=== PATIENT | female | born 1955 | race Two or more races ===

== ENCOUNTER 2018-03-05 17:30 | Inpatient (IN) | payer OTHER ==
--- NOTE | 2018-03-05 17:52 | PDOC ---
Rapid Medical Evaluation Time Seen by Provider: 03/05/18 17:47 Medical Evaluation: Allergies Allergy/AdvReac Type Severity Reaction Status Date / Time No Known Drug Allergies Allergy Verified 02/17/15 14:36 SEASONAL Allergy Uncoded 02/17/15 14:36 03/05/18 17:47 Pt c/o: rlq pain constant but worse at night x 3 days, pain w/ BM, denies constipation, denies hernia pt on brief exam: vss, no cva tenderness, rt suprapubic tenderness pt ordered for : ua, ucx, cbc, comp pt to proceed to the ED Discharge Disposition - Diagnosis Suprapubic pain - Referrals Referrals: Kamaljit Yoo MD [Primary Care Provider] - - Patient Instructions - Post Discharge Activity
[2018-03-05 18:22] LABS: BASO % 0.4 % (0-2.0); EOS % 2.1 % (0-4.5); LYMPH % 21.4 % (8-40); MCH 27.2 pg (25.7-33.7); MCHC 32.9 g/dl (32.0-36.0); MEAN CELL VOLUME 82.6 fl (80-96); MEAN PLT VOLUME 7.3 fl (7.5-11.1); MONO % 9.4 % (3.8-10.2); NEUT % 66.7 % (42.8-82.8); PLATELET COUNT 328 K/MM3 (134-434); RDW 15.3 % (11.6-15.6); WHITE BLOOD COUNT 9.1 K/mm3 (4.0-10.0)
[2018-03-05 18:26] LABS: HEMATOCRIT 39.7 % (32.4-45.2); HEMOGLOBIN 13.1 GM/dL (10.7-15.3)
[2018-03-05 18:54] LABS: ALK PHOS 99 U/L (45-117); ANION GAP 8 MMOL/L (8-16); BILIRUBIN,TOTAL 0.2 mg/dL (0.2-1); BLOOD UREA NITROGEN 19 mg/dL (7-18); CALCIUM 8.2 mg/dL (8.5-10.1); CHLORIDE 98 mmol/L (98-107); CO2 28 mmol/L (21-32); CREATININE 1.1 mg/dL (0.55-1.3); SGOT/AST 15 U/L (15-37); SGPT/ALT 15 U/L (13-61); SODIUM 135 mmol/L (136-145); TOT PROT 7.6 g/dl (6.4-8.2)
[2018-03-05 18:55] LABS: GLUCOSE,RANDOM 311 mg/dL (74-106)
[2018-03-05 19:12] LABS: URINE APPEARANCE CLEAR; URINE BILIRUBIN NEGATIVE (<2.0 mg/dL); URINE COLOR STRAW; URINE GLUCOSE (UA) 3+ (NEGATIVE); URINE KETONE NEGATIVE (NEGATIVE); URINE LEUK ESTERASE NEGATIVE (NEGATIVE); URINE NITRITE NEGATIVE (NEGATIVE); URINE PROTEIN NEGATIVE (NEGATIVE); URINE UROBILINOGEN NEGATIVE mg/dL (0.2-1.0)
[2018-03-05] MEDS ORDERED: ACETAMINOPHEN 500 MG TABLET (FP) PO ONE (20:07)
[2018-03-05] MEDS ORDERED: SODIUM CHLORIDE 1,000 ML IV STA ×2 (20:08→22:53)
[2018-03-05] MEDS ORDERED: ACETAMINOPHEN 1000 MG/100 ML VIAL (NON FORMULARY) IVPB ONE (20:08)
--- NOTE | 2018-03-05 20:08 | PDOC ---
History of Present Illness - General Chief Complaint: Pain, Acute Stated Complaint: RIGHT LEG PAIN Time Seen by Provider: 03/05/18 17:35 History Source: Patient Exam Limitations: No Limitations - History of Present Illness Initial Comments: 03/05/18 20:07 63 year old female with PMH DM presented to ED for RLQ x3 days. She stated the pain is intermittent, lasting 5-10 minutes at a time, started as "crampy" and now has progressed to "a pain", alleviated by warm compress, worsened at night time and with urination/defectation. She denied fever, chills, nausea, vomiting , diarrhea, constipation, dysuria, blood in stool, hematuria. Pt stated last BM today at 1100 AM, no straining, normal color and consistency. Pt stated she recently traveled to [place] x2 weeks ago. Past History - Past Medical History Allergies/Adverse Reactions: Allergies Allergy/AdvReac Type Severity Reaction Status Date / Time No Known Drug Allergies Allergy Verified 02/17/15 14:36 SEASONAL Allergy Uncoded 02/17/15 14:36 Home Medications: Ambulatory Orders metFORMIN HCL [Glucophage] 1,000 mg PO BID #0 tab 08/09/12 Glimepiride [Amaryl -] 4 mg PO BID 02/17/15 Insulin Glargine,Hum.rec.anlog [Lantus (nf)] 26 units SQ HS 02/17/15 Anemia: No Asthma: No Cancer: No Cardiac Disorders: No CVA: No COPD: No CHF: No Dementia: No Diabetes: Yes (iddm) GI Disorders: No Disorders: No HTN: No Hypercholesterolemia: No Liver Disease: No Seizures: No Thyroid Disease: No - Surgical History Abdominal Surgery: No Appendectomy: No Cardiac Surgery: No Cholecystectomy: No Lung Surgery: No Neurologic Surgery: No Orthopedic Surgery: No - Immunization History Immunization Up to Date: Yes - Suicide/Smoking/Psychosocial Hx Smoking Status: No Smoking History: Never smoked Have you smoked in the past 12 months: No Number of Cigarettes Smoked Daily: 0 Information on smoking cessation initiated: No Hx Alcohol Use: No Drug/Substance Use Hx: No Substance Use Type: Alcohol Hx Substance Use Treatment: No Review of Systems - Review of Systems Able to Perform ROS?: Yes Comments:: 03/05/18 20:13 General: denied fever, chills, night sweats, generalized weakness. HEENT: denied sore throat, rhinorrhea, ear pain. Heart: denied chest pain, palpitations, syncope, lower extremity swelling, diaphoresis. Respiratory: denied shortness of breath, cough, sputum production, hemoptysis. Abdomen: admitted to abdominal pain. denied nausea, vomiting, diarrhea, constipation, blood in stool. : denied dysuria, increased urinary frequency, hematuria, urinary incontinence , flank pain. Back: denied back pain. Musculoskeletal: denied joint pain, muscle pain, joint swelling. Neurological: denied headache, dizziness, numbness, tingling, weakness. Skin: denied rash, laceration, abrasion *Physical Exam - Vital Signs Last Vital Signs Temp Pulse Resp BP Pulse Ox 99.1 F 90 16 144/58 L 94 L 03/05/18 17:48 03/05/18 17:48 03/05/18 17:48 03/05/18 17:48 03/05/18 17:48 - Physical Exam Comments: 03/05/18 20:13 Constitutional: Well-nourished, Well-developed, appearing stated age. HEENT: head is normocephalic, atraumatic. EOMI. PERRLA. Neck: supple. Full ROM. Heart: regular rhythm. no murmurs, rubs or gallops. Lungs: clear to auscultation bilaterally. no crackles, rhonchi or wheezing. no stridor. Abdomen: soft. protuberant. tenderness to palpation of RLQ, no rebound. psoas negative. rovsing negative. normal bowel sounds. no guarding or masses. Extremities: Peripheral pulses intact. No lower extremity edema. Neurological: CN 2-12 grossly intact. Moves all four extremities. Psych: awake, alert, oriented x3. Follows commands. Answers questions appropriate ED Treatment Course - LABORATORY CBC & Chemistry Diagram: 03/05/18 18:12 03/05/18 18:12 - ADDITIONAL ORDERS Additional order review: Laboratory Results 03/05/18 03/05/18 18:53 18:12 Sodium 135 L Potassium 5.0 Chloride 98 Carbon Dioxide 28 Anion Gap 8 BUN 19 H Creatinine 1.1 Creat Clearance w eGFR 50.50 Random Glucose 311 H* Calcium 8.2 L Total Bilirubin 0.2 AST 15 ALT 15 Alkaline Phosphatase 99 Total Protein 7.6 Albumin 3.0 L Urine Color Straw Urine Appearance Clear Urine pH 6.0 Ur Specific [place] 1.011 Urine Protein Negative Urine Glucose (UA) 3+ H Urine Ketones Negative Urine Blood Negative Urine Nitrite Negative Urine Bilirubin Negative Urine Urobilinogen Negative Ur Leukocyte Esterase Negative 03/05/18 18:12 RBC 4.80 MCV 82.6 MCHC 32.9 RDW 15.3 D MPV 7.3 L Neutrophils % 66.7 Lymphocytes % 21.4 D Monocytes % 9.4 Eosinophils % 2.1 D Basophils % 0.4 Medical Decision Making - Medical Decision Making 03/05/18 20:16 63 year old female with PMH DM presented to ED for RLQ pain x3 days. No N/V/D/ constipation/fever. Pt recently traveled to [place] x2 weeks ago. Abdomen soft, tenderness to RLQ. Initial Vital Signs Temp Pulse Resp BP Pulse Ox 99.1 F 90 16 144/58 L 94 L 03/05/18 17:48 03/05/18 17:48 03/05/18 17:48 03/05/18 17:48 03/05/18 17:48 Afebrile. No tachycardia. No tachypnea. Mild hypertension, patient is in pain. - Tylenol ordered Mild hypoxia on room air. - No SOB, lungs clear, capillary refill<2 seconds, no tachypnea. CBC WBC 9.1 K/mm3 (4.0-10.0) 03/05/18 18:12 RBC 4.80 M/mm3 (3.60-5.2) 03/05/18 18:12 Hgb 13.1 GM/dL (10.7-15.3) 03/05/18 18:12 Hct 39.7 % (32.4-45.2) 03/05/18 18:12 MCV 82.6 fl (80-96) 03/05/18 18:12 MCH 27.2 pg (25.7-33.7) D 03/05/18 18:12 MCHC 32.9 g/dl (32.0-36.0) 03/05/18 18:12 RDW 15.3 % (11.6-15.6) D 03/05/18 18:12 Plt Count 328 K/MM3 (134-434) 03/05/18 18:12 MPV 7.3 fl (7.5-11.1) L 03/05/18 18:12 Absolute Neuts (auto) 6.1 K/mm3 (1.5-8.0) 03/05/18 18:12 Neutrophils % 66.7 % (42.8-82.8) 03/05/18 18:12 Lymphocytes % 21.4 % (8-40) D 03/05/18 18:12 Monocytes % 9.4 % (3.8-10.2) 03/05/18 18:12 Eosinophils % 2.1 % (0-4.5) D 03/05/18 18:12 Basophils % 0.4 % (0-2.0) 03/05/18 18:12 Nucleated RBC % 0 % (0-0) 03/05/18 18:12 No leukocytosis. No anemia. CMP Sodium 135 mmol/L (136-145) L 03/05/18 18:12 Potassium 5.0 mmol/L (3.5-5.1) 03/05/18 18:12 Chloride 98 mmol/L (98-107) 03/05/18 18:12 Carbon Dioxide 28 mmol/L (21-32) 03/05/18 18:12 Anion Gap 8 MMOL/L (8-16) 03/05/18 18:12 BUN 19 mg/dL (7-18) H 03/05/18 18:12 Creatinine 1.1 mg/dL (0.55-1.3) 03/05/18 18:12 Creat Clearance w eGFR 50.50 (>60) 03/05/18 18:12 Random Glucose 311 mg/dL (74-106) H* 03/05/18 18:12 Calcium 8.2 mg/dL (8.5-10.1) L 03/05/18 18:12 Total Bilirubin 0.2 mg/dL (0.2-1) 03/05/18 18:12 AST 15 U/L (15-37) 03/05/18 18:12 ALT 15 U/L (13-61) 03/05/18 18:12 Alkaline Phosphatase 99 U/L (45-117) 03/05/18 18:12 Total Protein 7.6 g/dl (6.4-8.2) 03/05/18 18:12 Albumin 3.0 g/dl (3.4-5.0) L 03/05/18 18:12 Hyperglycemia - 1000 cc normal saline ordered Normal electrolytes. No CRISTAL. Normal LFTs. Urine Test Results Urine Color Straw 03/05/18 18:53 Urine Appearance Clear 03/05/18 18:53 Urine pH 6.0 (5.0-8.0) 03/05/18 18:53 Ur Specific [place] 1.011 (1.010-1.035) 03/05/18 18:53 Urine Protein Negative (NEGATIVE) 03/05/18 18:53 Urine Glucose (UA) 3+ (NEGATIVE) H 03/05/18 18:53 Urine Ketones Negative (NEGATIVE) 03/05/18 18:53 Urine Blood Negative (NEGATIVE) 03/05/18 18:53 Urine Nitrite Negative (NEGATIVE) 03/05/18 18:53 Urine Bilirubin Negative (<2.0 mg/dL) 03/05/18 18:53 Ur Leukocyte Esterase Negative (NEGATIVE) 03/05/18 18:53 No UTI. Glucosuria. Pending CT Abdomen/Pelvis with IV contrast. 03/05/18 21:08 Pt reassessed, sitting comfortably in chair. Reported pain is improving, currently 7/10. 03/05/18 22:27 CT abdomen/pelvis report: 2 abscess adjacent to appendix Flagyl and Cipro IV ordered. Surgery paged. Preop labs ordered. CXR, EKG ordered. 03/05/18 22:[address] Reese, who recs Zosyn over Flagyl/Cipro, IV fluid hydration, NPO and stated she will see the patient in the morning. Zosyn ordered. Cipro/Flagyl cancelled. She requested ID consult, Dr. Prajapati. 03/05/18 23:14 Type and Screen QNS per lab. Will redraw. 03/06/18 01:12 Dr. Prajapati paged at [phone] [phone], [phone]. Dr. Reese notified. She stated she will ensure patient gets AM Zosyn dose and will call Dr. Prajapati in the AM. *DC/Admit/Observation/Transfer Diagnosis at time of Disposition: Appendicitis, Intra-abdominal abscess - Discharge Dispostion Condition at time of disposition: Stable Decision to Admit order: Yes - Referrals - Patient Instructions - Post Discharge Activity
[2018-03-05] MEDS ORDERED: ACETAMINOPHEN INJECTION 100 ML IVPB ONE (20:14)
--- NOTE | 2018-03-05 21:40 | PDOC ---
Attending Attestation - HPI HPI: Patient is a 63 y/o female with a past medical history of diabetes who presents to the emergency department for a 3 day history of crampy right lower quadrant abdominal pain which is exacerbated with urination and defecation. Pt had last BM today at 1100 AM. Pt states she recently traveled to [place] 2 weeks ago. Denies chest pain, shortness of breath, headache, and dizziness. Denies fevers, chills, nausea, vomiting, diarrhea, and constipation. <Morgan Estrada - Last Filed: 03/05/18 21:46> - Resident Resident Name: Monica Flood - ED Attending Attestation I have performed the following: I have examined & evaluated the patient, The case was reviewed & discussed with the resident, I agree w/resident's findings & plan, Exceptions are as noted - HPI HPI: 03/05/18 21:40 63 yo female p/w diffuse abd pain - Physicial Exam PE: 03/05/18 22:48 wnwd 63 yo female with severe RLQ pain head ncat neck supple lungs cta b./l cvs [id number] abd ++tenderness RLQ ,guarding ext no edema slin warma nd dry neuro axox3,ambulatory,no gross focal neuro deficits - Medical Decision Making 03/05/18 23:19 ct scan c/s acute appendicitis with two small abscesses Dr Reese consulted and pt admitted to med/surg ,receiving IV antibiotics <Scarlet Abdullahi - Last Filed: 03/05/18 23:21> Attestations - Attestations Documentation prepared by Morgan Estrada, acting as nuclear medicine medical director for Scarlet Abdullahi MD. <Morgan Estrada - Last Filed: 03/05/18 21:46>
[2018-03-05] MEDS ORDERED: CIPROFLOXACIN 400 MG/D5W 400 MG/200 ML IVPB IVPB ONE (22:25)
[2018-03-05] MEDS ORDERED: PIPERACILLIN/TAZOB 4.5 GM 4.5 GM in DEXTROSE 5%-WATER 100 ML IVPB ONE (22:53)
[2018-03-05 23:07] LABS: INR 1.1 (0.83-1.09)
[2018-03-05 23:09] LABS: ACTIVATED PTT 24.7 SECONDS (25.2-36.5)
[2018-03-05] MEDS ORDERED: ONDANSETRON 4 MG/2 ML VIAL IVPUSH PRN (23:12)
[2018-03-05] MEDS ORDERED: SODIUM CHLORIDE 1,000 ML IV SCH (23:15)
[2018-03-05] MEDS ORDERED: PIPERACILLIN/TAZOB 4.5 GM 4.5 GM/100 ML BAG IVPB ONE (23:33)
[2018-03-05] MEDS ORDERED: HEMOQUE TEST 1 EACH EACH ONE (23:47)
[2018-03-05] MEDS: PIPERACILLIN/TAZOB 4.5 GM 4.5 GM in DEXTROSE 5%-WATER 100 ML IVPB SCH (23:54)
[2018-03-05] MEDS: INSULIN SLIDING SCALE (NOVOLOG) 1 VIAL SQ SCH (23:57)
[2018-03-06] MEDS ORDERED: INSULIN (NOVOLOG) ASPART 100 UNITS/ML 10ML VIAL ONE ×2 (00:05→11:33)
[2018-03-06] MEDS: SODIUM CHLORIDE 1,000 ML IV SCH ×3 (00:09→17:29)
[2018-03-06] MEDS: HEPARIN NA (PORCINE) 5,000 UNITS/ML 1ML VIAL SQ SCH ×4 (00:09→22:38)
[2018-03-06] MEDS ORDERED: DEXTROSE 5%-WATER 100 ML IVPB ONE ×3 (01:49→17:35)
[2018-03-06] MEDS ORDERED: PIPERACILLIN/TAZOBACTAM 4.5 GM VIAL IVPB ONE ×3 (01:49→17:35)
[2018-03-06 02:38] VITALS: BMI 47.8
[2018-03-06] MEDS: PIPERACILLIN/TAZOB 4.5 GM 4.5 GM in DEXTROSE 5%-WATER 100 ML IVPB SCH ×3 (05:22→18:01)
[2018-03-06] MEDS: morphine SULFATE 4 MG/ML VIAL IVPUSH PRN ×2 (06:02→10:02)
[2018-03-06 06:57] LABS: BASO % 0.4 % (0-2.0); EOS % 2.4 % (0-4.5); HEMATOCRIT 37.4 % (32.4-45.2); HEMOGLOBIN 11.4 GM/dL (10.7-15.3); LYMPH % 20.5 % (8-40); MCH 25.6 pg (25.7-33.7); MCHC 30.6 g/dl (32.0-36.0); MEAN CELL VOLUME 83.6 fl (80-96); MEAN PLT VOLUME 7.3 fl (7.5-11.1); MONO % 11.5 % (3.8-10.2); NEUT % 65.2 % (42.8-82.8); PLATELET COUNT 288 K/MM3 (134-434); RBC 4.47 M/mm3 (3.60-5.2); RDW 15.4 % (11.6-15.6); WHITE BLOOD COUNT 7.7 K/mm3 (4.0-10.0)
[2018-03-06] MEDS: INSULIN SLIDING SCALE (NOVOLOG) 1 VIAL SQ SCH ×4 (06:57→22:38)
[2018-03-06 07:50] LABS: ANION GAP 5 MMOL/L (8-16); BLOOD UREA NITROGEN 15 mg/dL (7-18); CALCIUM 7.9 mg/dL (8.5-10.1); CHLORIDE 104 mmol/L (98-107); CO2 29 mmol/L (21-32); CREATININE 0.8 mg/dL (0.55-1.3); GLUCOSE,RANDOM 187 mg/dL (74-106); MAGNESIUM 1.8 mg/dL (1.8-2.4); PHOSPHOROUS 3.6 mg/dL (2.5-4.9); POTASSIUM 4.6 mmol/L (3.5-5.1); SODIUM 139 mmol/L (136-145)
--- NOTE | 2018-03-06 11:37 | HP ---
Admitting History and Physical - Primary Care Physician PCP: Yaw Cardenas (Dr. Craft for DM) - Admission Chief Complaint: RLQ pain History of Present Illness: 63yo [place] F with DM on Lantus and po meds, morbid obesity, s/p , began having RLQ pain on Monday, after eating lightly at Thanksgiving meal without overt pain. night/Mon am she experienced symptoms of reflux ( "repeating the food") but no nausea or vomiting. Monday she woke up from sleep with sweating and chills. She has been eating throughout the weekend, but the pain persisted and has slowly gotten worse. She did not take any medication for it. Having normal BMs, no diarrhea or constipation. Last was yesterday. She had an upcoming appt with Dr. Craft for DM this Monday, and figured if she still had the pain, she would ask him about it then, but it got bad enough yesterday that she came to ER. In ER, wbc 9, labs reflect an element of dehydration, and glucose was high, but she had eaten about an hour and half prior, chicken and rice. CT was done showing ruptured appendicitis with two very small abscesses in the RLQ and inflammatory changes with the appendiceal tip seen in the area of the fluid. She was started on IV fluids and antibiotics and given pain medication. ER spoke with me/surgery regarding admission, and she is seen this morning in her bed on the floor. She just received morphine, and her pain is improving, but still present. She states her urine is clear/light, and she feels less dry in the mouth. She had some difficulty moving to boost up in bed, but is able to sit on the edge with help for positioning. She gets about 1000ml on IS. Nasal O2 was started on my arrival for sats in 80s, which improved to 90% just with sitting up and 2L NC. Her daughter arrived during the exam. History Source: Patient Limitations to Obtaining History: No Limitations - Past Medical History Reproductive: Yes: Postmenopausal (from age 58) ...LMP: 08/19/12 Endocrine: Yes: Diabetes Mellitus Additional Past Medical History: foot infection about 4 yrs ago requiring steroid course for several months - Past Surgical History Past Surgical History: Yes: Cataract Removal (left 02/16/18), - Smoking History Smoking history: Never smoked Have you smoked in the past 12 months: No - Alcohol/Substance Use Hx Alcohol Use: Yes (rare) History of Substance Use: reports: None - Social History ADL: Independent History of Recent Travel: Yes ([place] for 2 weeks returned 02/07/18) Home Medications - Allergies Allergies/Adverse Reactions: Allergies Allergy/AdvReac Type Severity Reaction Status Date / Time No Known Drug Allergies Allergy Verified 02/17/15 14:36 SEASONAL Allergy Uncoded 02/17/15 14:36 - Home Medications Home Medications: Ambulatory Orders metFORMIN HCL [Glucophage] 1,000 mg PO BID #0 tab 08/09/12 Glimepiride [Amaryl -] 4 mg PO BID 02/17/15 Insulin Glargine,Hum.rec.anlog [Lantus (nf)] 26 units SQ HS 02/17/15 Family Disease History - Family Disease History Family Disease History: Diabetes: Mother, CA: Sister (bone ca dx age 53 3 yrs ago), Other: Father (htn) Review of Systems - Review of Systems Constitutional: reports: Fever (Sat with hpi), Loss of Appetite ( had low appetite), Night Sweats (Sat with hpi) Eyes: reports: Blurred Vision (R eye "retina is broken"), Recent Change in Vision (s/p L cataract removal 02/16) HENT: denies: Difficult Swallowing, Nasal Congestion, Throat Pain Neck: denies: Swollen Glands, Tenderness Cardiovascular: denies: Chest Pain, Palpitations Respiratory: denies: Cough, SOB Gastrointestinal: reports: Abdominal Pain (with hpi), Indigestion ("retasted" Thanksgiving meal later that night but no nausea). denies: Constipation, Diarrhea, Nausea, Vomiting Genitourinary: reports: Dysuria (with hpi). denies: Burning Musculoskeletal: reports: Back Pain (right flank in mornings for about a month) . denies: Joint Pain, Muscle Pain Integumentary: denies: Change in Color, Rash Neurological: denies: Dizziness, Headache Endocrine: reports: Other (difficulty losing weight since steroids/menopause ~4- 5 yrs ago, cannot exercise because of medical restrictions) Psychiatric: denies: Anxiety, Depression Physical Examination Vital Signs: Vital Signs Temperature 98.0 F 03/06/18 06:00 Pulse Rate 81 03/06/18 06:00 Respiratory Rate 20 03/06/18 06:00 Blood Pressure 136/73 03/06/18 06:00 O2 Sat by Pulse Oximetry (%) 100 03/06/18 00:19 Constitutional: Yes: No Distress, Calm, Obese Eyes: Yes: Conjunctiva Clear, EOM Intact HENT: Yes: Atraumatic, Normocephalic Neck: Yes: Supple, Trachea Midline Cardiovascular: Yes: Regular Rate and Rhythm. No: Murmur Respiratory: Yes: Regular, CTA Bilaterally, On Nasal O2 (nurse started because of sats in 80s on RA - improved with sitting position, pain control; pt using IS - will check without O2). No: Wheezes Gastrointestinal: Yes: Soft, Abdomen, Obese, Hypoactive Bowel Sounds, Tenderness (RLQ and laterally, also referred from RUQ, also some suprapubic, no R/G). No: Tenderness, Epigastrium ...Rectal Exam: Yes: Deferred Renal/: No: CVA Tenderness - Left, CVA Tenderness - Right Musculoskeletal: No: Back Pain (no direct tenderness), Joint Swelling Extremities: No: Cool, Cyanosis Edema: No Peripheral Pulses WNL: Yes Integumentary: No: Jaundice, Rash Neurological: Yes: Alert, Oriented Psychiatric: Yes: Alert, Oriented Labs: CBC, BMP 03/06/18 06:30 03/06/18 06:30 CMP Sodium 139 mmol/L (136-145) 03/06/18 06:30 Potassium 4.6 mmol/L (3.5-5.1) 03/06/18 06:30 Chloride 104 mmol/L (98-107) 03/06/18 06:30 Carbon Dioxide 29 mmol/L (21-32) 03/06/18 06:30 Anion Gap 5 MMOL/L (8-16) L 03/06/18 06:30 BUN 15 mg/dL (7-18) 03/06/18 06:30 Creatinine 0.8 mg/dL (0.55-1.3) 03/06/18 06:30 Creat Clearance w eGFR > 60 (>60) 03/06/18 06:30 POC Glucometer 212 UNITS (80-120) 03/06/18 06:29 Random Glucose 187 mg/dL (74-106) H 03/06/18 06:30 Calcium 7.9 mg/dL (8.5-10.1) L 03/06/18 06:30 Phosphorus 3.6 mg/dL (2.5-4.9) 03/06/18 06:30 Magnesium 1.8 mg/dL (1.8-2.4) 03/06/18 06:30 Total Bilirubin 0.2 mg/dL (0.2-1) 03/05/18 18:12 AST 15 U/L (15-37) 03/05/18 18:12 ALT 15 U/L (13-61) 03/05/18 18:12 Alkaline Phosphatase 99 U/L (45-117) 03/05/18 18:12 Total Protein 7.6 g/dl (6.4-8.2) 03/05/18 18:12 Albumin 3.0 g/dl (3.4-5.0) L 03/05/18 18:12 INR, PTT INR 1.10 (0.83-1.09) H 03/05/18 22:45 Urine Test Results Urine Color Straw 03/05/18 18:53 Urine Appearance Clear 03/05/18 18:53 Urine pH 6.0 (5.0-8.0) 03/05/18 18:53 Ur Specific [place] 1.011 (1.010-1.035) 03/05/18 18:53 Urine Protein Negative (NEGATIVE) 03/05/18 18:53 Urine Glucose (UA) 3+ (NEGATIVE) H 03/05/18 18:53 Urine Ketones Negative (NEGATIVE) 03/05/18 18:53 Urine Blood Negative (NEGATIVE) 03/05/18 18:53 Urine Nitrite Negative (NEGATIVE) 03/05/18 18:53 Urine Bilirubin Negative (<2.0 mg/dL) 03/05/18 18:53 Ur Leukocyte Esterase Negative (NEGATIVE) 03/05/18 18:53 BUN/Cr improved from 19/1.1 wbc from 9 Imaging - Results Chest X-ray: Report Reviewed, Image Reviewed Cat Scan: Report Reviewed, Image Reviewed (images reviewed - RLQ with inflammation, ruptured appendicitis with two small adjacent fluid collections (~ 2cm), no free air, no obstruction) Problem List - Problems (1) Acute appendicitis with perforation, localized peritonitis, and abscess Assessment/Plan: appendicitis likely started around and progressed to perforation over weekend, given clinical history and presentation admit to surgery NPO/IVF IV antibiotics, Zosyn with ID on board pain meds prn - nonnarcotics first line, morphine breakthrough DVT prophylaxis trend labs encourage IS/OOB/ambulation as able with assist serial exams discussed with patient and daughter that surgery/appendectomy could be necessary , but at this point in presentation, will pursue treatment with IV antibiotics, fluids and bowel rest with plan for interval appendectomy after recovery pt is anticipated to spend at least 3-5 days in hospital on IV antibiotics, until able to tolerate po when pain/tenderness resolves, and transition to po antibiotics to complete course at home risks of operation include bleeding, infection, hernia, injury to adjacent intestines, pelvic and urinary structures, bowel leak, intraabdominal abscess, higher chance of conversion to open from laparoscopic procedure if she improves with conservative treatment, would prefer to plan for laparoscopic possible open appendectomy in 6-8 weeks Code(s): K35.33 - ACUTE APPENDICITIS WITH PERF AND LOC PERITONITIS, WITH ABSCS Qualifiers: Appendicitis gangrene presence: without gangrene Qualified Code(s): K35.33 - Acute appendicitis with perforation and localized peritonitis, with abscess (2) RLQ abdominal pain Code(s): R10.31 - RIGHT LOWER QUADRANT PAIN (3) Diabetes mellitus type 2 with retinopathy Assessment/Plan: pt sees Dr. Craft hold metformin at least [address] scan and until back on diabetic diet hold amaryl as well will hold lantus for now and cover with SSI prn with fingersticks regularly pt reports home am baseline sugars 90s-110 range usually Code(s): E11.319 - TYPE 2 DIABETES W UNSP DIABETIC RTNOP W/O MACULAR EDEMA Qualifiers: Diabetes mellitus detention insulin use: with detention use Diabetic retinopathy severity: with proliferative retinopathy Proliferative retinopathy type: with traction retinal detachment not involving macula Laterality: right Qualified Code(s): E11.3531 - Type 2 diabetes mellitus 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
--- NOTE | 2018-03-06 12:32 | EKG ---
Test Reason : Blood Pressure : / mmHG Vent. Rate : 086 BPM Atrial Rate : 086 BPM P-R Int : 142 ms QRS Dur : 082 ms QT Int : 372 ms P-R-T Axes : 004 -05 001 degrees QTc Int : 445 ms NORMAL SINUS RHYTHM MINIMAL VOLTAGE CRITERIA FOR LVH, MAY BE NORMAL VARIANT BORDERLINE ECG Confirmed by MD VIOLETA, MIRELA ([id number]) on 03/06/2018 12:32:29 PM Referred By: Confirmed By:MIRELA MCDANIEL MD
--- NOTE | 2018-03-06 12:53 | CON.ID ---
Consult Consult Specialty:: infectious diseases Referred by:: Reason for Consultation:: ac appnedicitis - History of Present Illness Chief Complaint: abd pain rlq History of Present Illness: 63yo Bangladeshi F with DM morbid obesity, s/p , came in with RLQ pain on Monday, after eating lightly at Thanksgiving meal without overt pain. night/Mon am she experienced symptoms of reflux ("repeating the food") but no nausea or vomiting. Monday she woke up from sleep with sweating and chills. She has been eating throughout the weekend, but the pain persisted and has slowly gotten worse. She did not take any medication for it. Having normal BMs, n . CT was done showing ruptured appendicitis with two very small abscesses in the RLQ and inflammatory changes with the appendiceal tip seen in the area of the fluid. She was started on IV fluids and antibiotics patient currently still having abd pain,but is feeling better patient seen by surgery department - History Source History Provided By: Patient Limitations to Obtaining History: No Limitations - Past Medical History ...LMP: 08/19/12 Endocrine: Yes: Diabetes Mellitus - Past Surgical History Past Surgical History: Yes: Cataract Removal (left 02/16/18), - Alcohol/Substance Use Hx Alcohol Use: Yes (rare) History of Substance Use: reports: None - Smoking History Smoking history: Never smoked Have you smoked in the past 12 months: No Aproximately how many cigarettes per day: 0 - Social History ADL: Independent History of Recent Travel: Yes ([place] for 2 weeks returned 02/07/18) Home Medications - Allergies Allergies/Adverse Reactions: Allergies Allergy/AdvReac Type Severity Reaction Status Date / Time No Known Drug Allergies Allergy Verified 02/17/15 14:36 SEASONAL Allergy Uncoded 02/17/15 14:36 - Home Medications Home Medications: Ambulatory Orders metFORMIN HCL [Glucophage] 1,000 mg PO BID #0 tab 08/09/12 Glimepiride [Amaryl -] 4 mg PO BID 02/17/15 Insulin Glargine,Hum.rec.anlog [Lantus (nf)] 26 units SQ HS 02/17/15 Family Disease History - Family Disease History Family Disease History: Diabetes: Mother, CA: Sister (bone ca dx age 53 3 yrs ago), Other: Father (htn) Review of Systems - Review of Systems Constitutional: reports: No Symptoms Eyes: reports: No Symptoms HENT: reports: No Symptoms Neck: reports: No Symptoms Cardiovascular: reports: No Symptoms Respiratory: reports: No Symptoms Gastrointestinal: reports: Abdominal Pain, Other Genitourinary: reports: No Symptoms Musculoskeletal: reports: No Symptoms Integumentary: reports: No Symptoms Neurological: reports: No Symptoms Endocrine: reports: No Symptoms Hematology/Lymphatic: reports: No Symptoms Psychiatric: reports: No Symptoms Physical Exam Vital Signs: Vital Signs Temperature 98.0 F 03/06/18 06:00 Pulse Rate 81 03/06/18 06:00 Respiratory Rate 20 03/06/18 06:00 Blood Pressure 136/73 03/06/18 06:00 O2 Sat by Pulse Oximetry (%) 94 L 03/06/18 09:00 Constitutional: Yes: Calm, Mild Distress, Obese (morbid) Cardiovascular: Yes: Regular Rate and Rhythm Respiratory: Yes: Regular, CTA Bilaterally Gastrointestinal: Yes: Soft, Hypoactive Bowel Sounds, Tenderness (rlq) Musculoskeletal: Yes: WNL Extremities: Yes: Other Neurological: Yes: Alert, Oriented Psychiatric: Yes: Alert, Oriented Labs: CBC, BMP 03/06/18 06:30 03/06/18 06:30 Imaging - Results Chest X-ray: Report Reviewed, Image Reviewed Cat Scan: Report Reviewed, Image Reviewed Assessment/Plan Problem List - Problems (1) Acute appendicitis with perforation, localized peritonitis, and abscess Code(s): K35.33 - ACUTE APPENDICITIS WITH PERF AND LOC PERITONITIS, WITH ABSCS Qualifiers: Appendicitis gangrene presence: without gangrene Qualified Code(s): K35.33 - Acute appendicitis with perforation and localized peritonitis, with abscess (2) RLQ abdominal pain Code(s): R10.31 - RIGHT LOWER QUADRANT PAIN (3) Diabetes mellitus type 2 with retinopathy Code(s): E11.319 - TYPE 2 DIABETES W UNSP DIABETIC RTNOP W/O MACULAR EDEMA Qualifiers: Diabetes mellitus fci insulin use: with superintendent marine oil terminal use Diabetic retinopathy severity: with proliferative retinopathy Proliferative retinopathy type: with traction retinal detachment not involving macula Laterality: right Qualified Code(s): E11.3531 - Type 2 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
[2018-03-06] MEDS: ACETAMINOPHEN 1000 MG/100 ML VIAL (NON FORMULARY) IVPB PRN (13:12)
[2018-03-07] MEDS ORDERED: DEXTROSE 5%-WATER 100 ML IVPB ONE ×3 (01:13→20:32)
[2018-03-07] MEDS ORDERED: PIPERACILLIN/TAZOBACTAM 4.5 GM VIAL IVPB ONE ×3 (01:13→20:32)
[2018-03-07] MEDS: SODIUM CHLORIDE 1,000 ML IV SCH ×2 (01:24→12:18)
[2018-03-07] MEDS: PIPERACILLIN/TAZOB 4.5 GM 4.5 GM in DEXTROSE 5%-WATER 100 ML IVPB SCH ×3 (01:24→20:37)
[2018-03-07] MEDS: ACETAMINOPHEN 1000 MG/100 ML VIAL (NON FORMULARY) IVPB PRN ×2 (02:47→17:02)
[2018-03-07] MEDS: INSULIN SLIDING SCALE (NOVOLOG) 1 VIAL SQ SCH ×4 (05:42→22:35)
[2018-03-07] MEDS: HEPARIN NA (PORCINE) 5,000 UNITS/ML 1ML VIAL SQ SCH ×3 (05:43→21:51)
[2018-03-07 08:08] LABS: BASO % 0.3 % (0-2.0); EOS % 2.3 % (0-4.5); HEMOGLOBIN 11.6 GM/dL (10.7-15.3); LYMPH % 18.1 % (8-40); MCH 27.4 pg (25.7-33.7); MCHC 33.1 g/dl (32.0-36.0); MEAN CELL VOLUME 82.9 fl (80-96); MEAN PLT VOLUME 7.6 fl (7.5-11.1); MONO % 10.3 % (3.8-10.2); PLATELET COUNT 294 K/MM3 (134-434); RBC 4.23 M/mm3 (3.60-5.2); RDW 15.1 % (11.6-15.6); WHITE BLOOD COUNT 7.4 K/mm3 (4.0-10.0)
[2018-03-07 08:37] LABS: ANION GAP 6 MMOL/L (8-16); BLOOD UREA NITROGEN 9 mg/dL (7-18); CALCIUM 7.5 mg/dL (8.5-10.1); CHLORIDE 106 mmol/L (98-107); CO2 28 mmol/L (21-32); CREATININE 0.6 mg/dL (0.55-1.3); GLUCOSE,RANDOM 113 mg/dL (74-106); POTASSIUM 4.3 mmol/L (3.5-5.1); SODIUM 141 mmol/L (136-145)
--- NOTE | 2018-03-07 12:23 | PN ---
Progress Note, Physician Chief Complaint: RLQ pain History of Present Illness: Pt with perforated appendicitis with very small localized abscesses/phlegmon, nothing drainable. No overnight events. Pt seen and examined in bed. Ambulating to bathroom as needed, had formed BM early this am. Slept ok after IV tylenol, reports pain 4/10, overall improving. Nurse about to change IV site from R hand to more stable location. Pt is using IS and sat in chair for an hour already this morning. - Current Medication List Current Medications: Active Medications Acetaminophen (Ofirmev Injection -) 1,000 mg IVPB Q6H PRN PRN Reason: Pain Level 4 - 10 Last Admin: 03/07/18 02:47 Dose: 1,000 mg Heparin Sodium (Porcine) (Heparin -) 5,000 unit SQ TID SARINA Last Admin: 03/07/18 05:43 Dose: 5,000 unit Sodium Chloride (Normal Saline -) 1,000 mls @ 150 mls/hr IV ASDIR SARINA Last Admin: 03/07/18 01:24 Dose: 150 mls/hr Piperacillin Sod/Tazobactam (Sod 4.5 gm/ Dextrose) 100 mls @ 200 mls/hr IVPB Q8H-IV SARINA; Protocol Last Admin: 03/07/18 01:24 Dose: 200 mls/hr Insulin Aspart (Novolog Vial Sliding Scale -) 1 vial SQ Q6H SARINA; Protocol Last Admin: 03/07/18 05:42 Dose: Not Given Morphine Sulfate (Morphine Sulfate) 4 mg IVPUSH Q4H PRN PRN Reason: Pain Level 7 - 10 BREAKTHROUGH Last Admin: 03/06/18 10:02 Dose: 4 mg Ondansetron HCl (Zofran Injection) 4 mg IVPUSH Q6H PRN PRN Reason: NAUSEA - Objective Vital Signs: Vital Signs Temperature 98.0 F 03/07/18 06:00 Pulse Rate 83 03/07/18 06:00 Respiratory Rate 20 03/07/18 06:00 Blood Pressure 132/60 03/07/18 06:00 O2 Sat by Pulse Oximetry (%) 94 L 03/06/18 21:00 Constitutional: Yes: No Distress, Calm, Obese Eyes: Yes: Conjunctiva Clear, EOM Intact HENT: Yes: Atraumatic, Normocephalic Cardiovascular: Yes: Regular Rate and Rhythm. No: Murmur Respiratory: Yes: Regular, CTA Bilaterally Gastrointestinal: Yes: Normal Bowel Sounds (present in 2/4 quadrants, less in others), Soft, Abdomen, Obese, Tenderness (RLQ, improved from yesterday; suprapubic, also less than before). No: Tenderness, Epigastrium, Tenderness, Rebound ...Rectal Exam: Yes: Deferred Extremities: No: Cool, Cyanosis Integumentary: No: Jaundice, Rash Neurological: Yes: Alert, Oriented Labs: CBC, BMP 03/07/18 06:15 03/07/18 06:15 HbA1C 9.3 Problem List - Problems (1) Acute appendicitis with perforation, localized peritonitis, and abscess Assessment/Plan: pain and tenderness a bit less, overall improving slowly continue NPO/IVF - will change to maintenance fluids continue IV antibiotics, Zosyn with ID on board pain meds prn - nonnarcotics first line, morphine breakthrough only DVT prophylaxis trend labs encourage IS/OOB/ambulation as able with assist serial exams continue nonoperative therapy with antibiotics and bowel rest Code(s): K35.33 - ACUTE APPENDICITIS WITH PERF AND LOC PERITONITIS, WITH ABSCS Qualifiers: Appendicitis gangrene presence: without gangrene Qualified Code(s): K35.33 - Acute appendicitis with perforation and localized peritonitis, with abscess (2) RLQ abdominal pain Assessment/Plan: improving Code(s): R10.31 - RIGHT LOWER QUADRANT PAIN (3) Diabetes mellitus type 2 with retinopathy Assessment/Plan: pt sees Dr. Craft hold metformin at least [address] scan and until back on diabetic diet hold amaryl as well will hold lantus for now and cover with SSI prn with fingersticks regularly pt reports home am baseline sugars 90s-110 range usually HbA1C 9.3 glucose in normal range Code(s): E11.319 - TYPE 2 DIABETES W UNSP DIABETIC RTNOP W/O MACULAR EDEMA Qualifiers: Diabetes mellitus terminal operations supervisor insulin use: with terminal operations supervisor use Diabetic retinopathy severity: with proliferative retinopathy Proliferative retinopathy type: with traction retinal detachment not involving macula Laterality: right Qualified Code(s): E11.3531 - Type 2 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
[2018-03-07] MEDS ORDERED: MORPHINE SULFATE 2 MG/ML VIAL IVPUSH PRN (12:29)
--- NOTE | 2018-03-07 12:43 | PN ---
Progress Note, Physician History of Present Illness: patient starting to feel better still with abd pain - Current Medication List Current Medications: Active Medications Acetaminophen (Ofirmev Injection -) 1,000 mg IVPB Q6H PRN PRN Reason: Pain Level 4 - 10 Last Admin: 03/07/18 02:47 Dose: 1,000 mg Heparin Sodium (Porcine) (Heparin -) 5,000 unit SQ TID SARINA Last Admin: 03/07/18 05:43 Dose: 5,000 unit Piperacillin Sod/Tazobactam (Sod 4.5 gm/ Dextrose) 100 mls @ 200 mls/hr IVPB Q8H-IV SARINA; Protocol Last Admin: 03/07/18 12:18 Dose: 200 mls/hr Potassium Chloride 10 meq/ (Sodium Chloride) 1,005 mls @ 125 mls/hr IVPB Q8H SARINA Insulin Aspart (Novolog Vial Sliding Scale -) 1 vial SQ Q6H SARINA; Protocol Last Admin: 03/07/18 05:42 Dose: Not Given Morphine Sulfate (Morphine Sulfate) 2 mg IVPUSH Q4H PRN PRN Reason: Pain Level 7 - 10 BREAKTHROUGH Ondansetron HCl (Zofran Injection) 4 mg IVPUSH Q6H PRN PRN Reason: NAUSEA - Objective Vital Signs: Vital Signs Temperature 98.0 F 03/07/18 06:00 Pulse Rate 83 03/07/18 06:00 Respiratory Rate 20 03/07/18 06:00 Blood Pressure 132/60 03/07/18 06:00 O2 Sat by Pulse Oximetry (%) 94 L 03/06/18 21:00 Constitutional: Yes: Calm, Obese Eyes: Yes: Conjunctiva Clear Cardiovascular: Yes: Regular Rate and Rhythm Respiratory: Yes: Regular, Poor Air Entry (bases) Gastrointestinal: Yes: Soft, Hypoactive Bowel Sounds, Tenderness Musculoskeletal: Yes: WNL Extremities: Yes: Other Neurological: Yes: Alert, Oriented Psychiatric: Yes: Alert, Oriented Labs: CBC, BMP 03/07/18 06:15 03/07/18 06:15 INR, PTT INR 1.10 (0.83-1.09) H 03/05/18 22:45 Assessment/Plan Problem List - Problems (1) Acute appendicitis with perforation, localized peritonitis, and abscess Code(s): K35.33 - ACUTE APPENDICITIS WITH PERF AND LOC PERITONITIS, WITH ABSCS Qualifiers: Appendicitis gangrene presence: without gangrene Qualified Code(s): K35.33 - Acute appendicitis with perforation and localized peritonitis, with abscess (2) RLQ abdominal pain Code(s): R10.31 - RIGHT LOWER QUADRANT PAIN (3) Diabetes mellitus type 2 with retinopathy Code(s): E11.319 - TYPE 2 DIABETES W UNSP DIABETIC RTNOP W/O MACULAR EDEMA Qualifiers: Diabetes mellitus longterm insulin use: with long line teamster use Diabetic retinopathy severity: with proliferative retinopathy Proliferative retinopathy type: with traction retinal detachment not involving macula Laterality: right Qualified Code(s): E11.3531 - Type 2 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
[2018-03-07] MEDS: POTASSIUM CHLORIDE 10 MEQ in SODIUM CHLORIDE 0.45% 1,000 ML IVPB SCH ×2 (15:02→21:55)
[2018-03-08] MEDS ORDERED: PIPERACILLIN/TAZOBACTAM 4.5 GM VIAL IVPB ONE ×3 (01:06→18:18)
[2018-03-08] MEDS ORDERED: DEXTROSE 5%-WATER 100 ML IVPB ONE ×3 (01:07→18:18)
[2018-03-08] MEDS: PIPERACILLIN/TAZOB 4.5 GM 4.5 GM in DEXTROSE 5%-WATER 100 ML IVPB SCH ×3 (01:13→19:06)
[2018-03-08] MEDS: POTASSIUM CHLORIDE 10 MEQ in SODIUM CHLORIDE 0.45% 1,000 ML IVPB SCH ×3 (02:28→14:44)
[2018-03-08] MEDS: HEPARIN NA (PORCINE) 5,000 UNITS/ML 1ML VIAL SQ SCH ×3 (05:53→21:03)
[2018-03-08] MEDS: INSULIN SLIDING SCALE (NOVOLOG) 1 VIAL SQ SCH ×3 (06:00→16:38)
[2018-03-08 07:23] LABS: BASO % 0.4 % (0-2.0); EOS % 1.7 % (0-4.5); HEMATOCRIT 39.3 % (32.4-45.2); HEMOGLOBIN 12.3 GM/dL (10.7-15.3); LYMPH % 15.4 % (8-40); MCH 25.9 pg (25.7-33.7); MCHC 31.3 g/dl (32.0-36.0); MEAN CELL VOLUME 82.6 fl (80-96); MEAN PLT VOLUME 7.4 fl (7.5-11.1); MONO % 8.7 % (3.8-10.2); NEUT % 73.8 % (42.8-82.8); PLATELET COUNT 328 K/MM3 (134-434); RBC 4.75 M/mm3 (3.60-5.2); RDW 15.2 % (11.6-15.6); WHITE BLOOD COUNT 7.9 K/mm3 (4.0-10.0)
[2018-03-08 07:56] LABS: ANION GAP 11 MMOL/L (8-16); BLOOD UREA NITROGEN 7 mg/dL (7-18); CALCIUM 8.4 mg/dL (8.5-10.1); CHLORIDE 102 mmol/L (98-107); CO2 26 mmol/L (21-32); CREATININE 0.6 mg/dL (0.55-1.3); GLUCOSE,RANDOM 97 mg/dL (74-106); POTASSIUM 4.5 mmol/L (3.5-5.1); SODIUM 139 mmol/L (136-145)
--- NOTE | 2018-03-08 13:49 | PN ---
Progress Note, Physician History of Present Illness: patient stable no new issues pain much better - Current Medication List Current Medications: Active Medications Acetaminophen (Ofirmev Injection -) 1,000 mg IVPB Q6H PRN PRN Reason: Pain Level 4 - 10 Last Admin: 03/07/18 17:02 Dose: 1,000 mg Heparin Sodium (Porcine) (Heparin -) 5,000 unit SQ TID SARINA Last Admin: 03/08/18 05:53 Dose: 5,000 unit Piperacillin Sod/Tazobactam (Sod 4.5 gm/ Dextrose) 100 mls @ 200 mls/hr IVPB Q8H-IV SARINA; Protocol Last Admin: 03/08/18 12:02 Dose: 200 mls/hr Potassium Chloride 10 meq/ (Sodium Chloride) 1,005 mls @ 125 mls/hr IVPB Q8H SARINA Last Admin: 03/08/18 11:59 Dose: 125 mls/hr Insulin Aspart (Novolog Vial Sliding Scale -) 1 vial SQ Q6H SARINA; Protocol Last Admin: 03/08/18 12:38 Dose: Not Given Morphine Sulfate (Morphine Sulfate) 2 mg IVPUSH Q4H PRN PRN Reason: Pain Level 7 - 10 BREAKTHROUGH Ondansetron HCl (Zofran Injection) 4 mg IVPUSH Q6H PRN PRN Reason: NAUSEA - Objective Vital Signs: Vital Signs Temperature 98.8 F 03/08/18 06:00 Pulse Rate 78 03/08/18 06:00 Respiratory Rate 20 03/08/18 06:00 Blood Pressure 143/53 L 03/08/18 06:00 O2 Sat by Pulse Oximetry (%) 98 03/07/18 21:00 Constitutional: Yes: No Distress, Calm Cardiovascular: Yes: Regular Rate and Rhythm Respiratory: Yes: Regular, CTA Bilaterally Gastrointestinal: Yes: Normal Bowel Sounds, Soft Musculoskeletal: Yes: WNL Extremities: Yes: WNL Neurological: Yes: Alert, Oriented Psychiatric: Yes: Alert, Oriented Labs: CBC, BMP 03/08/18 06:30 03/08/18 06:30 INR, PTT INR 1.10 (0.83-1.09) H 03/05/18 22:45 Assessment/Plan Problem List - Problems (1) Acute appendicitis with perforation, localized peritonitis, and abscess Code(s): K35.33 - ACUTE APPENDICITIS WITH PERF AND LOC PERITONITIS, WITH ABSCS Qualifiers: Appendicitis gangrene presence: without gangrene Qualified Code(s): K35.33 - Acute appendicitis with perforation and localized peritonitis, with abscess (2) RLQ abdominal pain Code(s): R10.31 - RIGHT LOWER QUADRANT PAIN (3) Diabetes mellitus type 2 with retinopathy Code(s): E11.319 - TYPE 2 DIABETES W UNSP DIABETIC RTNOP W/O MACULAR EDEMA Qualifiers: Diabetes mellitus halfway insulin use: with terminal operations supervisor use Diabetic retinopathy severity: with proliferative retinopathy Proliferative retinopathy type: with traction retinal detachment not involving macula Laterality: right Qualified Code(s): E11.3531 - Type 2 diabetes mellitus 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
--- NOTE | 2018-03-08 17:44 | PN ---
Progress Note, Physician Chief Complaint: RLQ pain History of Present Illness: Pt with perforated appendicitis with very small localized abscesses/phlegmon, nothing drainable. Low grade temp 100.6 yesterday pm. Pt seen and examined sitting up in chair in room, brother present, daughter on speakerphone. Ambulating to bathroom to void frequently, had BM today. No IV tylenol today, denies pain at this time. Pt is using IS hourly, gets almost to 1000ml with good effort. Glucose in 80s by fingersticks. - Current Medication List Current Medications: Active Medications Acetaminophen (Ofirmev Injection -) 1,000 mg IVPB Q6H PRN PRN Reason: Pain Level 4 - 10 Last Admin: 03/07/18 17:02 Dose: 1,000 mg Heparin Sodium (Porcine) (Heparin -) 5,000 unit SQ TID SARINA Last Admin: 03/08/18 14:44 Dose: 5,000 unit Piperacillin Sod/Tazobactam (Sod 4.5 gm/ Dextrose) 100 mls @ 200 mls/hr IVPB Q8H-IV SARINA; Protocol Last Admin: 03/08/18 12:02 Dose: 200 mls/hr Potassium Chloride 10 meq/ (Sodium Chloride) 1,005 mls @ 125 mls/hr IVPB Q8H SARINA Last Admin: 03/08/18 14:44 Dose: Not Given Dextrose/Sodium Chloride (D5-1/2ns -) 1,000 mls @ 83 mls/hr IV ASDIR SARINA Insulin Aspart (Novolog Vial Sliding Scale -) 1 vial SQ Q6H SARINA; Protocol Last Admin: 03/08/18 16:38 Dose: Not Given Ondansetron HCl (Zofran Injection) 4 mg IVPUSH Q6H PRN PRN Reason: NAUSEA - Objective Vital Signs: Vital Signs Temperature 98.9 F 03/08/18 13:50 Pulse Rate 91 H 03/08/18 13:50 Respiratory Rate 18 03/08/18 13:50 Blood Pressure 147/75 03/08/18 13:50 O2 Sat by Pulse Oximetry (%) 98 03/07/18 21:00 Vital Signs Period Temp Pulse Resp BP Sys/Ivan Pulse Ox Last 24 Hr 97.9 F-100.1 F 78-92 18-20 133-157/52-75 98 Constitutional: Yes: No Distress, Calm, Obese Eyes: Yes: Conjunctiva Clear, EOM Intact HENT: Yes: Atraumatic, Normocephalic Cardiovascular: Yes: Regular Rate and Rhythm Respiratory: Yes: Regular, CTA Bilaterally (possible faint end-exp wheeze only once, cleared with subsequent breaths), Diminished, On Nasal O2 (94%). No: Rhonchi, SOB Gastrointestinal: Yes: Soft, Abdomen, Obese, Tenderness (RLQ, minimal, much improved from prior; no suprapubic tenderness). No: Tenderness, Epigastrium, Tenderness, Rebound ...Rectal Exam: Yes: Deferred Extremities: No: Cool, Cyanosis Integumentary: No: Jaundice, Rash Neurological: Yes: Alert, Oriented Labs: CBC, BMP 03/08/18 06:30 03/08/18 06:30 Problem List - Problems (1) Acute appendicitis with perforation, localized peritonitis, and abscess Assessment/Plan: pain and tenderness even less, overall improved low grade temp once yesterday, better since continue NPO/IVF - decrease fluids and add D5 will try clears in am continue IV antibiotics, Zosyn with ID on board pain meds prn - nonnarcotics DVT prophylaxis trend labs encourage IS/OOB/ambulation as able with assist serial exams continue nonoperative therapy with antibiotics and bowel rest will ultimately need interval appendectomy Code(s): K35.33 - ACUTE APPENDICITIS WITH PERF AND LOC PERITONITIS, WITH ABSCS Qualifiers: Appendicitis gangrene presence: without gangrene Qualified Code(s): K35.33 - Acute appendicitis with perforation and localized peritonitis, with abscess (2) RLQ abdominal pain Assessment/Plan: improved Code(s): R10.31 - RIGHT LOWER QUADRANT PAIN (3) Diabetes mellitus type 2 with retinopathy Assessment/Plan: pt sees Dr. Craft hold metformin at least [address] scan and until back on diabetic diet hold amaryl as well will hold lantus for now and cover with SSI prn with fingersticks regularly pt reports home am baseline sugars 90s-110 range usually HbA1C 9.3 glucose in normal range Code(s): E11.319 - TYPE 2 DIABETES W UNSP DIABETIC RTNOP W/O MACULAR EDEMA Qualifiers: Diabetes mellitus lead military analyst insulin use: with lead military analyst use Diabetic retinopathy severity: with proliferative retinopathy Proliferative retinopathy type: with traction retinal detachment not involving macula Laterality: right Qualified Code(s): E11.3531 - Type 2 diabetes mellitus 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
[2018-03-08] MEDS: DEXTROSE 5%-0.45% SALINE 1,000 ML IV SCH (18:00)
[2018-03-09] MEDS: INSULIN SLIDING SCALE (NOVOLOG) 1 VIAL SQ SCH ×5 (01:02→22:22)
[2018-03-09] MEDS ORDERED: PIPERACILLIN/TAZOBACTAM 4.5 GM VIAL IVPB ONE ×3 (01:17→17:13)
[2018-03-09] MEDS ORDERED: DEXTROSE 5%-WATER 100 ML IVPB ONE ×3 (01:17→17:14)
[2018-03-09] MEDS: PIPERACILLIN/TAZOB 4.5 GM 4.5 GM in DEXTROSE 5%-WATER 100 ML IVPB SCH ×3 (01:47→17:50)
[2018-03-09] MEDS: POTASSIUM CHLORIDE 10 MEQ in SODIUM CHLORIDE 0.45% 1,000 ML IVPB SCH (02:04)
[2018-03-09] MEDS: HEPARIN NA (PORCINE) 5,000 UNITS/ML 1ML VIAL SQ SCH ×3 (06:14→22:22)
[2018-03-09 08:17] LABS: BASO % 0.2 % (0-2.0); EOS % 1.5 % (0-4.5); HEMATOCRIT 37.9 % (32.4-45.2); HEMOGLOBIN 12.7 GM/dL (10.7-15.3); LYMPH % 15.7 % (8-40); MCH 27.2 pg (25.7-33.7); MCHC 33.4 g/dl (32.0-36.0); MEAN CELL VOLUME 81.3 fl (80-96); MEAN PLT VOLUME 7.2 fl (7.5-11.1); NEUT % 70.6 % (42.8-82.8); PLATELET COUNT 357 K/MM3 (134-434); RBC 4.66 M/mm3 (3.60-5.2); RDW 14.7 % (11.6-15.6); WHITE BLOOD COUNT 6.7 K/mm3 (4.0-10.0)
[2018-03-09 08:43] LABS: ANION GAP 5 MMOL/L (8-16); BLOOD UREA NITROGEN 9 mg/dL (7-18); CALCIUM 8.2 mg/dL (8.5-10.1); CHLORIDE 102 mmol/L (98-107); CO2 31 mmol/L (21-32); CREATININE 0.7 mg/dL (0.55-1.3); GLUCOSE,RANDOM 179 mg/dL (74-106); POTASSIUM 4.3 mmol/L (3.5-5.1); SODIUM 138 mmol/L (136-145)
[2018-03-09] MEDS: DEXTROSE 5%-0.45% SALINE 1,000 ML IV SCH (11:39)
[2018-03-09] MEDS ORDERED: ACETAMINOPHEN 325 MG TABLET (FP) PO PRN (11:49)
--- NOTE | 2018-03-09 13:04 | PN ---
Progress Note, Physician History of Present Illness: stable still with abd mary - Current Medication List Current Medications: Active Medications Acetaminophen (Tylenol -) 650 mg PO Q6H PRN PRN Reason: PAIN LEVEL 6-10 Heparin Sodium (Porcine) (Heparin -) 5,000 unit SQ TID SARINA Last Admin: 03/09/18 06:14 Dose: 5,000 unit Piperacillin Sod/Tazobactam (Sod 4.5 gm/ Dextrose) 100 mls @ 200 mls/hr IVPB Q8H-IV SARINA; Protocol Last Admin: 03/09/18 11:39 Dose: 200 mls/hr Insulin Aspart (Novolog Vial Sliding Scale -) 1 vial SQ Q6H SARINA; Protocol Last Admin: 03/09/18 11:48 Dose: 4 unit Ondansetron HCl (Zofran Injection) 4 mg IVPUSH Q6H PRN PRN Reason: NAUSEA - Objective Vital Signs: Vital Signs Temperature 98.6 F 03/09/18 06:00 Pulse Rate 78 03/09/18 06:00 Respiratory Rate 18 03/09/18 06:00 Blood Pressure 131/69 03/09/18 06:00 O2 Sat by Pulse Oximetry (%) 95 03/08/18 21:00 Constitutional: Yes: No Distress, Calm Cardiovascular: Yes: Regular Rate and Rhythm Respiratory: Yes: Regular, CTA Bilaterally Gastrointestinal: Yes: Soft, Tenderness Musculoskeletal: Yes: WNL Extremities: Yes: WNL Neurological: Yes: Alert, Oriented Psychiatric: Yes: Alert, Oriented Labs: CBC, BMP 03/09/18 07:25 03/09/18 07:25 INR, PTT INR 1.10 (0.83-1.09) H 03/05/18 22:45 Assessment/Plan Problem List - Problems (1) Acute appendicitis with perforation, localized peritonitis, and abscess Code(s): K35.33 - ACUTE APPENDICITIS WITH PERF AND LOC PERITONITIS, WITH ABSCS Qualifiers: Appendicitis gangrene presence: without gangrene Qualified Code(s): K35.33 - Acute appendicitis with perforation and localized peritonitis, with abscess (2) RLQ abdominal pain Code(s): R10.31 - RIGHT LOWER QUADRANT PAIN (3) Diabetes mellitus type 2 with retinopathy Code(s): E11.319 - TYPE 2 DIABETES W UNSP DIABETIC RTNOP W/O MACULAR EDEMA Qualifiers: Diabetes mellitus mechanical designer insulin use: with mechanical designer use Diabetic retinopathy severity: with proliferative retinopathy Proliferative retinopathy type: with traction retinal detachment not involving macula Laterality: right Qualified Code(s): E11.3531 - Type 2 diabetes mellitus 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
--- NOTE | 2018-03-09 13:35 | PN ---
Progress Note, Physician Chief Complaint: RLQ pain History of Present Illness: Pt with perforated appendicitis with very small localized abscesses/phlegmon, nothing drainable. Tm 99.4 yesterday pm. Pt seen and examined sitting up in chair in room, also spoke to daughter on phone. Ambulating to bathroom to void, has had 2 formed BMs without pain. Pain still better than yesterday, only mild with palpation, not otherwise. Can bend down to get slippers on floor - could not do on admission. Feels breathing is better, off NC O2. - Current Medication List Current Medications: Active Medications Acetaminophen (Tylenol -) 650 mg PO Q6H PRN PRN Reason: PAIN LEVEL 6-10 Heparin Sodium (Porcine) (Heparin -) 5,000 unit SQ TID [facility] Last Admin: 03/09/18 06:14 Dose: 5,000 unit Piperacillin Sod/Tazobactam (Sod 4.5 gm/ Dextrose) 100 mls @ 200 mls/hr IVPB Q8H-IV [facility]; Protocol Last Admin: 03/09/18 11:39 Dose: 200 mls/hr Insulin Aspart (Novolog Vial Sliding Scale -) 1 vial SQ Q6H [facility]; Protocol Last Admin: 03/09/18 11:48 Dose: 4 unit Ondansetron HCl (Zofran Injection) 4 mg IVPUSH Q6H PRN PRN Reason: NAUSEA - Objective Vital Signs: Vital Signs Temperature 98.6 F 03/09/18 06:00 Pulse Rate 78 03/09/18 06:00 Respiratory Rate 18 03/09/18 06:00 Blood Pressure 131/69 03/09/18 06:00 O2 Sat by Pulse Oximetry (%) 95 03/08/18 21:00 Vital Signs Period Temp Pulse Resp BP Sys/Ivan Pulse Ox Last 24 Hr 98.2 F-99.4 F 76-91 18-20 131-147/62-75 95 Constitutional: Yes: No Distress, Calm, Obese Eyes: Yes: Conjunctiva Clear, EOM Intact HENT: Yes: Atraumatic, Normocephalic Cardiovascular: Yes: Regular Rate and Rhythm. No: Murmur Respiratory: Yes: Regular, CTA Bilaterally (improved from yesterday - also improved air entry). No: On Nasal O2, Rhonchi, Wheezes Gastrointestinal: Yes: Soft, Abdomen, Obese, Tenderness (RLQ without R/G, similar but slightly less than yesterday; no suprapubic tenderness). No: Tenderness, Rebound ...Rectal Exam: Yes: Deferred Extremities: No: Cool, Cyanosis Integumentary: No: Jaundice, Rash Neurological: Yes: Alert, Oriented. No: Unsteady Gait Labs: CBC, BMP 03/09/18 07:25 03/09/18 07:25 lytes ok, glucose up a little Problem List - Problems (1) Acute appendicitis with perforation, localized peritonitis, and abscess Assessment/Plan: pain resolved, tenderness less, overall improved temp down tolerating clears with no increase in pain + BMs and voiding without pain will advance diet slowly and resume home diabetic meds once tolerating dinner continue IV antibiotics, Zosyn with ID on board discussed with Dr. Alo julian for PO Augmentin tomorrow after breakfast plan for total 2 wks abx, to be completed at home on discharge pain meds prn - tylenol DVT prophylaxis encourage IS/OOB/ambulation as able with assist serial exams continue nonoperative therapy with antibiotics and bowel rest will ultimately need interval appendectomy Code(s): K35.33 - ACUTE APPENDICITIS WITH PERF AND LOC PERITONITIS, WITH ABSCS Qualifiers: Appendicitis gangrene presence: without gangrene Qualified Code(s): K35.33 - Acute appendicitis with perforation and localized peritonitis, with abscess (2) RLQ abdominal pain Assessment/Plan: resolved, tenderness less daily Code(s): R10.31 - RIGHT LOWER QUADRANT PAIN (3) Diabetes mellitus type 2 with retinopathy Assessment/Plan: pt sees Dr. Craft can resume metformin tonight hold amaryl for now - ? 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
[2018-03-09] MEDS: metFORMIN HCL 500 MG TABLET (FP) PO SCH (17:47)
[2018-03-09] MEDS ORDERED: INSULIN (LEVEMIR) 100 UNITS/ML UNITS SQ ONE (21:07)
[2018-03-09] MEDS ORDERED: INSULIN (NOVOLOG) ASPART 100 UNITS/ML 10ML VIAL ONE (21:08)
[2018-03-09] MEDS ORDERED: INSULIN (LEVEMIR) 100 UNITS/ML UNITS SQ SCH (22:00)
[2018-03-10] MEDS ORDERED: DEXTROSE 5%-WATER 100 ML IVPB ONE ×3 (01:30→17:45)
[2018-03-10] MEDS ORDERED: PIPERACILLIN/TAZOBACTAM 4.5 GM VIAL IVPB ONE ×3 (01:30→17:45)
[2018-03-10] MEDS: PIPERACILLIN/TAZOB 4.5 GM 4.5 GM in DEXTROSE 5%-WATER 100 ML IVPB SCH ×3 (01:37→17:47)
[2018-03-10] MEDS: metFORMIN HCL 500 MG TABLET (FP) PO SCH ×2 (06:26→17:46)
[2018-03-10] MEDS: INSULIN SLIDING SCALE (NOVOLOG) 1 VIAL SQ SCH ×4 (06:28→21:09)
[2018-03-10] MEDS: HEPARIN NA (PORCINE) 5,000 UNITS/ML 1ML VIAL SQ SCH ×3 (06:28→21:05)
[2018-03-10] MEDS ORDERED: INSULIN (NOVOLOG) ASPART 100 UNITS/ML 10ML VIAL ONE ×2 (17:58→20:16)
[2018-03-10] MEDS ORDERED: PT OWN MED DRAWER 7, Y5N ONE (17:58)
--- NOTE | 2018-03-10 18:37 | PN ---
Progress Note, Physician Chief Complaint: RLQ pain History of Present Illness: Pt with perforated appendicitis with very small localized abscesses/phlegmon, nothing drainable. No fevers. Pt seen and examined sitting up in chair in room, tolerating diabetic diet today. Pain minimal, only very mild with palpation. Having normal BMs. Not sleeping well because roommate is up with TV. - Current Medication List Current Medications: Active Medications Acetaminophen (Tylenol -) 650 mg PO Q6H PRN PRN Reason: PAIN LEVEL 6-10 Amoxicillin/Clavulanate Potassium (Augmentin - 875mg Tablet) 1 tab PO BID@0800, 1730 [facility] Heparin Sodium (Porcine) (Heparin -) 5,000 unit SQ TID [facility] Last Admin: 03/10/18 13:35 Dose: 5,000 unit Insulin Aspart (Novolog Vial Sliding Scale -) 1 vial SQ ACHS [facility]; Protocol Last Admin: 03/10/18 17:43 Dose: 4 units Insulin Detemir (Levemir Vial) 15 units SQ HS [facility] Last Admin: 03/09/18 22:21 Dose: 15 units Metformin HCl (Glucophage -) 1,000 mg PO BID@0700,1630 [facility] Last Admin: 03/10/18 17:46 Dose: 1,000 mg Ondansetron HCl (Zofran Injection) 4 mg IVPUSH Q6H PRN PRN Reason: NAUSEA - Objective Vital Signs: Vital Signs Temperature 98.4 F 03/10/18 14:53 Pulse Rate 77 03/10/18 14:53 Respiratory Rate 18 03/10/18 14:53 Blood Pressure 126/82 03/10/18 14:53 O2 Sat by Pulse Oximetry (%) 96 03/10/18 10:00 Constitutional: Yes: No Distress, Calm, Obese Eyes: Yes: Conjunctiva Clear, EOM Intact HENT: Yes: Atraumatic, Normocephalic Cardiovascular: Yes: Regular Rate and Rhythm Respiratory: Yes: Regular, CTA Bilaterally Gastrointestinal: Yes: Soft, Abdomen, Obese, Hyperactive Bowel Sounds (just after dinner), Tenderness (minimal RLQ - progressively less). No: Tenderness, Epigastrium, Tenderness, Rebound ...Rectal Exam: Yes: Deferred Musculoskeletal: No: Joint Stiffness, Joint Swelling Extremities: No: Cool, Cyanosis Integumentary: No: Jaundice, Rash Neurological: Yes: Alert, Oriented. No: Unsteady Gait Labs: no new labs Problem List - Problems (1) Acute appendicitis with perforation, localized peritonitis, and abscess Assessment/Plan: pain resolved, tenderness minimal no elevated temps tolerating diet with no increase in pain + BMs and voiding without pain change to PO antibiotics per ID plan for total 2 wks abx, to be completed at home on discharge pain meds prn - tylenol DVT prophylaxis encourage IS/OOB/ambulation as able with assist serial exams will ultimately need interval appendectomy - to f/u with PMD within a week or so Code(s): K35.33 - ACUTE APPENDICITIS WITH PERF AND LOC PERITONITIS, WITH ABSCS Qualifiers: Appendicitis gangrene presence: without gangrene Qualified Code(s): K35.33 - Acute appendicitis with perforation and localized peritonitis, with abscess (2) RLQ abdominal pain Assessment/Plan: resolved Code(s): R10.31 - RIGHT LOWER QUADRANT PAIN (3) Diabetes mellitus type 2 with retinopathy Assessment/Plan: pt sees Dr. 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
[2018-03-10] MEDS: AMOX TR/POT CLAV 875MG/125MG TABLETS (FP) PO SCH (21:03)
[2018-03-10] MEDS ORDERED: INSULIN (LEVEMIR) 100 UNITS/ML UNITS SQ SCH (22:00)
[2018-03-11] MEDS: metFORMIN HCL 500 MG TABLET (FP) PO SCH (06:21)
[2018-03-11] MEDS: INSULIN SLIDING SCALE (NOVOLOG) 1 VIAL SQ SCH ×2 (06:21→11:54)
[2018-03-11] MEDS: HEPARIN NA (PORCINE) 5,000 UNITS/ML 1ML VIAL SQ SCH ×2 (06:21→13:25)
[2018-03-11] MEDS: AMOX TR/POT CLAV 875MG/125MG TABLETS (FP) PO SCH (09:26)
[2018-03-11] MEDS ORDERED: INSULIN (NOVOLOG) ASPART 100 UNITS/ML 10ML VIAL ONE (11:48)
--- NOTE | 2018-03-11 13:24 | PN ---
Progress Note, Physician History of Present Illness: Pt with perforated appendicitis with very small localized abscesses/phlegmon, nothing drainable. No fevers. Pt seen and examined sitting up in chair in room, tolerating diabetic diet. Pain minimal, only very little with palpation. Having normal BMs. Not sleeping well because roommate is up with TV. Called by nurse today to tell me pt was high 80s% ambulating on room air. Pt is comfortable on RA in chair, no SOB, no specific complaints. - Current Medication List Current Medications: Active Medications Acetaminophen (Tylenol -) 650 mg PO Q6H PRN PRN Reason: PAIN LEVEL 6-10 Amoxicillin/Clavulanate Potassium (Augmentin - 875mg Tablet) 1 tab PO BID@0800, 1730 [facility] Last Admin: 03/11/18 09:26 Dose: 1 tab Heparin Sodium (Porcine) (Heparin -) 5,000 unit SQ TID [facility] Last Admin: 03/11/18 06:21 Dose: 5,000 unit Insulin Aspart (Novolog Vial Sliding Scale -) 1 vial SQ [facility]; Protocol Last Admin: 03/11/18 11:54 Dose: 2 units Insulin Detemir (Levemir Vial) 20 units SQ HS [facility] Last Admin: 03/10/18 21:06 Dose: 20 units Metformin HCl (Glucophage -) 1,000 mg PO BID@0700,1630 [facility] Last Admin: 03/11/18 06:21 Dose: 1,000 mg Ondansetron HCl (Zofran Injection) 4 mg IVPUSH Q6H PRN PRN Reason: NAUSEA - Objective Vital Signs: Vital Signs Temperature 98.0 F 03/11/18 09:00 Pulse Rate 99 H 03/11/18 13:15 Respiratory Rate 18 03/11/18 09:00 Blood Pressure 127/65 03/11/18 09:00 O2 Sat by Pulse Oximetry (%) 92 L 03/11/18 13:15 respiratory ambulated with patient and reports 92% on room air (was 94% sitting before they started) this was just after my exam Constitutional: Yes: No Distress, Calm, Obese Eyes: Yes: Conjunctiva Clear, EOM Intact HENT: Yes: Atraumatic, Normocephalic Cardiovascular: Yes: Regular Rate and Rhythm Respiratory: Yes: Regular, CTA Bilaterally. No: On Nasal O2, Rhonchi, SOB, Wheezes Gastrointestinal: Yes: Normal Bowel Sounds, Soft, Abdomen, Obese, Tenderness ( minimal RLQ only) Musculoskeletal: No: Joint Stiffness, Joint Swelling Extremities: No: Cool, Cyanosis Integumentary: No: Jaundice, Rash Neurological: Yes: Alert, Oriented. No: Unsteady Gait (ambulated with respiratory therapist) Labs: no new labs Problem List - Problems (1) Acute appendicitis with perforation, localized peritonitis, and abscess Assessment/Plan: pain resolved, tenderness minimal no elevated temps tolerating diet with no increase in pain + BMs and voiding without pain now on PO Augmentin per ID plan for total 2 wks abx, to be completed at home on discharge pain meds prn - tylenol DVT prophylaxis encourage IS/OOB/ambulation as able with assist will have respiratory check pre/post O2 sats (see VS) - they report 92% RA while ambulating will consult pulmonology - pt likely with underlying MARGARITA/obesity- hypoventilation syndrome ok for discharge when cleared by pulmonary will ultimately need interval appendectomy - to f/u with PMD within a week or so Code(s): K35.33 - ACUTE APPENDICITIS WITH PERF AND LOC PERITONITIS, WITH ABSCS Qualifiers: Appendicitis gangrene presence: without gangrene Qualified Code(s): K35.33 - Acute appendicitis with perforation and localized peritonitis, with abscess (2) RLQ abdominal pain Code(s): R10.31 - RIGHT LOWER QUADRANT PAIN (3) Diabetes mellitus type 2 with retinopathy Assessment/Plan: pt sees Dr. Craft, HbA1C 9.3 back on metformin hold amaryl for now giving slightly lower dose than usual of lantus nightly plan is for same on discharge, keep record of sugars at home, f/u with Dr. 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
--- NOTE | 2018-03-11 13:53 | PN ---
Progress Note, Physician History of Present Illness: stable abd pain better - Current Medication List Current Medications: Active Medications Acetaminophen (Tylenol -) 650 mg PO Q6H PRN PRN Reason: PAIN LEVEL 6-10 Amoxicillin/Clavulanate Potassium (Augmentin - 875mg Tablet) 1 tab PO BID@0800, 1730 [facility] Last Admin: 03/11/18 09:26 Dose: 1 tab Heparin Sodium (Porcine) (Heparin -) 5,000 unit SQ TID [facility] Last Admin: 03/11/18 13:25 Dose: 5,000 unit Insulin Aspart (Novolog Vial Sliding Scale -) 1 vial SQ [facility]; Protocol Last Admin: 03/11/18 11:54 Dose: 2 units Insulin Detemir (Levemir Vial) 20 units SQ HS [facility] Last Admin: 03/10/18 21:06 Dose: 20 units Metformin HCl (Glucophage -) 1,000 mg PO BID@0700,1630 [facility] Last Admin: 03/11/18 06:21 Dose: 1,000 mg Ondansetron HCl (Zofran Injection) 4 mg IVPUSH Q6H PRN PRN Reason: NAUSEA - Objective Vital Signs: Vital Signs Temperature 98.0 F 03/11/18 09:00 Pulse Rate 99 H 03/11/18 13:15 Respiratory Rate 18 03/11/18 09:00 Blood Pressure 127/65 03/11/18 09:00 O2 Sat by Pulse Oximetry (%) 92 L 03/11/18 13:15 Constitutional: Yes: No Distress, Calm Neck: Yes: Supple Cardiovascular: Yes: Regular Rate and Rhythm Respiratory: Yes: Regular, CTA Bilaterally Gastrointestinal: Yes: Normal Bowel Sounds, Soft Musculoskeletal: Yes: WNL Extremities: Yes: WNL Neurological: Yes: Alert, Oriented Psychiatric: Yes: Alert, Oriented Labs: CBC, BMP 03/09/18 07:25 03/09/18 07:25 INR, PTT INR 1.10 (0.83-1.09) H 03/05/18 22:45 Assessment/Plan Problem List - Problems (1) Acute appendicitis with perforation, localized peritonitis, and abscess Code(s): K35.33 - ACUTE APPENDICITIS WITH PERF AND LOC PERITONITIS, WITH ABSCS Qualifiers: Appendicitis gangrene presence: without gangrene Qualified Code(s): K35.33 - Acute appendicitis with perforation and localized peritonitis, with abscess (2) RLQ abdominal pain Code(s): R10.31 - RIGHT LOWER QUADRANT PAIN (3) Diabetes mellitus type 2 with retinopathy Code(s): E11.319 - TYPE 2 DIABETES W UNSP DIABETIC RTNOP W/O MACULAR EDEMA Qualifiers: Diabetes mellitus jail insulin use: with welt slasher use Diabetic retinopathy severity: with proliferative retinopathy Proliferative retinopathy type: with traction retinal detachment not involving macula Laterality: right Qualified Code(s): E11.3531 - Type 2 diabetes mellitus 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
--- NOTE | 2018-03-11 13:58 | DS ---
Physical Examination Vital Signs: Vital Signs Temperature 98.0 F 03/11/18 09:00 Pulse Rate 99 H 18 13:15 Respiratory Rate 18 03/11/18 09:00 Blood Pressure 127/65 03/11/18 09:00 O2 Sat by Pulse Oximetry (%) 92 L 03/11/18 13:15 92% on room air with ambulation with respiratory therapist Findings/Remarks: Seen in room up in chair, comfortable, tolerating diet. No complaints. RLQ pain resolved, just little tenderness left. Moving well, ambulating with assistance in halls. O2 sats dropped into 80s with ambulation per nurse, but respiratory ambulated her up and down rosario twice with 92% on room air. Has been seen by pulmonology, who will follow up as outpatient for further workup of possible MARGARITA and OHS. Constitutional: Yes: No Distress, Calm, Obese Eyes: Yes: Conjunctiva Clear, EOM Intact HENT: Yes: Atraumatic, Normocephalic Cardiovascular: Yes: Regular Rate and Rhythm Respiratory: Yes: Regular, CTA Bilaterally Gastrointestinal: Yes: Normal Bowel Sounds, Soft, Abdomen, Obese, Tenderness ( minimal RLQ). No: Tenderness, Rebound ...Rectal Exam: Yes: Deferred Renal/: No: CVA Tenderness - Left, CVA Tenderness - Right Musculoskeletal: No: Joint Stiffness, Joint Swelling Extremities: No: Cool, Cyanosis Integumentary: No: Jaundice, Rash Neurological: Yes: Alert, Oriented. No: Unsteady Gait (walks with assistance in halls, but moves well) Labs: no new labs Discharge Summary Reason For Visit: PERFORATED APPENDICITIS Current Active Problems Acute appendicitis with perforation, localized peritonitis, and abscess (Acute) Diabetes mellitus type 2 with retinopathy (Acute) Morbid obesity with BMI of 45.0-49.9, adult (Acute) RLQ abdominal pain (Acute) Procedures: Principal: no invasive procedures, CT scan done Hospital Course: 63yo morbidly obese F diabetic with h/o was admitted through ER with 4 days of RLQ pain with associated pain when using the bathroom, and was found to have perforated appendicitis with two very small localized abscesses (2cm each), not drainable. She was treated with IV fluids, bowel rest, and IV antibiotics (Zosyn) with steady improvement of her pain and tenderness. WBC was not elevated. She was mildly hypoxic on room air (mid-90s) from admission, and intermittently required 2L NC O2 to keep sats in that range. She was evaluated the day of discharge by respiratory therapy and pulmonology for the same, with sats 92% on room air while ambulating, and clearance to pursue outpatient workup. She was slowly restarted on fluids then diabetic diet as her pain and tenderness resolved, and tolerated with acceptable blood sugars. Home metformin was resumed, and slightly lower dose of Lantus (20 instead of 26 units). Amaryl has been held. She is having normal BMs and voiding well. Pain is controlled with minimal use of Tylenol. She is discharged home to complete her antibiotic course on Augmentin (changed in hospital), to follow up in 1-2 weeks with her PMD, Dr. Yoo and his PA Shilpi Cardenas, as well as Dr. Bates ( endocrinology) next week, and Dr. Wilson (pulmonology). She will need her PMD to arrange referral for interval appendectomy in about 6-8 weeks. Condition: Improved - Instructions Diet, Activity, Other Instructions: You were treated for ruptured (perforated) appendicitis with very small abscesses using antibiotics and bowel rest. Your pain and tenderness improved significantly with nonoperative treatment. You are back on a diabetic diet, and are now taking antibiotics by mouth to complete the course. You must take ALL of the prescribed antibiotics until they are gone: Augmentin twice daily x 9 more days. Take a probiotic supplement and/or eat yogurt every day while taking the antibiotic to help keep your gut healthy. Diet and diabetes medications: Eat lightly at first, but advance to your usual diabetic diet as tolerated. Keep a record of your blood sugars at home and follow up with Dr. Bates next week - call for an appointment. Take your metformin as usual twice a day. Take only 20 UNITS LANTUS insulin at bedtime each night until you see him. Do NOT TAKE your Amaryl (glimepiride) unless your sugars are high at home (at least 170) BEFORE meals or several times in a row, until you see Dr. Bates. Pain: For pain, you may use Tylenol (acetaminophen) 1-2 pills every 6 hours as needed. Do not take more than 4000 mg of acetaminophen in a day. Take medications as prescribed or indicated on the labeling. Follow-up: You will need to call your primary care doctor's office and get an appointment to follow up within ONE week. They will need to help you arrange to follow up with a surgeon to get your appendix removed in about 6-8 weeks. You may call Dr. Shabbir Reese's office at [phone], or you may pursue surgery with a surgeon of your choice in your network. Call your doctor or return to the Emergency Room if you have: * increasing pain not responsive to pain medication * fever of 101F or higher * vomiting * diarrhea that does not stop once the antibiotics are done or bloody diarrhea You should also follow up with the lung doctor (rope maker), Dr. Adam Wilson - call for an appointment within 2-3 weeks. Referrals: Keisha Bates MD [Staff Physician] - 1 Week Adam Wilson MD [Staff Physician] - 3 Weeks (call for an appt within 2-3 weeks) Yaw Cardenas PA [Physician Dosier Operator] - Kamaljit Yoo MD [Primary Care Provider] - 1 Week (call for appointment in 1-2 weeks) Disposition: HOME - Home Medications Comprehensive Discharge Medication List: Ambulatory Orders metFORMIN HCL [Glucophage] 1,000 mg PO BID #0 tab 08/09/12 Insulin Glargine,Hum.rec.anlog [Lantus (10mL VIAL) -] 26 units SQ HS 02/17/15 - - PATIENT TO TAKE ONLY 20 UNITS NIGHTLY UNTIL SHE SEES DR. BATES Acetaminophen [Tylenol .Regular Strength -] 650 mg PO Q6H PRN tablet 03/11/18 Amox-Tr/K Cl [Augmentin 875-125mg Tablet -] 1 tab PO BID #18 tablet 03/11/18
--- NOTE | 2018-03-11 14:14 | CON.PULM ---
Consult Consult Specialty:: PULMONARY Referred by:: ARIANA Reason for Consultation:: OSAS/OHS - History of Present Illness Chief Complaint: FEELS FINE WAITING TO BE DISCHARGED History of Present Illness: 63 year old female with PMH DM presented to ED for RLQ x3 days. She stated the pain is intermittent, lasting 5-10 minutes at a time, started as "crampy" and now has progressed to "a pain", alleviated by warm compress, worsened at night time and with urination/defectation. She denied fever, chills, nausea, vomiting , diarrhea, constipation, dysuria, blood in stool, hematuria. Pt stated last BM today at 1100 AM, no straining, normal color and consistency. Pt stated she recently traveled to [place] x2 weeks ago. Her hospital course was remarkable for small perf w abscess formation 2/2 perforated appendix which has been successfully treated with IV antibiotics. I have been asked to evaluate for osas /ohs. 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 Cardio/Vascular: No: AFIB Pulmonary: No: Asthma, COPD, O2 Dependent Gastrointestinal: No: Cancer Hepatobiliary: Yes: Other (diverticulitis) Renal/: No: Renal Failure Reproductive: Yes: Postmenopausal ...LMP: 08/19/12 ...: No Heme/Onc: No: Anemia Psych: No: Addictions Endocrine: Yes: Diabetes Mellitus - Past Surgical History Past Surgical History: Yes: Cataract Removal (left 02/16/18), - Alcohol/Substance Use Hx Alcohol Use: Yes (rare) History of Substance Use: reports: None - Smoking History Smoking history: Never smoked Have you smoked in the past 12 months: No Aproximately how many cigarettes per day: 0 - Social History ADL: Independent Place of : Other History of Recent Travel: Yes ([place] for 2 weeks returned 02/07/18) Home Medications - Allergies Allergies/Adverse Reactions: Allergies Allergy/AdvReac Type Severity Reaction Status Date / Time No Known Drug Allergies Allergy Verified 02/17/15 14:36 SEASONAL Allergy Uncoded 02/17/15 14:36 - Home Medications Home Medications: Ambulatory Orders metFORMIN HCL [Glucophage] 1,000 mg PO BID #0 tab 08/09/12 Insulin Glargine,Hum.rec.anlog [Lantus (10mL VIAL) -] 26 units SQ HS 02/17/15 Acetaminophen [Tylenol .Regular Strength -] 650 mg PO Q6H PRN tablet 03/11/18 Amox-Tr/K Cl [Augmentin 875-125mg Tablet -] 1 tab PO BID #18 tablet 03/11/18 Family Disease History - Family Disease History Family Disease History: Diabetes: Mother, CA: Sister (bone ca dx age 53 3 yrs ago), Other: Father (htn) Review of Systems - Review of Systems Constitutional: denies: Fever Eyes: denies: Blurred Vision HENT: denies: Difficult Swallowing Neck: denies: Decreased ROM Cardiovascular: denies: Chest Pain Respiratory: denies: Cough Gastrointestinal: denies: Abdominal Pain Genitourinary: denies: Burning Physical Exam Vital Sings: Vital Signs Temperature 98.0 F 03/11/18 09:00 Pulse Rate 99 H 03/11/18 13:15 Respiratory Rate 18 03/11/18 09:00 Blood Pressure 127/65 03/11/18 09:00 O2 Sat by Pulse Oximetry (%) 92 L 03/11/18 13:15 Constitutional: Yes: Calm Eyes: Yes: EOM Intact HENT: Yes: Normocephalic Neck: Yes: Trachea Midline Cardiovascular: Yes: Regular Rate and Rhythm Respiratory: Yes: CTA Bilaterally Gastrointestinal: Yes: Normal Bowel Sounds, Abdomen, Obese Edema: No Labs: CBC, BMP 03/09/18 07:25 03/09/18 07:25 Imaging - Results Chest X-ray: Report Reviewed, Image Reviewed Problem List - Problems (1) MARGARITA (obstructive sleep apnea) Code(s): G47.33 - OBSTRUCTIVE SLEEP APNEA (ADULT) (PEDIATRIC) (2) Acute appendicitis with perforation, localized peritonitis, and abscess Code(s): K35.33 - ACUTE APPENDICITIS WITH PERF AND LOC PERITONITIS, WITH ABSCS Qualifiers: Appendicitis gangrene presence: without gangrene Qualified Code(s): K35.33 - Acute appendicitis with perforation and localized peritonitis, with abscess (3) Diabetes mellitus type 2 with retinopathy Code(s): E11.319 - TYPE 2 DIABETES W UNSP DIABETIC RTNOP W/O MACULAR EDEMA Qualifiers: Diabetes mellitus exterminator insulin use: with retirement use Diabetic retinopathy severity: with proliferative retinopathy Proliferative retinopathy type: with traction retinal detachment not involving macula Laterality: right Qualified Code(s): E11.3531 - Type 2 diabetes mellitus with proliferative diabetic retinopathy with traction retinal detachment not involving the macula, right eye; Z79.4 - skilled nursing (current) use of insulin (4) Intra-abdominal abscess Code(s): K65.1 - PERITONEAL ABSCESS (5) Obesity hypoventilation syndrome Code(s): E66.2 - MORBID (SEVERE) OBESITY WITH ALVEOLAR HYPOVENTILATION Assessment/Plan AGREE THAT PATIENT DUE TO UNDERLYING BODY HABITUS OSAS/OHS IS MOST LIKLEY WOULD PURSUE OUTPATIENT PSG/DIET/WEIGHT LOSS MAY NEED TO BE CONSIDERED FOR BARIATRIC SURG IN FUTURE. OK FOR DISCHARGE Davian RIVERO MD
[2018-03-11 15:29] VITALS: BP 141/62; PULSE 67; TEMP 98.2
== END 2018-03-11 15:28 | disposition home or self-care (01) | DRG 248 ==
LOC: JER 17:30 → JERBED 22:57 → J5S 03-06 01:14
PROVIDERS: ADMIT Surgery; ATTEND Surgery
DX: K35.33 Acute appendicitis with perforation, localized peritonitis, and gangrene, with abscess (principal); R10.31 Right lower quadrant pain; E11.319 Type 2 diabetes mellitus with unspecified diabetic retinopathy without macular edema; E66.01 Morbid (severe) obesity due to excess calories; Z68.42 Body mass index [BMI] 45.0-49.9, adult; Z79.4 Long term (current) use of insulin
CPT/HCPCS: 36415; 71046-TC-FY; 74177-TC; 80048; 80053; 81003; 82962; 83036; 83735; 84100; 85025; 85610; 85730; 86850; 86900; 86901; 87086; 93005; 93010; 94010; 94761; 99284-25; J0131; J1644; J7030

== ENCOUNTER 2018-03-28 11:40 | Inpatient (IN) | payer OTHER ==
--- NOTE | 2018-03-28 11:57 | PDOC ---
History of Present Illness - General History Source: Patient, Old Records Exam Limitations: No Limitations - History of Present Illness Initial Comments: 03/28/18 12:48 The patient is a 63-year-old female with a past medical history significant for DM and perforated appendix tx with abx presents to the emergency department with RLQ pain associated with nausea and diarrhea. The patient reports she was seen at the ER on Mar 06 for RLQ pain, CT revealed ruptured appendicitis with inflammatory changes. The patient reports secondary to swelling no surgery was done. The patient was discharged on 03/11/2018 with Augmentin and advised to follow up with PMD. The patient presents today from the doctors office. The patient reports symptoms of x3 episodes of non-bloody, non- melanotic diarrhea, nausea, RUL pain, and decreased appetite. Denies fever, chills, vomiting. Allergies: NKDA Social history: None reported PCP: Dr. Cardenas Endocrinology: Dr. Craft Pulmonology: Dr. Wilson. <Merlyn Castelan - Last Filed: 03/28/18 16:54> <Andi Pelaez - Last Filed: 03/28/18 17:36> - General Chief Complaint: Pain Stated Complaint: ABD PAIN, NAUSEA (PCP SENT) Time Seen by Provider: 03/28/18 11:56 Past History <Merlyn Castelan - Last Filed: 03/28/18 16:54> - Past Medical History Anemia: No Asthma: No Cancer: No Cardiac Disorders: No CVA: No COPD: No CHF: No Dementia: No Diabetes: Yes (iddm) GI Disorders: No Disorders: No HTN: No Hypercholesterolemia: No Liver Disease: No Seizures: No Thyroid Disease: No Other medical history: appendicitis, no surgery yet - Surgical History Abdominal Surgery: No Appendectomy: No Cardiac Surgery: No Cholecystectomy: No Lung Surgery: No Neurologic Surgery: No Orthopedic Surgery: No - Immunization History Immunization Up to Date: Yes - Suicide/Smoking/Psychosocial Hx Smoking Status: No Smoking History: Never smoked Have you smoked in the past 12 months: No Number of Cigarettes Smoked Daily: 0 Information on smoking cessation initiated: No Hx Alcohol Use: No Drug/Substance Use Hx: No Substance Use Type: None Hx Substance Use Treatment: No <Andi Pelaez - Last Filed: 03/28/18 17:36> - Past Medical History Allergies/Adverse Reactions: Allergies Allergy/AdvReac Type Severity Reaction Status Date / Time No Known Drug Allergies Allergy Verified 03/28/18 11:49 SEASONAL Allergy Uncoded 03/28/18 11:49 Home Medications: Ambulatory Orders metFORMIN HCL [Glucophage] 1,000 mg PO BID #0 tab 08/09/12 Insulin Glargine,Hum.rec.anlog [Lantus (10mL VIAL) -] 26 units SQ HS 02/17/15 Insulin Lispro [Humalog] 18 units SQ PRN 03/28/18 Review of Systems - Review of Systems Able to Perform ROS?: Yes Comments:: 03/28/18 12:48 CONSTITUTIONAL: No fever, no chills, no fatigue EYES: No visual changes ENT: No ear pain, no sore throat CARDIOVASCULAR: No chest pain, no palpitations RESPIRATORY: No cough, no SOB GI: +RLQ pain, nausea, x3 episodes of diarrhea. No vomiting or constipation. GENITOURINARY: No dysuria, no frequency, no hematuria MUSKULOSKELETAL: No backpain, no joint pain, no myalgias SKIN: No rash NEURO: No headache. <Merlyn Castelan - Last Filed: 03/28/18 16:54> *Physical Exam - Vital Signs Last Vital Signs Temp Pulse Resp BP Pulse Ox 98.3 F 94 H 20 104/62 95 03/28/18 11:45 03/28/18 12:28 03/28/18 12:28 03/28/18 12:28 03/28/18 12:28 - Physical Exam Comments: 03/28/18 13:29 CONSTITUTIONAL:+Morbid Obese. Well-appearing; well-nourished; in no apparent distress HEAD: Normocephalic; atraumatic EYES: PERRL; EOM intact ENMT: External appears normal; normal oropharynx NECK: Supple; non-tender; no cervical lymphadenopathy CARD: Normal S1, S2; no murmurs, rubs, or gallops RESP: Normal chest excursion with respiration; breath sounds clear and equal bilaterally; no wheezes, rhonchi, or rales ABD: +Periumbilical and RLQ tenderness, and R. CVA tenderness. Soft, non- distended, no palpable organomegaly, no palpable hernias EXT: Normal ROM in all four extremities; non-tender to palpation; distal pulses intact SKIN: Warm, dry, no rash NEURO: No focal neurological deficiencies. <Merlyn Castelan - Last Filed: 03/28/18 16:54> - Vital Signs Last Vital Signs Temp Pulse Resp BP Pulse Ox 98.3 F 91 H 18 98/47 L 93 L 03/28/18 11:45 03/28/18 11:45 03/28/18 11:45 03/28/18 11:45 03/28/18 11:45 <Andi Pelaez - Last Filed: 03/28/18 17:36> Moderate Sedation - Procedure Monitoring Vital Signs: Procedure Monitoring Vital Signs Temperature 98.3 F 03/28/18 11:45 Pulse Rate 94 H 03/28/18 12:28 Respiratory Rate 20 03/28/18 12:28 Blood Pressure 104/62 03/28/18 12:28 O2 Sat by Pulse Oximetry (%) 95 03/28/18 12:28 <Merlyn Castelan - Last Filed: 03/28/18 16:54> - Procedure Monitoring Vital Signs: Procedure Monitoring Vital Signs Temperature 98.3 F 03/28/18 11:45 Pulse Rate 91 H 03/28/18 11:45 Respiratory Rate 18 03/28/18 11:45 Blood Pressure 98/47 L 03/28/18 11:45 O2 Sat by Pulse Oximetry (%) 93 L 03/28/18 11:45 <Andi Pelaez - Last Filed: 03/28/18 17:36> ED Treatment Course - LABORATORY CBC & Chemistry Diagram: 03/28/18 13:01 03/28/18 13:01 <Merlyn Castelan - Last Filed: 03/28/18 16:54> - LABORATORY CBC & Chemistry Diagram: 03/28/18 13:01 03/28/18 13:01 <Andi Pelaez - Last Filed: 03/28/18 17:36> Medical Decision Making - Medical Decision Making 03/28/18 12:49 Phone Calls: Dr. Reese overhead paged at 12:27 pm. Case discussed with Dr. Reese at 12:28. 03/28/18 16:[address] Reese. <Merlyn Castelan - Last Filed: 03/28/18 16:54> - Medical Decision Making 03/28/18 16:04 Patient 63-year-old female with history of morbid obesity, diabetes with history of perforated appendicitis which was treated conservatively with IV and then by mouth antibiotics returns for worsening lower abdominal pain nausea and diarrhea. Patient is nontoxic appearing with mild to moderate periumbilical and right lower quadrant tenderness to deep palpation. No guarding or rebound is appreciated. CBC is within normal limit. Case discussed with Dr. Reese of surgery. Repeat CT, nothing by mouth and IV fluids were advised. Awaiting CT results. 03/28/18 17:36 Please administer subcutaneous heparin for DVT prophylaxis during the p.m. shift. hold during the morning prior to IR intervention. <Andi Pelaez - Last Filed: 03/28/18 17:36> *DC/Admit/Observation/Transfer - Attestations Scribe Attestion: 03/28/18 12:53 Documentation prepared by Merlyn Castelan, acting as biomedical equipment tech for Andi Pelaez MD. <Merlyn Castelan - Last Filed: 03/28/18 16:54> - Discharge Dispostion Decision to Admit order: Yes <Andi Pelaez - Last Filed: 03/28/18 17:36> Diagnosis at time of Disposition: Intra-abdominal abscess Appendicitis Qualifiers: Appendicitis type: unspecified Qualified Code(s): K37 - Unspecified appendicitis - Discharge Dispostion Condition at time of disposition: Fair
[2018-03-28] MEDS ORDERED: LACTATED RINGERS SOLUTION 1,000 ML/1,000 ML INFUS.BAG IV SCH (12:30)
[2018-03-28] MEDS ORDERED: ONDANSETRON 4 MG/2 ML VIAL IVPB ONE (12:31)
[2018-03-28] MEDS ORDERED: ONDANSETRON 4 MG/2 ML VIAL ONE (12:40)
[2018-03-28 13:45] LABS: BASO % 0.5 % (0-2.0); EOS % 2.2 % (0-4.5); HEMATOCRIT 43.2 % (32.4-45.2); HEMOGLOBIN 13.4 GM/dL (10.7-15.3); LYMPH % 22.6 % (8-40); MCH 25.7 pg (25.7-33.7); MEAN CELL VOLUME 82.9 fl (80-96); MEAN PLT VOLUME 7.8 fl (7.5-11.1); MONO % 8.9 % (3.8-10.2); NEUT % 65.8 % (42.8-82.8); PLATELET COUNT 278 K/MM3 (134-434); RBC 5.21 M/mm3 (3.60-5.2); RDW 16.6 % (11.6-15.6); WHITE BLOOD COUNT 9.3 K/mm3 (4.0-10.0)
[2018-03-28 13:57] LABS: INR 1.06 (0.83-1.09); PROTHROMBIN TIME (PATIENT) 12.5 SEC (9.7-13.0)
[2018-03-28 14:21] LABS: ALBUMIN 3.2 g/dl (3.4-5.0); ALK PHOS 97 U/L (45-117); ANION GAP 8 MMOL/L (8-16); BILIRUBIN,TOTAL 0.3 mg/dL (0.2-1); BLOOD UREA NITROGEN 18 mg/dL (7-18); CALCIUM 8.9 mg/dL (8.5-10.1); CHLORIDE 102 mmol/L (98-107); CO2 29 mmol/L (21-32); CREATININE 1.3 mg/dL (0.55-1.3); GLUCOSE,RANDOM 191 mg/dL (74-106); SGOT/AST 18 U/L (15-37); SGPT/ALT 20 U/L (13-61); SODIUM 139 mmol/L (136-145); TOT PROT 7.8 g/dl (6.4-8.2)
[2018-03-28 15:04] LABS: URINE APPEARANCE CLOUDY; URINE COLOR AMBER; URINE GLUCOSE (UA) NEGATIVE (NEGATIVE); URINE KETONE TRACE (NEGATIVE); URINE LEUK ESTERASE 3+ (NEGATIVE); URINE NITRITE NEGATIVE (NEGATIVE); URINE PROTEIN 2+ (NEGATIVE); URINE UROBILINOGEN 4.0 E.U/dl mg/dL (0.2-1.0)
[2018-03-28] MEDS ORDERED: SODIUM CHLORIDE 1,000 ML IV SCH ×2 (15:15→19:45)
[2018-03-28] MEDS ORDERED: SODIUM CHLORIDE 1,000 ML IV STA (15:15)
[2018-03-28 15:28] LABS: EPI CELLS MANY /HPF (FEW); URINE BACTERIA RARE /hpf (NONE SEEN); URINE HYALINE CAST 100 /lpf; URINE MUCUS RARE
[2018-03-28] MEDS ORDERED: ACETAMINOPHEN 325 MG TABLET (FP) ONE (15:54)
[2018-03-28] MEDS ORDERED: PIPERACILLIN/TAZOB 4.5 GM 4.5 GM in DEXTROSE 5%-WATER 100 ML IVPB ONE (16:40)
[2018-03-28] MEDS ORDERED: PIPERACILLIN/TAZOB 4.5 GM 4.5 GM/100 ML BAG IVPB ONE (16:53)
[2018-03-28] MEDS ORDERED: MORPHINE SULFATE 2 MG/ML VIAL IVPUSH PRN ×2 (19:31→22:37)
--- NOTE | 2018-03-28 19:53 | HP ---
CHIEF COMPLAINT: PCP: Dr. Cardenas HISTORY OF PRESENT ILLNESS: 63 year old female with morbid obesity, DM 2, recently admitted and managed conservatively for perforated appendicitis and intra-abdominal abscess with IV Abx as inpatient at the end of February with transition to out-patient oral Abx. Patient continued to have pain with nausea and diarrhea for the past 2 days. She denies fever but reports chills and sweats. No melena/hematochezia. No vomiting. She describes the abdominal pain on RLQ as sharp, severity 5/10, without radiation. She was seen at surgeon's office today and referred to ED due to ongoing symptoms. PAST MEDICAL HISTORY: DM 2 Mobid Obesity Social History: Lives alone. Denies smoking or alcohol use. Family History: Reviewed and non-contributory Allergies No Known Drug Allergies Allergy (Verified 03/28/18 11:49) SEASONAL Allergy (Uncoded 03/28/18 11:49) HOME MEDICATIONS: Home Medications Medication Instructions Recorded metFORMIN HCL [Glucophage] 1,000 mg PO BID #0 tab 08/09/12 Insulin Glargine,Hum.rec.anlog 26 units SQ HS 02/17/15 [Lantus (10mL VIAL) -] Insulin Lispro [Humalog] 18 units SQ PRN 03/28/18 REVIEW OF SYSTEMS CONSTITUTIONAL: Positive for chills, diaphoresis. No generalized weakness, malaise, loss of appetite, weight change HEENT: Absent: rhinorrhea, nasal congestion, throat pain, throat swelling CARDIOVASCULAR: Absent: chest pain, syncope, palpitations, irregular heart rate, lightheadedness , peripheral edema RESPIRATORY: Absent: cough, shortness of breath, dyspnea with exertion, orthopnea, wheezing GASTROINTESTINAL: Abdominal pain, nausea, diarrhea as described. No melena/hematochezia. No vomiting. GENITOURINARY: Absent: dysuria, frequency, urgency, hesitancy, hematuria, genital pain MUSCULOSKELETAL: Absent: myalgia, arthralgia, joint swelling, back pain, neck pain ENDOCRINE: No polyuria/polydipsia NEUROLOGIC: Absent: headache, focal weakness or paresthesias, dizziness, unsteady gait, seizure, mental status changes, bladder or bowel incontinence PSYCHIATRIC: Absent: anxiety, depression, suicidal or homicidal ideation, hallucinations. PHYSICAL EXAMINATION Vital Signs - 24 hr 03/28/18 03/28/18 03/28/18 11:45 12:28 16:43 Temperature 98.3 F 98.1 F Pulse Rate 91 H Pulse Rate [ 94 H 84 Apical] Respiratory 18 20 20 Rate Blood Pressure 98/47 L Blood Pressure 104/62 134/60 [Left Arm] O2 Sat by Pulse 93 L 95 95 Oximetry (%) GENERAL: Awake, alert, and fully oriented, in no acute distress. HEAD: Normal with no signs of trauma. EYES: Pupils equal, round and reactive to light, extraocular movements intact, sclera anicteric, conjunctiva clear. EARS, NOSE, THROAT: Atraumatic, Normocephalic. No pharyngeal erythema/exudate NECK: Normal range of motion, supple without lymphadenopathy, JVD, or masses. LUNGS: Breath sounds equal, clear to auscultation bilaterally. No wheezes, and no crackles. HEART: Regular rate and rhythm, normal S1 and S2 ABDOMEN: High BMI, Soft, Tender RLQ+++. No guarding. Bowel Sounds present. MUSCULOSKELETAL: Normal range of motion at all joints. No bony deformities or tenderness. UPPER EXTREMITIES: 2+ pulses, warm, well-perfused. No cyanosis. No clubbing. LOWER EXTREMITIES: 2+ pulses, warm, well-perfused. No calf tenderness. Trace peripheral edema. NEUROLOGICAL: Cranial nerves II-XII intact. Normal speech. Tone/Power normal all 4 extremities. PSYCHIATRIC: Cooperative. Good eye contact. Appropriate mood and affect. Laboratory Results - last 24 hr 03/28/18 03/28/18 03/28/18 13:01 13:01 13:01 WBC 9.3 RBC 5.21 H Hgb 13.4 Hct 43.2 MCV 82.9 MCH 25.7 MCHC 31.0 L RDW 16.6 H Plt Count 278 D MPV 7.8 Absolute Neuts (auto) 6.1 Neutrophils % 65.8 Lymphocytes % 22.6 D Monocytes % 8.9 Eosinophils % 2.2 Basophils % 0.5 Nucleated RBC % 0 PT with INR 12.50 INR 1.06 Sodium 139 Potassium 5.0 Chloride 102 Carbon Dioxide 29 Anion Gap 8 BUN 18 Creatinine 1.3 Creat Clearance w eGFR 41.64 Random Glucose 191 H Calcium 8.9 Total Bilirubin 0.3 AST 18 ALT 20 Alkaline Phosphatase 97 Total Protein 7.8 Albumin 3.2 L Urine Color Urine Appearance Urine pH Ur Specific [place] Urine Protein Urine Glucose (UA) Urine Ketones Urine Blood Urine Nitrite Urine Bilirubin Urine Urobilinogen Ur Leukocyte Esterase Urine WBC (Auto) Urine RBC (Auto) Ur Epithelial Cells Urine Bacteria Hyaline Casts Urine Mucus Blood Type Antibody Screen 03/28/18 03/28/18 13:01 13:01 WBC RBC Hgb Hct MCV MCH MCHC RDW Plt Count MPV Absolute Neuts (auto) Neutrophils % Lymphocytes % Monocytes % Eosinophils % Basophils % Nucleated RBC % PT with INR INR Sodium Potassium Chloride Carbon Dioxide Anion Gap BUN Creatinine Creat Clearance w eGFR Random Glucose Calcium Total Bilirubin AST ALT Alkaline Phosphatase Total Protein Albumin Urine Color Hiral Urine Appearance Cloudy Urine pH 5.0 Ur Specific [place] 1.031 Urine Protein 2+ H Urine Glucose (UA) Negative Urine Ketones Trace H Urine Blood Negative Urine Nitrite Negative Urine Bilirubin 2.0 Urine Urobilinogen 4.0 e.u/dl H Ur Leukocyte Esterase 3+ H Urine WBC (Auto) 147 Urine RBC (Auto) 17 Ur Epithelial Cells Many Urine Bacteria Rare Hyaline Casts 100 Urine Mucus Rare Blood Type A POSITIVE Antibody Screen Negative CT A/P - 3.3 x 2.3 complex structure in pericoli space of level of mid to lower abdomen suggestive of abscess. Contiguous thick walled fluid collection suggestive of absces within the R mid pelvis laterally. thickened appendix suggestive of perforated appendicitis. ASSESSMENT/PLAN: 63 year old female with morbid obesity, DM 2, recently admitted and managed conservatively for perforated appendicitis and intra-abdominal abscess with IV Abx as inpatient at the end of February with transition to out-patient oral Abx. Patient continued to have pain with nausea and diarrhea for the past 2 days. She denies fever but reports chills and sweats. No melena/hematochezia. No vomiting. She describes the abdominal pain on RLQ as sharp, severity 5/10, without radiation. She was seen at surgeon's office today and referred to ED due to ongoing symptoms. CT Findings as above. 1. Multiple Intra-abdominal abscesses sec to perforated appendicitis Failed conservative management with IV Abx For surgical eval and possible laparotomy versus IR guided drainage IV Zosyn Currently afebrile, hemodynamically stable without leukocytosis. NPO for possible IR or surgical procedure. Discussed with surgeon Dr. Reese. 2. DM 2 - On Lantus 20 units at bedtime and SSI. Will hold Lantus as patient is NPO. 3. DVT Px - Heparin SQ - hold AM dose prior to IR or Surgical intervention. Visit type - Emergency Visit Emergency Visit: Yes ED Registration Date: 03/28/18 Care time: The patient presented to the Emergency Department on the above date and was hospitalized for further evaluation of their emergent condition. - New Patient This patient is new to me today: Yes Date on this admission: 03/28/18 - Critical Care Critical Care patient: No
[2018-03-28] MEDS ORDERED: HEPARIN NA (PORCINE) 5,000 UNITS/ML 1ML VIAL ONE (20:54)
[2018-03-28] MEDS ORDERED: PIPERACILLIN/TAZOB 4.5 GM 4.5 GM in DEXTROSE 5%-WATER 100 ML IVPB SCH (21:00)
[2018-03-28] MEDS: HEPARIN NA (PORCINE) 5,000 UNITS/ML 1ML VIAL SQ SCH (21:11)
[2018-03-28] MEDS: SODIUM CHLORIDE 1,000 ML IV SCH (21:13)
[2018-03-28] MEDS: INSULIN SLIDING SCALE (NOVOLOG) 1 VIAL SQ SCH (21:13)
[2018-03-28] MEDS ORDERED: INSULIN (NOVOLOG) ASPART 100 UNITS/ML 10ML VIAL ONE (21:20)
[2018-03-28] MEDS ORDERED: INSULIN SLIDING SCALE (NOVOLOG) 1 VIAL SQ SCH (22:00)
[2018-03-28] MEDS ORDERED: INSULIN (LEVEMIR) 100 UNITS/ML UNITS SQ SCH (22:00)
--- NOTE | 2018-03-28 22:09 | CONSULT ---
Consult Consult Specialty:: General Surgery Referred by:: Dr. Pelaez Reason for Consultation:: perforated appendicitis (persistent) - History of Present Illness Chief Complaint: RLQ pain, nausea, diarrhea History of Present Illness: 63yo Japanese F, morbidly obese, with DM, s/p , recently admitted for perforated appendicitis with abscesses too small to drain, treated nonoperatively with resolution of pain and tenderness and discharged to complete antibiotic course at home (Zosyn -> Augmentin, total 2 weeks), states that her nausea never actually went away. She also has had continued RLQ pain and had episodes of diarrhea on Monday and again today. She also reports night sweats, urinary frequency at night, no dysuria, no vomiting, and normal BMs between diarrheal episodes. She had finished the antibiotics and followed up with PMD (MARIAH Cardenas) on Monday, and was given referral to [facility] surgeon, whom she saw today. He did not have her records or CT and sent her back to [facility] ER for reevaluation and management. Surgery was asked to assess. Wbc today is normal, labs consistent with dehydration, UA contaminated (many epi 's), and CT was repeated showing similar picture to the previous, but with a little larger and more rim-enhancing fluid collections and an additional likely abscess in the right paracolic gutter. She was started on IV fluids and Zosyn. She did have food for dinner, but is now NPO again. She is seen and examined in ER holding, with daughter at bedside. She complains of RLQ pain and nausea. The tylenol she got earlier did not help much, but her pain is only 5/10, and she declines pain medicine at this time. She has no SOB and moves well on the stretcher. - History Source History Provided By: Patient Limitations to Obtaining History: No Limitations - Past Medical History Gastrointestinal: Yes: Other (perforated appendicitis 03/05/18 tx nonoperatively ; morbid obesity) Reproductive: Yes: Postmenopausal ...LMP: 08/19/12 Endocrine: Yes: Diabetes Mellitus Additional Medical History: foot infection about 4 yrs ago requiring steroid course for several months - Past Surgical History Past Surgical History: Yes: Cataract Removal (left 02/16/18), ( complicated by infections) - Alcohol/Substance Use Hx Alcohol Use: Yes (rare) History of Substance Use: reports: None - Smoking History Smoking history: Never smoked Have you smoked in the past 12 months: No - Social History ADL: Independent History of Recent Travel: Yes ([place] for 2 weeks returned 02/07/18) Home Medications - Allergies Allergies/Adverse Reactions: Allergies Allergy/AdvReac Type Severity Reaction Status Date / Time No Known Drug Allergies Allergy Verified 03/28/18 11:49 SEASONAL Allergy Uncoded 03/28/18 11:49 - Home Medications Home Medications: Ambulatory Orders metFORMIN HCL [Glucophage] 1,000 mg PO BID #0 tab 08/09/12 Insulin Glargine,Hum.rec.anlog [Lantus (10mL VIAL) -] 26 units SQ HS 02/17/15 Insulin Lispro [Humalog] 18 units SQ PRN 03/28/18 Family Disease History - Family Disease History Family Disease History: Diabetes: Mother, CA: Sister (bone ca dx age 53 3 yrs ago), Other: Father (htn) Review of Systems - Review of Systems Constitutional: reports: Night Sweats. denies: Chills, Fever Eyes: reports: Blurred Vision (R eye), Recent Change in Vision (s/p L cataract removal 02/16/18) HENT: denies: Difficult Swallowing, Throat Pain Neck: denies: Swollen Glands, Tenderness Cardiovascular: denies: Chest Pain, Palpitations Respiratory: denies: Cough, SOB Gastrointestinal: reports: Abdominal Pain (with hpi), Diarrhea (with hpi), Nausea (with hpi). denies: Constipation, Vomiting Genitourinary: reports: Frequency. denies: Burning, Dysuria Musculoskeletal: reports: Back Pain. denies: Joint Pain, Muscle Pain Integumentary: denies: Change in Color, Rash Neurological: denies: Dizziness, Headache Physical Exam Vital Signs: Vital Signs Temperature 98 F 03/28/18 21:35 Pulse Rate 85 03/28/18 21:35 Respiratory Rate 20 03/28/18 21:35 Blood Pressure 120/62 03/28/18 21:35 O2 Sat by Pulse Oximetry (%) 95 03/28/18 16:43 Constitutional: Yes: No Distress, Anxious (tearful), Obese Eyes: Yes: Conjunctiva Clear, EOM Intact HENT: Yes: Atraumatic, Normocephalic Neck: Yes: Supple, Trachea Midline Cardiovascular: Yes: Regular Rate and Rhythm. No: Murmur Respiratory: Yes: Regular, CTA Bilaterally Gastrointestinal: Yes: Soft, Abdomen, Obese, Hypoactive Bowel Sounds, Tenderness (RLQ and laterally onto side/flank, less suprapubic), Other (healed Pfannenstiel scar and also one short crossing it in midline). No: Tenderness, Epigastrium, Tenderness, Rebound (no guarding or rebound) ...Rectal Exam: Yes: Deferred Renal/: Yes: CVA Tenderness - Right. No: CVA Tenderness - Left Musculoskeletal: No: Joint Stiffness, Joint Swelling Extremities: No: Cool, Cyanosis Edema: No Peripheral Pulses WNL: Yes Integumentary: No: Jaundice, Rash Neurological: Yes: Alert, Oriented Psychiatric: Yes: Alert, Oriented Labs: CBC, BMP 03/28/18 13:01 03/28/18 13:01 CMP Sodium 139 mmol/L (136-145) 03/28/18 13:01 Potassium 5.0 mmol/L (3.5-5.1) 03/28/18 13:01 Chloride 102 mmol/L (98-107) 03/28/18 13:01 Carbon Dioxide 29 mmol/L (21-32) 03/28/18 13:01 Anion Gap 8 MMOL/L (8-16) 03/28/18 13:01 BUN 18 mg/dL (7-18) 03/28/18 13:01 Creatinine 1.3 mg/dL (0.55-1.3) 03/28/18 13:01 Creat Clearance w eGFR 41.64 (>60) 03/28/18 13:01 POC Glucometer [id number] UNITS (80-120) 03/28/18 21:09 Random Glucose 191 mg/dL (74-106) H 03/28/18 13:01 Calcium 8.9 mg/dL (8.5-10.1) 03/28/18 13:01 Total Bilirubin 0.3 mg/dL (0.2-1) 03/28/18 13:01 AST 18 U/L (15-37) 03/28/18 13:01 ALT 20 U/L (13-61) 03/28/18 13:01 Alkaline Phosphatase 97 U/L (45-117) 03/28/18 13:01 Total Protein 7.8 g/dl (6.4-8.2) 03/28/18 13:01 Albumin 3.2 g/dl (3.4-5.0) L 03/28/18 13:01 INR, PTT INR 1.06 (0.83-1.09) 03/28/18 13:01 Urine Test Results Urine Color Hiral 03/28/18 13:01 Urine Appearance Cloudy 03/28/18 13:01 Urine pH 5.0 (5.0-8.0) 03/28/18 13:01 Ur Specific Cool 1.031 (1.010-1.035) 03/28/18 13:01 Urine Protein 2+ (NEGATIVE) H 03/28/18 13:01 Urine Glucose (UA) Negative (NEGATIVE) 03/28/18 13:01 Urine Ketones Trace (NEGATIVE) H 03/28/18 13:01 Urine Blood Negative (NEGATIVE) 03/28/18 13:01 Urine Nitrite Negative (NEGATIVE) 03/28/18 13:01 Urine Bilirubin 2.0 (<2.0 mg/dL) 03/28/18 13:01 Ur Leukocyte Esterase 3+ (NEGATIVE) H 03/28/18 13:01 Ur Epithelial Cells Many /HPF (FEW) 03/28/18 13:01 Urine Bacteria Rare /hpf (NONE SEEN) 03/28/18 13:01 Urine Mucus Rare 03/28/18 13:01 UA contaminated - many epi's dehydrated - BUN/Cr almost twice baseline, Hb above baseline 11-12, Ur Sp Grav high Imaging - Results Cat Scan: Report Reviewed, Image Reviewed (images personally reviewed - little larger rim-enhancing fluid collections in RLQ with additional one in R paracolic gutter with few bubbles air, appendix enlarged abutting a collection at tip, no obstruction, no gross free air; reviewed by phone with Dr. Mohan/IR , who thinks there may be a window for percutaneous drain placement in am) Problem List - Problems (1) Acute appendicitis with perforation, localized peritonitis, and abscess Assessment/Plan: admitted to medicine now with larger, more defined abscess(es) NPO/IVF - generous hydration glucose control trend labs pain meds prn - IV tylenol first line, morphine breakthrough only IV antibiotics - ID consulted IR to attempt percutaneous drainage in am with cultures (hold am dose heparin) if unsuccessful, will likely need to take for lap possible open appendectomy discussed with Dr. Solano Code(s): K35.33 - ACUTE APPENDICITIS WITH PERF AND LOC PERITONITIS, WITH ABSCS Qualifiers: Appendicitis gangrene presence: without gangrene Qualified Code(s): K35.33 - Acute appendicitis with perforation and localized peritonitis, with abscess (2) RLQ abdominal pain Code(s): R10.31 - RIGHT LOWER QUADRANT PAIN (3) Nausea alone Code(s): R11.0 - NAUSEA (4) Diarrhea Code(s): R19.7 - DIARRHEA, UNSPECIFIED Qualifiers: Diarrhea type: functional diarrhea Qualified Code(s): K59.1 - Functional diarrhea (5) Diabetes mellitus type 2 with retinopathy Code(s): E11.319 - TYPE 2 DIABETES W UNSP DIABETIC RTNOP W/O MACULAR EDEMA Qualifiers: Diabetes mellitus exterminator termite insulin use: with prison use Diabetic retinopathy severity: with proliferative retinopathy Proliferative retinopathy type: with traction retinal detachment not involving macula Laterality: right Qualified Code(s): E11.3531 - 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
[2018-03-28] MEDS ORDERED: ACETAMINOPHEN 1000 MG/100 ML VIAL (NON FORMULARY) IVPB PRN (22:36)
[2018-03-29] MEDS ORDERED: PIPERACILLIN/TAZOBACTAM 4.5 GM VIAL IVPB ONE ×2 (01:10→09:48)
[2018-03-29] MEDS ORDERED: DEXTROSE 5%-WATER 100 ML IVPB ONE ×2 (01:10→09:48)
[2018-03-29] MEDS: PIPERACILLIN/TAZOB 4.5 GM 4.5 GM in DEXTROSE 5%-WATER 100 ML IVPB SCH ×2 (01:52→10:00)
[2018-03-29] MEDS ORDERED: PIPERACILLIN/TAZOB 4.5 GM 4.5 GM in DEXTROSE 5%-WATER 100 ML IVPB SCH (02:00)
[2018-03-29] MEDS: INSULIN SLIDING SCALE (NOVOLOG) 1 VIAL SQ SCH ×6 (02:02→22:08)
[2018-03-29 08:16] LABS: ALBUMIN 2.9 g/dl (3.4-5.0); ALK PHOS 84 U/L (45-117); ANION GAP 3 MMOL/L (8-16); BILIRUBIN,TOTAL 0.3 mg/dL (0.2-1); BLOOD UREA NITROGEN 14 mg/dL (7-18); CALCIUM 8.5 mg/dL (8.5-10.1); CHLORIDE 107 mmol/L (98-107); CO2 31 mmol/L (21-32); GLUCOSE,RANDOM 246 mg/dL (74-106); POTASSIUM 5.3 mmol/L (3.5-5.1); SGOT/AST 15 U/L (15-37); SGPT/ALT 18 U/L (13-61); SODIUM 142 mmol/L (136-145); TOT PROT 7.1 g/dl (6.4-8.2)
[2018-03-29 08:25] LABS: BASO % 0.6 % (0-2.0); EOS % 3.2 % (0-4.5); HEMATOCRIT 39.4 % (32.4-45.2); HEMOGLOBIN 12.9 GM/dL (10.7-15.3); LYMPH % 27.2 % (8-40); MCH 27.2 pg (25.7-33.7); MCHC 32.8 g/dl (32.0-36.0); MEAN CELL VOLUME 82.9 fl (80-96); MEAN PLT VOLUME 7.8 fl (7.5-11.1); MONO % 12.9 % (3.8-10.2); NEUT % 56.1 % (42.8-82.8); PLATELET COUNT 271 K/MM3 (134-434); RBC 4.75 M/mm3 (3.60-5.2); RDW 16.5 % (11.6-15.6); WHITE BLOOD COUNT 6.1 K/mm3 (4.0-10.0)
[2018-03-29] MEDS: INSULIN (LEVEMIR) 100 UNITS/ML UNITS SQ SCH (09:14)
[2018-03-29] MEDS: SODIUM CHLORIDE 1,000 ML IV SCH ×3 (09:35→22:07)
[2018-03-29] MEDS ORDERED: FLU VACCINE QUAD 60 MCG/0.5 ML (MDV 18-19) IM ONE (10:00)
--- NOTE | 2018-03-29 11:29 | PN ---
Progress Note (short form) - Note Progress Note: She reports some improvement in abdominal discomfort. No nausea/vomiting. No further diarrhea since admission. No fever/chills. Afebrile/Hemodynamically Stable. Last Vital Signs Temp Pulse Resp BP Pulse Ox 98.2 F 72 18 148/66 95 03/29/18 09:00 03/29/18 09:00 03/29/18 09:00 03/29/18 09:00 03/29/18 09:00 Laboratory Results - last 24 hr 03/28/18 03/28/18 03/28/18 13:01 13:01 13:01 WBC 9.3 RBC 5.21 H Hgb 13.4 Hct 43.2 MCV 82.9 MCH 25.7 MCHC 31.0 L RDW 16.6 H Plt Count 278 D MPV 7.8 Absolute Neuts (auto) 6.1 Neutrophils % 65.8 Lymphocytes % 22.6 D Monocytes % 8.9 Eosinophils % 2.2 Basophils % 0.5 Nucleated RBC % 0 PT with INR 12.50 INR 1.06 Sodium 139 Potassium 5.0 Chloride 102 Carbon Dioxide 29 Anion Gap 8 BUN 18 Creatinine 1.3 Creat Clearance w eGFR 41.64 POC Glucometer Random Glucose 191 H Calcium 8.9 Total Bilirubin 0.3 AST 18 ALT 20 Alkaline Phosphatase 97 Total Protein 7.8 Albumin 3.2 L Urine Color Urine Appearance Urine pH Ur Specific [place] Urine Protein Urine Glucose (UA) Urine Ketones Urine Blood Urine Nitrite Urine Bilirubin Urine Urobilinogen Ur Leukocyte Esterase Urine WBC (Auto) Urine RBC (Auto) Ur Epithelial Cells Urine Bacteria Hyaline Casts Urine Mucus Blood Type Antibody Screen 03/28/18 03/28/18 03/28/18 13:01 13:01 21:09 WBC RBC Hgb Hct MCV MCH MCHC RDW Plt Count MPV Absolute Neuts (auto) Neutrophils % Lymphocytes % Monocytes % Eosinophils % Basophils % Nucleated RBC % PT with INR INR Sodium Potassium Chloride Carbon Dioxide Anion Gap BUN Creatinine Creat Clearance w eGFR POC Glucometer [phone] Random Glucose Calcium Total Bilirubin AST ALT Alkaline Phosphatase Total Protein Albumin Urine Color Hiral Urine Appearance Cloudy Urine pH 5.0 Ur Specific [place] 1.031 Urine Protein 2+ H Urine Glucose (UA) Negative Urine Ketones Trace H Urine Blood Negative Urine Nitrite Negative Urine Bilirubin 2.0 Urine Urobilinogen 4.0 e.u/dl H Ur Leukocyte Esterase 3+ H Urine WBC (Auto) 147 Urine RBC (Auto) 17 Ur Epithelial Cells Many Urine Bacteria Rare Hyaline Casts 100 Urine Mucus Rare Blood Type A POSITIVE Antibody Screen Negative 03/29/18 03/29/18 03/29/18 02:01 05:23 07:30 WBC 6.1 RBC 4.75 Hgb 12.9 Hct 39.4 MCV 82.9 MCH 27.2 MCHC 32.8 RDW 16.5 H Plt Count 271 MPV 7.8 Absolute Neuts (auto) 3.4 Neutrophils % 56.1 Lymphocytes % 27.2 D Monocytes % 12.9 H Eosinophils % 3.2 Basophils % 0.6 Nucleated RBC % 0 PT with INR INR Sodium Potassium Chloride Carbon Dioxide Anion Gap BUN Creatinine Creat Clearance w eGFR POC Glucometer 246 273 Random Glucose Calcium Total Bilirubin AST ALT Alkaline Phosphatase Total Protein Albumin Urine Color Urine Appearance Urine pH Ur Specific [place] Urine Protein Urine Glucose (UA) Urine Ketones Urine Blood Urine Nitrite Urine Bilirubin Urine Urobilinogen Ur Leukocyte Esterase Urine WBC (Auto) Urine RBC (Auto) Ur Epithelial Cells Urine Bacteria Hyaline Casts Urine Mucus Blood Type Antibody Screen 03/29/18 07:30 WBC RBC Hgb Hct MCV MCH MCHC RDW Plt Count MPV Absolute Neuts (auto) Neutrophils % Lymphocytes % Monocytes % Eosinophils % Basophils % Nucleated RBC % PT with INR INR Sodium 142 Potassium 5.3 H Chloride 107 Carbon Dioxide 31 Anion Gap 3 L BUN 14 Creatinine 1.0 Creat Clearance w eGFR 56.37 POC Glucometer Random Glucose 246 H Calcium 8.5 Total Bilirubin 0.3 AST 15 ALT 18 Alkaline Phosphatase 84 Total Protein 7.1 Albumin 2.9 L Urine Color Urine Appearance Urine pH Ur Specific [place] Urine Protein Urine Glucose (UA) Urine Ketones Urine Blood Urine Nitrite Urine Bilirubin Urine Urobilinogen Ur Leukocyte Esterase Urine WBC (Auto) Urine RBC (Auto) Ur Epithelial Cells Urine Bacteria Hyaline Casts Urine Mucus Blood Type Antibody Screen Current Medications Generic Name Dose Route Start Last Admin Trade Name Freq PRN Reason Stop Dose Admin Acetaminophen 1,000 mg 03/28/18 22:36 Ofirmev Injection - IVPB Q6H PRN PAIN LEVEL 4 - 6 Heparin Sodium (Porcine) 5,000 unit 03/28/18 19:46 03/28/18 21:11 Heparin - SQ 5,000 unit TID SARINA Administration Piperacillin Sod/Tazobactam 100 mls @ 200 mls/hr 03/29/18 02:00 Sod 4.5 gm/ Dextrose IVPB Q8H-IV SARINA Protocol Sodium Chloride 1,000 mls @ 150 mls/hr 03/28/18 20:15 03/29/18 09:35 Normal Saline - IV 150 mls/hr ASDIR SARINA Administration Insulin Aspart 1 vial 03/28/18 22:00 03/29/18 09:34 Novolog Vial Sliding Scale - SQ Not Given Q4HPO [facility] Protocol Insulin Detemir 5 units 03/29/18 07:45 03/29/18 09:14 Levemir Vial SQ Not Given DAILY@0700 [facility] Morphine Sulfate 2 mg 03/28/18 22:37 Morphine Sulfate IVPUSH Q4H PRN PAIN LEVEL 7 - 10 CT A/P - 3.3 x 2.3 complex structure in pericoli space of level of mid to lower abdomen suggestive of abscess. Contiguous thick walled fluid collection suggestive of absces within the R mid pelvis laterally. thickened appendix suggestive of perforated appendicitis. ASSESSMENT/PLAN: 63 year old female with morbid obesity, DM 2, recently admitted and managed conservatively for perforated appendicitis and intra-abdominal abscess with IV Abx as inpatient at the end of February with transition to out-patient oral Abx. Patient continued to have pain with nausea and diarrhea for the past 2 days. She denies fever but reports chills and sweats. No melena/hematochezia. No vomiting. She describes the abdominal pain on RLQ as sharp, severity 5/10, without radiation. She was seen at surgeon's office today and referred to ED due to ongoing symptoms. CT Findings as above. 1. Multiple Intra-abdominal abscesses sec to perforated appendicitis Failed conservative management with IV Abx For attempt at IR guided drainage today Continue IV Zosyn Currently afebrile, hemodynamically stable without leukocytosis. NPO for possible IR procedure. If any deterioration or worsening of her condition - for surgical intervention. MS for pain. Discussed with surgeon Dr. Reese. 2. DM 2 - Normally on Lantus 20 units at bedtime. Lantus held as patient is NPO but serum glucose readings on high side - will give Levemir 5 units and cover with sliding scale q4h as patient is NPO. 3. DVT Px - Heparin SQ - AM dose held prior to IR or Surgical intervention. Visit type - Emergency Visit Emergency Visit: Yes ED Registration Date: 03/28/18 Care time: The patient presented to the Emergency Department on the above date and was hospitalized for further evaluation of their emergent condition. - New Patient This patient is new to me today: No - Critical Care Critical Care patient: No - Discharge Referral Referred to [facility] No
--- NOTE | 2018-03-29 12:03 | EKG ---
Test Reason : Blood Pressure : / mmHG Vent. Rate : 080 BPM Atrial Rate : 080 BPM P-R Int : 142 ms QRS Dur : 080 ms QT Int : 378 ms P-R-T Axes : 020 -08 011 degrees QTc Int : 435 ms POOR DATA QUALITY, INTERPRETATION MAY BE ADVERSELY AFFECTED NORMAL SINUS RHYTHM INFERIOR INFARCT , AGE UNDETERMINED ABNORMAL ECG WHEN COMPARED WITH ECG OF 05-MAR-2018 22:59, NO SIGNIFICANT CHANGE WAS FOUND Confirmed by NURIA TO, OCTAVIANO ([id number]) on 03/29/2018 12:03:11 PM Referred By: Confirmed By:OCTAVIANO QUIÑONES MD
--- NOTE | 2018-03-29 14:18 | CON.ID ---
Consult Consult Specialty:: infectious diseases Referred by:: Reason for Consultation:: abd pain - History of Present Illness Chief Complaint: abd pain History of Present Illness: 63 year old female with morbid obesity, DM 2, recently admitted and managed conservatively for perforated appendicitis and intra-abdominal abscess with IV Abx as inpatient at the end of February with transition to out-patient oral Abx. Patient continued to have pain with nausea and diarrhea for the past 2 days. She denies fever but reports chills and sweats. No melena/hematochezia. No vomiting. She describes the abdominal pain on RLQ as sharp, severity 5/10, without radiation. She was seen at surgeon's office today and referred to ED due to ongoing symptoms. patient probably having a phelgmon - History Source History Provided By: Patient, Medical Record Limitations to Obtaining History: Language Barrier - Past Medical History Gastrointestinal: Yes: Other (perforated appendicitis 03/05/18 tx nonoperatively ; morbid obesity) ...LMP: 08/19/12 Endocrine: Yes: Diabetes Mellitus Additional Medical History: foot infection about 4 yrs ago requiring steroid course for several months - Past Surgical History Past Surgical History: Yes: Cataract Removal (left 02/16/18), ( complicated by infections) - Alcohol/Substance Use Hx Alcohol Use: Yes (rare) History of Substance Use: reports: None - Smoking History Smoking history: Never smoked Have you smoked in the past 12 months: No Aproximately how many cigarettes per day: 0 - Social History ADL: Independent History of Recent Travel: Yes ([place] for 2 weeks returned 02/07/18) Home Medications - Allergies Allergies/Adverse Reactions: Allergies Allergy/AdvReac Type Severity Reaction Status Date / Time No Known Drug Allergies Allergy Verified 03/28/18 11:49 SEASONAL Allergy Uncoded 03/28/18 11:49 - Home Medications Home Medications: Ambulatory Orders RX: metFORMIN HCL [Glucophage] 1,000 mg PO BID #0 tab 08/09/12 RX: Insulin Glargine,Hum.rec.anlog [Lantus (10mL VIAL) -] 26 units SQ HS RX: Insulin Lispro [Humalog] 18 units SQ PRN 03/28/18 RX: Acetaminophen [Tylenol .Regular Strength -] 650 mg PO Q6H PRN tablet RX: Lactobacillus Acidophilus [Bacid -] 1 tab PO DAILY 30 Days #30 tab 04/02/18 RX: levoFLOXacin [Levaquin -] 500 mg PO DAILY@1700 7 Days #7 tablet 04/02/18 RX: metroNIDAZOLE [Flagyl -] 500 mg PO TID #42 tablet 04/02/18 Family Disease History - Family Disease History Family Disease History: Diabetes: Mother, CA: Sister (bone ca dx age 53 3 yrs ago), Other: Father (htn) Review of Systems - Review of Systems Constitutional: reports: No Symptoms Eyes: reports: No Symptoms HENT: reports: No Symptoms Neck: reports: No Symptoms Cardiovascular: reports: No Symptoms Respiratory: reports: No Symptoms Gastrointestinal: reports: Abdominal Pain Genitourinary: reports: No Symptoms Breasts: reports: No Symptoms Reported Musculoskeletal: reports: No Symptoms Integumentary: reports: No Symptoms Neurological: reports: No Symptoms Endocrine: reports: No Symptoms Hematology/Lymphatic: reports: No Symptoms Psychiatric: reports: No Symptoms Physical Exam Vital Signs: Vital Signs Temperature 98.2 F 03/29/18 09:00 Pulse Rate 82 03/29/18 12:54 Respiratory Rate 15 03/29/18 12:54 Blood Pressure 178/82 H 03/29/18 12:54 O2 Sat by Pulse Oximetry (%) 96 03/29/18 12:54 Constitutional: Yes: Well Nourished, Calm, Mild Distress, Obese Eyes: Yes: Conjunctiva Clear HENT: Yes: Atraumatic, Normocephalic Neck: Yes: Supple, Trachea Midline Cardiovascular: Yes: Regular Rate and Rhythm Respiratory: Yes: Regular, CTA Bilaterally Gastrointestinal: Yes: Soft, Tenderness (rlq) Musculoskeletal: Yes: WNL Extremities: Yes: WNL Integumentary: Yes: WNL Neurological: Yes: Alert, Oriented Psychiatric: Yes: Alert, Oriented Labs: CBC, BMP 03/29/18 07:30 03/29/18 07:30 Assessment/Plan Problem List - Problems (1) Acute appendicitis with perforation, localized peritonitis, and abscess Code(s): K35.33 - ACUTE APPENDICITIS WITH PERF AND LOC PERITONITIS, WITH ABSCS Qualifiers: Appendicitis gangrene presence: without gangrene Qualified Code(s): K35.33 - Acute appendicitis with perforation and localized peritonitis, with abscess (2) RLQ abdominal pain Code(s): R10.31 - RIGHT LOWER QUADRANT PAIN (3) Nausea alone Code(s): R11.0 - NAUSEA (4) Diarrhea Code(s): R19.7 - DIARRHEA, UNSPECIFIED Qualifiers: Diarrhea type: functional diarrhea Qualified Code(s): K59.1 - Functional diarrhea (5) Diabetes mellitus type 2 with retinopathy Code(s): E11.319 - TYPE 2 DIABETES W UNSP DIABETIC RTNOP W/O MACULAR EDEMA Qualifiers: Diabetes mellitus medical terminologist insulin use: with long-term use Diabetic retinopathy severity: with proliferative retinopathy Proliferative retinopathy type: with traction retinal detachment not involving macula Laterality: right Qualified Code(s): E11.3531 - 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
[2018-03-29] MEDS: HEPARIN NA (PORCINE) 5,000 UNITS/ML 1ML VIAL SQ SCH ×2 (15:45→22:08)
--- NOTE | 2018-03-29 16:02 | PN ---
Progress Note, Physician History of Present Illness: 63yo [place] F, morbidly obese, with DM, s/p , recently admitted for perforated appendicitis with abscesses too small to drain, treated nonoperatively with resolution of pain and tenderness and discharged to complete antibiotic course at home (Zosyn -> Augmentin, total 2 weeks), returned with RLQ pain, nausea and few episodes of diarrhea. No wbc or fever. IR attempted drainage today after CT showed slightly larger ?abscesses/ collections, but on multiple attempts was unable to obtain more than scant sample for culture. There is most likely still resolving phlegmon in RLQ. She is seen and examined in bed, with daughter, father and stepmother at bedside. She c/o RLQ pain. She and her family are anxious to have surgery and "get the infection out." I have explained that the risks of bowel injury, more extensive resection and risk of leak and breakdown of staple line are too high at this point in time to warrant surgery. - Current Medication List Current Medications: Active Medications Acetaminophen (Ofirmev Injection -) 1,000 mg IVPB Q6H PRN PRN Reason: PAIN LEVEL 4 - 6 Heparin Sodium (Porcine) (Heparin -) 5,000 unit SQ TID [facility] Last Admin: 03/29/18 15:45 Dose: 5,000 unit Sodium Chloride (Normal Saline -) 1,000 mls @ 150 mls/hr IV ASDIR [facility] Last Admin: 03/29/18 09:35 Dose: 150 mls/hr Piperacillin Sod/Tazobactam (Sod 3.375 gm/ Dextrose) 50 mls @ 100 mls/hr IVPB Q8H-IV [facility]; Protocol Insulin Aspart (Novolog Vial Sliding Scale -) 1 vial SQ Q4HPO [facility]; Protocol Last Admin: 03/29/18 13:56 Dose: 3 units Insulin Detemir (Levemir Vial) 5 units SQ DAILY@0700 [facility] Last Admin: 03/29/18 09:14 Dose: Not Given Morphine Sulfate (Morphine Sulfate) 2 mg IVPUSH Q4H PRN PRN Reason: PAIN LEVEL 7 - 10 Last Admin: 03/29/18 13:40 Dose: 2 mg - Objective Vital Signs: Vital Signs Temperature 97.9 F 03/29/18 15:19 Pulse Rate 81 03/29/18 15:19 Respiratory Rate 17 03/29/18 15:19 Blood Pressure 149/79 03/29/18 15:19 O2 Sat by Pulse Oximetry (%) 96 03/29/18 12:54 Constitutional: Yes: No Distress (but uncomfortable), Anxious, Obese Eyes: Yes: Conjunctiva Clear, EOM Intact HENT: Yes: Atraumatic, Normocephalic Gastrointestinal: Yes: Soft, Abdomen, Obese, Tenderness (RLQ and laterally, less RUQ, minimal to none suprapubic and LLQ) Genitourinary: Yes: CVA Tenderness - Right. No: CVA Tenderness - Left Extremities: No: Cool, Cyanosis Integumentary: No: Jaundice, Rash Wound/Incision: Yes: Dressing Dry and Intact (from IR puncture site on RLQ abdomen). No: Dressing Removed Neurological: Yes: Alert, Oriented Psychiatric: Yes: Alert (tearful) Labs: CBC, BMP 03/29/18 07:30 03/29/18 07:30 BUN/Cr hydrated down wbc also less - ....Imaging Cat Scan: Image Reviewed (images from attempted abscess drainage reviewed - discussed with Dr. Mohan) Problem List - Problems (1) Acute appendicitis with perforation, localized peritonitis, and abscess Assessment/Plan: admitted to medicine most likely resolving phlegmon, as not enough fluid present to drain by IR would be too soon and too risky to operate at this point need to wait for resolution of inflammation and phlegmon likely several weeks at least continue abx, see below daughter and patient understand and agree with plan at this time NPO/IVF, will lower rate glucose control trend labs will order standing toradol for several days to help with pain and inflammation additional pain meds prn - IV tylenol first line, morphine breakthrough only IV antibiotics - ID consulted if feeling a bit better tonight after toradol, may be able to start clears tomorrow and slowly advance diet to low residue discussed with Dr. Solano and Dr. Prajapati Code(s): K35.33 - ACUTE APPENDICITIS WITH PERF AND LOC PERITONITIS, WITH ABSCS Qualifiers: Appendicitis gangrene presence: without gangrene Qualified Code(s): K35.33 - Acute appendicitis with perforation and localized peritonitis, with abscess (2) RLQ abdominal pain Code(s): R10.31 - RIGHT LOWER QUADRANT PAIN (3) Nausea alone Code(s): R11.0 - NAUSEA (4) Diarrhea Assessment/Plan: had some, likely from oral contrast right now Code(s): R19.7 - DIARRHEA, UNSPECIFIED Qualifiers: Diarrhea type: functional diarrhea Qualified Code(s): K59.1 - Functional diarrhea (5) Diabetes mellitus type 2 with retinopathy Code(s): E11.319 - TYPE 2 DIABETES W UNSP DIABETIC RTNOP W/O MACULAR EDEMA Qualifiers: Diabetes mellitus termite exterminator helper insulin use: with termite exterminator helper use Diabetic retinopathy severity: with proliferative retinopathy Proliferative retinopathy type: with traction retinal detachment not involving macula Laterality: right Qualified Code(s): E11.3531 - 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
[2018-03-29] MEDS ORDERED: PIPERACILLIN/TAZOBACTAM 3.375 GM VIAL IVPB ONE (16:46)
[2018-03-29] MEDS ORDERED: DEXTROSE 5%-WATER - 50 ML IVPB ONE (16:46)
[2018-03-29] MEDS: KETOROLAC TROMETHAMINE 30 MG/1 ML VIAL IVPUSH SCH ×2 (16:50→22:08)
[2018-03-29] MEDS: PIPERACILLIN/TAZOB 3.375 GM 3.375 GM in DEXTROSE 5%-WATER - 50 ML IVPB SCH (18:31)
[2018-03-29] MEDS ORDERED: INSULIN (LEVEMIR) 100 UNITS/ML UNITS SQ SCH (22:00)
[2018-03-30] MEDS ORDERED: DEXTROSE 5%-WATER - 50 ML IVPB ONE ×3 (02:03→17:16)
[2018-03-30] MEDS ORDERED: PIPERACILLIN/TAZOBACTAM 3.375 GM VIAL IVPB ONE ×3 (02:03→17:16)
[2018-03-30] MEDS: INSULIN SLIDING SCALE (NOVOLOG) 1 VIAL SQ SCH ×6 (02:14→22:30)
[2018-03-30] MEDS: PIPERACILLIN/TAZOB 3.375 GM 3.375 GM in DEXTROSE 5%-WATER - 50 ML IVPB SCH ×3 (02:15→17:33)
[2018-03-30] MEDS: KETOROLAC TROMETHAMINE 30 MG/1 ML VIAL IVPUSH SCH ×4 (05:48→22:31)
[2018-03-30] MEDS: HEPARIN NA (PORCINE) 5,000 UNITS/ML 1ML VIAL SQ SCH ×3 (05:49→21:10)
[2018-03-30] MEDS: INSULIN (LEVEMIR) 100 UNITS/ML UNITS SQ SCH (06:00)
[2018-03-30 08:46] LABS: ALBUMIN 2.7 g/dl (3.4-5.0); ALK PHOS 74 U/L (45-117); ANION GAP 7 MMOL/L (8-16); BILIRUBIN,TOTAL 0.4 mg/dL (0.2-1); BLOOD UREA NITROGEN 9 mg/dL (7-18); CALCIUM 8.3 mg/dL (8.5-10.1); CHLORIDE 106 mmol/L (98-107); CO2 29 mmol/L (21-32); CREATININE 0.6 mg/dL (0.55-1.3); GLUCOSE,RANDOM 182 mg/dL (74-106); POTASSIUM 4.6 mmol/L (3.5-5.1); SGOT/AST 18 U/L (15-37); SGPT/ALT 17 U/L (13-61); SODIUM 142 mmol/L (136-145); TOT PROT 6.7 g/dl (6.4-8.2)
[2018-03-30] MEDS: SODIUM CHLORIDE 1,000 ML IV SCH (09:54)
[2018-03-30] MEDS ORDERED: INSULIN (NOVOLOG) ASPART 100 UNITS/ML 10ML VIAL ONE ×2 (10:01→19:15)
[2018-03-30 10:17] LABS: BASO % 0.2 % (0-2.0); EOS % 3.6 % (0-4.5); HEMATOCRIT 38.3 % (32.4-45.2); HEMOGLOBIN 12.2 GM/dL (10.7-15.3); LYMPH % 23.4 % (8-40); MCH 26.5 pg (25.7-33.7); MCHC 31.9 g/dl (32.0-36.0); MEAN CELL VOLUME 83.1 fl (80-96); MEAN PLT VOLUME 7.9 fl (7.5-11.1); MONO % 11.1 % (3.8-10.2); NEUT % 61.7 % (42.8-82.8); PLATELET COUNT 236 K/MM3 (134-434); RBC 4.61 M/mm3 (3.60-5.2); RDW 16.7 % (11.6-15.6)
[2018-03-30 10:27] LABS: WHITE BLOOD COUNT 5.3 K/mm3 (4.0-10.0)
[2018-03-30] MEDS ORDERED: oxyCODONE HCL 5 MG TABLET PO PRN (12:56)
--- NOTE | 2018-03-30 12:56 | PN ---
Progress Note, Physician History of Present Illness: 63yo [place]ian F, morbidly obese, with DM, s/p , recently admitted for perforated appendicitis with abscesses too small to drain, treated nonoperatively with resolution of pain and tenderness and discharged to complete antibiotic course at home (Zosyn -> Augmentin, total 2 weeks), returned with RLQ pain, nausea and few episodes of diarrhea. No wbc or fever. IR attempted drainage today after CT showed slightly larger ?abscesses/ collections, but on multiple attempts was unable to obtain more than scant sample for culture. There is most likely still resolving phlegmon in RLQ. She is seen and examined sitting up at edge of bed. She c/o RLQ pain, but appears more comfortable and it seems to be less. She is moving well, and had a BM. Tolerated clears for lunch. Itches at the site of the IR dressing. Slept well last night. - Current Medication List Current Medications: Active Medications Acetaminophen (Ofirmev Injection -) 1,000 mg IVPB Q6H PRN PRN Reason: PAIN LEVEL 4 - 6 Heparin Sodium (Porcine) (Heparin -) 5,000 unit SQ TID [facility] Last Admin: 03/30/18 05:49 Dose: Not Given Piperacillin Sod/Tazobactam (Sod 3.375 gm/ Dextrose) 50 mls @ 100 mls/hr IVPB Q8H-IV [facility]; Protocol Last Admin: 03/30/18 09:57 Dose: 100 mls/hr Insulin Aspart (Novolog Vial Sliding Scale -) 1 vial SQ ACHS [facility]; Protocol Last Admin: 03/30/18 12:42 Dose: Not Given Insulin Detemir (Levemir Vial) 5 units SQ DAILY@0700 [facility] Last Admin: 03/30/18 06:00 Dose: Not Given Ketorolac Tromethamine (Toradol Injection -) 30 mg IVPUSH Q6H [facility] Stop: 04/03/18 16:59 Last Admin: 03/30/18 11:49 Dose: 30 mg Morphine Sulfate (Morphine Sulfate) 2 mg IVPUSH Q4H PRN PRN Reason: PAIN LEVEL 7 - 10 Last Admin: 03/29/18 13:40 Dose: 2 mg - Objective Vital Signs: Vital Signs Temperature 97.8 F 03/30/18 06:00 Pulse Rate 71 03/30/18 06:00 Respiratory Rate 20 03/30/18 06:00 Blood Pressure 148/72 03/30/18 06:00 O2 Sat by Pulse Oximetry (%) 97 03/29/18 21:00 Constitutional: Yes: No Distress, Calm, Obese Eyes: Yes: Conjunctiva Clear, EOM Intact HENT: Yes: Atraumatic, Normocephalic Gastrointestinal: Yes: Soft, Abdomen, Obese, Tenderness (RLQ, little less, mild RUQ; minimal suprapubic). No: Tenderness, Rebound Extremities: No: Cool, Cyanosis Integumentary: No: Jaundice, Rash Wound/Incision: Yes: Dressing Dry and Intact (RLQ). No: Dressing Removed Neurological: Yes: Alert, Oriented Labs: CBC, BMP 03/30/18 07:33 03/30/18 07:33 BUN/Cr down further wbc even lower Problem List - Problems (1) Acute appendicitis with perforation, localized peritonitis, and abscess Assessment/Plan: admitted to medicine most likely resolving phlegmon, as not enough fluid present to drain by IR would be too soon and too risky to operate at this point need to wait for resolution of inflammation and phlegmon likely several weeks at least continue abx per ID jose clears, will do diabetic fulls for dinner if doing well, may advance tomorrow glucose control trend labs doing better on standing toradol additional pain meds prn - IV tylenol first line, change to oxycodone breakthrough only Code(s): K35.33 - ACUTE APPENDICITIS WITH PERF AND LOC PERITONITIS, WITH ABSCS Qualifiers: Appendicitis gangrene presence: without gangrene Qualified Code(s): K35.33 - Acute appendicitis with perforation and localized peritonitis, with abscess (2) RLQ abdominal pain Code(s): R10.31 - RIGHT LOWER QUADRANT PAIN (3) Nausea alone Code(s): R11.0 - NAUSEA (4) Diarrhea Code(s): R19.7 - DIARRHEA, UNSPECIFIED Qualifiers: Diarrhea type: functional diarrhea Qualified Code(s): K59.1 - Functional diarrhea (5) Diabetes mellitus type 2 with retinopathy Code(s): E11.319 - TYPE 2 DIABETES W UNSP DIABETIC RTNOP W/O MACULAR EDEMA Qualifiers: Diabetes mellitus long term care phlebotomist insulin use: with fdc use Diabetic retinopathy severity: with proliferative retinopathy Proliferative retinopathy type: with traction retinal detachment not involving macula Laterality: right Qualified Code(s): E11.3531 - 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
[2018-03-30] MEDS ORDERED: ACETAMINOPHEN 325 MG TABLET (FP) PO PRN (12:57)
--- NOTE | 2018-03-30 14:46 | PN ---
Progress Note, Physician History of Present Illness: patient doing well no complaints says pain much better - Current Medication List Current Medications: Active Medications Acetaminophen (Tylenol -) 650 mg PO Q6H PRN PRN Reason: PAIN LEVEL 6-10 Heparin Sodium (Porcine) (Heparin -) 5,000 unit SQ TID [facility] Last Admin: 03/30/18 05:49 Dose: Not Given Piperacillin Sod/Tazobactam (Sod 3.375 gm/ Dextrose) 50 mls @ 100 mls/hr IVPB Q8H-IV [facility]; Protocol Last Admin: 03/30/18 09:57 Dose: 100 mls/hr Insulin Aspart (Novolog Vial Sliding Scale -) 1 vial SQ ACHS [facility]; Protocol Last Admin: 03/30/18 12:42 Dose: Not Given Insulin Detemir (Levemir Vial) 5 units SQ DAILY@0700 [facility] Last Admin: 03/30/18 06:00 Dose: Not Given Ketorolac Tromethamine (Toradol Injection -) 30 mg IVPUSH Q6H [facility] Stop: 04/03/18 16:59 Last Admin: 03/30/18 11:49 Dose: 30 mg Oxycodone HCl (Roxicodone -) 5 mg PO Q6H PRN PRN Reason: Pain Level 7 - 10 BREAKTHROUGH - Objective Vital Signs: Vital Signs Temperature 98.4 F 03/30/18 10:00 Pulse Rate 80 03/30/18 10:00 Respiratory Rate 18 03/30/18 10:00 Blood Pressure 147/53 L 03/30/18 10:00 O2 Sat by Pulse Oximetry (%) 97 03/30/18 10:00 Constitutional: Yes: No Distress, Calm, Obese Cardiovascular: Yes: Regular Rate and Rhythm Respiratory: Yes: Regular, CTA Bilaterally Gastrointestinal: Yes: Normal Bowel Sounds, Soft Musculoskeletal: Yes: WNL Extremities: Yes: WNL Neurological: Yes: Alert, Oriented Psychiatric: Yes: Alert, Oriented Labs: CBC, BMP 03/30/18 07:33 03/30/18 07:33 INR, PTT INR 1.06 (0.83-1.09) 03/28/18 13:01 Assessment/Plan Problem List - Problems (1) Acute appendicitis with perforation, localized peritonitis, and abscess Code(s): K35.33 - ACUTE APPENDICITIS WITH PERF AND LOC PERITONITIS, WITH ABSCS Qualifiers: Appendicitis gangrene presence: without gangrene Qualified Code(s): K35.33 - Acute appendicitis with perforation and localized peritonitis, with abscess (2) RLQ abdominal pain Code(s): R10.31 - RIGHT LOWER QUADRANT PAIN (3) Nausea alone Code(s): R11.0 - NAUSEA (4) Diarrhea Code(s): R19.7 - DIARRHEA, UNSPECIFIED Qualifiers: Diarrhea type: functional diarrhea Qualified Code(s): K59.1 - Functional diarrhea (5) Diabetes mellitus type 2 with retinopathy Code(s): E11.319 - TYPE 2 DIABETES W UNSP DIABETIC RTNOP W/O MACULAR EDEMA Qualifiers: Diabetes mellitus fdc insulin use: with remote computer terminal operator use Diabetic retinopathy severity: with proliferative retinopathy Proliferative retinopathy type: with traction retinal detachment not involving macula Laterality: right Qualified Code(s): E11.3531 - 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
[2018-03-30 15:59] VITALS: BMI 42.6
--- NOTE | 2018-03-30 16:54 | PN ---
Progress Note (short form) - Note Progress Note: Feels better - abdominal pain improving. No nausea/vomiting. No further diarrhea since admission. No fever/chills. Afebrile/Hemodynamically Stable. Laboratory Results - last 24 hr 03/29/18 03/29/18 03/30/18 17:25 22:06 02:13 WBC RBC Hgb Hct MCV MCH MCHC RDW Plt Count MPV Absolute Neuts (auto) Neutrophils % Lymphocytes % Monocytes % Eosinophils % Basophils % Nucleated RBC % Sodium Potassium Chloride Carbon Dioxide Anion Gap BUN Creatinine Creat Clearance w eGFR POC Glucometer 192 181 164 Random Glucose Calcium Total Bilirubin AST ALT Alkaline Phosphatase Total Protein Albumin 03/30/18 03/30/18 03/30/18 06:55 07:33 07:33 WBC 5.3 RBC 4.61 Hgb 12.2 Hct 38.3 MCV 83.1 MCH 26.5 MCHC 31.9 L RDW 16.7 H Plt Count 236 MPV 7.9 Absolute Neuts (auto) 3.3 Neutrophils % 61.7 Lymphocytes % 23.4 Monocytes % 11.1 H Eosinophils % 3.6 Basophils % 0.2 Nucleated RBC % 0 Sodium 142 Potassium 4.6 Chloride 106 Carbon Dioxide 29 Anion Gap 7 L BUN 9 Creatinine 0.6 Creat Clearance w eGFR > 60 POC Glucometer 169 Random Glucose 182 H Calcium 8.3 L Total Bilirubin 0.4 AST 18 ALT 17 Alkaline Phosphatase 74 Total Protein 6.7 Albumin 2.7 L 03/30/18 10:03 WBC RBC Hgb Hct MCV MCH MCHC RDW Plt Count MPV Absolute Neuts (auto) Neutrophils % Lymphocytes % Monocytes % Eosinophils % Basophils % Nucleated RBC % Sodium Potassium Chloride Carbon Dioxide Anion Gap BUN Creatinine Creat Clearance w eGFR POC Glucometer 160 Random Glucose Calcium Total Bilirubin AST ALT Alkaline Phosphatase Total Protein Albumin Current Medications Generic Name Dose Route Start Last Admin Trade Name Freq PRN Reason Stop Dose Admin Acetaminophen 650 mg 03/30/18 12:57 Tylenol - PO Q6H PRN PAIN LEVEL 6-10 Heparin Sodium (Porcine) 5,000 unit 03/28/18 19:46 03/30/18 15:40 Heparin - SQ 5,000 unit TID [facility] Administration Piperacillin Sod/Tazobactam 50 mls @ 100 mls/hr 03/29/18 18:00 03/30/18 09:57 Sod 3.375 gm/ Dextrose IVPB 100 mls/hr Q8H-IV [facility] Administration Protocol Insulin Aspart 1 vial 03/30/18 12:15 03/30/18 12:42 Novolog Vial Sliding Scale - SQ Not Given [facility] Protocol Insulin Detemir 5 units 03/29/18 07:45 03/30/18 06:00 Levemir Vial SQ Not Given DAILY@0700 [facility] Ketorolac Tromethamine 30 mg 03/29/18 17:00 03/30/18 11:49 Toradol Injection - IVPUSH 04/03/18 16:59 30 mg Q6H [facility] Administration Oxycodone HCl 5 mg 03/30/18 12:56 Roxicodone - PO Q6H PRN Pain Level 7 - [address] A/P - 3.3 x 2.3 complex structure in pericoli space of level of mid to lower abdomen suggestive of abscess. Contiguous thick walled fluid collection suggestive of abscess within the R mid pelvis laterally. Thickened appendix suggestive of perforated appendicitis. ASSESSMENT/PLAN 63 year old female with morbid obesity, DM 2, recently admitted and managed conservatively for perforated appendicitis and intra-abdominal abscess with IV Abx as inpatient at the end of February with transition to out-patient oral Abx. Patient continued to have pain with nausea and diarrhea for the past 2 days. She denies fever but reports chills and sweats. No melena/hematochezia. No vomiting. She describes the abdominal pain on RLQ as sharp, severity 5/10, without radiation. She was seen at surgeon's office today and referred to ED due to ongoing symptoms. CT Findings as above. 1. Multiple Intra-abdominal abscesses sec to perforated appendicitis Failed conservative management with IV Abx Attempt at IR guided drainage yesterday - unsuccessful. Scant amount fluid sent for culture - positive for karen neg bacilli. Continue IV Zosyn pending final ID and sensitivities. Currently afebrile, hemodynamically stable without leukocytosis. For advancement of diet today. Dr. Reese following. 2. DM 2 - Normally on Lantus 20 units at bedtime. Will resume Lantus at low dose given initiation of diet, with sliding scale qachs. 3. DVT Px - Heparin SQ Visit type - Emergency Visit Emergency Visit: Yes ED Registration Date: 03/28/18 Care time: The patient presented to the Emergency Department on the above date and was hospitalized for further evaluation of their emergent condition. - New Patient This patient is new to me today: No - Critical Care Critical Care patient: No - Discharge Referral Referred to [facility] Med P.C.: No
[2018-03-30] MEDS ORDERED: INSULIN (LEVEMIR) 100 UNITS/ML UNITS SQ ONE ×2 (19:15→22:28)
[2018-03-31] MEDS ORDERED: DEXTROSE 5%-WATER - 50 ML IVPB ONE ×4 (01:17→23:56)
[2018-03-31] MEDS ORDERED: PIPERACILLIN/TAZOBACTAM 3.375 GM VIAL IVPB ONE ×4 (01:17→23:56)
[2018-03-31] MEDS: PIPERACILLIN/TAZOB 3.375 GM 3.375 GM in DEXTROSE 5%-WATER - 50 ML IVPB SCH ×3 (02:35→18:04)
[2018-03-31] MEDS: KETOROLAC TROMETHAMINE 30 MG/1 ML VIAL IVPUSH SCH ×4 (05:39→22:21)
[2018-03-31] MEDS: HEPARIN NA (PORCINE) 5,000 UNITS/ML 1ML VIAL SQ SCH ×3 (05:40→22:12)
[2018-03-31] MEDS: INSULIN (LEVEMIR) 100 UNITS/ML UNITS SQ SCH (07:01)
[2018-03-31] MEDS: INSULIN SLIDING SCALE (NOVOLOG) 1 VIAL SQ SCH ×4 (07:01→22:16)
[2018-03-31 08:11] LABS: BASO % 0.7 % (0-2.0); EOS % 4.8 % (0-4.5); HEMOGLOBIN 13.1 GM/dL (10.7-15.3); LYMPH % 31.7 % (8-40); MCH 25.7 pg (25.7-33.7); MCHC 31.1 g/dl (32.0-36.0); MEAN CELL VOLUME 82.7 fl (80-96); MEAN PLT VOLUME 7.4 fl (7.5-11.1); MONO % 10.4 % (3.8-10.2); NEUT % 52.4 % (42.8-82.8); PLATELET COUNT 239 K/MM3 (134-434); RBC 5.08 M/mm3 (3.60-5.2); RDW 16.3 % (11.6-15.6); WHITE BLOOD COUNT 4.3 K/mm3 (4.0-10.0)
[2018-03-31 08:48] LABS: ANION GAP 9 MMOL/L (8-16); BLOOD UREA NITROGEN 8 mg/dL (7-18); CALCIUM 8.7 mg/dL (8.5-10.1); CHLORIDE 102 mmol/L (98-107); CO2 26 mmol/L (21-32); CREATININE 0.7 mg/dL (0.55-1.3); GLUCOSE,RANDOM 199 mg/dL (74-106); POTASSIUM 4.1 mmol/L (3.5-5.1); SODIUM 137 mmol/L (136-145)
--- NOTE | 2018-03-31 10:11 | PN ---
Progress Note (short form) - Note Progress Note: Feels better - abdominal pain improving. No nausea/vomiting. No further diarrhea since admission. No fever/chills. Tolerating full liquid diet. Afebrile/Hemodynamically Stable. Last Vital Signs Temp Pulse Resp BP Pulse Ox 98.6 F 79 18 126/61 97 03/31/18 05:36 03/31/18 05:36 03/31/18 05:36 03/31/18 05:36 03/30/18 21:00 HEENT - No pharyngeal erythema/exudate. Heart - S1, S2, RRR Lungs - clear to auscultation - to crackles/wheeze Abdomen - high BMI. IR insertion site dressed and clean. RLQ tenderness. No guarding/rebound. Bowel Sounds normal. Extremities - no calf swelling/tenderness. Laboratory Results - last 24 hr 03/30/18 03/30/18 03/30/18 07:33 10:03 17:31 WBC 5.3 RBC 4.61 Hgb 12.2 Hct 38.3 MCV 83.1 MCH 26.5 MCHC 31.9 L RDW 16.7 H Plt Count 236 MPV 7.9 Absolute Neuts (auto) 3.3 Neutrophils % 61.7 Lymphocytes % 23.4 Monocytes % 11.1 H Eosinophils % 3.6 Basophils % 0.2 Nucleated RBC % 0 Sodium Potassium Chloride Carbon Dioxide Anion Gap BUN Creatinine Creat Clearance w eGFR POC Glucometer 160 210 Random Glucose Calcium 03/30/18 03/31/18 03/31/18 22:29 07:00 07:45 WBC 4.3 RBC 5.08 Hgb 13.1 Hct 42.0 MCV 82.7 MCH 25.7 MCHC 31.1 L RDW 16.3 H Plt Count 239 MPV 7.4 L Absolute Neuts (auto) 2.2 Neutrophils % 52.4 Lymphocytes % 31.7 D Monocytes % 10.4 H Eosinophils % 4.8 H Basophils % 0.7 D Nucleated RBC % 0 Sodium Potassium Chloride Carbon Dioxide Anion Gap BUN Creatinine Creat Clearance w eGFR POC Glucometer 253 189 Random Glucose Calcium 03/31/18 07:45 WBC RBC Hgb Hct MCV MCH MCHC RDW Plt Count MPV Absolute Neuts (auto) Neutrophils % Lymphocytes % Monocytes % Eosinophils % Basophils % Nucleated RBC % Sodium 137 Potassium 4.1 Chloride 102 Carbon Dioxide 26 Anion Gap 9 BUN 8 Creatinine 0.7 Creat Clearance w eGFR > 60 POC Glucometer Random Glucose 199 H Calcium 8.7 Current Medications Generic Name Dose Route Start Last Admin Trade Name Camacho PRN Reason Stop Dose Admin Acetaminophen 650 mg 03/30/18 12:57 Tylenol - PO Q6H PRN PAIN LEVEL 6-10 Heparin Sodium (Porcine) 5,000 unit 03/28/18 19:46 03/31/18 05:40 Heparin - SQ Not Given TID [facility] Piperacillin Sod/Tazobactam 50 mls @ 100 mls/hr 03/29/18 18:00 03/31/18 02:35 Sod 3.375 gm/ Dextrose IVPB 100 mls/hr Q8H-IV [facility] Administration Protocol Insulin Aspart 1 vial 03/30/18 12:15 03/31/18 07:01 Novolog Vial Sliding Scale - SQ 2 units ACHS [facility] Administration Protocol Insulin Detemir 10 units 03/30/18 16:55 03/31/18 07:01 Levemir Vial SQ 10 units DAILY@0700 [facility] Administration Ketorolac Tromethamine 30 mg 03/29/18 17:00 03/31/18 05:39 Toradol Injection - IVPUSH 04/03/18 16:59 30 mg Q6H [facility] Administration Oxycodone HCl 5 mg 03/30/18 12:56 Roxicodone - PO Q6H PRN Pain Level 7 - [address] A/P - 3.3 x 2.3 complex structure in pericoli space of level of mid to lower abdomen suggestive of abscess. Contiguous thick walled fluid collection suggestive of abscess within the R mid pelvis laterally. Thickened appendix suggestive of perforated appendicitis. ASSESSMENT/PLAN 63 year old female with morbid obesity, DM 2, recently admitted and managed conservatively for perforated appendicitis and intra-abdominal abscess with IV Abx as inpatient at the end of February with transition to out-patient oral Abx. Patient continued to have pain with nausea and diarrhea for the past 2 days. She denies fever but reports chills and sweats. No melena/hematochezia. No vomiting. She describes the abdominal pain on RLQ as sharp, severity 5/10, without radiation. She was seen at surgeon's office today and referred to ED due to ongoing symptoms. CT Findings as above. 1. Multiple Intra-abdominal abscesses vs Phelgmon sec to perforated appendicitis Failed conservative management with IV Abx Attempt at IR guided drainage 03/29 - unsuccessful. Scant amount fluid sent for culture, so far negative Continue IV Zosyn pending final ID/sensitivities and ID eval today. Currently afebrile, hemodynamically stable without leukocytosis. For advancement of diet to diabetic normal consistency. On scheduled Toradol as per Surgery. Dr. Reese following. 2. DM 2 - Normally on Lantus 20 units at bedtime. Will resume Lantus at home dose given initiation of diet, with sliding scale qachs. 3. DVT Px - Heparin SQ Visit type - Emergency Visit Emergency Visit: Yes ED Registration Date: 03/28/18 Care time: The patient presented to the Emergency Department on the above date and was hospitalized for further evaluation of their emergent condition. - New Patient This patient is new to me today: No - Critical Care Critical Care patient: No - Discharge Referral Referred to [facility] Med P.C.: No
--- NOTE | 2018-03-31 12:01 | PN ---
Progress Note, Physician History of Present Illness: Pt seen and examined. Events noted. Case d/w surgery. Pt is currently feeling well, remains afebrile, without specific complaints. Pain controlled at this time. Having normal BMs. - Current Medication List Current Medications: Active Medications Acetaminophen (Tylenol -) 650 mg PO Q6H PRN PRN Reason: PAIN LEVEL 6-10 Heparin Sodium (Porcine) (Heparin -) 5,000 unit SQ TID [facility] Last Admin: 03/31/18 05:40 Dose: Not Given Piperacillin Sod/Tazobactam (Sod 3.375 gm/ Dextrose) 50 mls @ 100 mls/hr IVPB Q8H-IV [facility]; Protocol Last Admin: 03/31/18 10:42 Dose: 100 mls/hr Insulin Aspart (Novolog Vial Sliding Scale -) 1 vial SQ ACHS [facility]; Protocol Last Admin: 03/31/18 07:01 Dose: 2 units Insulin Detemir (Levemir Vial) 10 units SQ DAILY@0700 [facility] Last Admin: 03/31/18 07:01 Dose: 10 units Ketorolac Tromethamine (Toradol Injection -) 30 mg IVPUSH Q6H [facility] Stop: 04/03/18 16:59 Last Admin: 03/31/18 05:39 Dose: 30 mg Oxycodone HCl (Roxicodone -) 5 mg PO Q6H PRN PRN Reason: Pain Level 7 - 10 BREAKTHROUGH - Objective Vital Signs: Vital Signs Temperature 98.1 F 03/31/18 10:37 Pulse Rate 78 03/31/18 10:37 Respiratory Rate 20 03/31/18 10:37 Blood Pressure 153/76 03/31/18 10:37 O2 Sat by Pulse Oximetry (%) 97 03/30/18 21:00 Constitutional: Yes: No Distress, Calm Cardiovascular: Yes: Regular Rate and Rhythm Respiratory: Yes: Regular Gastrointestinal: Yes: Normal Bowel Sounds, Soft, Tenderness (RLQ with deep palpation) Genitourinary: Yes: WNL Extremities: Yes: WNL Integumentary: Yes: WNL Neurological: Yes: Alert, Oriented Labs: CBC, BMP 03/31/18 07:45 03/31/18 07:45 INR, PTT INR 1.06 (0.83-1.09) 03/28/18 13:01 Microbiology 03/29/18 12:30 Abscess Gram Stain - Final 03/29/18 12:30 Abscess Body Fluid Culture - Preliminary Non Lactose Fermenting Gnb 03/29/18 12:30 Abscess Anaerobic Culture - Final NO ANAEROBES WERE ISOLATED 03/29/18 09:00 Urine - Urine Clean Catch Urine Culture - Final NO GROWTH OBTAINED Problem List - Problems (1) Acute appendicitis with perforation, localized peritonitis, and abscess Code(s): K35.33 - ACUTE APPENDICITIS WITH PERF AND LOC PERITONITIS, WITH ABSCS Qualifiers: Appendicitis gangrene presence: without gangrene Qualified Code(s): K35.33 - Acute appendicitis with perforation and localized peritonitis, with abscess (2) Diabetes mellitus type 2 with retinopathy Code(s): E11.319 - TYPE 2 DIABETES W UNSP DIABETIC RTNOP W/O MACULAR EDEMA Qualifiers: Diabetes mellitus buttermaker helper insulin use: with buttermaker helper use Diabetic retinopathy severity: with proliferative retinopathy Proliferative retinopathy type: with traction retinal detachment not involving macula Laterality: right Qualified Code(s): E11.3531 - 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
[2018-03-31] MEDS: LACTOBACILLUS ACIDOPHILUS 1 TABLET PO SCH (12:47)
--- NOTE | 2018-03-31 13:35 | PN ---
Progress Note, Physician History of Present Illness: 63yo [place] F, morbidly obese, with DM, s/p , recently admitted for perforated appendicitis with abscesses too small to drain, treated nonoperatively with resolution of pain and tenderness and discharged to complete antibiotic course at home (Zosyn -> Augmentin, total 2 weeks), returned with RLQ pain, nausea and few episodes of diarrhea. No wbc or fever. IR attempted drainage after CT showed slightly larger ?abscesses/collections, but on multiple attempts was unable to obtain more than scant sample for culture. There is most likely still resolving phlegmon in RLQ. She is seen and examined in room, ambulating well, examined in bed. Her RLQ pain is better, but she still has some tenderness. She does feel better. Had a formed BM. Tolerated diabetic diet for lunch, but requests no red meat. Had declined the Toradol at 11, because she did not have much pain. - Current Medication List Current Medications: Active Medications Acetaminophen (Tylenol -) 650 mg PO Q6H PRN PRN Reason: PAIN LEVEL 6-10 Heparin Sodium (Porcine) (Heparin -) 5,000 unit SQ TID [facility] Last Admin: 03/31/18 05:40 Dose: Not Given Piperacillin Sod/Tazobactam (Sod 3.375 gm/ Dextrose) 50 mls @ 100 mls/hr IVPB Q8H-IV [facility]; Protocol Last Admin: 03/31/18 10:42 Dose: 100 mls/hr Insulin Aspart (Novolog Vial Sliding Scale -) 1 vial SQ ACHS [facility]; Protocol Last Admin: 03/31/18 12:40 Dose: 3 units Insulin Detemir (Levemir Vial) 10 units SQ DAILY@0700 [facility] Last Admin: 03/31/18 07:01 Dose: 10 units Ketorolac Tromethamine (Toradol Injection -) 30 mg IVPUSH Q6H [facility] Stop: 04/03/18 16:59 Last Admin: 03/31/18 12:04 Dose: Not Given Lactobacillus Acidophilus (Bacid -) 1 tab PO DAILY [facility] Last Admin: 03/31/18 12:47 Dose: 1 tab Oxycodone HCl (Roxicodone -) 5 mg PO Q6H PRN PRN Reason: Pain Level 7 - 10 BREAKTHROUGH - Objective Vital Signs: Vital Signs Temperature 98.1 F 03/31/18 10:37 Pulse Rate 78 12/22/18 10:37 Respiratory Rate 20 03/31/18 10:37 Blood Pressure 153/76 03/31/18 10:37 O2 Sat by Pulse Oximetry (%) 97 03/30/18 21:00 Constitutional: Yes: No Distress, Calm, Obese Eyes: Yes: Conjunctiva Clear, EOM Intact HENT: Yes: Atraumatic, Normocephalic Gastrointestinal: Yes: Soft, Abdomen, Obese, Tenderness (RLQ but less than before), Other (IR dressing removed, no active bleeding from puncture site, left MELY). No: Tenderness, Rebound Extremities: No: Cool, Cyanosis Integumentary: No: Jaundice, Rash Neurological: Yes: Alert, Oriented. No: Unsteady Gait Labs: CBC, BMP 03/31/18 07:45 03/31/18 07:45 wbc still normal Microbiology 03/29/18 12:30 Gram Stain - Final Abscess Body Fluid Culture - Preliminary Non Lactose Fermenting Gnb Anaerobic Culture - Final NO ANAEROBES WERE ISOLATED 03/29/18 09:00 Urine Culture - Final Urine - Urine Clean Catch NO GROWTH OBTAINED initial culture with no growth, broth subcultured to obtain organism will have ID tomorrow Problem List - Problems (1) Acute appendicitis with perforation, localized peritonitis, and abscess Assessment/Plan: admitted to medicine most likely resolving phlegmon, as not enough fluid present to drain by IR would be too soon and too risky to operate at this point need to wait for resolution of inflammation and phlegmon likely several weeks at least continue abx per ID - discussed with Abril - will consider adjusting, pending culture results tomorrow diet advanced, tolerating, will order no red meat glucose control trend labs doing better on standing toradol - explained to pt that she should take it regardless of pain she is agreeable also spoke with daughter by phone at bedside additional pain meds prn - tylenol first line, oxycodone breakthrough only explained to both of them that she should continue alternating tylenol and ibuprofen at home, to address both pain and inflammatory process she will need close followup with PMD after discharge discussed with Dr. Solano Code(s): K35.33 - ACUTE APPENDICITIS WITH PERF AND LOC PERITONITIS, WITH ABSCS Qualifiers: Appendicitis gangrene presence: without gangrene Qualified Code(s): K35.33 - Acute appendicitis with perforation and localized peritonitis, with abscess (2) RLQ abdominal pain Code(s): R10.31 - RIGHT LOWER QUADRANT PAIN (3) Nausea alone Code(s): R11.0 - NAUSEA (4) Diabetes mellitus type 2 with retinopathy Code(s): E11.319 - TYPE 2 DIABETES W UNSP DIABETIC RTNOP W/O MACULAR EDEMA Qualifiers: Diabetes mellitus oral communication instructor insulin use: with oral communication instructor use Diabetic retinopathy severity: with proliferative retinopathy Proliferative retinopathy type: with traction retinal detachment not involving macula Laterality: right Qualified Code(s): E11.3531 - 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
[2018-03-31] MEDS ORDERED: INSULIN (NOVOLOG) ASPART 100 UNITS/ML 10ML VIAL ONE (21:37)
[2018-04-01] MEDS: PIPERACILLIN/TAZOB 3.375 GM 3.375 GM in DEXTROSE 5%-WATER - 50 ML IVPB SCH ×2 (01:49→09:56)
[2018-04-01] MEDS: KETOROLAC TROMETHAMINE 30 MG/1 ML VIAL IVPUSH SCH ×4 (06:12→22:13)
[2018-04-01] MEDS: HEPARIN NA (PORCINE) 5,000 UNITS/ML 1ML VIAL SQ SCH ×3 (06:13→22:11)
[2018-04-01] MEDS: INSULIN (LEVEMIR) 100 UNITS/ML UNITS SQ SCH (06:14)
[2018-04-01] MEDS: INSULIN SLIDING SCALE (NOVOLOG) 1 VIAL SQ SCH ×4 (06:19→22:12)
[2018-04-01] MEDS ORDERED: PIPERACILLIN/TAZOBACTAM 3.375 GM VIAL IVPB ONE (09:37)
[2018-04-01] MEDS ORDERED: DEXTROSE 5%-WATER - 50 ML IVPB ONE (09:37)
[2018-04-01] MEDS: LACTOBACILLUS ACIDOPHILUS 1 TABLET PO SCH (09:56)
--- NOTE | 2018-04-01 11:19 | PN ---
Progress Note, Physician History of Present Illness: Pt states she feels better. Abdominal pain controlled. Tolerating solid food, had normal BM. No other specific complaint. - Current Medication List Current Medications: Active Medications Acetaminophen (Tylenol -) 650 mg PO Q6H PRN PRN Reason: PAIN LEVEL 6-10 Heparin Sodium (Porcine) (Heparin -) 5,000 unit SQ TID [facility] Last Admin: 04/01/18 06:13 Dose: 5,000 unit Piperacillin Sod/Tazobactam (Sod 3.375 gm/ Dextrose) 50 mls @ 100 mls/hr IVPB Q8H-IV [facility]; Protocol Last Admin: 04/01/18 09:56 Dose: 100 mls/hr Insulin Aspart (Novolog Vial Sliding Scale -) 1 vial SQ ACHS [facility]; Protocol Last Admin: 04/01/18 06:19 Dose: 3 units Insulin Detemir (Levemir Vial) 10 units SQ DAILY@0700 [facility] Last Admin: 04/01/18 06:14 Dose: 10 units Ketorolac Tromethamine (Toradol Injection -) 30 mg IVPUSH Q6H [facility] Stop: 04/03/18 16:59 Last Admin: 04/01/18 06:12 Dose: 30 mg Lactobacillus Acidophilus (Bacid -) 1 tab PO DAILY [facility] Last Admin: 04/01/18 09:56 Dose: 1 tab Oxycodone HCl (Roxicodone -) 5 mg PO Q6H PRN PRN Reason: Pain Level 7 - 10 BREAKTHROUGH - Objective Vital Signs: Vital Signs Temperature 98 F 04/01/18 09:23 Pulse Rate 78 04/01/18 09:23 Respiratory Rate 20 04/01/18 09:23 Blood Pressure 124/65 04/01/18 09:23 O2 Sat by Pulse Oximetry (%) 94 L 03/31/18 21:00 Constitutional: Yes: No Distress, Calm Cardiovascular: Yes: Regular Rate and Rhythm Respiratory: Yes: Regular Gastrointestinal: Yes: Normal Bowel Sounds, Soft Genitourinary: Yes: WNL Integumentary: Yes: WNL Neurological: Yes: Alert Labs: CBC, BMP 03/31/18 07:45 03/31/18 07:45 INR, PTT INR 1.06 (0.83-1.09) 03/28/18 13:01 Microbiology 12/20/18 12:30 Abscess Gram Stain - Final 03/29/18 12:30 Abscess Body Fluid Culture - Final Escherichia Coli 03/29/18 12:30 Abscess Anaerobic Culture - Final NO ANAEROBES WERE ISOLATED 03/29/18 09:00 Urine - Urine Clean Catch Urine Culture - Final NO GROWTH OBTAINED Problem List - Problems (1) Acute appendicitis with perforation, localized peritonitis, and abscess Code(s): K35.33 - ACUTE APPENDICITIS WITH PERF AND LOC PERITONITIS, WITH ABSCS Qualifiers: Appendicitis gangrene presence: without gangrene Qualified Code(s): K35.33 - Acute appendicitis with perforation and localized peritonitis, with abscess (2) Diabetes mellitus type 2 with retinopathy Code(s): E11.319 - TYPE 2 DIABETES W UNSP DIABETIC RTNOP W/O MACULAR EDEMA Qualifiers: Diabetes mellitus long winder tender insulin use: with long winder tender use Diabetic retinopathy severity: with proliferative retinopathy Proliferative retinopathy type: with traction retinal detachment not involving macula Laterality: right Qualified Code(s): E11.3531 - 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
--- NOTE | 2018-04-01 12:51 | PN ---
Progress Note, Physician History of Present Illness: 63yo [place] F, morbidly obese, with DM, s/p , recently admitted for perforated appendicitis with abscesses too small to drain, treated nonoperatively with resolution of pain and tenderness and discharged to complete antibiotic course at home (Zosyn -> Augmentin, total 2 weeks), returned with RLQ pain, nausea and few episodes of diarrhea. No wbc or fever. IR attempted drainage after CT showed slightly larger ?abscesses/collections, but on multiple attempts was unable to obtain more than scant sample for culture. There is most likely still resolving phlegmon in RLQ. She is seen and examined in room, ambulating well. Her RLQ pain is better, but she still has some tenderness. She does feel better. Having formed BMs. Tolerating diabetic diet. Minimal pain with Toradol standing. Culture from IR aspiration grew E. coli, resistant to ampicillin, otherwise pansensitive. - Current Medication List Current Medications: Active Medications Acetaminophen (Tylenol -) 650 mg PO Q6H PRN PRN Reason: PAIN LEVEL 6-10 Heparin Sodium (Porcine) (Heparin -) 5,000 unit SQ TID [facility] Last Admin: 04/01/18 06:13 Dose: 5,000 unit Insulin Aspart (Novolog Vial Sliding Scale -) 1 vial SQ [facility]; Protocol Last Admin: 04/01/18 11:38 Dose: 5 units Insulin Detemir (Levemir Vial) 10 units SQ DAILY@0700 [facility] Last Admin: 04/01/18 06:14 Dose: 10 units Ketorolac Tromethamine (Toradol Injection -) 30 mg IVPUSH Q6H [facility] Stop: 04/03/18 16:59 Last Admin: 04/01/18 11:31 Dose: 30 mg Lactobacillus Acidophilus (Bacid -) 1 tab PO DAILY [facility] Last Admin: 04/01/18 09:56 Dose: 1 tab Levofloxacin (Levaquin -) 500 mg PO DAILY@1700 [facility] Metronidazole (Flagyl -) 500 mg PO TID [facility] Non-Formulary Medication (Metformin Hcl [Glucophage]) 1,000 mg PO BID [facility] - Objective Vital Signs: Vital Signs Temperature 98 F 04/01/18 09:23 Pulse Rate 78 04/01/18 09:23 Respiratory Rate 20 04/01/18 09:23 Blood Pressure 124/65 04/01/18 09:23 O2 Sat by Pulse Oximetry (%) 94 L 03/31/18 21:00 Constitutional: Yes: No Distress, Calm, Obese Eyes: Yes: Conjunctiva Clear, EOM Intact HENT: Yes: Atraumatic, Normocephalic Gastrointestinal: Yes: Soft, Abdomen, Obese, Tenderness (RLQ focally, improving) Musculoskeletal: No: Joint Stiffness, Joint Swelling Extremities: No: Cool, Cyanosis Integumentary: No: Jaundice, Rash Neurological: Yes: Alert, Oriented. No: Unsteady Gait Labs: no new labs - ....Imaging Ultrasound: Report Reviewed (pt had c/o RLQ "swelling" - US negative for DVT RLE ) Problem List - Problems (1) Acute appendicitis with perforation, localized peritonitis, and abscess Assessment/Plan: admitted to medicine most likely resolving phlegmon, as not enough fluid present to drain by IR would be too soon and too risky to operate at this point need to wait for resolution of inflammation and phlegmon she will need interval appendectomy in about 4-6 weeks discussed with patient and daughter at bedside: continue abx per ID - discussed with Dr. Abril Luna - changed to Levofloxacin/ Flagyl po starting this afternoon plan for 7 days as outpatient - Levo 500mg to be taken at 1700 daily, Flagyl 500mg tid tolerating diabetic diet glucose control - pt has appt to see Dr. Craft 04/04 advised to bring with her record of sugars before meals and at bedtime over next couple days metformin resumed she is to continue metformin and lantus at home as she has the last few weeks until seen by Dr. Craft also to see him again mid-April (spoke to Dr. Craft) doing better on standing toradol - plan d/c home tomorrow after one more day additional pain meds - tylenol prn at home, to take OTC ibuprofen bid (600mg first few days, then 400mg) over next week to address both pain and inflammatory process tylenol or ibuprofen prn in between for pain after that, can use either for pain prn she will need close followup with PMD after discharge they will get appt with MARIAH Cardenas for just after 04/10 and again in 2-3 weeks after that they will also make appt to f/u with pulmonary, as recommended at last visit, for outpatient testing/workup will discuss with Dr. Solano Code(s): K35.33 - ACUTE APPENDICITIS WITH PERF AND LOC PERITONITIS, WITH ABSCS Qualifiers: Appendicitis gangrene presence: without gangrene Qualified Code(s): K35.33 - Acute appendicitis with perforation and localized peritonitis, with abscess (2) RLQ abdominal pain Code(s): R10.31 - RIGHT LOWER QUADRANT PAIN (3) Nausea alone Code(s): R11.0 - NAUSEA (4) Diabetes mellitus type 2 with retinopathy Code(s): E11.319 - TYPE 2 DIABETES W UNSP DIABETIC RTNOP W/O MACULAR EDEMA Qualifiers: Diabetes mellitus lobsterman insulin use: with halfway use Diabetic retinopathy severity: with proliferative retinopathy Proliferative retinopathy type: with traction retinal detachment not involving macula Laterality: right Qualified Code(s): E11.3531 - 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
[2018-04-01] MEDS ORDERED: PATIENT'S OWN MEDICATION (NON-FORMULARY) (Metformin Hcl [Glucophage] 1,000 MG) PO SCH (13:00)
[2018-04-01] MEDS ORDERED: metFORMIN HCL 500 MG TABLET (FP) PO SCH (13:00)
[2018-04-01] MEDS: metFORMIN HCL 500 MG TABLET (FP) PO SCH ×2 (13:23→22:12)
--- NOTE | 2018-04-01 14:01 | PN ---
Progress Note (short form) - Note Progress Note: Feels much better - no further abdominal pain. No nausea/vomiting. No further diarrhea since admission. No fever/chills. Tolerating diabetic diet. Afebrile/Hemodynamically Stable. Last Vital Signs Temp Pulse Resp BP Pulse Ox 98.1 F 77 18 143/87 94 L 04/01/18 13:42 04/01/18 13:42 04/01/18 13:42 04/01/18 13:42 03/31/18 21:00 HEENT - No pharyngeal erythema/exudate. Heart - S1, S2, RRR Lungs - clear to auscultation - to crackles/wheeze Abdomen - high BMI. IR insertion site dressed and clean. RLQ mild tenderness on deep palpation. No guarding/rebound. Bowel Sounds normal. Extremities - no calf swelling/tenderness. Laboratory Results - last 24 hr 03/31/18 03/31/18 04/01/18 17:43 22:15 06:16 POC Glucometer 264 260 235 04/01/18 11:37 POC Glucometer 323 Current Medications Generic Name Dose Route Start Last Admin Trade Name Freq PRN Reason Stop Dose Admin Acetaminophen 650 mg 03/30/18 12:57 Tylenol - PO Q6H PRN PAIN LEVEL 6-10 Heparin Sodium (Porcine) 5,000 unit 03/28/18 19:46 04/01/18 06:13 Heparin - SQ 5,000 unit TID [facility] Administration Insulin Aspart 1 vial 03/30/18 12:15 04/01/18 11:38 Novolog Vial Sliding Scale - SQ 5 units ACHS [facility] Administration Protocol Insulin Detemir 10 units 03/30/18 16:55 04/01/18 06:14 Levemir Vial SQ 10 units DAILY@0700 [facility] Administration Ketorolac Tromethamine 30 mg 03/29/18 17:00 04/01/18 11:31 Toradol Injection - IVPUSH 04/03/18 16:59 30 mg Q6H [facility] Administration Lactobacillus Acidophilus 1 tab 03/31/18 12:00 04/01/18 09:56 Bacid - PO 1 tab DAILY [facility] Administration Levofloxacin 500 mg 04/01/18 17:00 Levaquin - PO DAILY@1700 [facility] Metformin HCl 1,000 mg 04/01/18 13:11 04/01/18 13:23 Glucophage - PO 1,000 mg BID [facility] Administration Metronidazole 500 mg 04/01/18 14:00 Flagyl - PO TID [facility] CT A/P - 3.3 x 2.3 complex structure in pericoli space of level of mid to lower abdomen suggestive of abscess. Contiguous thick walled fluid collection suggestive of abscess within the R mid pelvis laterally. Thickened appendix suggestive of perforated appendicitis. ASSESSMENT/PLAN 63 year old female with morbid obesity, DM 2, recently admitted and managed conservatively for perforated appendicitis and intra-abdominal abscess with IV Abx as inpatient at the end of February with transition to out-patient oral Abx. Patient continued to have pain with nausea and diarrhea for the past 2 days. She denies fever but reports chills and sweats. No melena/hematochezia. No vomiting. She describes the abdominal pain on RLQ as sharp, severity 5/10, without radiation. She was seen at surgeon's office and referred to ED due to ongoing symptoms. CT Findings as above. She was admitted, treated with IV Abx, attempted drainage by IR which was unsuccessful, yielding scant amt of fluid, which grew EColi. She has remained afebrile and hemodynamically stable. 1. Multiple Intra-abdominal abscesses vs Phelgmon sec to perforated appendicitis Failed conservative management with IV Abx Attempt at IR guided drainage 03/29 - unsuccessful. Scant amount fluid sent for culture, so far negative IV Zosyn changed to oral Levofloxacin and Flagyl - to continue for a week with outpatient ID and Surgery follow up. Currently afebrile, hemodynamically stable without leukocytosis. Tolerating advanced diet. On scheduled Toradol as per Surgery. Dr. Reese would like to observe for 1 more day. 2. DM 2 - Resume home dose Lantus 20 units with SSI qachs. 3. RLE swelling, likely positional as patient sits with RLE hanging off side of bed - US Duplex neg for DVT. 3. DVT Px - Heparin SQ Visit type - Emergency Visit Emergency Visit: Yes ED Registration Date: 03/28/18 Care time: The patient presented to the Emergency Department on the above date and was hospitalized for further evaluation of their emergent condition. - New Patient This patient is new to me today: No - Critical Care Critical Care patient: No - Discharge Referral Referred to [facility] No
[2018-04-01] MEDS ORDERED: INSULIN (LEVEMIR) 100 UNITS/ML UNITS SQ ONE ×2 (14:12→17:02)
[2018-04-01] MEDS ORDERED: PT OWN MED DRAWER 7, Y5N ONE (14:31)
[2018-04-01] MEDS: metroNIDAZOLE 250 MG TABLET PO SCH ×2 (14:32→22:11)
[2018-04-01] MEDS ORDERED: metroNIDAZOLE 250 MG TABLET PO SCH (17:00)
[2018-04-01] MEDS ORDERED: INSULIN (NOVOLOG) ASPART 100 UNITS/ML 10ML VIAL ONE (17:02)
[2018-04-02] MEDS: KETOROLAC TROMETHAMINE 30 MG/1 ML VIAL IVPUSH SCH ×2 (06:00→11:29)
[2018-04-02] MEDS: metroNIDAZOLE 250 MG TABLET PO SCH ×2 (06:26→13:51)
[2018-04-02] MEDS: HEPARIN NA (PORCINE) 5,000 UNITS/ML 1ML VIAL SQ SCH ×2 (06:26→13:51)
[2018-04-02] MEDS: INSULIN SLIDING SCALE (NOVOLOG) 1 VIAL SQ SCH ×2 (06:31→11:26)
[2018-04-02] MEDS ORDERED: INSULIN (LEVEMIR) 100 UNITS/ML UNITS SQ ONE (06:47)
[2018-04-02] MEDS ORDERED: INSULIN (NOVOLOG) ASPART 100 UNITS/ML 10ML VIAL ONE ×2 (06:48→11:28)
[2018-04-02] MEDS ORDERED: PT OWN MED DRAWER 7, Y5N ONE (06:48)
[2018-04-02 06:51] VITALS: TEMP 97.9
[2018-04-02] MEDS ORDERED: INSULIN (LEVEMIR) 100 UNITS/ML UNITS SQ SCH (07:00)
[2018-04-02 09:11] VITALS: BP 128/72; PULSE 83
[2018-04-02] MEDS: metFORMIN HCL 500 MG TABLET (FP) PO SCH (09:32)
[2018-04-02] MEDS: LACTOBACILLUS ACIDOPHILUS 1 TABLET PO SCH (09:32)
--- NOTE | 2018-04-02 11:07 | DS ---
Physical Exam: SUBJECTIVE: Patient seen and examined - pain significantly improved. NO fever/ chills. No nausea/vomitiing. OBJECTIVE: Afebrile/Hemodynamically Stable. Vital Signs Period Temp Pulse Resp BP Sys/Iavn Pulse Ox Last 24 Hr 97.7 F-98.2 F 74-83 18-20 128-155/64-90 91-96 PHYSICAL EXAM HEENT - No pharyngeal erythema/exudate. Heart - S1, S2, RRR Lungs - clear to auscultation - to crackles/wheeze Abdomen - high BMI. IR insertion site dressed and clean. RLQ mild tenderness on deep palpation. No guarding/rebound. Bowel Sounds normal. Extremities - no calf swelling/tenderness. Neuro - AAO x 3. Tone/Power normal all 4 extremities. Laboratory Tests 03/28/18 03/28/18 03/28/18 13:01 13:01 13:01 WBC 9.3 RBC 5.21 H Hgb 13.4 Hct 43.2 MCV 82.9 MCH 25.7 MCHC 31.0 L RDW 16.6 H Plt Count 278 D MPV 7.8 Absolute Neuts (auto) 6.1 Neutrophils % 65.8 Lymphocytes % 22.6 D Monocytes % 8.9 Eosinophils % 2.2 Basophils % 0.5 Nucleated RBC % 0 PT with INR 12.50 INR 1.06 Sodium 139 Potassium 5.0 Chloride 102 Carbon Dioxide 29 Anion Gap 8 BUN 18 Creatinine 1.3 Creat Clearance w eGFR 41.64 POC Glucometer Random Glucose 191 H Calcium 8.9 Total Bilirubin 0.3 AST 18 ALT 20 Alkaline Phosphatase 97 Total Protein 7.8 Albumin 3.2 L Urine Color Urine Appearance Urine pH Ur Specific Terril Urine Protein Urine Glucose (UA) Urine Ketones Urine Blood Urine Nitrite Urine Bilirubin Urine Urobilinogen Ur Leukocyte Esterase Urine WBC (Auto) Urine RBC (Auto) Ur Epithelial Cells Urine Bacteria Hyaline Casts Urine Mucus Blood Type Antibody Screen 03/28/18 03/28/18 03/28/18 13:01 13:01 21:09 WBC RBC Hgb Hct MCV MCH MCHC RDW Plt Count MPV Absolute Neuts (auto) Neutrophils % Lymphocytes % Monocytes % Eosinophils % Basophils % Nucleated RBC % PT with INR INR Sodium Potassium Chloride Carbon Dioxide Anion Gap BUN Creatinine Creat Clearance w eGFR POC Glucometer [phone] Random Glucose Calcium Total Bilirubin AST ALT Alkaline Phosphatase Total Protein Albumin Urine Color Hiral Urine Appearance Cloudy Urine pH 5.0 Ur Specific Terril 1.031 Urine Protein 2+ H Urine Glucose (UA) Negative Urine Ketones Trace H Urine Blood Negative Urine Nitrite Negative Urine Bilirubin 2.0 Urine Urobilinogen 4.0 e.u/dl H Ur Leukocyte Esterase 3+ H Urine WBC (Auto) 147 Urine RBC (Auto) 17 Ur Epithelial Cells Many Urine Bacteria Rare Hyaline Casts 100 Urine Mucus Rare Blood Type A POSITIVE Antibody Screen Negative 03/29/18 03/29/18 03/29/18 02:01 05:23 07:30 WBC 6.1 RBC 4.75 Hgb 12.9 Hct 39.4 MCV 82.9 MCH 27.2 MCHC 32.8 RDW 16.5 H Plt Count 271 MPV 7.8 Absolute Neuts (auto) 3.4 Neutrophils % 56.1 Lymphocytes % 27.2 D Monocytes % 12.9 H Eosinophils % 3.2 Basophils % 0.6 Nucleated RBC % 0 PT with INR INR Sodium Potassium Chloride Carbon Dioxide Anion Gap BUN Creatinine Creat Clearance w eGFR POC Glucometer 246 273 Random Glucose Calcium Total Bilirubin AST ALT Alkaline Phosphatase Total Protein Albumin Urine Color Urine Appearance Urine pH Ur Specific [place] Urine Protein Urine Glucose (UA) Urine Ketones Urine Blood Urine Nitrite Urine Bilirubin Urine Urobilinogen Ur Leukocyte Esterase Urine WBC (Auto) Urine RBC (Auto) Ur Epithelial Cells Urine Bacteria Hyaline Casts Urine Mucus Blood Type Antibody Screen 03/29/18 03/29/18 03/29/18 07:30 11:27 13:54 WBC RBC Hgb Hct MCV MCH MCHC RDW Plt Count MPV Absolute Neuts (auto) Neutrophils % Lymphocytes % Monocytes % Eosinophils % Basophils % Nucleated RBC % PT with INR INR Sodium 142 Potassium 5.3 H Chloride 107 Carbon Dioxide 31 Anion Gap 3 L BUN 14 Creatinine 1.0 Creat Clearance w eGFR 56.37 POC Glucometer 226 222 Random Glucose 246 H Calcium 8.5 Total Bilirubin 0.3 AST 15 ALT 18 Alkaline Phosphatase 84 Total Protein 7.1 Albumin 2.9 L Urine Color Urine Appearance Urine pH Ur Specific [place] Urine Protein Urine Glucose (UA) Urine Ketones Urine Blood Urine Nitrite Urine Bilirubin Urine Urobilinogen Ur Leukocyte Esterase Urine WBC (Auto) Urine RBC (Auto) Ur Epithelial Cells Urine Bacteria Hyaline Casts Urine Mucus Blood Type Antibody Screen 03/29/18 03/29/18 03/30/18 17:25 22:06 02:13 WBC RBC Hgb Hct MCV MCH MCHC RDW Plt Count MPV Absolute Neuts (auto) Neutrophils % Lymphocytes % Monocytes % Eosinophils % Basophils % Nucleated RBC % PT with INR INR Sodium Potassium Chloride Carbon Dioxide Anion Gap BUN Creatinine Creat Clearance w eGFR POC Glucometer 192 181 164 Random Glucose Calcium Total Bilirubin AST ALT Alkaline Phosphatase Total Protein Albumin Urine Color Urine Appearance Urine pH Ur Specific [place] Urine Protein Urine Glucose (UA) Urine Ketones Urine Blood Urine Nitrite Urine Bilirubin Urine Urobilinogen Ur Leukocyte Esterase Urine WBC (Auto) Urine RBC (Auto) Ur Epithelial Cells Urine Bacteria Hyaline Casts Urine Mucus Blood Type Antibody Screen 03/30/18 03/30/18 03/30/18 06:55 07:33 07:33 WBC 5.3 RBC 4.61 Hgb 12.2 Hct 38.3 MCV 83.1 MCH 26.5 MCHC 31.9 L RDW 16.7 H Plt Count 236 MPV 7.9 Absolute Neuts (auto) 3.3 Neutrophils % 61.7 Lymphocytes % 23.4 Monocytes % 11.1 H Eosinophils % 3.6 Basophils % 0.2 Nucleated RBC % 0 PT with INR INR Sodium 142 Potassium 4.6 Chloride 106 Carbon Dioxide 29 Anion Gap 7 L BUN 9 Creatinine 0.6 Creat Clearance w eGFR > 60 POC Glucometer 169 Random Glucose 182 H Calcium 8.3 L Total Bilirubin 0.4 AST 18 ALT 17 Alkaline Phosphatase 74 Total Protein 6.7 Albumin 2.7 L Urine Color Urine Appearance Urine pH Ur Specific [place] Urine Protein Urine Glucose (UA) Urine Ketones Urine Blood Urine Nitrite Urine Bilirubin Urine Urobilinogen Ur Leukocyte Esterase Urine WBC (Auto) Urine RBC (Auto) Ur Epithelial Cells Urine Bacteria Hyaline Casts Urine Mucus Blood Type Antibody Screen 03/30/18 03/30/18 03/30/18 10:03 17:31 22:29 WBC RBC Hgb Hct MCV MCH MCHC RDW Plt Count MPV Absolute Neuts (auto) Neutrophils % Lymphocytes % Monocytes % Eosinophils % Basophils % Nucleated RBC % PT with INR INR Sodium Potassium Chloride Carbon Dioxide Anion Gap BUN Creatinine Creat Clearance w eGFR POC Glucometer 160 210 253 Random Glucose Calcium Total Bilirubin AST ALT Alkaline Phosphatase Total Protein Albumin Urine Color Urine Appearance Urine pH Ur Specific [place] Urine Protein Urine Glucose (UA) Urine Ketones Urine Blood Urine Nitrite Urine Bilirubin Urine Urobilinogen Ur Leukocyte Esterase Urine WBC (Auto) Urine RBC (Auto) Ur Epithelial Cells Urine Bacteria Hyaline Casts Urine Mucus Blood Type Antibody Screen 03/31/18 03/31/18 03/31/18 07:00 07:45 07:45 WBC 4.3 RBC 5.08 Hgb 13.1 Hct 42.0 MCV 82.7 MCH 25.7 MCHC 31.1 L RDW 16.3 H Plt Count 239 MPV 7.4 L Absolute Neuts (auto) 2.2 Neutrophils % 52.4 Lymphocytes % 31.7 D Monocytes % 10.4 H Eosinophils % 4.8 H Basophils % 0.7 D Nucleated RBC % 0 PT with INR INR Sodium 137 Potassium 4.1 Chloride 102 Carbon Dioxide 26 Anion Gap 9 BUN 8 Creatinine 0.7 Creat Clearance w eGFR > 60 POC Glucometer 189 Random Glucose 199 H Calcium 8.7 Total Bilirubin AST ALT Alkaline Phosphatase Total Protein Albumin Urine Color Urine Appearance Urine pH Ur Specific [place] Urine Protein Urine Glucose (UA) Urine Ketones Urine Blood Urine Nitrite Urine Bilirubin Urine Urobilinogen Ur Leukocyte Esterase Urine WBC (Auto) Urine RBC (Auto) Ur Epithelial Cells Urine Bacteria Hyaline Casts Urine Mucus Blood Type Antibody Screen 03/31/18 03/31/18 03/31/18 12:06 17:43 22:15 WBC RBC Hgb Hct MCV MCH MCHC RDW Plt Count MPV Absolute Neuts (auto) Neutrophils % Lymphocytes % Monocytes % Eosinophils % Basophils % Nucleated RBC % PT with INR INR Sodium Potassium Chloride Carbon Dioxide Anion Gap BUN Creatinine Creat Clearance w eGFR POC Glucometer 224 264 260 Random Glucose Calcium Total Bilirubin AST ALT Alkaline Phosphatase Total Protein Albumin Urine Color Urine Appearance Urine pH Ur Specific [place] Urine Protein Urine Glucose (UA) Urine Ketones Urine Blood Urine Nitrite Urine Bilirubin Urine Urobilinogen Ur Leukocyte Esterase Urine WBC (Auto) Urine RBC (Auto) Ur Epithelial Cells Urine Bacteria Hyaline Casts Urine Mucus Blood Type Antibody Screen 04/01/18 04/01/18 04/01/18 06:16 11:37 15:10 WBC RBC Hgb Hct MCV MCH MCHC RDW Plt Count MPV Absolute Neuts (auto) Neutrophils % Lymphocytes % Monocytes % Eosinophils % Basophils % Nucleated RBC % PT with INR INR Sodium Potassium Chloride Carbon Dioxide Anion Gap BUN Creatinine Creat Clearance w eGFR POC Glucometer 235 323 353 Random Glucose Calcium Total Bilirubin AST ALT Alkaline Phosphatase Total Protein Albumin Urine Color Urine Appearance Urine pH Ur Specific [place] Urine Protein Urine Glucose (UA) Urine Ketones Urine Blood Urine Nitrite Urine Bilirubin Urine Urobilinogen Ur Leukocyte Esterase Urine WBC (Auto) Urine RBC (Auto) Ur Epithelial Cells Urine Bacteria Hyaline Casts Urine Mucus Blood Type Antibody Screen 04/01/18 04/01/18 04/02/18 17:27 22:10 06:29 WBC RBC Hgb Hct MCV MCH MCHC RDW Plt Count MPV Absolute Neuts (auto) Neutrophils % Lymphocytes % Monocytes % Eosinophils % Basophils % Nucleated RBC % PT with INR INR Sodium Potassium Chloride Carbon Dioxide Anion Gap BUN Creatinine Creat Clearance w eGFR POC Glucometer 292 190 190 Random Glucose Calcium Total Bilirubin AST ALT Alkaline Phosphatase Total Protein Albumin Urine Color Urine Appearance Urine pH Ur Specific [place] Urine Protein Urine Glucose (UA) Urine Ketones Urine Blood Urine Nitrite Urine Bilirubin Urine Urobilinogen Ur Leukocyte Esterase Urine WBC (Auto) Urine RBC (Auto) Ur Epithelial Cells Urine Bacteria Hyaline Casts Urine Mucus Blood Type Antibody Screen CT A/P - 3.3 x 2.3 complex structure in pericoli space of level of mid to lower abdomen suggestive of abscess. Contiguous thick walled fluid collection suggestive of abscess within the R mid pelvis laterally. Thickened appendix suggestive of perforated appendicitis. Date of Admission:03/28/18 Date of Discharge: 04/02/18 Minutes to complete discharge: 45 Discharge Summary Reason For Visit: INTRA ABDOMINAL ABSCESS Current Active Problems Appendicitis (Acute) Diarrhea (Acute) Intra-abdominal abscess (Acute) Nausea alone (Acute) Hospital Course: 63 year old female with morbid obesity, DM 2, recently admitted and managed conservatively for perforated appendicitis and intra-abdominal abscess with IV Abx as inpatient at the end of February with transition to out-patient oral Abx. She continued to have pain with nausea and diarrhea for the 2 days prior to presentation. She denied fever but reported chills and sweats. No melena/ hematochezia. No vomiting. She was seen at surgeon's office and referred to ED due to ongoing symptoms. CT Findings as above. She was admitted to [facility] and treated with IV Antibiotic Zosyn. An attempt was made at drainage by IR which was unsuccessful, yielding scant amt of fluid, which grew EColi. She has remained afebrile and hemodynamically stable. 1. Multiple Intra-abdominal abscesses vs Phelgmon sec to perforated appendicitis Failed conservative management with IV Abx Attempt at IR guided drainage 03/29 - unsuccessful. Scant amount fluid sent for culture, Ecoli positive. IV Zosyn changed to oral Levofloxacin and Flagyl - to continue for a weekon discharge with outpatient ID and Surgery follow up. Currently afebrile, hemodynamically stable without leukocytosis. Tolerating advanced diet. For oral Ibuprofen for analgesia as per surgery. 2. DM 2 - Resume home insulin regimen with follow up arranged with Endocrinology. 3. RLE swelling, likely positional as patient sits with RLE hanging off side of bed - US Duplex neg for DVT. She has remained afebrile, hemodynamically stable. She is tolerating oral intake and reports minimal abdominal discomfort. She is medically optimized for discharge on 1 additional week of antibiotic therapy with oral Levofloxacin and Flagyl. Follow up arranged with Surgery and Endocrinology. Surgery discharge instructions as per Dr. Reese: Diet, Activity, Other Instructions: You were treated for ruptured (perforated) appendicitis with resolving inflammation using antibiotics (Zosyn) and bowel rest. The radiologist attempted to drain some fluid but only got enough for culture, which grew E. coli (resistant to ampicillin but sensitive to other antibiotics). Your pain and tenderness improved with scheduled Toradol for several days. You are back on a diabetic diet, and are now taking antibiotics by mouth to complete the course. You must take ALL of the prescribed antibiotics until they are gone: Levofloxacin 500mg at 5pm daily and Metronidazole (Flagyl) 500mg three times daily, both for 7 days. Take a probiotic supplement and/or eat diet yogurt every day while taking the antibiotic to help keep your gut healthy. Diet and diabetes medications: Eat lightly at first, but advance to your usual diabetic diet as tolerated. Stick to low-fiber foods for a few weeks. Keep a record of your blood sugars at home before meals and bedtime and follow up with Dr. Craft as scheduled 04/04. You will also need to make an appointment to see him again in mid-April. Take your metformin and LANTUS insulin as you have been doing at home. Pain/inflammation: Take Ibuprofen (200mg pills), 600mg (3 pills) twice daily for 3-4 days, then 400mg (2 pills) twice daily for another 3-4 days, even if you don't have much pain. For pain in between, you may use Tylenol ( acetaminophen) 1-2 pills or Ibuprofen 2 pills every 4-6 hours as needed. Do not take more than 4000 mg of acetaminophen in a day. After that, you can take Tylenol or Ibuprofen for pain as needed. Take all medications as prescribed or indicated on the labeling. Follow-up: You will need to call your primary care doctor's office and get an appointment to follow up with MARIAH Cardenas just after New Year's and again in 2- 3 weeks. In 4-6 weeks, you will likely need to be evaluated for interval appendectomy. You may call Dr. Reese's office at [phone] for an appointment , or see a surgeon in your network. Call your doctor or return to the Emergency Room if you have: * increasing pain not responsive to pain medication * fever of 101F or higher * vomiting * diarrhea that does not stop once the antibiotics are done or bloody diarrhea You should also call for an appointment with the lung doctor (brim stitcher), Dr. Wilson, within 2 weeks. Condition: Improved - Instructions Diet, Activity, Other Instructions: Diet, Activity, Other Instructions: You were treated for ruptured (perforated) appendicitis with resolving inflammation using antibiotics (Zosyn) and bowel rest. The radiologist attempted to drain some fluid but only got enough for culture, which grew E. coli (resistant to ampicillin but sensitive to other antibiotics). Your pain and tenderness improved with scheduled Toradol for several days. You are back on a diabetic diet, and are now taking antibiotics by mouth to complete the course. You must take ALL of the prescribed antibiotics until they are gone: Levofloxacin 500mg at 5pm daily and Metronidazole (Flagyl) 500mg three times daily, both for 7 days. Take a probiotic supplement and/or eat diet yogurt every day while taking the antibiotic to help keep your gut healthy. Diet and diabetes medications: Eat lightly at first, but advance to your usual diabetic diet as tolerated. Stick to low-fiber foods for a few weeks. Keep a record of your blood sugars at home before meals and bedtime and follow up with Dr. Craft as scheduled 04/04. You will also need to make an appointment to see him again in mid-April. Take your metformin and LANTUS insulin as you have been doing at home. Pain/inflammation: Take Ibuprofen (200mg pills), 600mg (3 pills) twice daily for 3-4 days, then 400mg (2 pills) twice daily for another 3-4 days, even if you don't have much pain. For pain in between, you may use Tylenol ( acetaminophen) 1-2 pills or Ibuprofen 2 pills every 4-6 hours as needed. Do not take more than 4000 mg of acetaminophen in a day. After that, you can take Tylenol or Ibuprofen for pain as needed. Take all medications as prescribed or indicated on the labeling. Follow-up: You will need to call your primary care doctor's office and get an appointment to follow up with MARIAH Cardenas just after 's and again in 2- 3 weeks. In 4-6 weeks, you will likely need to be evaluated for interval appendectomy. You may call Dr. Reese's office at [phone] for an appointment , or see a surgeon in your network. Call your doctor or return to the Emergency Room if you have: * increasing pain not responsive to pain medication * fever of 101F or higher * vomiting * diarrhea that does not stop once the antibiotics are done or bloody diarrhea You should also call for an appointment with the lung doctor (brim stitcher), Dr. Wilson, within 2 weeks. Referrals: Adam Wilson MD [Staff Physician] - 2 Weeks Yaw Cardenas PA [Physician Fur Ironer] - 1 Week (call for appointment just after and again in 2-3 weeks) Shabbir Reese MD [Staff Physician] - Keisha Craft MD [Staff Physician] - 3 Weeks (as scheduled on 04/04 and again mid-April) Disposition: HOME - Home Medications Comprehensive Discharge Medication List: Ambulatory Orders metFORMIN HCL [Glucophage] 1,000 mg PO BID #0 tab 08/09/12 Insulin Glargine,Hum.rec.anlog [Lantus (10mL VIAL) -] 26 units SQ HS 02/17/15 Insulin Lispro [Humalog] 18 units SQ PRN 03/28/18 Acetaminophen [Tylenol .Regular Strength -] 650 mg PO Q6H PRN tablet 04/02/18 Ibuprofen 400 mg PO Q8H PRN #30 tablet 04/02/18 Lactobacillus Acidophilus [Bacid -] 1 tab PO DAILY 30 Days #30 tab 04/02/18 levoFLOXacin [Levaquin -] 500 mg PO DAILY@1700 7 Days #7 tablet 04/02/18 metroNIDAZOLE [Flagyl -] 500 mg PO TID 7 Days #21 tablet 04/02/18 Problem List - Problems (1) Appendicitis Code(s): K37 - UNSPECIFIED APPENDICITIS Qualifiers: Appendicitis type: unspecified Qualified Code(s): K37 - Unspecified appendicitis (2) Intra-abdominal abscess Code(s): K65.1 - PERITONEAL ABSCESS This patient is new to me today: No Emergency Visit: Yes ED Registration Date: 03/28/18 Care time: The patient presented to the Emergency Department on the above date and was hospitalized for further evaluation of their emergent condition. Critical Care patient: No - Discharge Referral Referred to [facility] No
--- NOTE | 2018-04-02 11:50 | PN ---
Progress Note, Physician History of Present Illness: patient stable still with abd pain patient started on oral abx - Current Medication List Current Medications: Active Medications Acetaminophen (Tylenol -) 650 mg PO Q6H PRN PRN Reason: PAIN LEVEL 6-10 Heparin Sodium (Porcine) (Heparin -) 5,000 unit SQ TID [facility] Last Admin: 04/02/18 06:26 Dose: 5,000 unit Insulin Aspart (Novolog Vial Sliding Scale -) 1 vial SQ ACHS [facility]; Protocol Last Admin: 04/02/18 11:26 Dose: 3 units Insulin Detemir (Levemir Vial) 20 units SQ DAILY@0700 [facility] Last Admin: 04/02/18 06:27 Dose: 20 units Ketorolac Tromethamine (Toradol Injection -) 30 mg IVPUSH Q6H [facility] Stop: 04/03/18 16:59 Last Admin: 04/02/18 11:29 Dose: 30 mg Lactobacillus Acidophilus (Bacid -) 1 tab PO DAILY [facility] Last Admin: 04/02/18 09:32 Dose: 1 tab Levofloxacin (Levaquin -) 500 mg PO DAILY@1700 [facility] Last Admin: 04/01/18 17:18 Dose: 500 mg Metformin HCl (Glucophage -) 1,000 mg PO BID [facility] Last Admin: 04/02/18 09:32 Dose: 1,000 mg Metronidazole (Flagyl -) 500 mg PO TID [facility] Last Admin: 04/02/18 06:26 Dose: 500 mg - Objective Vital Signs: Vital Signs Temperature 97.9 F 04/02/18 06:00 Pulse Rate 83 04/02/18 09:10 Respiratory Rate 18 04/02/18 09:10 Blood Pressure 128/72 04/02/18 09:10 O2 Sat by Pulse Oximetry (%) 91 L 04/02/18 10:00 Constitutional: Yes: No Distress, Calm, Obese Cardiovascular: Yes: Regular Rate and Rhythm Respiratory: Yes: Regular, CTA Bilaterally Gastrointestinal: Yes: Normal Bowel Sounds, Tenderness (rlq) Musculoskeletal: Yes: WNL Extremities: Yes: WNL Neurological: Yes: Alert, Oriented Psychiatric: Yes: Alert, Oriented Labs: CBC, BMP 03/31/18 07:45 03/31/18 07:45 INR, PTT INR 1.06 (0.83-1.09) 03/28/18 13:01 Assessment/Plan Problem List - Problems (1) Acute appendicitis with perforation, localized peritonitis, and abscess Code(s): K35.33 - ACUTE APPENDICITIS WITH PERF AND LOC PERITONITIS, WITH ABSCS Qualifiers: Appendicitis gangrene presence: without gangrene Qualified Code(s): K35.33 - Acute appendicitis with perforation and localized peritonitis, with abscess (2) RLQ abdominal pain Code(s): R10.31 - RIGHT LOWER QUADRANT PAIN (3) Nausea alone Code(s): R11.0 - NAUSEA (4) Diarrhea Code(s): R19.7 - DIARRHEA, UNSPECIFIED Qualifiers: Diarrhea type: functional diarrhea Qualified Code(s): K59.1 - Functional diarrhea (5) Diabetes mellitus type 2 with retinopathy Code(s): E11.319 - TYPE 2 DIABETES W UNSP DIABETIC RTNOP W/O MACULAR EDEMA Qualifiers: Diabetes mellitus superintendent container terminal insulin use: with superintendent container terminal use Diabetic retinopathy severity: with proliferative retinopathy Proliferative retinopathy type: with traction retinal detachment not involving macula Laterality: right Qualified Code(s): E11.3531 - Type 2 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
--- NOTE | 2018-04-02 12:02 | PN ---
Progress Note, Physician History of Present Illness: 63yo [place] F, morbidly obese, with DM, s/p , recently admitted for perforated appendicitis with abscesses too small to drain, treated nonoperatively with resolution of pain and tenderness and discharged to complete antibiotic course at home (Zosyn -> Augmentin, total 2 weeks), returned with RLQ pain, nausea and few episodes of diarrhea. No wbc or fever. IR attempted drainage after CT showed slightly larger ?abscesses/collections, but on multiple attempts was unable to obtain more than scant sample for culture. There is most likely still resolving phlegmon in RLQ. She is seen and examined in room, sitting up. Her RLQ pain is minimal. She does feel better. Having formed BMs. Tolerating diabetic diet. Tolerating Levo/ Flagyl started yesterday. Has had 4 days of Toradol standing. - Current Medication List Current Medications: Active Medications Acetaminophen (Tylenol -) 650 mg PO Q6H PRN PRN Reason: PAIN LEVEL 6-10 Heparin Sodium (Porcine) (Heparin -) 5,000 unit SQ TID [facility] Last Admin: 04/02/18 06:26 Dose: 5,000 unit Insulin Aspart (Novolog Vial Sliding Scale -) 1 vial SQ [facility]; Protocol Last Admin: 04/02/18 11:26 Dose: 3 units Insulin Detemir (Levemir Vial) 20 units SQ DAILY@0700 [facility] Last Admin: 04/02/18 06:27 Dose: 20 units Ketorolac Tromethamine (Toradol Injection -) 30 mg IVPUSH Q6H [facility] Stop: 04/03/18 16:59 Last Admin: 04/02/18 11:29 Dose: 30 mg Lactobacillus Acidophilus (Bacid -) 1 tab PO DAILY [facility] Last Admin: 04/02/18 09:32 Dose: 1 tab Levofloxacin (Levaquin -) 500 mg PO DAILY@1700 [facility] Last Admin: 04/01/18 17:18 Dose: 500 mg Metformin HCl (Glucophage -) 1,000 mg PO BID [facility] Last Admin: 04/02/18 09:32 Dose: 1,000 mg Metronidazole (Flagyl -) 500 mg PO TID [facility] Last Admin: 04/02/18 06:26 Dose: 500 mg - Objective Vital Signs: Vital Signs Temperature 97.9 F 04/02/18 06:00 Pulse Rate 83 04/02/18 09:10 Respiratory Rate 04/02/18 09:10 Blood Pressure 128/72 04/02/18 09:10 O2 Sat by Pulse Oximetry (%) 91 L 04/02/18 10:00 Constitutional: Yes: No Distress, Calm, Obese Eyes: Yes: Conjunctiva Clear, EOM Intact HENT: Yes: Atraumatic, Normocephalic Gastrointestinal: Yes: Soft, Abdomen, Obese, Tenderness (minimal RLQ - much improved) Extremities: No: Cool, Cyanosis Integumentary: No: Jaundice, Rash Neurological: Yes: Alert, Oriented Labs: no new labs Problem List - Problems (1) Acute appendicitis with perforation, localized peritonitis, and abscess Assessment/Plan: resolving ruptured appendicitis with phlegmon pain/tenderness much improved on antiinflammatory and abx to complete abx 7 days as outpatient - Levo 500mg to be taken at 1700 daily, Flagyl 500mg tid tolerating diabetic diet glucose control - pt has appt to see Dr. Craft 04/04 advised to bring with her record of sugars before meals and at bedtime over next couple days metformin resumed she is to continue metformin and lantus at home as she has the last few weeks until seen by Dr. Craft also to see him again mid-April (spoke to Dr. Craft) at home, to take OTC ibuprofen bid (600mg first few days, then 400mg) over next week to address both pain and inflammatory process tylenol or ibuprofen prn in between for pain after that, can use either for pain prn she will need close followup with PMD after discharge they will get appt with MARIAH Cardenas for just after 04/10 and again in 2-3 weeks after that they will also make appt to f/u with pulmonary, as recommended at last visit, for outpatient testing/workup ok for d/c home as above discussed with Dr. Solano Code(s): K35.33 - ACUTE APPENDICITIS WITH PERF AND LOC PERITONITIS, WITH ABSCS Qualifiers: Appendicitis gangrene presence: without gangrene Qualified Code(s): K35.33 - Acute appendicitis with perforation and localized peritonitis, with abscess (2) RLQ abdominal pain Code(s): R10.31 - RIGHT LOWER QUADRANT PAIN (3) Nausea alone Code(s): R11.0 - NAUSEA (4) Diabetes mellitus type 2 with retinopathy Code(s): E11.319 - TYPE 2 DIABETES W UNSP DIABETIC RTNOP W/O MACULAR EDEMA Qualifiers: Diabetes mellitus half-way insulin use: with half-way use Diabetic retinopathy severity: with proliferative retinopathy Proliferative retinopathy type: with traction retinal detachment not involving macula Laterality: right Qualified Code(s): E11.3531 - Type 2 diabetes mellitus with proliferative diabetic retinopathy 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
== END 2018-04-02 15:03 | disposition home or self-care (01) | DRG 229 ==
LOC: JER 11:40 → JERBED 17:35 → J5S 23:20
PROVIDERS: ADMIT Internal Medicine
PROC: 0D9W3ZX Drainage of Peritoneum, Percutaneous Approach, Diagnostic (ICD-10-PCS; principal; 2018-03-29)
DX: K35.33 Acute appendicitis with perforation, localized peritonitis, and gangrene, with abscess (principal); E11.319 Type 2 diabetes mellitus with unspecified diabetic retinopathy without macular edema; E66.01 Morbid (severe) obesity due to excess calories; R11.0 Nausea; Z68.41 Body mass index [BMI] 40.0-44.9, adult; K59.1 Functional diarrhea; Z79.4 Long term (current) use of insulin; E11.3531 Type 2 diabetes mellitus with proliferative diabetic retinopathy with traction retinal detachment not involving the macula, right eye; K65.1 Peritoneal abscess; R10.31 Right lower quadrant pain
CPT/HCPCS: 36415; 49406; 74177-TC; 76098-TC-FY; 76380-TC; 80048; 80053; 81003; 81015; 82962; 85025; 85610; 86850; 86900; 86901; 87070; 87075; 87086; 87186; 87205; 87899; 90688; 93005; 93010; 93971-TC; 99285-25; C1729; C1769; G0008; J1644; J7030

== ENCOUNTER 2018-05-20 14:29 | Inpatient (IN) | payer OTHER ==
--- NOTE | 2018-05-20 15:07 | PDOC ---
History of Present Illness - General History Source: Patient Exam Limitations: No Limitations - History of Present Illness Initial Comments: 05/20/18 19:39 63 yo F with DM and treated perforated appendicitis with recent admissions for abx presents to the ED with RLQ pain for 2 days with associative fevers. Per the patient, she states that the severity of the pain has increased over the 2 days. It is a sharp, non radiating, 10/10, constant pain with marginal relief with tylenol. She was previously treated with IV zosyn with outpatient use of levaquin and flagyl for 2 weeks. Denies the following: nausea, vomiting, headaches, visual changes, chest pain, SOB, dysuria, hematuria, diarrhea, and hematochezia. Allergies: NKDA <Luan Coffey - Last Filed: 05/21/18 01:51> <Nga Yap - Last Filed: 05/24/18 07:23> - General Chief Complaint: Pain, Acute Stated Complaint: APPENDIX PAIN Time Seen by Provider: 05/20/18 14:53 Past History - Past Medical History Anemia: No Asthma: No Cancer: No Cardiac Disorders: No CVA: No COPD: No CHF: No Dementia: No Diabetes: Yes (iddm) GI Disorders: No Disorders: No HTN: No Hypercholesterolemia: No Liver Disease: No Seizures: No Thyroid Disease: No - Surgical History Abdominal Surgery: No Appendectomy: No Cardiac Surgery: No Cholecystectomy: No Lung Surgery: No Neurologic Surgery: No Orthopedic Surgery: No - Immunization History Immunization Up to Date: Yes - Suicide/Smoking/Psychosocial Hx Smoking Status: No Smoking History: Never smoked Have you smoked in the past 12 months: No Number of Cigarettes Smoked Daily: 0 Hx Alcohol Use: Yes (rare) Drug/Substance Use Hx: No Substance Use Type: None Hx Substance Use Treatment: No <Luan Coffey - Last Filed: 05/21/18 01:51> <Nga Yap - Last Filed: 05/24/18 07:23> - Past Medical History Allergies/Adverse Reactions: Allergies Allergy/AdvReac Type Severity Reaction Status Date / Time No Known Drug Allergies Allergy Verified 05/20/18 14:36 SEASONAL Allergy Uncoded 05/20/18 14:36 Home Medications: Ambulatory Orders metFORMIN HCL [Glucophage] 1,000 mg PO BID #0 tab 08/09/12 Insulin Glargine,Hum.rec.anlog [Lantus (10mL VIAL) -] 26 units SQ HS 02/17/15 Insulin Lispro [Humalog] 18 units SQ PRN 03/28/18 Acetaminophen [Tylenol .Regular Strength -] 650 mg PO Q6H PRN tablet 04/02/18 Review of Systems - Review of Systems Able to Perform ROS?: Yes Is the patient limited Upper Sorbian proficient: No Constitutional: Yes: Chills, Fever. No: Diaphoresis, Weakness HEENTM: No: Eye Pain, Recent change in vision, Ear Pain, Nose Pain, Nose Congestion, Throat Pain, Mouth Pain Respiratory: No: Cough, Shortness of Breath, SOB with Exertion, Hemoptysis Cardiac (ROS): No: Chest Pain, Lightheadedness, Palpitations, Syncope, Chest Tightness ABD/GI: Yes: Abdominal cramping. No: Constipated, Diarrhea, Nausea, Rectal Bleeding, Vomiting, Tarry Stools : No: Burning, Dysuria, Flank Pain, Hematuria Musculoskeletal: No: Back Pain, Joint Pain, Neck Pain Integumentary: No: Bruising, Erythema, Rash Neurological: No: Headache, Numbness, Tingling, Tremors, Ataxia, Dizziness Psychiatric: No: Change in Appetite Endocrine: No: Unexplained Weight Gain Hematologic/Lymphatic: No: Anemia <[place],Luan - Last Filed: 05/21/18 01:51> *Physical Exam - Vital Signs Last Vital Signs Temp Pulse Resp BP Pulse Ox 100.5 F H 96 H 28 H 114/63 95 05/20/18 14:37 05/20/18 14:37 05/20/18 14:37 05/20/18 14:37 05/20/18 14:37 - Physical Exam General Appearance: Yes: Nourished, Appropriately Dressed, Obese. No: Apparent Distress, Intoxicated HEENT: positive: EOMI, NICKY, Normal Voice, Symmetrical, Pharynx Normal, Hearing Grossly Normal. negative: Pale Conjunctivae, Scleral Icterus (R), Scleral Icterus (L), Muffled/Hoarse voice, Pharyngeal Erythema, Tonsillar Exudate, Tonsillar Erythema, Nasal Congestion, Rhinorrhea, Sinus Tenderness, Excessive drooling Neck: positive: Trachea midline, Supple. negative: Tender, Lymphadenopathy (R) , Lymphadenopathy (L), Tender lateral, Tender midline Respiratory/Chest: positive: Lungs Clear, Normal Breath Sounds. negative: Chest Tender, Respiratory Distress, Accessory Muscle Use, Crackles, Rales, Rhonchi, Stridor, Wheezing Cardiovascular: positive: Regular Rhythm, Regular Rate, S1, S2. negative: Systolic Murmur Gastrointestinal/Abdominal: positive: Normal Bowel Sounds, Tender (RLQ tenderness. negative referred pain), Soft, Protuberent Lymphatic: negative: Adenopathy Musculoskeletal: positive: Normal Inspection. negative: CVA Tenderness, Vertebral Tenderness Extremity: positive: Normal Capillary Refill, Normal Inspection, Normal Range of Motion. negative: Tender, Swelling, Calf Tenderness Integumentary: positive: Normal Color, Dry, Warm. negative: Swelling, Ecchymosis Neurologic: positive: refractory manager II-XII NML intact, Fully Oriented, Alert, Normal Mood/ Affect, Normal Response, Motor Strength 5/5. negative: EOM Palsy, Facial Droop , Sensory Deficit <Luan Coffey - Last Filed: 05/21/18 01:51> - Vital Signs Last Vital Signs Temp Pulse Resp BP Pulse Ox 98.7 F 80 20 131/78 91 L 05/23/18 18:00 05/23/18 18:00 05/23/18 21:00 05/23/18 18:00 05/23/18 21:00 <Nga Yap - Last Filed: 05/24/18 07:23> Moderate Sedation - Procedure Monitoring Vital Signs: Procedure Monitoring Vital Signs Temperature 100.5 F H 05/20/18 14:37 Pulse Rate 96 H 05/20/18 14:37 Respiratory Rate 28 H 05/20/18 14:37 Blood Pressure 114/63 05/20/18 14:37 O2 Sat by Pulse Oximetry (%) 95 05/20/18 14:37 <Luan Coffey - Last Filed: 05/21/18 01:51> - Procedure Monitoring Vital Signs: Procedure Monitoring Vital Signs Temperature 98.7 F 05/23/18 18:00 Pulse Rate 80 05/23/18 18:00 Respiratory Rate 20 05/23/18 21:00 Blood Pressure 131/78 05/23/18 18:00 O2 Sat by Pulse Oximetry (%) 91 L 05/23/18 21:00 <Nga Yap - Last Filed: 05/24/18 07:23> ED Treatment Course - LABORATORY CBC & Chemistry Diagram: 05/20/18 15:20 05/20/18 15:20 <Luan Coffey - Last Filed: 05/21/18 01:51> - LABORATORY CBC & Chemistry Diagram: 05/23/18 06:30 05/23/18 06:30 - ADDITIONAL ORDERS Additional order review: 05/20/18 15:20 Blood Culture - Preliminary Blood - Peripheral Venous NO GROWTH OBTAINED AFTER 72 HOURS, INCUBATION TO CONTINUE FOR 2 DAYS. 05/20/18 15:20 Blood Culture - Preliminary Blood - Peripheral Venous NO GROWTH OBTAINED AFTER 72 HOURS, INCUBATION TO CONTINUE FOR 2 DAYS. 05/20/18 15:20 Urine Culture - Final Urine - Urine Clean Catch 05/20/18 15:20 RBC 4.35 MCV 84.7 MCHC 33.6 RDW 18.0 H MPV 7.5 Neutrophils % 66.4 D Lymphocytes % 18.8 D Monocytes % 13.3 H Eosinophils % 0.6 D Basophils % 0.9 - Medications Given in the ED: ED Medications Discontinued Medications Generic Name Dose Route Start Last Admin Trade Name Camacho PRN Reason Stop Dose Admin Acetaminophen 1,000 mg 05/20/18 19:08 05/20/18 19:23 Ofirmev Injection - IVPB 05/20/18 19:09 1,000 mg ONCE ONE Administration Sodium Chloride 1,000 mls @ 1,000 mls/hr 05/20/18 15:15 05/20/18 15:34 Normal Saline - IV 05/20/18 16:14 1,000 mls/hr ASDIR STA Administration Piperacillin Sod/Tazobactam 50 mls @ 100 mls/hr 05/20/18 15:35 05/20/18 15:41 Sod 3.375 gm/ Dextrose IVPB 05/20/18 16:04 100 mls/hr ONCE ONE Administration Protocol Sodium Chloride 1,000 mls @ 1,000 mls/hr 05/20/18 15:48 05/20/18 15:56 Normal Saline - IV 05/20/18 16:47 1,000 mls/hr ASDIR STA Administration Sodium Chloride 1,000 mls @ 100 mls/hr 05/20/18 19:45 05/20/18 23:15 Normal Saline - IV 100 mls/hr ASDIR SARINA Administration Sodium Chloride 1,000 mls @ 125 mls/hr 05/20/18 20:15 05/23/18 23:02 Normal Saline - IV Not Given ASDIR SARINA Morphine Sulfate 4 mg 05/20/18 15:15 05/20/18 15:34 Morphine Injection - IVPUSH 05/20/18 15:16 4 mg ONCE ONE Administration Morphine Sulfate 2 mg 05/20/18 20:17 05/21/18 20:09 Morphine Sulfate IVPUSH 2 mg Q3H PRN Administration Pain Level 7 - 10 BREAKTHROUGH Morphine Sulfate 4 mg 05/22/18 07:34 05/22/18 12:41 Morphine Sulfate IVPUSH 4 mg Q3H PRN Administration Pain Level 7 - 10 BREAKTHROUGH <Nga Yap - Last Filed: 05/24/18 07:23> Medical Decision Making - Medical Decision Making 05/20/18 19:43 63 yo F with DM and treated perforated appendicitis with recent admissions for abx presents to the ED with RLQ pain for 2 days with associative fevers. Initial vitals; Initial Vital Signs Temp Pulse Resp BP Pulse Ox 100.5 F H 96 H 28 H 114/63 95 05/20/18 14:37 05/20/18 14:37 05/20/18 14:37 05/20/18 14:37 05/20/18 14:37 Work up: ddx: abscess vs perforated appendicitis vs UTI vs nephrolithiasis. Laboratory Tests 05/20/18 05/20/18 05/20/18 15:15 15:15 15:20 WBC 9.7 RBC 4.35 Hgb 12.4 Hct 36.8 MCV 84.7 MCH 28.5 D MCHC 33.6 RDW 18.0 H Plt Count 261 MPV 7.5 Absolute Neuts (auto) 6.4 Neutrophils % 66.4 D Lymphocytes % 18.8 D Monocytes % 13.3 H Eosinophils % 0.6 D Basophils % 0.9 Nucleated RBC % 0 PT with INR INR PTT (Actin FS) Sodium Potassium Chloride Carbon Dioxide Anion Gap BUN Creatinine Creat Clearance w eGFR Random Glucose Lactic Acid 1.8 Calcium Total Bilirubin AST ALT Alkaline Phosphatase Total Protein Albumin Urine Color Yellow Urine Appearance Clear Urine pH 6.0 Ur Specific [place] 1.012 Urine Protein 1+ H Urine Glucose (UA) Negative Urine Ketones Negative Urine Blood Negative Urine Nitrite Negative Urine Bilirubin Negative Urine Urobilinogen 4.0 e.u/dl H Ur Leukocyte Esterase Trace Urine WBC (Auto) 3 Urine RBC (Auto) <1 Ur Epithelial Cells Few Urine Bacteria Rare Urine Mucus Rare Blood Type Antibody Screen 05/20/18 05/20/18 05/20/18 15:20 15:20 15:20 WBC RBC Hgb Hct MCV MCH MCHC RDW Plt Count MPV Absolute Neuts (auto) Neutrophils % Lymphocytes % Monocytes % Eosinophils % Basophils % Nucleated RBC % PT with INR 13.30 H INR 1.13 H PTT (Actin FS) 25.3 Sodium 136 Potassium 4.4 Chloride 102 Carbon Dioxide 27 Anion Gap 7 L BUN 13 Creatinine 0.8 Creat Clearance w eGFR > 60 Random Glucose 115 H Lactic Acid Calcium 8.2 L Total Bilirubin 0.5 AST 21 ALT 22 Alkaline Phosphatase 108 Total Protein 7.1 Albumin 2.8 L Urine Color Urine Appearance Urine pH Ur Specific [place] Urine Protein Urine Glucose (UA) Urine Ketones Urine Blood Urine Nitrite Urine Bilirubin Urine Urobilinogen Ur Leukocyte Esterase Urine WBC (Auto) Urine RBC (Auto) Ur Epithelial Cells Urine Bacteria Urine Mucus Blood Type A POSITIVE Antibody Screen Negative labs show wnl. Dr. Reese sent the patient in for admission. Per Dr. Reese, tylenol and fluids running at maintenance as well as NPO is to be maintained. Requests to have Dr. Prajapati as infectious disease, will have to defer to admitting team on this recommendation. In addition, the daughter is to be notified once the admission is placed. Her name is Kiersten and number is [phone]. CT results show an an appendix extending into a heterogenous collection which measures roughly 5.5 x 4.5 cm in axial dimension and extends approximately 5.5 cm in craniocaudal dimension...consistent with an appendiceal abscess. Patient will be admitted to hospitalists. Dispo: Admit <Luan Coffey - Last Filed: 05/21/18 01:51> *DC/Admit/Observation/Transfer <Luan Coffey - Last Filed: 05/21/18 01:51> - Discharge Dispostion Decision to Admit order: Yes <Nga Yap - Last Filed: 05/24/18 07:23> Diagnosis at time of Disposition: Appendiceal abscess - Discharge Dispostion Condition at time of disposition: Guarded
[2018-05-20] MEDS ORDERED: SODIUM CHLORIDE 1,000 ML IV STA ×2 (15:15→15:48)
[2018-05-20] MEDS ORDERED: morphine CARPU-JECT 4 MG/1 ML DISP.SYRIN IVPUSH ONE (15:15)
--- NOTE | 2018-05-20 15:23 | PDOC ---
Attending Attestation - Medical Decision Making 05/20/18 17:19 Dr. Brownlee was notified and is aware of patient. <Mery Cox - Last Filed: 05/20/18 17:19> - Resident Resident Name: Luan Coffey - ED Attending Attestation I have performed the following: I have examined & evaluated the patient, The case was reviewed & discussed with the resident, I agree w/resident's findings & plan - HPI HPI: 05/20/18 15:21 63 year old female with morbid obesity, DM 2, recently admitted and managed conservatively for perforated appendicitis and intra-abdominal abscess vs phlegmon with IV Abx who presents to the emergency department with RLQ abdominal pain for 2 days, +fevers. Was previously treated with IV zosyn and transitioned to levaquin and flagyl, x 2 week therapy. IR drainage attempted 03/29/18 - unsuccessful +E. Coli on fluid culture, dcd 04/02/18 - Physicial Exam PE: 05/20/18 15:53 mild acute distress 2/2 pain. PERRL, EOMI, MMM, nl conjunctiva, anicteric; neck supple. lungs clear, RRR, abdomen soft, morbidly obese; +RLQ TTP, no rebound or guarding. GREGG x4, no focal neuro deficits. No peripheral edema. normal color for ethnicity, WWP. - Medical Decision Making 05/20/18 15:54 See HPI for details Vital signs reviewed, +fever, HR in 90s, in much pain. Prior notes reviewed, including admissions, discharges and consultations. laboratory results and imaging reviewed, basic labs and lytes wnl, notable for normal coags and LFTs. UA neg for infection, +urobilinogen. no blood. lactic_normal, reassuring. EKG normal sinus rhythm, no interval abnormalities, narrow QRS, ST and T wave segments and morphology normal. Nonspecific T wave abnormalities - TWI in III; flattening in II, AVF. ED course: IV zosyn for empiric coverage given recent admission and prolonged course of perf appy, s/p failed IR drainage. risk of complicated intra abdominal infection, early abx indicated. blood cultures sent and pending analgesia with morphine given severity. PO contrast initiated, CT a/p to eval for complicated infection/worsening course surg cs with Dr Reese, admit for perf appy/infection - prolonged course, failing conservative management 05/20/18 15:57 05/23/18 16:55 <Nga Yap - Last Filed: 05/23/18 16:56> Attestations - Attestations 05/20/18 17:20 Documentation prepared by Mery Cox, acting as medical clinic manager for Nga Yap MD. <Mery Cox - Last Filed: 05/20/18 17:19>
[2018-05-20] MEDS ORDERED: morphine SULFATE 4 MG/ML VIAL ONE (15:34)
[2018-05-20] MEDS ORDERED: PIPERACILLIN/TAZOB 3.375 GM 3.375 GM in DEXTROSE 5%-WATER - 50 ML IVPB ONE (15:35)
[2018-05-20 15:40] LABS: BASO % 0.9 % (0-2.0); EOS % 0.6 % (0-4.5); HEMATOCRIT 36.8 % (32.4-45.2); HEMOGLOBIN 12.4 GM/dL (10.7-15.3); LYMPH % 18.8 % (8-40); MCH 28.5 pg (25.7-33.7); MCHC 33.6 g/dl (32.0-36.0); MEAN CELL VOLUME 84.7 fl (80-96); MEAN PLT VOLUME 7.5 fl (7.5-11.1); MONO % 13.3 % (3.8-10.2); NEUT % 66.4 % (42.8-82.8); PLATELET COUNT 261 K/MM3 (134-434); RBC 4.35 M/mm3 (3.60-5.2); WHITE BLOOD COUNT 9.7 K/mm3 (4.0-10.0)
[2018-05-20 15:42] LABS: URINE APPEARANCE CLEAR; URINE BILIRUBIN NEGATIVE (<2.0 mg/dL); URINE COLOR YELLOW; URINE GLUCOSE (UA) NEGATIVE (NEGATIVE); URINE KETONE NEGATIVE (NEGATIVE); URINE LEUK ESTERASE TRACE (NEGATIVE); URINE NITRITE NEGATIVE (NEGATIVE); URINE PROTEIN 1+ (NEGATIVE); URINE UROBILINOGEN 4.0 E.U/dl mg/dL (0.2-1.0)
[2018-05-20] MEDS ORDERED: PIPERACILLIN/TAZOB 3.375 GM 3.375 GM/50 ML BAG IVPB ONE (15:42)
[2018-05-20 15:51] LABS: ALBUMIN 2.8 g/dl (3.4-5.0); ALK PHOS 108 U/L (45-117); ANION GAP 7 MMOL/L (8-16); BILIRUBIN,TOTAL 0.5 mg/dL (0.2-1); BLOOD UREA NITROGEN 13 mg/dL (7-18); CALCIUM 8.2 mg/dL (8.5-10.1); CHLORIDE 102 mmol/L (98-107); CO2 27 mmol/L (21-32); CREATININE 0.8 mg/dL (0.55-1.3); GLUCOSE,RANDOM 115 mg/dL (74-106); POTASSIUM 4.4 mmol/L (3.5-5.1); SGOT/AST 21 U/L (15-37); SGPT/ALT 22 U/L (13-61); SODIUM 136 mmol/L (136-145); TOT PROT 7.1 g/dl (6.4-8.2)
[2018-05-20 15:54] LABS: INR 1.13 (0.83-1.09); PROTHROMBIN TIME (PATIENT) 13.3 SEC (9.7-13.0)
[2018-05-20 15:54] LABS: EPI CELLS FEW /HPF (FEW); URINE BACTERIA RARE /hpf (NONE SEEN); URINE MUCUS RARE
[2018-05-20 15:56] LABS: ACTIVATED PTT 25.3 SECONDS (25.2-36.5)
[2018-05-20] MEDS ORDERED: ACETAMINOPHEN 1000 MG/100 ML VIAL (NON FORMULARY) IVPB ONE (19:08)
[2018-05-20] MEDS ORDERED: ACETAMINOPHEN INJECTION 100 ML IVPB ONE (19:20)
[2018-05-20] MEDS ORDERED: SODIUM CHLORIDE 1,000 ML IV SCH (19:45)
--- NOTE | 2018-05-20 20:14 | HP ---
CHIEF COMPLAINT: PCP: HISTORY OF PRESENT ILLNESS: ER course was notable for: (1) (2) (3) Recent Travel: PAST MEDICAL HISTORY: PAST SURGICAL HISTORY: Social History: Smoking: Alcohol: Drugs: Family History: Allergies No Known Drug Allergies Allergy (Verified 05/20/18 14:36) SEASONAL Allergy (Uncoded 05/20/18 14:36) HOME MEDICATIONS: Home Medications Medication Instructions Recorded metFORMIN HCL [Glucophage] 1,000 mg PO BID #0 tab 08/09/12 Insulin Glargine,Hum.rec.anlog 26 units SQ HS 02/17/15 [Lantus (10mL VIAL) -] Insulin Lispro [Humalog] 18 units SQ PRN 03/28/18 Acetaminophen [Tylenol .Regular 650 mg PO Q6H PRN tablet 04/02/18 Strength -] Lactobacillus Acidophilus [Bacid -] 1 tab PO DAILY 30 Days #30 tab 04/02/18 REVIEW OF SYSTEMS CONSTITUTIONAL: Absent: fever, chills, diaphoresis, generalized weakness, malaise, loss of appetite, weight change HEENT: Absent: rhinorrhea, nasal congestion, throat pain, throat swelling, difficulty swallowing, mouth swelling, ear pain, eye pain, visual changes CARDIOVASCULAR: Absent: chest pain, syncope, palpitations, irregular heart rate, lightheadedness , peripheral edema RESPIRATORY: Absent: cough, shortness of breath, dyspnea with exertion, orthopnea, wheezing, stridor, hemoptysis GASTROINTESTINAL: Absent: abdominal pain, abdominal distension, nausea, vomiting, diarrhea, constipation, melena, hematochezia GENITOURINARY: Absent: dysuria, frequency, urgency, hesitancy, hematuria, flank pain, genital pain MUSCULOSKELETAL: Absent: myalgia, arthralgia, joint swelling, back pain, neck pain SKIN: Absent: rash, itching, pallor HEMATOLOGIC/IMMUNOLOGIC: Absent: easy bleeding, easy bruising, lymphadenopathy, frequent infections ENDOCRINE: Absent: unexplained weight gain, unexplained weight loss, heat intolerance, cold intolerance NEUROLOGIC: Absent: headache, focal weakness or paresthesias, dizziness, unsteady gait, seizure, mental status changes, bladder or bowel incontinence PSYCHIATRIC: Absent: anxiety, depression, suicidal or homicidal ideation, hallucinations. PHYSICAL EXAMINATION Vital Signs - 24 hr 05/20/18 05/20/18 14:37 19:17 Temperature 100.5 F H 100.7 F H Pulse Rate 96 H Pulse Rate [ 90 Right Radial] Respiratory 28 H 18 Rate Blood Pressure 114/63 Blood Pressure 106/40 L [Right Arm] O2 Sat by Pulse 95 100 Oximetry (%) GENERAL: Awake, alert, and fully oriented, in no acute distress. HEAD: Normal with no signs of trauma. EYES: Pupils equal, round and reactive to light, extraocular movements intact, sclera anicteric, conjunctiva clear. No lid lag. EARS, NOSE, THROAT: Ears normal, nares patent, oropharynx clear without exudates. Moist mucous membranes. NECK: Normal range of motion, supple without lymphadenopathy, JVD, or masses. LUNGS: Breath sounds equal, clear to auscultation bilaterally. No wheezes, and no crackles. No accessory muscle use. HEART: Regular rate and rhythm, normal S1 and S2 without murmur, rub or gallop. ABDOMEN: Soft, nontender, not distended, normoactive bowel sounds, no guarding, no rebound, no masses. No hepatomegaly or splenomegaly. MUSCULOSKELETAL: Normal range of motion at all joints. No bony deformities or tenderness. No CVA tenderness. UPPER EXTREMITIES: 2+ pulses, warm, well-perfused. No cyanosis. No clubbing. No peripheral edema. LOWER EXTREMITIES: 2+ pulses, warm, well-perfused. No calf tenderness. No peripheral edema. NEUROLOGICAL: Cranial nerves II-XII intact. Normal speech. Normal gait. PSYCHIATRIC: Cooperative. Good eye contact. Appropriate mood and affect. SKIN: Warm, dry, normal turgor, no rashes or lesions noted, normal capillary refill. Laboratory Results - last 24 hr 05/20/18 05/20/18 05/20/18 15:15 15:15 15:20 WBC 9.7 RBC 4.35 Hgb 12.4 Hct 36.8 MCV 84.7 MCH 28.5 D MCHC 33.6 RDW 18.0 H Plt Count 261 MPV 7.5 Absolute Neuts (auto) 6.4 Neutrophils % 66.4 D Lymphocytes % 18.8 D Monocytes % 13.3 H Eosinophils % 0.6 D Basophils % 0.9 Nucleated RBC % 0 PT with INR INR PTT (Actin FS) Sodium Potassium Chloride Carbon Dioxide Anion Gap BUN Creatinine Creat Clearance w eGFR Random Glucose Lactic Acid 1.8 Calcium Total Bilirubin AST ALT Alkaline Phosphatase Total Protein Albumin Urine Color Yellow Urine Appearance Clear Urine pH 6.0 Ur Specific [place] 1.012 Urine Protein 1+ H Urine Glucose (UA) Negative Urine Ketones Negative Urine Blood Negative Urine Nitrite Negative Urine Bilirubin Negative Urine Urobilinogen 4.0 e.u/dl H Ur Leukocyte Esterase Trace Urine WBC (Auto) 3 Urine RBC (Auto) <1 Ur Epithelial Cells Few Urine Bacteria Rare Urine Mucus Rare Blood Type Antibody Screen 05/20/18 05/20/18 05/20/18 15:20 15:20 15:20 WBC RBC Hgb Hct MCV MCH MCHC RDW Plt Count MPV Absolute Neuts (auto) Neutrophils % Lymphocytes % Monocytes % Eosinophils % Basophils % Nucleated RBC % PT with INR 13.30 H INR 1.13 H PTT (Actin FS) 25.3 Sodium 136 Potassium 4.4 Chloride 102 Carbon Dioxide 27 Anion Gap 7 L BUN 13 Creatinine 0.8 Creat Clearance w eGFR > 60 Random Glucose 115 H Lactic Acid Calcium 8.2 L Total Bilirubin 0.5 AST 21 ALT 22 Alkaline Phosphatase 108 Total Protein 7.1 Albumin 2.8 L Urine Color Urine Appearance Urine pH Ur Specific [place] Urine Protein Urine Glucose (UA) Urine Ketones Urine Blood Urine Nitrite Urine Bilirubin Urine Urobilinogen Ur Leukocyte Esterase Urine WBC (Auto) Urine RBC (Auto) Ur Epithelial Cells Urine Bacteria Urine Mucus Blood Type A POSITIVE Antibody Screen Negative ASSESSMENT/PLAN:
--- NOTE | 2018-05-20 20:37 | PN ---
Teaching Attending Note Name of Resident: Milvia Sheridan ATTENDING PHYSICIAN STATEMENT I saw and evaluated the patient. I reviewed the resident's note and discussed the case with the resident. I agree with the resident's findings and plan as documented. SUBJECTIVE: Seen and examined; please see resident note for further historical documentation. Briefly, this is a 63 y/o female presenting with abdominal pain found to have recurring appendicitis with abscess. Preliminary CT report shows a 5/5 cm heterogenous appendiceal abscess which is amenable to CT-guided drain. There is some associated inguinal LN, as well. Both ER and our team discussed case with Dr. Reese. Per her notes from the last admission, she has had recurring appendicitis and has had 2 episodes already (after the first one completed Zosyn and augmentin and had non-operative tx with abscess too small to drain; the secon one showed a slightly larger abscess and unfortunately after multiple attempts were still unable to get anything more than sample for culture which grew out E. Coli). She has been seen by Dr. Prajapait before. She will be admitted to the medicine service with surgical consultation. Appreciate expert surgical opinion 10 sys ROS done and negative aside from HPI PMH, PSH, Social Hx, Family Hx all reviewed Medication reconciliation pending OBJECTIVE: VS, labs, imaging reviewed NAD, AAO, mild distress NC AT EOMI PERRLA Tender to palpation especially R-side, +BS RRR s1/2 no mgr Lungs CTAB, w/ sym exp CN2-12 wnl, no fnd Labs without leukocytosis; chemistry unremarkable Prelim CT report discussed in HPI Prior specialist consults reviewed Microbiology reviewed ASSESSMENT AND PLAN: Patient presents with recurring appendicitis, now with 5.5cm heterogenous abscess amiable to CT-guided drainage 1) Acute Appendicitis with Abscess -NPO, IVF, Pain control -Ultimate management of this condition per specialty services; appreciate expert opinion -Old micro reviewed; continue Zosyn and monitor for new results. Followup blood cx. -Monitor abdominal exam, labs 2) DM -SSI when NPO; she is on 20 levemir so if she is persistently hyper may need small amount of long acting. 3) Morbid Obesity -Counseling prior to DC 4) Hypoalbuminemia -Consider checking prealbumin; followup as OP DVT px: hep sq GI px: Consider protonix 40 IV QD if NPO for prolonged period of time Full Code
--- NOTE | 2018-05-20 20:41 | HP ---
CHIEF COMPLAINT: RLQ pain PCP: HISTORY OF PRESENT ILLNESS: 63 y/op female with PMH of diabetes and recurrent abscesses of the appendix presents with a 2 day history of RLQ pain and fevers. OF note, patient has had multiple episodes like this in the paset; this being her third one. She was treated in the past with levaquin and flagyl and an IR drainage was attempted but failed- previous fluid cultures showing E-coli. Patients daughter called Dr. Reese (who had seen here the 2 previous times in the hospital) and told her to bring her mother to the ER. Patient describes the pain as 10/10, non-radiatig , constant in nature- however she denies any nausea.vomiting or diarrhea. She denies any recent travel or sick contacts. ER course was notable for: (1)T: 100.5 on admission (2) CT scan showing an abscess (3)given zosyn; 2L of fluid and morphine Recent Travel: denies PAST MEDICAL HISTORY: see above PAST SURGICAL HISTORY: 1 c section Social History: Smoking:denies Alcohol:denies Drugs: denies patient has not worked since 2012, due to broken retinas B/L- she cannot drive nor can she really get around on her own Family History: Allergies No Known Drug Allergies Allergy (Verified 05/20/18 14:36) SEASONAL Allergy (Uncoded 05/20/18 14:36) HOME MEDICATIONS: Home Medications Medication Instructions Recorded metFORMIN HCL [Glucophage] 1,000 mg PO BID #0 tab 08/09/12 Insulin Glargine,Hum.rec.anlog 26 units SQ HS 02/17/15 [Lantus (10mL VIAL) -] Insulin Lispro [Humalog] 18 units SQ PRN 03/28/18 Acetaminophen [Tylenol .Regular 650 mg PO Q6H PRN tablet 04/02/18 Strength -] Lactobacillus Acidophilus [Bacid -] 1 tab PO DAILY 30 Days #30 tab 04/02/18 REVIEW OF SYSTEMS CONSTITUTIONAL: Present: fever Absent: , chills, diaphoresis, generalized weakness, malaise, loss of appetite, weight change HEENT: Absent: rhinorrhea, nasal congestion, throat pain, throat swelling, difficulty swallowing, mouth swelling, ear pain, eye pain, visual changes CARDIOVASCULAR: Absent: chest pain, syncope, palpitations, irregular heart rate, lightheadedness , peripheral edema RESPIRATORY: Absent: cough, shortness of breath, dyspnea with exertion, orthopnea, wheezing, stridor, hemoptysis GASTROINTESTINAL: Present: abdominal pain, Absent: , abdominal distension, nausea, vomiting, diarrhea, constipation, melena, hematochezia GENITOURINARY: Absent: dysuria, frequency, urgency, hesitancy, hematuria, flank pain, genital pain MUSCULOSKELETAL: Absent: myalgia, arthralgia, joint swelling, back pain, neck pain SKIN: Absent: rash, itching, pallor HEMATOLOGIC/IMMUNOLOGIC: Absent: easy bleeding, easy bruising, lymphadenopathy, frequent infections ENDOCRINE: Absent: unexplained weight gain, unexplained weight loss, heat intolerance, cold intolerance NEUROLOGIC: Absent: headache, focal weakness or paresthesias, dizziness, unsteady gait, seizure, mental status changes, bladder or bowel incontinence PSYCHIATRIC: Absent: anxiety, depression, suicidal or homicidal ideation, hallucinations. PHYSICAL EXAMINATION Vital Signs - 24 hr 05/20/18 05/20/18 14:37 19:17 Temperature 100.5 F H 100.7 F H Pulse Rate 96 H Pulse Rate [ 90 Right Radial] Respiratory 28 H 18 Rate Blood Pressure 114/63 Blood Pressure 106/40 L [Right Arm] O2 Sat by Pulse 95 100 Oximetry (%) GENERAL: Awake, alert, and fully oriented, in slight acute distress. EYES: EOMI; PEERLA' no scleral icterus. NECK: no JVD; no lymphadenopathy LUNGS: CTA B/L; no rales, rhonchi or wheezing HEART: Regular rate and rhythm, normal S1 and S2 without murmur, rub or gallop. ABDOMEN: Soft, RLQ tenderness upon palpation; no rovisngs sign or obturators sign' + BS in all 4 quadrants. MUSCULOSKELETAL: Normal range of motion at all joints. No bony deformities or tenderness. No CVA tenderness. EXTREMITIES: warm; well-perfused; no clubbing/cyanosis or edema NEUROLOGICAL: Cranial nerves II-XII intact. Normal speech. Normal gait. PSYCHIATRIC: Cooperative. Good eye contact. Appropriate mood and affect. SKIN: Warm, dry, normal turgor, no rashes or lesions noted, normal capillary refill. Laboratory Results - last 24 hr 05/20/18 05/20/18 05/20/18 15:15 15:15 15:20 WBC 9.7 RBC 4.35 Hgb 12.4 Hct 36.8 MCV 84.7 MCH 28.5 D MCHC 33.6 RDW 18.0 H Plt Count 261 MPV 7.5 Absolute Neuts (auto) 6.4 Neutrophils % 66.4 D Lymphocytes % 18.8 D Monocytes % 13.3 H Eosinophils % 0.6 D Basophils % 0.9 Nucleated RBC % 0 PT with INR INR PTT (Actin FS) Sodium Potassium Chloride Carbon Dioxide Anion Gap BUN Creatinine Creat Clearance w eGFR Random Glucose Lactic Acid 1.8 Calcium Total Bilirubin AST ALT Alkaline Phosphatase Total Protein Albumin Urine Color Yellow Urine Appearance Clear Urine pH 6.0 Ur Specific [place] 1.012 Urine Protein 1+ H Urine Glucose (UA) Negative Urine Ketones Negative Urine Blood Negative Urine Nitrite Negative Urine Bilirubin Negative Urine Urobilinogen 4.0 e.u/dl H Ur Leukocyte Esterase Trace Urine WBC (Auto) 3 Urine RBC (Auto) <1 Ur Epithelial Cells Few Urine Bacteria Rare Urine Mucus Rare Blood Type Antibody Screen 05/20/18 05/20/18 05/20/18 15:20 15:20 15:20 WBC RBC Hgb Hct MCV MCH MCHC RDW Plt Count MPV Absolute Neuts (auto) Neutrophils % Lymphocytes % Monocytes % Eosinophils % Basophils % Nucleated RBC % PT with INR 13.30 H INR 1.13 H PTT (Actin FS) 25.3 Sodium 136 Potassium 4.4 Chloride 102 Carbon Dioxide 27 Anion Gap 7 L BUN 13 Creatinine 0.8 Creat Clearance w eGFR > 60 Random Glucose 115 H Lactic Acid Calcium 8.2 L Total Bilirubin 0.5 AST 21 ALT 22 Alkaline Phosphatase 108 Total Protein 7.1 Albumin 2.8 L Urine Color Urine Appearance Urine pH Ur Specific [place] Urine Protein Urine Glucose (UA) Urine Ketones Urine Blood Urine Nitrite Urine Bilirubin Urine Urobilinogen Ur Leukocyte Esterase Urine WBC (Auto) Urine RBC (Auto) Ur Epithelial Cells Urine Bacteria Urine Mucus Blood Type A POSITIVE Antibody Screen Negative ASSESSMENT/PLAN: 63 y/o female with PMH of DM and previous treated appendix abscess presents to the ER with a 2 day history of RLQ pain and fevers found to have an abscess in her appendix # Appendix Abscess -c/w zosyn 3.375 q6H -IV fluids -Dr reese consulted -Dr Prajapati consulted -NPO for drainage and possible OR -IV tylenol and morphine for pain control -bed rest with bathroom privileges #DM -holding home medications -ISS -BGMS ACHS F/E/N NS monitor electrolytes NPO DVT PPX: SCDS dispo: med-surg Problem List - Problem (1) Appendiceal abscess Code(s): K35.33 - ACUTE APPENDICITIS WITH PERF AND LOC PERITONITIS, WITH ABSCS (2) Diabetes mellitus type 2 with retinopathy Code(s): E11.319 - TYPE 2 DIABETES W UNSP DIABETIC RTNOP W/O MACULAR EDEMA Qualifiers: Diabetes mellitus snf insulin use: with snf use Diabetic retinopathy severity: with proliferative retinopathy Proliferative retinopathy type: with traction retinal detachment not involving macula Laterality: right Qualified Code(s): E11.3531 - Type 2 diabetes mellitus with proliferative diabetic retinopathy 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 - New Patient This patient is new to me today: Yes Date on this admission: 05/20/18 - Critical Care Critical Care patient: No
[2018-05-20] MEDS ORDERED: PIPERACILLIN/TAZOB 3.375 GM 3.375 GM in DEXTROSE 5%-WATER - 50 ML IVPB SCH ×2 (21:00→22:00)
[2018-05-20] MEDS: SODIUM CHLORIDE 1,000 ML IV SCH (21:24)
[2018-05-20] MEDS: INSULIN SLIDING SCALE (NOVOLOG) 1 VIAL SQ SCH (23:13)
[2018-05-21] MEDS ORDERED: PIPERACILLIN/TAZOB 4.5 GM 4.5 GM/100 ML BAG IVPB ONE ×3 (01:01→11:34)
[2018-05-21] MEDS: PIPERACILLIN/TAZOB 4.5 GM 4.5 GM in DEXTROSE 5%-WATER 100 ML IVPB SCH ×4 (01:06→22:08)
[2018-05-21] MEDS ORDERED: ACETAMINOPHEN INJECTION 100 ML IVPB ONE ×2 (05:29→11:21)
[2018-05-21] MEDS: ACETAMINOPHEN 1000 MG/100 ML VIAL (NON FORMULARY) IVPB PRN ×2 (05:36→12:11)
[2018-05-21] MEDS: INSULIN SLIDING SCALE (NOVOLOG) 1 VIAL SQ SCH ×4 (07:09→22:08)
[2018-05-21 07:47] LABS: BASO % 0.2 % (0-2.0); EOS % 0.5 % (0-4.5); HEMATOCRIT 33.8 % (32.4-45.2); HEMOGLOBIN 11.3 GM/dL (10.7-15.3); LYMPH % 13.4 % (8-40); MCH 28.2 pg (25.7-33.7); MCHC 33.3 g/dl (32.0-36.0); MEAN CELL VOLUME 84.8 fl (80-96); MEAN PLT VOLUME 7.5 fl (7.5-11.1); MONO % 14.3 % (3.8-10.2); NEUT % 71.6 % (42.8-82.8); PLATELET COUNT 247 K/MM3 (134-434); RBC 3.99 M/mm3 (3.60-5.2); RDW 18.2 % (11.6-15.6); WHITE BLOOD COUNT 9.4 K/mm3 (4.0-10.0)
[2018-05-21 07:57] LABS: INR 1.19 (0.83-1.09); PROTHROMBIN TIME (PATIENT) 14.1 SEC (9.7-13.0)
[2018-05-21 08:00] LABS: ACTIVATED PTT 24.2 SECONDS (25.2-36.5)
[2018-05-21 08:16] LABS: ALBUMIN 2.6 g/dl (3.4-5.0); ALK PHOS 100 U/L (45-117); ANION GAP 6 MMOL/L (8-16); BILIRUBIN,TOTAL 0.9 mg/dL (0.2-1); BLOOD UREA NITROGEN 14 mg/dL (7-18); CALCIUM 8.1 mg/dL (8.5-10.1); CHLORIDE 104 mmol/L (98-107); CO2 28 mmol/L (21-32); CREATININE 0.8 mg/dL (0.55-1.3); GLUCOSE,RANDOM 118 mg/dL (74-106); MAGNESIUM 2.1 mg/dL (1.8-2.4); PHOSPHOROUS 3.4 mg/dL (2.5-4.9); POTASSIUM 4.3 mmol/L (3.5-5.1); SGOT/AST 11 U/L (15-37); SGPT/ALT 21 U/L (13-61); SODIUM 138 mmol/L (136-145); TOT PROT 6.5 g/dl (6.4-8.2)
--- NOTE | 2018-05-21 11:34 | PN ---
Teaching Attending Note Name of Resident: Jeff Whitaker ATTENDING PHYSICIAN STATEMENT I saw and evaluated the patient. I reviewed the resident's note and discussed the case with the resident. I agree with the resident's findings and plan as documented. SUBJECTIVE:c/o diffuse abdominal pain worse in the RLQ. assoc with fevers and chills. denies CP, SOB, N/V OBJECTIVE: Last Vital Signs Temp Pulse Resp BP Pulse Ox 99.5 F 86 16 115/56 L 100 05/21/18 09:13 05/21/18 09:13 05/21/18 09:13 05/21/18 09:13 05/21/18 09:13 General mild distress due to pain CV S1 S2 RRR Lungs CTA anteriorly ABdomen +RLQ tenderness to light palpation. obese ASSESSMENT AND PLAN: 63yo F wtih PMH DM with recent perforated appendicitis with small abscesses (2) which was conservatively managed in February 2018 came back the following month where IR drainage was unsuccessful and was treated with different course of abx. +Ecoli. now presents due to worsening abdominal pain with subjective fevers for the past 2 days. 1. sepsis due to perforated appendix with abscess-Tm 101.3 with tachycardia. LA normal. 5.5cm abscess seen. cont NPO, IVF, and zosyn. awaiting Dr Reese recommendations if will be taking to the OR vs IR drainage attempt again. cont pain control and tylenol IV f/u BCx 2. DM- A1c 9.3 seen 3 months ago. diabetic meds were adjusted at that time. did not receive lantus yesterday and sugars were controlled today. will give low dose basal insulin tonight and then titrate as needed to optimize control 3. Morbid obesity- BMI 36. lifestyle modifications. consider bariatric surgery 4. DVT ppx- would start lovenox post-procedure.
--- NOTE | 2018-05-21 11:56 | PN ---
Physical Exam: SUBJECTIVE: Patient seen and examined at bedside. pt still c/o abdominal pain associated with fevers and chills. last BM this morning soft nl. denies cp, sob , n/v/d, blood in stools. NPO for IR drainage OBJECTIVE: Vital Signs Period Temp Pulse Resp BP Sys/Ivan Pulse Ox Last 24 Hr 99.5 F-101.3 F 86-96 16-28 106-115/40-63 95-100 GENERAL: AOX3 in slight acute distress. EYES: EOMI; PEERLA' no scleral icterus. NECK: no JVD; no lymphadenopathy LUNGS: CTAB HEART: RRR, normal S1 and S2 without murmur, rub or gallop. ABDOMEN: Soft, RLQ TTP + BS in all 4 quadrants. MUSCULOSKELETAL: Normal range of motion at all joints. No bony deformities or tenderness. No CVA tenderness. EXTREMITIES: warm; well-perfused; no clubbing/cyanosis or edema NEUROLOGICAL: Cranial nerves II-XII intact. Normal speech. PSYCHIATRIC: Cooperative. Good eye contact. Appropriate mood and affect. SKIN: Warm, dry, normal turgor, no rashes or lesions noted, normal capillary refill. Laboratory Results - last 24 hr 05/20/18 05/20/18 05/20/18 15:15 15:15 15:20 WBC 9.7 RBC 4.35 Hgb 12.4 Hct 36.8 MCV 84.7 MCH 28.5 D MCHC 33.6 RDW 18.0 H Plt Count 261 MPV 7.5 Absolute Neuts (auto) 6.4 Neutrophils % 66.4 D Lymphocytes % 18.8 D Monocytes % 13.3 H Eosinophils % 0.6 D Basophils % 0.9 Nucleated RBC % 0 PT with INR INR PTT (Actin FS) Sodium Potassium Chloride Carbon Dioxide Anion Gap BUN Creatinine Creat Clearance w eGFR POC Glucometer Random Glucose Lactic Acid 1.8 Calcium Phosphorus Magnesium Total Bilirubin AST ALT Alkaline Phosphatase Total Protein Albumin Urine Color Yellow Urine Appearance Clear Urine pH 6.0 Ur Specific [place] 1.012 Urine Protein 1+ H Urine Glucose (UA) Negative Urine Ketones Negative Urine Blood Negative Urine Nitrite Negative Urine Bilirubin Negative Urine Urobilinogen 4.0 e.u/dl H Ur Leukocyte Esterase Trace Urine WBC (Auto) 3 Urine RBC (Auto) <1 Ur Epithelial Cells Few Urine Bacteria Rare Urine Mucus Rare Blood Type Antibody Screen 05/20/18 05/20/18 05/20/18 15:20 15:20 15:20 WBC RBC Hgb Hct MCV MCH MCHC RDW Plt Count MPV Absolute Neuts (auto) Neutrophils % Lymphocytes % Monocytes % Eosinophils % Basophils % Nucleated RBC % PT with INR 13.30 H INR 1.13 H PTT (Actin FS) 25.3 Sodium 136 Potassium 4.4 Chloride 102 Carbon Dioxide 27 Anion Gap 7 L BUN 13 Creatinine 0.8 Creat Clearance w eGFR > 60 POC Glucometer Random Glucose 115 H Lactic Acid Calcium 8.2 L Phosphorus Magnesium Total Bilirubin 0.5 AST 21 ALT 22 Alkaline Phosphatase 108 Total Protein 7.1 Albumin 2.8 L Urine Color Urine Appearance Urine pH Ur Specific [place] Urine Protein Urine Glucose (UA) Urine Ketones Urine Blood Urine Nitrite Urine Bilirubin Urine Urobilinogen Ur Leukocyte Esterase Urine WBC (Auto) Urine RBC (Auto) Ur Epithelial Cells Urine Bacteria Urine Mucus Blood Type A POSITIVE Antibody Screen Negative 05/20/18 05/21/18 05/21/18 23:11 06:30 06:30 WBC 9.4 RBC 3.99 Hgb 11.3 Hct 33.8 MCV 84.8 MCH 28.2 MCHC 33.3 RDW 18.2 H Plt Count 247 MPV 7.5 Absolute Neuts (auto) 6.7 Neutrophils % 71.6 Lymphocytes % 13.4 D Monocytes % 14.3 H Eosinophils % 0.5 Basophils % 0.2 Nucleated RBC % 0 PT with INR 14.10 H INR 1.19 H PTT (Actin FS) 24.2 L Sodium Potassium Chloride Carbon Dioxide Anion Gap BUN Creatinine Creat Clearance w eGFR POC Glucometer 81 Random Glucose Lactic Acid Calcium Phosphorus Magnesium Total Bilirubin AST ALT Alkaline Phosphatase Total Protein Albumin Urine Color Urine Appearance Urine pH Ur Specific [place] Urine Protein Urine Glucose (UA) Urine Ketones Urine Blood Urine Nitrite Urine Bilirubin Urine Urobilinogen Ur Leukocyte Esterase Urine WBC (Auto) Urine RBC (Auto) Ur Epithelial Cells Urine Bacteria Urine Mucus Blood Type Antibody Screen 05/21/18 06:30 WBC RBC Hgb Hct MCV MCH MCHC RDW Plt Count MPV Absolute Neuts (auto) Neutrophils % Lymphocytes % Monocytes % Eosinophils % Basophils % Nucleated RBC % PT with INR INR PTT (Actin FS) Sodium 138 Potassium 4.3 Chloride 104 Carbon Dioxide 28 Anion Gap 6 L BUN 14 Creatinine 0.8 Creat Clearance w eGFR > 60 POC Glucometer Random Glucose 118 H Lactic Acid Calcium 8.1 L Phosphorus 3.4 Magnesium 2.1 Total Bilirubin 0.9 AST 11 L ALT 21 Alkaline Phosphatase 100 Total Protein 6.5 Albumin 2.6 L Urine Color Urine Appearance Urine pH Ur Specific [place] Urine Protein Urine Glucose (UA) Urine Ketones Urine Blood Urine Nitrite Urine Bilirubin Urine Urobilinogen Ur Leukocyte Esterase Urine WBC (Auto) Urine RBC (Auto) Ur Epithelial Cells Urine Bacteria Urine Mucus Blood Type Antibody Screen Active Medications Generic Name Dose Route Start Last Admin Trade Name Camacho PRN Reason Stop Dose Admin Acetaminophen 1,000 mg 05/21/18 01:00 05/21/18 05:36 Ofirmev Injection - IVPB 1,000 mg Q6H PRN Administration PAIN LEVEL 6-10 Enoxaparin Sodium 40 mg 05/22/18 10:00 Lovenox - SQ DAILY SARINA Sodium Chloride 1,000 mls @ 125 mls/hr 05/20/18 20:15 05/20/18 21:24 Normal Saline - IV 125 mls/hr ASDIR SARINA Administration Piperacillin Sod/Tazobactam 100 mls @ 200 mls/hr 05/20/18 21:00 05/21/18 01: 06 Sod 4.5 gm/ Dextrose IVPB 200 mls/hr Q6H-IV SARINA Administration Protocol Insulin Aspart 1 vial 05/20/18 22:00 05/20/18 23:13 Novolog Vial Sliding Scale - SQ Not Given ACHS SARINA Protocol Morphine Sulfate 2 mg 05/20/18 20:17 Morphine Sulfate IVPUSH Q3H PRN Pain Level 7 - 10 BREAKTHROUGH ASSESSMENT/PLAN: 63 y/o female with PMH of DM and previous treated appendix abscess presents to the ER with a 2 day history of RLQ pain and fevers found to have an abscess in her appendix # sepsis 2/2 perforated appendix with abscess - Tm 101.3 -c/w zosyn 3.375 q6H -IVF -Dr griffith consulted -Dr Prajapati consulted -NPO for IR drainage -IV tylenol and morphine for pain control -bed rest with bathroom privileges - f/u BCx, Ucx #DM -A1c 9.3 seen 3 months ago -holding home medications -ISS -BGMS ACHS -lantus held yesterday while NPO. sugars are controlled today. will consider restarting a low dose basal insulin tonight and then titrate as needed to optimize control F/E/N NS 125cc/hr replete prn NPO for IR drainage DVT PPX: SCDS, would start lovenox post-procedure. dispo: med-surg IR drainage today Visit type - Emergency Visit Emergency Visit: Yes ED Registration Date: 05/20/18 Care time: The patient presented to the Emergency Department on the above date and was hospitalized for further evaluation of their emergent condition. - New Patient This patient is new to me today: Yes Date on this admission: 05/21/18 - Critical Care Critical Care patient: No
--- NOTE | 2018-05-21 13:24 | CONSULT ---
Consult Consult Specialty:: General Surgery Referred by:: ER/Dr. Coffey Reason for Consultation:: RLQ pain, recurrent, fever/chills - History of Present Illness Chief Complaint: RLQ pain, fever History of Present Illness: 63yo obese [place] F with DM, sciatica, h/o cataract surgery and c/section complicated by infections in past, known to me from previous admissions for perforated appendicitis, originally presenting just after Thanksgiving, treated nonoperatively with antibiotics. She returned to hospital with pain and nausea in late March, and IR drainage was attempted, but only 1-2ml obtained for cx (E. coli resistant only to amp, Unasyn), and felt to be phlegmonous but not true abscess. She was treated with antibiotics again and completed course of PO at home after discharge. She was due to be seen for possible interval appendectomy about now, but returned yesterday to ER with RLQ pain since Monday (initially thought related to muscle strain), which she saw her PMD for (Dr. Yoo) and was going to have bloodwork but was not fasting. She went back Monday for labs, and drank a lot of water to urinate for the labs, but was only able to have a banana, an apple and yogurt for lunch, and was not hungry for dinner at all. She denies N/V or diarrhea, has had soft BMs, but developed fever and chills (100.7 at home), and yesterday her daughter brought her to ER after calling my office. Pt does admit to frontal headache, dizziness, anorexia , but no urinary symptoms. The pain was across her lower abdomen, but more on the right. In the ER, she has had temps in 100s, 101.3 this am, but wbc only in 9's. Glucose is normal. She is NPO. CT with IV and PO contrast done last night shows a now-defined fluid collection/abscess by the appendix, consistent with appendiceal abscess, but no free air or apparent obstruction. It appear to be accessible for IR drainage. She was started on Zosyn and admitted to medicine with ID and surgical consults. I reviewed CT last night, and she is seen and examined in ER holding today, awaiting IR drain. I also spoke with her daughter over speakerphone with the patient. She reported the history above. She got IV Tylenol about an hour ago, but states it only helps for a little while. She has been up to void overnight. - History Source History Provided By: Patient Limitations to Obtaining History: No Limitations - Past Medical History Pulmonary: Yes: Sleep Apnea ([facility]) Gastrointestinal: Yes: Other (perforated appendicitis 03/05/18 tx nonoperatively (back in hosp 03/27 w/attempted drainage, abx); morbid obesity) Reproductive: Yes: Postmenopausal ...LMP: 08/19/12 Musculoskeletal: Yes: Chronic low back pain Endocrine: Yes: Diabetes Mellitus Additional Medical History: foot infection about 4 yrs ago requiring steroid course for several months - Past Surgical History Past Surgical History: Yes: Cataract Removal (left 02/16/18), ( complicated by infections) - Alcohol/Substance Use Hx Alcohol Use: Yes (rare) History of Substance Use: reports: None - Smoking History Smoking history: Never smoked Have you smoked in the past 12 months: No - Social History ADL: Independent History of Recent Travel: No ([place] for 2 weeks returned 02/07/18) Home Medications - Allergies Allergies/Adverse Reactions: Allergies Allergy/AdvReac Type Severity Reaction Status Date / Time No Known Drug Allergies Allergy Verified 05/20/18 14:36 SEASONAL Allergy Uncoded 05/20/18 14:36 - Home Medications Home Medications: Ambulatory Orders metFORMIN HCL [Glucophage] 1,000 mg PO BID #0 tab 08/09/12 Insulin Glargine,Hum.rec.anlog [Lantus (10mL VIAL) -] 26 units SQ HS 02/17/15 Insulin Lispro [Humalog] 18 units SQ PRN 03/28/18 Acetaminophen [Tylenol .Regular Strength -] 650 mg PO Q6H PRN tablet 04/02/18 Family Disease History - Family Disease History Family Disease History: Diabetes: Mother, CA: Sister (bone ca dx age 53 3 yrs ago), Other: Father (htn) Review of Systems - Review of Systems Constitutional: reports: Chills, Fever, Loss of Appetite Eyes: denies: Blurred Vision, Recent Change in Vision HENT: denies: Difficult Swallowing, Throat Pain Neck: denies: Swollen Glands, Tenderness Cardiovascular: denies: Chest Pain, Palpitations Respiratory: denies: Cough, SOB Gastrointestinal: reports: Abdominal Pain (with hpi). denies: Constipation, Diarrhea, Nausea, Vomiting Genitourinary: denies: Burning, Dysuria Musculoskeletal: reports: Back Pain (lower right with hpi). denies: Joint Pain Integumentary: denies: Change in Color, Rash Neurological: reports: Dizziness, Headache Physical Exam Vital Signs: Vital Signs Temperature 99.5 F 05/21/18 09:13 Pulse Rate 86 05/21/18 09:13 Respiratory Rate 16 05/21/18 09:13 Blood Pressure 115/56 L 05/21/18 09:13 O2 Sat by Pulse Oximetry (%) 100 05/21/18 09:13 Constitutional: Yes: No Distress, Calm, Obese, Other (feels warm) Eyes: Yes: Conjunctiva Clear, EOM Intact HENT: Yes: Atraumatic, Normocephalic Neck: Yes: Supple, Trachea Midline Cardiovascular: Yes: Regular Rate and Rhythm Respiratory: Yes: Regular, CTA Bilaterally Gastrointestinal: Yes: Soft, Abdomen, Obese, Hypoactive Bowel Sounds, Tenderness (RLQ mainly, less RUQ, suprapubic, very little LLQ), Other (well- healed lower midline and other scars). No: Tenderness, Rebound (no rebound or guarding) ...Rectal Exam: Yes: Deferred Renal/: No: CVA Tenderness - Left, CVA Tenderness - Right Musculoskeletal: No: Back Pain (no direct tenderness), Joint Swelling Extremities: No: Cool (skin is warm), Cyanosis Edema: No Peripheral Pulses WNL: Yes Integumentary: No: Jaundice, Rash Neurological: Yes: Alert, Oriented Psychiatric: Yes: Alert, Oriented Labs: CBC, BMP 05/21/18 06:30 05/21/18 06:30 CMP Sodium 138 mmol/L (136-145) 05/21/18 06:30 Potassium 4.3 mmol/L (3.5-5.1) 05/21/18 06:30 Chloride 104 mmol/L (98-107) 05/21/18 06:30 Carbon Dioxide 28 mmol/L (21-32) 05/21/18 06:30 Anion Gap 6 MMOL/L (8-16) L 05/21/18 06:30 BUN 14 mg/dL (7-18) 05/21/18 06:30 Creatinine 0.8 mg/dL (0.55-1.3) 05/21/18 06:30 Creat Clearance w eGFR > 60 (>60) 05/21/18 06:30 POC Glucometer 81 UNITS (80-120) 05/20/18 23:11 Random Glucose 118 mg/dL (74-106) H 05/21/18 06:30 Lactic Acid 1.8 mmol/L (0.4-2.0) 05/20/18 15:15 Calcium 8.1 mg/dL (8.5-10.1) L 05/21/18 06:30 Phosphorus 3.4 mg/dL (2.5-4.9) 05/21/18 06:30 Magnesium 2.1 mg/dL (1.8-2.4) 05/21/18 06:30 Total Bilirubin 0.9 mg/dL (0.2-1) 05/21/18 06:30 AST 11 U/L (15-37) L 05/21/18 06:30 ALT 21 U/L (13-61) 05/21/18 06:30 Alkaline Phosphatase 100 U/L (45-117) 05/21/18 06:30 Total Protein 6.5 g/dl (6.4-8.2) 05/21/18 06:30 Albumin 2.6 g/dl (3.4-5.0) L 05/21/18 06:30 INR, PTT INR 1.19 (0.83-1.09) H 05/21/18 06:30 Urine Test Results Urine Color Yellow 05/20/18 15:15 Urine Appearance Clear 05/20/18 15:15 Urine pH 6.0 (5.0-8.0) 05/20/18 15:15 Ur Specific S[place]abe 1.012 (1.010-1.035) 05/20/18 15:15 Urine Protein 1+ (NEGATIVE) H 05/20/18 15:15 Urine Glucose (UA) Negative (NEGATIVE) 05/20/18 15:15 Urine Ketones Negative (NEGATIVE) 05/20/18 15:15 Urine Blood Negative (NEGATIVE) 05/20/18 15:15 Urine Nitrite Negative (NEGATIVE) 05/20/18 15:15 Urine Bilirubin Negative (<2.0 mg/dL) 05/20/18 15:15 Ur Leukocyte Esterase Trace (NEGATIVE) 05/20/18 15:15 Ur Epithelial Cells Few /HPF (FEW) 05/20/18 15:15 Urine Bacteria Rare /hpf (NONE SEEN) 05/20/18 15:15 Urine Mucus Rare 05/20/18 15:15 Imaging - Results Cat Scan: Report Reviewed, Image Reviewed (images personally reviewed - organized fluid collection in RLQ, likely drainable percutaneously, by appendix , consistent with appendiceal abscess, no obstruction evident, no free air) Problem List - Problems (1) Acute appendicitis with perforation, localized peritonitis, and abscess Assessment/Plan: admitted to medicine ID consulted to continue Zosyn NPO/IVF - NO po for now FS with SSI regularly with h/o perforated appendicitis, beginning around 03/01/18, now with organized RLQ abscess for percutaneous drainage by IR and culture today - discussed with Dr. Mohan pain meds prn - IV Tylenol first line trend labs, follow cx GI/DVT prophylaxis will discuss potential for interval appendectomy after drainage accomplished and pain/tenderness/inflammation have time to improve Code(s): K35.33 - ACUTE APPENDICITIS WITH PERF AND LOC PERITONITIS, WITH ABSCS Qualifiers: Appendicitis gangrene presence: without gangrene Qualified Code(s): K35.33 - Acute appendicitis with perforation and localized peritonitis, with abscess (2) RLQ abdominal pain Code(s): R10.31 - RIGHT LOWER QUADRANT PAIN (3) Diabetes mellitus type 2 with retinopathy Code(s): E11.319 - TYPE 2 DIABETES W UNSP DIABETIC RTNOP W/O MACULAR EDEMA Qualifiers: Diabetes mellitus vp treasurer insulin use: with senior care use Diabetic retinopathy severity: with proliferative retinopathy Proliferative retinopathy type: with traction retinal detachment not involving macula Laterality: right Qualified Code(s): E11.3531 - Type 2 diabetes mellitus with proliferative diabetic retinopathy with traction 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
[2018-05-21] MEDS ORDERED: MORPHINE SULFATE 2 MG/ML VIAL ONE (13:59)
[2018-05-21] MEDS: MORPHINE SULFATE 2 MG/ML VIAL IVPUSH PRN ×2 (14:03→20:09)
--- NOTE | 2018-05-21 14:39 | EKG ---
Test Reason : Blood Pressure : / mmHG Vent. Rate : 092 BPM Atrial Rate : 092 BPM P-R Int : 128 ms QRS Dur : 082 ms QT Int : 348 ms P-R-T Axes : - -09 degrees QTc Int : 430 ms NORMAL SINUS RHYTHM NORMAL ECG WHEN COMPARED WITH ECG OF 28-MAR-2018 20:42, NO SIGNIFICANT CHANGE WAS FOUND Confirmed by KATHY DELGADILLO MD ([id number]) on 05/21/2018 2:38:58 PM Referred By: Confirmed By:KATHY DELGADILLO MD
--- NOTE | 2018-05-21 15:17 | CON.ID ---
Consult - Past Medical History Pulmonary: Yes: Sleep Apnea ([facility]) Gastrointestinal: Yes: Other (perforated appendicitis 03/05/18 tx nonoperatively (back in hosp 03/27 w/attempted drainage, abx); morbid obesity) ...LMP: 08/19/12 Musculoskeletal: Yes: Chronic low back pain Endocrine: Yes: Diabetes Mellitus Additional Medical History: foot infection about 4 yrs ago requiring steroid course for several months - Past Surgical History Past Surgical History: Yes: Cataract Removal (left 02/16/18), ( complicated by infections) - Alcohol/Substance Use Hx Alcohol Use: Yes (rare) History of Substance Use: reports: None - Smoking History Smoking history: Never smoked Have you smoked in the past 12 months: No Aproximately how many cigarettes per day: 0 - Social History ADL: Independent History of Recent Travel: No ([place] for 2 weeks returned 02/07/18) Home Medications - Allergies Allergies/Adverse Reactions: Allergies Allergy/AdvReac Type Severity Reaction Status Date / Time No Known Drug Allergies Allergy Verified 05/20/18 14:36 SEASONAL Allergy Uncoded 05/20/18 14:36 - Home Medications Home Medications: Ambulatory Orders metFORMIN HCL [Glucophage] 1,000 mg PO BID #0 tab 08/09/12 Insulin Glargine,Hum.rec.anlog [Lantus (10mL VIAL) -] 26 units SQ HS 02/17/15 Insulin Lispro [Humalog] 18 units SQ PRN 03/28/18 Acetaminophen [Tylenol .Regular Strength -] 650 mg PO Q6H PRN tablet 04/02/18 Family Disease History - Family Disease History Family Disease History: Diabetes: Mother, CA: Sister (bone ca dx age 53 3 yrs ago), Other: Father (htn) Physical Exam Vital Signs: Vital Signs Temperature 99.4 F 05/21/18 14:00 Pulse Rate 85 05/21/18 14:00 Respiratory Rate 16 05/21/18 14:00 Blood Pressure 123/62 05/21/18 14:00 O2 Sat by Pulse Oximetry (%) 100 05/21/18 14:00 Labs: CBC, BMP 05/21/18 06:30 05/21/18 06:30
[2018-05-21] MEDS: SODIUM CHLORIDE 1,000 ML IV SCH ×2 (18:24→23:28)
[2018-05-21] MEDS ORDERED: PIPERACILLIN/TAZOBACTAM 4.5 GM VIAL IVPB ONE ×2 (21:45→21:46)
[2018-05-21] MEDS ORDERED: DEXTROSE 5%-WATER 100 ML IVPB ONE ×2 (21:45→21:46)
[2018-05-22] MEDS ORDERED: DEXTROSE 5%-WATER 100 ML IVPB ONE ×4 (00:44→20:51)
[2018-05-22] MEDS ORDERED: PIPERACILLIN/TAZOBACTAM 4.5 GM VIAL IVPB ONE ×4 (00:44→20:50)
[2018-05-22] MEDS: ACETAMINOPHEN 1000 MG/100 ML VIAL (NON FORMULARY) IVPB PRN ×3 (00:46→17:44)
[2018-05-22] MEDS: PIPERACILLIN/TAZOB 4.5 GM 4.5 GM in DEXTROSE 5%-WATER 100 ML IVPB SCH ×4 (02:10→21:39)
[2018-05-22] MEDS: INSULIN SLIDING SCALE (NOVOLOG) 1 VIAL SQ SCH ×3 (06:46→17:28)
[2018-05-22] MEDS ORDERED: morphine SULFATE 4 MG/ML VIAL IVPUSH PRN ×2 (07:34→17:53)
--- NOTE | 2018-05-22 07:42 | PN ---
Physical Exam: SUBJECTIVE: Patient seen and examined at bedside. POD 1 IR drainage of abscess. MASTER draining well w/ serosanguenous fluid 230cc. No fevers overnight. pt still c/ o abdominal pain but much improved. last BM this morning soft nl. denies fevers , cp, sob, n/v/d, blood in stools. OBJECTIVE: Vital Signs Period Temp Pulse Resp BP Sys/Ivan Pulse Ox Last 24 Hr 98.2 F-99.5 F 76-88 16-20 108-156/56-83 95-100 GENERAL: AOX3 in slight acute distress. obese EYES: EOMI; PEERLA' no scleral icterus. NECK: no JVD; no lymphadenopathy LUNGS: CTAB HEART: RRR, normal S1 and S2 without murmur, rub or gallop. ABDOMEN: Soft, RLQ TTP + BS. RLQ +MASTER drain w/ serosanguenous fluid, bandages are c/d/i MUSCULOSKELETAL: Normal range of motion at all joints. No bony deformities or tenderness. No CVA tenderness. EXTREMITIES: warm; well-perfused; no clubbing/cyanosis or edema NEUROLOGICAL: Cranial nerves II-XII intact. Normal speech. PSYCHIATRIC: Cooperative. Good eye contact. Appropriate mood and affect. SKIN: Warm, dry, normal turgor, no rashes or lesions noted, normal capillary refill. Laboratory Results - last 24 hr 05/21/18 05/21/18 05/21/18 06:30 06:30 06:30 WBC 9.4 RBC 3.99 Hgb 11.3 Hct 33.8 MCV 84.8 MCH 28.2 MCHC 33.3 RDW 18.2 H Plt Count 247 MPV 7.5 Absolute Neuts (auto) 6.7 Neutrophils % 71.6 Lymphocytes % 13.4 D Monocytes % 14.3 H Eosinophils % 0.5 Basophils % 0.2 Nucleated RBC % 0 PT with INR 14.10 H INR 1.19 H PTT (Actin FS) 24.2 L Sodium 138 Potassium 4.3 Chloride 104 Carbon Dioxide 28 Anion Gap 6 L BUN 14 Creatinine 0.8 Creat Clearance w eGFR > 60 POC Glucometer Random Glucose 118 H Calcium 8.1 L Phosphorus 3.4 Magnesium 2.1 Total Bilirubin 0.9 AST 11 L ALT 21 Alkaline Phosphatase 100 Total Protein 6.5 Albumin 2.6 L 05/21/18 22:09 WBC RBC Hgb Hct MCV MCH MCHC RDW Plt Count MPV Absolute Neuts (auto) Neutrophils % Lymphocytes % Monocytes % Eosinophils % Basophils % Nucleated RBC % PT with INR INR PTT (Actin FS) Sodium Potassium Chloride Carbon Dioxide Anion Gap BUN Creatinine Creat Clearance w eGFR POC Glucometer 139 Random Glucose Calcium Phosphorus Magnesium Total Bilirubin AST ALT Alkaline Phosphatase Total Protein Albumin Active Medications Generic Name Dose Route Start Last Admin Trade Name Freq PRN Reason Stop Dose Admin Acetaminophen 1,000 mg 05/21/18 01:00 05/22/18 06:50 Ofirmev Injection - IVPB 1,000 mg Q6H PRN Administration PAIN LEVEL 6-10 Enoxaparin Sodium 40 mg 05/22/18 10:00 Lovenox - SQ DAILY SARINA Sodium Chloride 1,000 mls @ 125 mls/hr 05/20/18 20:15 05/21/18 23:28 Normal Saline - IV Not Given ASDIR SARINA Piperacillin Sod/Tazobactam 100 mls @ 200 mls/hr 05/20/18 21:00 05/22/18 02: 10 Sod 4.5 gm/ Dextrose IVPB 200 mls/hr Q6H-IV SARINA Administration Protocol Insulin Aspart 1 vial 05/20/18 22:00 05/22/18 06:46 Novolog Vial Sliding Scale - SQ 2 units ACHS SARINA Administration Protocol Morphine Sulfate 2 mg 05/20/18 20:17 05/21/18 20:09 Morphine Sulfate IVPUSH 2 mg Q3H PRN Administration Pain Level 7 - 10 BREAKTHROUGH ASSESSMENT/PLAN: 63 y/o F with PMH of DM and recent perforated appendicitis with small abscesses , conservatively managed w/ abx (02/2018) and unsuccessful IR drainage, p/w a 2 day history of RLQ pain and fevers found to have an abscess in her appendix on CT. POD 1 IR drainage of abscess # sepsis 2/2 perforated appendix with abscess - sepsis improving, POD 1 IR drainage of abscess. no more fevers -c/w zosyn 4.5 q6H -IVF -incentive spirometer -Dr griffith consulted -Dr Prajapati consulted -NPO for bowel rest, will resume per surgery recs. also for possible OR appendectomy pending surgery eval and discussion w/ pt. -IV tylenol and morphine for pain control -BCx, Uxc neg -f/u cytology and fluid cx from IR abscess drain -monitor MASTER drain - 230cc serosanguenous #DM -A1c 9.3 seen 3 months ago -holding home medications -ISS -BGMS ACHS -lantus held yesterday while NPO. sugars are controlled today. will consider restarting a low dose basal insulin tonight and then titrate as needed to optimize control Morbid obesity- BMI 41.3 encourage weight loss and lifestyle modifications consider bariatric surgery outpt F/E/N NS 125cc/hr replete prn NPO for bowel rest, will resume per surgery recs. also for possible OR appendectomy pending surgery eval and discussion w/ pt. DVT PPX: lovenox 40mg SQ qd dispo: med-surg Visit type - Emergency Visit Emergency Visit: Yes ED Registration Date: 05/20/18 Care time: The patient presented to the Emergency Department on the above date and was hospitalized for further evaluation of their emergent condition. - New Patient This patient is new to me today: Yes Date on this admission: 05/22/18 - Critical Care Critical Care patient: No
[2018-05-22 07:43] LABS: BASO % 0.2 % (0-2.0); EOS % 0.6 % (0-4.5); HEMOGLOBIN 11.1 GM/dL (10.7-15.3); LYMPH % 15.3 % (8-40); MCH 28.2 pg (25.7-33.7); MCHC 32.7 g/dl (32.0-36.0); MEAN PLT VOLUME 7.4 fl (7.5-11.1); MONO % 12.2 % (3.8-10.2); NEUT % 71.7 % (42.8-82.8); PLATELET COUNT 255 K/MM3 (134-434); RBC 3.95 M/mm3 (3.60-5.2); RDW 18.4 % (11.6-15.6); WHITE BLOOD COUNT 8.1 K/mm3 (4.0-10.0)
[2018-05-22 08:09] LABS: ALBUMIN 2.3 g/dl (3.4-5.0); ALK PHOS 105 U/L (45-117); ANION GAP 5 MMOL/L (8-16); BILIRUBIN,TOTAL 0.7 mg/dL (0.2-1); BLOOD UREA NITROGEN 14 mg/dL (7-18); CALCIUM 7.5 mg/dL (8.5-10.1); CHLORIDE 108 mmol/L (98-107); CO2 27 mmol/L (21-32); CREATININE 0.7 mg/dL (0.55-1.3); GLUCOSE,RANDOM 180 mg/dL (74-106); POTASSIUM 4.4 mmol/L (3.5-5.1); SGOT/AST 14 U/L (15-37); SGPT/ALT 19 U/L (13-61); SODIUM 140 mmol/L (136-145); TOT PROT 6.4 g/dl (6.4-8.2)
[2018-05-22] MEDS: ENOXAPARIN NA (PORCINE) 40 MG/0.4 ML DISP.SYRIN SQ SCH (10:50)
[2018-05-22] MEDS: SODIUM CHLORIDE 1,000 ML IV SCH ×2 (12:41→21:38)
--- NOTE | 2018-05-22 12:51 | PN ---
Progress Note, Physician History of Present Illness: Pt with perforated appendicitis, persistent with phlegmon for 2 months despite abx courses, now s/p IR drainage of organized fluid collection yesterday. IR drain has put out about 230ml, serosang fluid in bulb now. She is seen sitting up in chair, examined in bed. She reports still pain in RLQ, partly from drain now, and still not hungry. WBC has been normal, 8 today. NPO with IVF. Cultures pending from fluid. Her daughter will be here later today hopefully. - Current Medication List Current Medications: Active Medications Acetaminophen (Ofirmev Injection -) 1,000 mg IVPB Q6H PRN PRN Reason: PAIN LEVEL 6-10 Last Admin: 05/22/18 06:50 Dose: 1,000 mg Enoxaparin Sodium (Lovenox -) 40 mg SQ DAILY SARINA Last Admin: 05/22/18 10:50 Dose: 40 mg Sodium Chloride (Normal Saline -) 1,000 mls @ 125 mls/hr IV ASDIR SARINA Last Admin: 05/22/18 12:41 Dose: 125 mls/hr Piperacillin Sod/Tazobactam (Sod 4.5 gm/ Dextrose) 100 mls @ 200 mls/hr IVPB Q6H-IV SARINA; Protocol Last Admin: 05/22/18 09:49 Dose: 200 mls/hr Insulin Aspart (Novolog Vial Sliding Scale -) 1 vial SQ ACHS SARINA; Protocol Last Admin: 05/22/18 12:35 Dose: 2 units Morphine Sulfate (Morphine Sulfate) 4 mg IVPUSH Q3H PRN PRN Reason: Pain Level 7 - 10 BREAKTHROUGH Last Admin: 05/22/18 12:41 Dose: 4 mg - Objective Vital Signs: Vital Signs Temperature 98.1 F 05/22/18 10:00 Pulse Rate 84 05/22/18 10:00 Respiratory Rate 18 05/22/18 10:00 Blood Pressure 126/60 05/22/18 10:00 O2 Sat by Pulse Oximetry (%) 95 05/22/18 09:00 Constitutional: Yes: No Distress, Calm, Obese Eyes: Yes: Conjunctiva Clear, EOM Intact HENT: Yes: Atraumatic, Normocephalic Gastrointestinal: Yes: Soft, Abdomen, Obese, Tenderness (RLQ and RUQ, not much elsewhere, no R/G), Other (IR drain in place RLQ, bulb with small amount of serosang fluid; nurses flushing w/5ml saline q6H) Extremities: Yes: Other (skin not overly warm). No: Cool, Cyanosis Integumentary: No: Jaundice, Rash Neurological: Yes: Alert, Oriented. No: Unsteady Gait Labs: CBC, BMP 05/22/18 06:50 05/22/18 06:50 - ....Imaging Cat Scan: Image Reviewed (images from drain placement reviewed - pigtail left in RLQ collection) Problem List - Problems (1) Acute appendicitis with perforation, localized peritonitis, and abscess Assessment/Plan: with h/o perforated appendicitis, beginning around 03/01/18, now with organized RLQ abscess s/p percutaneous drainage by IR and culture continue Zosyn per ID follow up cx from drainage and adjust if needed anticipate drain to stay about a week, and until drainage <30ml daily NPO/IVF - would not resume clears until pain/tenderness improve much more and pt 's appetite returns FS with SSI regularly, maintain glucose control pain meds prn - IV Tylenol first line trend labs GI/DVT prophylaxis will discuss timing of interval appendectomy with patient and daughter discussed with Dr. Solano Code(s): K35.33 - ACUTE APPENDICITIS WITH PERF AND LOC PERITONITIS, WITH ABSCS Qualifiers: Appendicitis gangrene presence: without gangrene Qualified Code(s): K35.33 - Acute appendicitis with perforation and localized peritonitis, with abscess (2) RLQ abdominal pain Code(s): R10.31 - RIGHT LOWER QUADRANT PAIN (3) Diabetes mellitus type 2 with retinopathy Code(s): E11.319 - TYPE 2 DIABETES W UNSP DIABETIC RTNOP W/O MACULAR EDEMA Qualifiers: Diabetes mellitus rodent exterminator insulin use: with rodent exterminator use Diabetic retinopathy severity: with proliferative retinopathy Proliferative retinopathy type: with traction retinal detachment not involving macula Laterality: right Qualified Code(s): E11.3531 - Type 2 diabetes mellitus with proliferative diabetic retinopathy with traction 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
--- NOTE | 2018-05-22 15:19 | PN ---
Progress Note, Physician - Current Medication List Current Medications: Active Medications Acetaminophen (Ofirmev Injection -) 1,000 mg IVPB Q6H PRN PRN Reason: PAIN LEVEL 6-10 Last Admin: 05/22/18 06:50 Dose: 1,000 mg Enoxaparin Sodium (Lovenox -) 40 mg SQ DAILY SARINA Last Admin: 05/22/18 10:50 Dose: 40 mg Sodium Chloride (Normal Saline -) 1,000 mls @ 125 mls/hr IV ASDIR SARINA Last Admin: 05/22/18 12:41 Dose: 125 mls/hr Piperacillin Sod/Tazobactam (Sod 4.5 gm/ Dextrose) 100 mls @ 200 mls/hr IVPB Q6H-IV SARINA; Protocol Last Admin: 05/22/18 09:49 Dose: 200 mls/hr Insulin Aspart (Novolog Vial Sliding Scale -) 1 vial SQ ACHS SARINA; Protocol Last Admin: 05/22/18 12:35 Dose: 2 units Morphine Sulfate (Morphine Sulfate) 4 mg IVPUSH Q3H PRN PRN Reason: Pain Level 7 - 10 BREAKTHROUGH Last Admin: 05/22/18 12:41 Dose: 4 mg - Objective Vital Signs: Vital Signs Temperature 98.1 F 05/22/18 10:00 Pulse Rate 84 05/22/18 10:00 Respiratory Rate 18 05/22/18 10:00 Blood Pressure 126/60 05/22/18 10:00 O2 Sat by Pulse Oximetry (%) 95 05/22/18 09:00 Labs: CBC, BMP 05/22/18 06:50 05/22/18 06:50 INR, PTT INR 1.19 (0.83-1.09) H 05/21/18 06:30
--- NOTE | 2018-05-22 15:25 | PN ---
Teaching Attending Note Name of Resident: Jeff Whitaker ATTENDING PHYSICIAN STATEMENT I saw and evaluated the patient. I reviewed the resident's note and discussed the case with the resident. I agree with the resident's findings and plan as documented. SUBJECTIVE: Still complains of RLQ abdominal pain 8-910, No further fever/ chills. No nausea/vomiting. OBJECTIVE: Afebrile/Hemodynamically Stable. Last Vital Signs Temp Pulse Resp BP Pulse Ox 98.1 F 84 18 126/60 95 05/22/18 10:00 05/22/18 10:00 05/22/18 10:00 05/22/18 10:00 05/22/18 09:00 HEENT - Atraumatic, Normocephalic. Heart - S1, S2, RRR Lungs - Clear to auscultation, no crackles/wheeze. Abdomen - High BMI, RLQ tender. MASTER drain in situ draining sero-sanguinous fluid. Bowel Sounds normal. Extremities - mild edema. No calf tenderness. Laboratory Results - last 24 hr 05/21/18 05/22/18 05/22/18 22:09 06:50 06:50 WBC 8.1 RBC 3.95 Hgb 11.1 Hct 34.0 MCV 86.0 MCH 28.2 MCHC 32.7 RDW 18.4 H Plt Count 255 MPV 7.4 L Absolute Neuts (auto) 5.8 Neutrophils % 71.7 Lymphocytes % 15.3 Monocytes % 12.2 H Eosinophils % 0.6 Basophils % 0.2 Nucleated RBC % 0 Sodium 140 Potassium 4.4 Chloride 108 H Carbon Dioxide 27 Anion Gap 5 L BUN 14 Creatinine 0.7 Creat Clearance w eGFR > 60 POC Glucometer 139 Random Glucose 180 H Calcium 7.5 L Total Bilirubin 0.7 AST 14 L ALT 19 Alkaline Phosphatase 105 Total Protein 6.4 Albumin 2.3 L Current Medications Generic Name Dose Route Start Last Admin Trade Name Freq PRN Reason Stop Dose Admin Acetaminophen 1,000 mg 05/21/18 01:00 05/22/18 06:50 Ofirmev Injection - IVPB 1,000 mg Q6H PRN Administration PAIN LEVEL 6-10 Enoxaparin Sodium 40 mg 05/22/18 10:00 05/22/18 10:50 Lovenox - SQ 40 mg DAILY SARINA Administration Sodium Chloride 1,000 mls @ 125 mls/hr 05/20/18 20:15 05/22/18 12:41 Normal Saline - IV 125 mls/hr ASDIR SARINA Administration Piperacillin Sod/Tazobactam 100 mls @ 200 mls/hr 05/20/18 21:00 05/22/18 09: 49 Sod 4.5 gm/ Dextrose IVPB 200 mls/hr Q6H-IV SARINA Administration Protocol Insulin Aspart 1 vial 05/20/18 22:00 05/22/18 12:35 Novolog Vial Sliding Scale - SQ 2 units ACHS SARINA Administration Protocol Morphine Sulfate 4 mg 05/22/18 07:34 05/22/18 12:41 Morphine Sulfate IVPUSH 4 mg Q3H PRN Administration Pain Level 7 - 10 BREAKTHROUGH ASSESSMENT AND PLAN: 63 year old female with DM 2, history of perforated appendicitis 02/25 with recurrent associated abscess refractory to IV antibiotic therapy on 2 prior hospitalizations, presented again with RLQ abdominal pain, fever. sweats, nausea. 1. Sepsis secondary to Perforated Appendix with associated abscess - sepsis resolved. 6.5 x 5.4 x5 cm abscess appreciated on CT A/P s/p IR guided drainage with MASTER drain in place. Cultures pending. Continue IV Zosyn. Morphine Sulfate for analgesia. Awaiting definitive management by Surgery. 2.DM 2 - uncontrolled. Continue Novolog sliding scale with addition of long- acting insulin once oral intake resumes. DVT Px - Lovenox SQ.
[2018-05-22] MEDS ORDERED: IBUPROFEN 800 MG/8 ML IJ IVPB PRN (17:53)
[2018-05-23] MEDS: INSULIN SLIDING SCALE (NOVOLOG) 1 VIAL SQ SCH ×5 (00:04→23:02)
[2018-05-23] MEDS ORDERED: PIPERACILLIN/TAZOBACTAM 4.5 GM VIAL IVPB ONE ×4 (01:16→20:53)
[2018-05-23] MEDS ORDERED: DEXTROSE 5%-WATER 100 ML IVPB ONE ×4 (01:16→20:53)
[2018-05-23] MEDS: PIPERACILLIN/TAZOB 4.5 GM 4.5 GM in DEXTROSE 5%-WATER 100 ML IVPB SCH ×4 (02:50→21:05)
[2018-05-23] MEDS: SODIUM CHLORIDE 1,000 ML IV SCH ×3 (07:26→23:02)
[2018-05-23 08:11] LABS: BASO % 0.4 % (0-2.0); EOS % 2.4 % (0-4.5); HEMATOCRIT 33.5 % (32.4-45.2); LYMPH % 19.5 % (8-40); MCH 28.3 pg (25.7-33.7); MCHC 32.9 g/dl (32.0-36.0); MEAN PLT VOLUME 7.5 fl (7.5-11.1); MONO % 9.5 % (3.8-10.2); NEUT % 68.2 % (42.8-82.8); PLATELET COUNT 289 K/MM3 (134-434); RBC 3.89 M/mm3 (3.60-5.2); WHITE BLOOD COUNT 6.3 K/mm3 (4.0-10.0)
[2018-05-23 08:35] LABS: ALBUMIN 2.2 g/dl (3.4-5.0); ALK PHOS 93 U/L (45-117); ANION GAP 6 MMOL/L (8-16); BILIRUBIN,TOTAL 0.4 mg/dL (0.2-1); BLOOD UREA NITROGEN 13 mg/dL (7-18); CALCIUM 7.7 mg/dL (8.5-10.1); CHLORIDE 109 mmol/L (98-107); CO2 26 mmol/L (21-32); CREATININE 0.5 mg/dL (0.55-1.3); GLUCOSE,RANDOM 138 mg/dL (74-106); SGOT/AST 10 U/L (15-37); SGPT/ALT 13 U/L (13-61); SODIUM 141 mmol/L (136-145); TOT PROT 6.1 g/dl (6.4-8.2)
[2018-05-23] MEDS: ENOXAPARIN NA (PORCINE) 40 MG/0.4 ML DISP.SYRIN SQ SCH (10:14)
--- NOTE | 2018-05-23 12:47 | PN ---
Physical Exam: SUBJECTIVE: Patient seen and examined at bedside. POD 2 IR drainage of abscess. MASTER draining well w/ serosanguenous fluid 60cc/24h. No fevers overnight. pt still c/o abdominal pain but much improved. pt requesting PO water for dry throat. last BM this morning soft nl. denies fevers, cp, sob, n/v/d, blood in stools. pt and daughter met w/ surgeon yesterday and discussed possible surgery for early next week. OBJECTIVE: Vital Signs Period Temp Pulse Resp BP Sys/Ivan Pulse Ox Last 24 Hr 97.7 F-98.1 F 70-81 18-20 119-148/65-77 95 GENERAL: AOX3 in slight acute distress. obese EYES: EOMI; PEERLA' no scleral icterus. NECK: no JVD; no lymphadenopathy LUNGS: CTAB HEART: RRR, normal S1 and S2 without murmur, rub or gallop. ABDOMEN: Soft, RLQ TTP + BS. RLQ +MASTER drain w/ serosanguenous fluid, bandages are c/d/i MUSCULOSKELETAL: Normal range of motion at all joints. No bony deformities or tenderness. No CVA tenderness. EXTREMITIES: warm; well-perfused; no clubbing/cyanosis or edema NEUROLOGICAL: Cranial nerves II-XII intact. Normal speech. PSYCHIATRIC: Cooperative. Good eye contact. Appropriate mood and affect. SKIN: Warm, dry, normal turgor, no rashes or lesions noted, normal capillary refill. Laboratory Results - last 24 hr 05/22/18 05/22/18 05/22/18 06:26 12:09 17:03 WBC RBC Hgb Hct MCV MCH MCHC RDW Plt Count MPV Absolute Neuts (auto) Neutrophils % Lymphocytes % Monocytes % Eosinophils % Basophils % Nucleated RBC % Sodium Potassium Chloride Carbon Dioxide Anion Gap BUN Creatinine Creat Clearance w eGFR POC Glucometer 180 159 125 Random Glucose Calcium Total Bilirubin AST ALT Alkaline Phosphatase Total Protein Albumin 05/22/18 05/23/18 05/23/18 21:35 06:30 06:30 WBC 6.3 RBC 3.89 Hgb 11.0 Hct 33.5 MCV 86.0 MCH 28.3 MCHC 32.9 RDW 18.0 H Plt Count 289 MPV 7.5 Absolute Neuts (auto) 4.3 Neutrophils % 68.2 Lymphocytes % 19.5 D Monocytes % 9.5 Eosinophils % 2.4 D Basophils % 0.4 Nucleated RBC % 0 Sodium 141 Potassium 4.0 Chloride 109 H Carbon Dioxide 26 Anion Gap 6 L BUN 13 Creatinine 0.5 L Creat Clearance w eGFR > 60 POC Glucometer 117 Random Glucose 138 H Calcium 7.7 L Total Bilirubin 0.4 AST 10 L ALT 13 Alkaline Phosphatase 93 Total Protein 6.1 L Albumin 2.2 L 05/23/18 05/23/18 07:23 12:09 WBC RBC Hgb Hct MCV MCH MCHC RDW Plt Count MPV Absolute Neuts (auto) Neutrophils % Lymphocytes % Monocytes % Eosinophils % Basophils % Nucleated RBC % Sodium Potassium Chloride Carbon Dioxide Anion Gap BUN Creatinine Creat Clearance w eGFR POC Glucometer 140 129 Random Glucose Calcium Total Bilirubin AST ALT Alkaline Phosphatase Total Protein Albumin Active Medications Generic Name Dose Route Start Last Admin Trade Name Freq PRN Reason Stop Dose Admin Acetaminophen 1,000 mg 05/21/18 01:00 05/22/18 17:44 Ofirmev Injection - IVPB 1,000 mg Q6H PRN Administration PAIN LEVEL 6-10 Enoxaparin Sodium 40 mg 05/22/18 10:00 05/23/18 10:14 Lovenox - SQ 40 mg DAILY SARINA Administration Sodium Chloride 1,000 mls @ 125 mls/hr 05/20/18 20:15 05/23/18 07:26 Normal Saline - IV 125 mls/hr ASDIR SARINA Administration Piperacillin Sod/Tazobactam 100 mls @ 200 mls/hr 05/20/18 21:00 05/23/18 10: 14 Sod 4.5 gm/ Dextrose IVPB 200 mls/hr Q6H-IV SARINA Administration Protocol Ibuprofen 600 mg 05/22/18 17:53 05/22/18 23:25 Caldolor Injection - IVPB 600 mg Q6H PRN Administration PAIN LEVEL 6-10 Insulin Aspart 1 vial 05/20/18 22:00 05/23/18 12:11 Novolog Vial Sliding Scale - SQ Not Given ACHS SARINA Protocol Morphine Sulfate 2 mg 05/22/18 17:53 Morphine Sulfate IVPUSH Q3H PRN Pain Level 7 - 10 BREAKTHROUGH ASSESSMENT/PLAN: 63 y/o F with PMH of DM and recent perforated appendicitis with small abscesses , conservatively managed w/ abx (02/2018) and unsuccessful IR drainage, p/w a 2 day history of RLQ pain and fevers found to have an abscess in her appendix on CT. POD 2 IR drainage of abscess # sepsis 2/2 perforated appendix with abscess - sepsis resolved, POD 2 IR drainage of abscess. no more fevers -c/w zosyn 4.5 q6H (day 4) -dc IVF if tolerating PO clears -incentive spirometer -Dr griffith consulted -Dr Prajapati consulted -pt and daughter met w/ surgeon yesterday and discussed possible surgery for early next week. -IV tylenol, ibuprofen, and morphine for pain control -BCx, Uxc neg -f/u cytology and fluid cx from IR abscess drain -monitor MASTER drain - 60cc today serosanguenous. will be removed when <30cc #DM -A1c 9.3 seen 3 months ago -holding home medications -ISS -BGMS ACHS -lantus held while NPO. sugars are controlled today. will restart low dose lantus when tolerating PO Morbid obesity- BMI 41.3 encourage weight loss and lifestyle modifications consider bariatric surgery outpt F/E/N NS 125cc/hr, dc IVF if tolerating PO clears replete prn advance to clears DVT PPX: lovenox 40mg SQ qd dispo: med-surg pt and daughter met w/ surgeon yesterday and discussed possible surgery for early next week. Visit type - Emergency Visit Emergency Visit: Yes ED Registration Date: 05/20/18 Care time: The patient presented to the Emergency Department on the above date and was hospitalized for further evaluation of their emergent condition. - New Patient This patient is new to me today: Yes Date on this admission: 05/23/18 - Critical Care Critical Care patient: No
--- NOTE | 2018-05-23 14:08 | PN ---
Teaching Attending Note Name of Resident: Jeff Whitaker ATTENDING PHYSICIAN STATEMENT I saw and evaluated the patient. I reviewed the resident's note and discussed the case with the resident. I agree with the resident's findings and plan as documented. SUBJECTIVE: Still complains of RLQ abdominal pain with some improvement in intensity /10, No further fever/chills. No nausea/vomiting. OBJECTIVE: Afebrile/Hemodynamically Stable. Last Vital Signs Temp Pulse Resp BP Pulse Ox 97.7 F 70 20 146/68 95 05/23/18 10:26 05/23/18 10:26 05/23/18 10:05/23/18 10:05/22/18 21:00 HEENT - Atraumatic, Normocephalic. Heart - S1, S2, RRR Lungs - Clear to auscultation, no crackles/wheeze. Abdomen - High BMI, RLQ tender. MASTER drain in situ draining sero-sanguinous fluid. Bowel Sounds normal. Extremities - mild edema. No calf tenderness. Laboratory Results - last 24 hr 05/22/18 05/22/18 05/22/18 06:26 12:09 17:03 WBC RBC Hgb Hct MCV MCH MCHC RDW Plt Count MPV Absolute Neuts (auto) Neutrophils % Lymphocytes % Monocytes % Eosinophils % Basophils % Nucleated RBC % Sodium Potassium Chloride Carbon Dioxide Anion Gap BUN Creatinine Creat Clearance w eGFR POC Glucometer 180 159 125 Random Glucose Calcium Total Bilirubin AST ALT Alkaline Phosphatase Total Protein Albumin 05/22/18 05/23/18 05/23/18 21:35 06:30 06:30 WBC 6.3 RBC 3.89 Hgb 11.0 Hct 33.5 MCV 86.0 MCH 28.3 MCHC 32.9 RDW 18.0 H Plt Count 289 MPV 7.5 Absolute Neuts (auto) 4.3 Neutrophils % 68.2 Lymphocytes % 19.5 D Monocytes % 9.5 Eosinophils % 2.4 D Basophils % 0.4 Nucleated RBC % 0 Sodium 141 Potassium 4.0 Chloride 109 H Carbon Dioxide 26 Anion Gap 6 L BUN 13 Creatinine 0.5 L Creat Clearance w eGFR > 60 POC Glucometer 117 Random Glucose 138 H Calcium 7.7 L Total Bilirubin 0.4 AST 10 L ALT 13 Alkaline Phosphatase 93 Total Protein 6.1 L Albumin 2.2 L 05/23/18 05/23/18 07:23 12:09 WBC RBC Hgb Hct MCV MCH MCHC RDW Plt Count MPV Absolute Neuts (auto) Neutrophils % Lymphocytes % Monocytes % Eosinophils % Basophils % Nucleated RBC % Sodium Potassium Chloride Carbon Dioxide Anion Gap BUN Creatinine Creat Clearance w eGFR POC Glucometer 140 129 Random Glucose Calcium Total Bilirubin AST ALT Alkaline Phosphatase Total Protein Albumin Current Medications Generic Name Dose Route Start Last Admin Trade Name Freq PRN Reason Stop Dose Admin Acetaminophen 1,000 mg 05/21/18 01:00 05/22/18 17:44 Ofirmev Injection - IVPB 1,000 mg Q6H PRN Administration PAIN LEVEL 6-10 Enoxaparin Sodium 40 mg 05/22/18 10:00 05/23/18 10:14 Lovenox - SQ 40 mg DAILY SARINA Administration Sodium Chloride 1,000 mls @ 125 mls/hr 05/20/18 20:15 05/23/18 07:26 Normal Saline - IV 125 mls/hr ASDIR SARINA Administration Piperacillin Sod/Tazobactam 100 mls @ 200 mls/hr 05/20/18 21:00 05/23/18 10: 14 Sod 4.5 gm/ Dextrose IVPB 200 mls/hr Q6H-IV SARINA Administration Protocol Ibuprofen 600 mg 05/22/18 17:53 05/22/18 23:25 Caldolor Injection - IVPB 600 mg Q6H PRN Administration PAIN LEVEL 6-10 Insulin Aspart 1 vial 05/20/18 22:00 05/23/18 12:11 Novolog Vial Sliding Scale - SQ Not Given ACHS SARINA Protocol Morphine Sulfate 2 mg 05/22/18 17:53 Morphine Sulfate IVPUSH Q3H PRN Pain Level 7 - 10 BREAKTHROUGH ASSESSMENT AND PLAN: 63 year old female with DM 2, history of perforated appendicitis 02/25 with recurrent associated abscess refractory to IV antibiotic therapy on 2 prior hospitalizations, presented again with RLQ abdominal pain, fever, sweats, nausea. 1. Sepsis secondary to Perforated Appendix with associated abscess - sepsis resolved. 6.5 x 5.4 x5 cm abscess appreciated on CT A/P s/p IR guided drainage (20cc purulent material) with MASTER drain in place. Fluid Culture pending. Continue IV Zosyn. Afebrile, Hemodynamically Stable. Tylenol/Ibuprofen for analgesia as per Surgery. Awaiting definitive management by Surgery. 2.DM 2 - uncontrolled. Continue Novolog sliding scale with addition of long- acting insulin once oral intake resumes. DVT Px - Lovenox SQ.
--- NOTE | 2018-05-23 14:12 | PATH ---
Cytology Non-Gynecological Report Patient Name: LUCINDA THOMPSON [facility]. Rec. #: [id number] /Age/Gender: 1955 (Age: 63) / F Account: [id number] Location: RADIOLOGY Taken: 05/21/2018 Received: 05/22/2018 Reported: 05/23/2018 Physicians: Richard Mohan M.D. Specimen(s) Received PERIAPPENDICEAL COLLECTION Clinical History Periappendiceal collection Final Diagnosis PERIAPPENDICEAL COLLECTION FOR CYTOLOGY: SATISFACTORY FOR EVALUATION. NO MALIGNANT CELLS IDENTIFIED. ACUTE INFLAMMATORY EXUDATE COMPRISED OF NUMEROUS NEUTROPHILS, RARE LYMPHOCYTES, AND RARE MACROPHAGES IN A BACKGROUND OF DEGENERATIVE DEBRIS CONSISTENT WITH ABSCESS. Comment: Suggest clinical/radiological and microbiology studies correlation. Electronically Signed Yolanda Marie M.D. Gross Description Approximately 50 cc of villafuerte cloudy fluid received fixed in 50% alcohol. One cytofunnel prepared and Pap stained. One cellblock prepared.
[2018-05-23 14:22] VITALS: BMI 41.1
--- NOTE | 2018-05-23 14:47 | PN ---
Progress Note, Physician History of Present Illness: stable still with abd pain drain present - Current Medication List Current Medications: Active Medications Acetaminophen (Ofirmev Injection -) 1,000 mg IVPB Q6H PRN PRN Reason: PAIN LEVEL 6-10 Last Admin: 05/22/18 17:44 Dose: 1,000 mg Enoxaparin Sodium (Lovenox -) 40 mg SQ DAILY [facility] Last Admin: 05/23/18 10:14 Dose: 40 mg Sodium Chloride (Normal Saline -) 1,000 mls @ 125 mls/hr IV ASDIR SARINA Last Admin: 05/23/18 07:26 Dose: 125 mls/hr Piperacillin Sod/Tazobactam (Sod 4.5 gm/ Dextrose) 100 mls @ 200 mls/hr IVPB Q6H-IV SARINA; Protocol Last Admin: 05/23/18 10:14 Dose: 200 mls/hr Ibuprofen (Caldolor Injection -) 600 mg IVPB Q6H PRN PRN Reason: PAIN LEVEL 6-10 Last Admin: 05/22/18 23:25 Dose: 600 mg Insulin Aspart (Novolog Vial Sliding Scale -) 1 vial SQ ACHS [facility]; Protocol Last Admin: 05/23/18 12:11 Dose: Not Given Morphine Sulfate (Morphine Sulfate) 2 mg IVPUSH Q3H PRN PRN Reason: Pain Level 7 - 10 BREAKTHROUGH - Objective Vital Signs: Vital Signs Temperature 97.7 F 05/23/18 10:26 Pulse Rate 70 05/23/18 10:26 Respiratory Rate 20 05/23/18 10:26 Blood Pressure 146/68 05/23/18 10:26 O2 Sat by Pulse Oximetry (%) 95 05/22/18 21:00 Constitutional: Yes: No Distress, Calm, Obese Cardiovascular: Yes: Regular Rate and Rhythm Respiratory: Yes: Regular, CTA Bilaterally Gastrointestinal: Yes: Soft, Hypoactive Bowel Sounds Musculoskeletal: Yes: WNL Extremities: Yes: WNL Neurological: Yes: Alert, Oriented Psychiatric: Yes: Alert, Oriented Labs: CBC, BMP 05/23/18 06:30 05/23/18 06:30 INR, PTT INR 1.19 (0.83-1.09) H 05/21/18 06:30 Assessment/Plan Problem List - Problems (1) Acute appendicitis with perforation, localized peritonitis, and abscess Code(s): K35.33 - ACUTE APPENDICITIS WITH PERF AND LOC PERITONITIS, WITH ABSCS Qualifiers: Appendicitis gangrene presence: without gangrene Qualified Code(s): K35.33 - Acute appendicitis with perforation and localized peritonitis, with abscess (2) RLQ abdominal pain Code(s): R10.31 - RIGHT LOWER QUADRANT PAIN (3) Diabetes mellitus type 2 with retinopathy Code(s): E11.319 - TYPE 2 DIABETES W UNSP DIABETIC RTNOP W/O MACULAR EDEMA Qualifiers: Diabetes mellitus adjunct faculty for medical terminology insulin use: with residential use Diabetic retinopathy severity: with proliferative retinopathy Proliferative retinopathy type: with traction retinal detachment not involving macula Laterality: right Qualified Code(s): E11.3531 - Type 2 diabetes mellitus 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
--- NOTE | 2018-05-23 15:54 | PN ---
Progress Note, Physician History of Present Illness: Pt with perforated appendicitis, persistent with phlegmon for 2 months despite abx courses, now s/p IR drainage of organized fluid collection (per IR, got 20ml foul, purulent fluid). Culture growing pending organism, GS showed GPC in chains. IR drain with 102ml after placement till yesterday morning, 210ml yesterday till this am. Serosang fluid in bulb now. She is seen and examined in bed. She reports pain in RLQ improved, 5/10, partly from drain now, and still not very hungry. No fevers. Daughter is not at bedside. She got clear tray for lunch, but does not drink apple juice or soda, would prefer to try cranberry juice. Ok with water for now. Gets OOB to chair and has had some diarrhea (from contrast for CT done Monday, presumably). Spoke with daughter by speakerphone with patient. - Current Medication List Current Medications: Active Medications Acetaminophen (Ofirmev Injection -) 1,000 mg IVPB Q6H PRN PRN Reason: PAIN LEVEL 6-10 Last Admin: 05/22/18 17:44 Dose: 1,000 mg Enoxaparin Sodium (Lovenox -) 40 mg SQ DAILY SARINA Last Admin: 05/23/18 10:14 Dose: 40 mg Sodium Chloride (Normal Saline -) 1,000 mls @ 125 mls/hr IV ASDIR SARINA Last Admin: 05/23/18 07:26 Dose: 125 mls/hr Piperacillin Sod/Tazobactam (Sod 4.5 gm/ Dextrose) 100 mls @ 200 mls/hr IVPB Q6H-IV SARINA; Protocol Last Admin: 05/23/18 15:20 Dose: 200 mls/hr Ibuprofen (Caldolor Injection -) 600 mg IVPB Q6H PRN PRN Reason: PAIN LEVEL 6-10 Last Admin: 05/22/18 23:25 Dose: 600 mg Insulin Aspart (Novolog Vial Sliding Scale -) 1 vial SQ ACHS SARINA; Protocol Last Admin: 05/23/18 12:11 Dose: Not Given Morphine Sulfate (Morphine Sulfate) 2 mg IVPUSH Q3H PRN PRN Reason: Pain Level 7 - 10 BREAKTHROUGH - Objective Vital Signs: Vital Signs Temperature 98.4 F 05/23/18 14:00 Pulse Rate 79 05/23/18 14:00 Respiratory Rate 18 05/23/18 14:00 Blood Pressure 150/78 05/23/18 14:00 O2 Sat by Pulse Oximetry (%) 95 05/22/18 21:00 Constitutional: Yes: No Distress, Calm, Obese Eyes: Yes: Conjunctiva Clear, EOM Intact HENT: Yes: Atraumatic, Normocephalic Gastrointestinal: Yes: Soft, Abdomen, Obese, Tenderness (RLQ focally, but less everywhere else, including suprapubic and RUQ), Other (RLQ IR drain in place, bulb with serosang fluid, little less than half now) Extremities: No: Cool, Cyanosis Integumentary: No: Jaundice, Rash Wound/Incision: Yes: Dressing Dry and Intact (over drain, resecured bottom edge with tape) Neurological: Yes: Alert, Oriented Labs: CBC, BMP 05/23/18 06:30 05/23/18 06:30 Problem List - Problems (1) Acute appendicitis with perforation, localized peritonitis, and abscess Assessment/Plan: with h/o perforated appendicitis, beginning around 03/01/18, now with organized RLQ abscess s/p percutaneous drainage by IR and culture pending organism continue Zosyn per ID follow up cx from drainage and adjust if needed anticipate drain to stay at least a week, and until drainage <30ml daily OOB to chair regularly, encourage ambulation with assistance as able ok for clear liquids, but would not advance until pt's appetite returns full liquid DIABETIC diet next, then diabetic diet when ready for it FS with SSI regularly, maintain glucose control (pt sees Dr. Craft outpt) pain meds prn - Tylenol first line, can change to PO once taking po steadily ( pt does not want narcotics if possible) trend labs GI/DVT prophylaxis will plan for repeat CT abd/pelvis with PO, IV contrast 05/27 to evaluate RLQ , resolution or persistence of abscess NPO after midnight Monday for CT Monday will discuss timing of interval appendectomy after that with patient and daughter next week pending CT results pt and daughter understand and agree with plan primary team aware Dr. Per Jean Baptiste will be covering for me until MonMay 28. Code(s): K35.33 - ACUTE APPENDICITIS WITH PERF AND LOC PERITONITIS, WITH ABSCS Qualifiers: Appendicitis gangrene presence: without gangrene Qualified Code(s): K35.33 - Acute appendicitis with perforation and localized peritonitis, with abscess (2) RLQ abdominal pain Assessment/Plan: improving Code(s): R10.31 - RIGHT LOWER QUADRANT PAIN (3) Diabetes mellitus type 2 with retinopathy Code(s): E11.319 - TYPE 2 DIABETES W UNSP DIABETIC RTNOP W/O MACULAR EDEMA Qualifiers: Diabetes mellitus assisted insulin use: with assisted use Diabetic retinopathy severity: with proliferative retinopathy Proliferative retinopathy type: with traction retinal detachment not involving macula Laterality: right Qualified Code(s): E11.3531 - Type 2 diabetes mellitus with proliferative diabetic retinopathy with traction retinal detachment not involving the macula, right eye; Z79.4 - care home (current) use of insulin (4) Morbid obesity with BMI of 40.0-44.9, adult Code(s): E66.01 - MORBID (SEVERE) OBESITY DUE TO EXCESS CALORIES; Z68.41 - BODY MASS INDEX (BMI) 40.0-44.9, ADULT
[2018-05-23] MEDS ORDERED: INSULIN (NOVOLOG) ASPART 100 UNITS/ML 10ML VIAL ONE (17:54)
[2018-05-23] MEDS: ACETAMINOPHEN 1000 MG/100 ML VIAL (NON FORMULARY) IVPB PRN (21:06)
[2018-05-24] MEDS ORDERED: PIPERACILLIN/TAZOBACTAM 4.5 GM VIAL IVPB ONE ×5 (01:30→20:12)
[2018-05-24] MEDS ORDERED: DEXTROSE 5%-WATER 100 ML IVPB ONE ×4 (01:30→20:10)
[2018-05-24] MEDS: PIPERACILLIN/TAZOB 4.5 GM 4.5 GM in DEXTROSE 5%-WATER 100 ML IVPB SCH ×4 (02:25→20:25)
[2018-05-24] MEDS: INSULIN SLIDING SCALE (NOVOLOG) 1 VIAL SQ SCH ×4 (06:20→21:25)
[2018-05-24] MEDS: ENOXAPARIN NA (PORCINE) 40 MG/0.4 ML DISP.SYRIN SQ SCH (11:33)
--- NOTE | 2018-05-24 11:40 | PN ---
Physical Exam: SUBJECTIVE: Patient seen and examined at bedside. POD 3 IR drainage of abscess. MASTER draining well w/ serosanguenous fluid 70cc/24h. No fevers overnight. Overnight O2 sat of 91% RA noted but pt asx. pt still c/o abdominal pain but continuously improving. +dry throat. last BM this morning soft nl. denies fevers , cp, sob, n/v/d, blood in stools. Tolerating clears, pt appetite improved and requesting food. OBJECTIVE: Vital Signs Period Temp Pulse Resp BP Sys/Ivan Pulse Ox Last 24 Hr 98.1 F-98.7 F 79-82 18-20 131-150/73-78 91 GENERAL: AOX3 NAD. obese EYES: EOMI; PEERLA' no scleral icterus. NECK: no JVD; no lymphadenopathy LUNGS: CTAB HEART: RRR, normal S1 and S2 without murmur, rub or gallop. ABDOMEN: Soft, RLQ TTP + BS. RLQ +MASTER drain w/ serosanguenous fluid, bandages are c/d/i MUSCULOSKELETAL: Normal range of motion at all joints. No bony deformities or tenderness. No CVA tenderness. EXTREMITIES: warm; well-perfused; no clubbing/cyanosis or edema NEUROLOGICAL: Cranial nerves II-XII intact. Normal speech. PSYCHIATRIC: Cooperative. Good eye contact. Appropriate mood and affect. SKIN: Warm, dry, normal turgor, no rashes or lesions noted, normal capillary refill. Laboratory Results - last 24 hr 05/22/18 05/22/18 05/22/18 06:26 12:09 17:03 POC Glucometer 180 159 125 05/23/18 05/23/18 05/23/18 12:09 17:28 22:34 POC Glucometer 129 166 217 05/24/18 06:17 POC Glucometer 165 Active Medications Generic Name Dose Route Start Last Admin Trade Name Freq PRN Reason Stop Dose Admin Acetaminophen 1,000 mg 05/21/18 01:00 05/23/18 21:06 Ofirmev Injection - IVPB 1,000 mg Q6H PRN Administration PAIN LEVEL 6-10 Benzocaine/Menthol 1 each 05/24/18 11:01 Cepacol Lozenge - MM PRN PRN SORE THROAT Enoxaparin Sodium 40 mg 05/22/18 10:00 05/23/18 10:14 Lovenox - SQ 40 mg DAILY SARINA Administration Piperacillin Sod/Tazobactam 100 mls @ 200 mls/hr 05/20/18 21:00 05/24/18 08: 57 Sod 4.5 gm/ Dextrose IVPB 200 mls/hr Q6H-IV SARINA Administration Protocol Ibuprofen 600 mg 05/22/18 17:53 05/22/18 23:25 Caldolor Injection - IVPB 600 mg Q6H PRN Administration PAIN LEVEL 6-10 Insulin Aspart 1 vial 05/20/18 22:00 05/24/18 06:20 Novolog Vial Sliding Scale - SQ 2 units ACHS SARINA Administration Protocol Morphine Sulfate 2 mg 05/22/18 17:53 Morphine Sulfate IVPUSH Q3H PRN Pain Level 7 - 10 BREAKTHROUGH ASSESSMENT/PLAN: 63 y/o F with PMH of DM and recent perforated appendicitis with small abscesses , conservatively managed w/ abx (02/2018) and unsuccessful IR drainage, p/w a 2 day history of RLQ pain and fevers found to have an abscess in her appendix on CT. POD 3 IR drainage of abscess # sepsis 2/2 perforated appendix with abscess - sepsis resolved, POD 3 IR drainage of abscess. no more fevers -c/w zosyn 4.5 q6H (day 4) -dcd IVF -incentive spirometer -Dr griffith consulted -Dr Prajapati consulted -pt and daughter met w/ surgeon and discussed possible surgery for early next week, pending rpt CT scan. -plan for NPO after midnight Monday for repeat CT abd/pelvis with PO, IV contrast 05/27 to evaluate RLQ, resolution or persistence of abscess -IV tylenol, ibuprofen, and morphine for pain control -BCx, Uxc neg -f/u cytology and fluid cx from IR abscess drain -monitor MASTER drain - 60cc today serosanguenous. will be removed when <30cc #DM -A1c 9.3 seen 3 months ago -holding home medications -ISS -BGMS ACHS -lantus held while NPO. sugars are controlled today. will consider restarting low dose lantus when tolerating PO Morbid obesity- BMI 41.3 encourage weight loss and lifestyle modifications consider bariatric surgery outpt F/E/N/A encourage PO hydration replete prn advance to diabetic soft diet OOB to chair regularly, encourage ambulation DVT PPX: lovenox 40mg SQ qd dispo: med-surg NPO after midnight Monday for repeat CT abd/pelvis with PO, IV contrast Mon to evaluate RLQ, resolution or persistence of abscess. possible surgery pending ct results Visit type - Emergency Visit Emergency Visit: Yes ED Registration Date: 05/20/18 Care time: The patient presented to the Emergency Department on the above date and was hospitalized for further evaluation of their emergent condition. - New Patient This patient is new to me today: Yes Date on this admission: 05/24/18 - Critical Care Critical Care patient: No
--- NOTE | 2018-05-24 12:25 | PN ---
Teaching Attending Note Name of Resident: Jeff Whitaker ATTENDING PHYSICIAN STATEMENT I saw and evaluated the patient. I reviewed the resident's note and discussed the case with the resident. I agree with the resident's findings and plan as documented. SUBJECTIVE: Still complains of RLQ abdominal pain with continued improvement in intensity 5/10, No further fever/chills. No nausea/vomiting. OBJECTIVE: Afebrile/Hemodynamically Stable. Last Vital Signs Temp Pulse Resp BP Pulse Ox 98.1 F 82 20 137/73 91 L 05/24/18 06:00 05/24/18 06:00 05/24/18 06:00 05/24/18 06:00 05/23/18 21:00 HEENT - Atraumatic, Normocephalic. Heart - S1, S2, RRR Lungs - Clear to auscultation, no crackles/wheeze. Abdomen - High BMI, RLQ tender. MASTER drain in situ draining sero-sanguinous fluid. Bowel Sounds normal. Extremities - mild edema. No calf tenderness. Laboratory Results - last 24 hr 05/23/18 05/23/18 05/24/18 17:28 22:34 06:17 POC Glucometer 166 217 165 05/24/18 11:51 POC Glucometer 223 Current Medications Generic Name Dose Route Start Last Admin Trade Name Camacho PRN Reason Stop Dose Admin Acetaminophen 1,000 mg 05/21/18 01:00 05/23/18 21:06 Ofirmev Injection - IVPB 1,000 mg Q6H PRN Administration PAIN LEVEL 6-10 Benzocaine/Menthol 1 each 05/24/18 11:01 Cepacol Lozenge - MM PRN PRN SORE THROAT Enoxaparin Sodium 40 mg 05/22/18 10:00 05/24/18 11:33 Lovenox - SQ 40 mg DAILY SARINA Administration Piperacillin Sod/Tazobactam 100 mls @ 200 mls/hr 05/20/18 21:00 05/24/18 08: 57 Sod 4.5 gm/ Dextrose IVPB 200 mls/hr Q6H-IV SARINA Administration Protocol Ibuprofen 600 mg 05/22/18 17:53 05/22/18 23:25 Caldolor Injection - IVPB 600 mg Q6H PRN Administration PAIN LEVEL 6-10 Insulin Aspart 1 vial 05/20/18 22:00 05/24/18 12:00 Novolog Vial Sliding Scale - SQ 4 units ACHS SARINA Administration Protocol Morphine Sulfate 2 mg 05/22/18 17:53 Morphine Sulfate IVPUSH Q3H PRN Pain Level 7 - 10 BREAKTHROUGH ASSESSMENT AND PLAN: 63 year old female with DM 2, history of perforated appendicitis 02/25 with recurrent associated abscess refractory to IV antibiotic therapy on 2 prior hospitalizations, presented again with RLQ abdominal pain, fever, sweats, nausea. 1. Sepsis secondary to Perforated Appendix with associated abscess - sepsis resolved. 6.5 x 5.4 x 5 cm abscess appreciated on CT A/P s/p IR guided drainage with MASTER drain in place, still draining. Fluid Culture pos for Beta hemolytic Strep - final ID and sens pending. Continue IV Zosyn. Afebrile, Hemodynamically Stable. Tylenol/Ibuprofen for analgesia as per Surgery. Awaiting definitive management by Surgery - for repeat CT A/P on 05/28/18 and possible surgery. 2.DM 2 - uncontrolled. Continue Novolog sliding scale with addition of long- acting insulin once oral intake resumes. DVT Px - Lovenox SQ.
--- NOTE | 2018-05-24 16:39 | PN ---
Progress Note, Physician History of Present Illness: stable no new issues pain improving - Current Medication List Current Medications: Active Medications Acetaminophen (Ofirmev Injection -) 1,000 mg IVPB Q6H PRN PRN Reason: PAIN LEVEL 6-10 Last Admin: 05/23/18 21:06 Dose: 1,000 mg Benzocaine/Menthol (Cepacol Lozenge -) 1 each MM PRN PRN PRN Reason: SORE THROAT Enoxaparin Sodium (Lovenox -) 40 mg SQ DAILY [facility] Last Admin: 05/24/18 11:33 Dose: 40 mg Piperacillin Sod/Tazobactam (Sod 4.5 gm/ Dextrose) 100 mls @ 200 mls/hr IVPB Q6H-IV SARINA; Protocol Last Admin: 05/24/18 15:26 Dose: 200 mls/hr Ibuprofen (Caldolor Injection -) 600 mg IVPB Q6H PRN PRN Reason: PAIN LEVEL 6-10 Last Admin: 05/22/18 23:25 Dose: 600 mg Insulin Aspart (Novolog Vial Sliding Scale -) 1 vial SQ [facility]; Protocol Last Admin: 05/24/18 12:00 Dose: 4 units Insulin Detemir (Levemir Vial) 10 units SQ HS SARINA Morphine Sulfate (Morphine Sulfate) 2 mg IVPUSH Q3H PRN PRN Reason: Pain Level 7 - 10 BREAKTHROUGH - Objective Vital Signs: Vital Signs Temperature 98.1 F 05/24/18 14:38 Pulse Rate 70 05/24/18 14:38 Respiratory Rate 22 H 05/24/18 14:38 Blood Pressure 146/69 05/24/18 14:38 O2 Sat by Pulse Oximetry (%) 95 05/24/18 09:00 Constitutional: Yes: No Distress, Calm, Obese Cardiovascular: Yes: Regular Rate and Rhythm Respiratory: Yes: Regular, CTA Bilaterally Gastrointestinal: Yes: Soft, Hypoactive Bowel Sounds, Tenderness Musculoskeletal: Yes: WNL Extremities: Yes: WNL Neurological: Yes: Alert, Oriented Psychiatric: Yes: Alert, Oriented Labs: CBC, BMP 05/23/18 06:30 05/23/18 06:30 INR, PTT INR 1.19 (0.83-1.09) H 05/21/18 06:30 Assessment/Plan Problem List - Problems (1) Acute appendicitis with perforation, localized peritonitis, and abscess Code(s): K35.33 - ACUTE APPENDICITIS WITH PERF AND LOC PERITONITIS, WITH ABSCS Qualifiers: Appendicitis gangrene presence: without gangrene Qualified Code(s): K35.33 - Acute appendicitis with perforation and localized peritonitis, with abscess (2) RLQ abdominal pain Code(s): R10.31 - RIGHT LOWER QUADRANT PAIN (3) Diabetes mellitus type 2 with retinopathy Code(s): E11.319 - TYPE 2 DIABETES W UNSP DIABETIC RTNOP W/O MACULAR EDEMA Qualifiers: Diabetes mellitus autistic teacher insulin use: with autistic teacher use Diabetic retinopathy severity: with proliferative retinopathy Proliferative retinopathy type: with traction retinal detachment not involving macula Laterality: right Qualified Code(s): E11.3531 - Type 2 diabetes mellitus with proliferative diabetic retinopathy with traction retinal detachment not involving the macula, right eye; Z79.4 - care home (current) use of insulin (4) Morbid obesity with BMI of 40.0-44.9, adult Code(s): E66.01 - MORBID (SEVERE) OBESITY DUE TO EXCESS CALORIES; Z68.41 - BODY MASS INDEX (BMI) 40.0-44.9, ADULT plan will continue zosyn await for surgical plan will need surgery rest continue curent mgmt
[2018-05-24] MEDS: BENZOCAINE/MENTH/CETYLPYRD CL 1 EACH LOZENGE MM PRN ×2 (18:49→21:50)
[2018-05-24] MEDS ORDERED: INSULIN (LEVEMIR) 100 UNITS/ML UNITS SQ SCH (22:00)
[2018-05-25] MEDS ORDERED: PIPERACILLIN/TAZOBACTAM 4.5 GM VIAL IVPB ONE ×4 (00:48→19:47)
[2018-05-25] MEDS ORDERED: DEXTROSE 5%-WATER 100 ML IVPB ONE ×4 (00:49→19:47)
[2018-05-25] MEDS: PIPERACILLIN/TAZOB 4.5 GM 4.5 GM in DEXTROSE 5%-WATER 100 ML IVPB SCH ×4 (02:17→20:39)
--- NOTE | 2018-05-25 02:33 | PN ---
Progress Note, Physician - Current Medication List Current Medications: Active Medications Acetaminophen (Ofirmev Injection -) 1,000 mg IVPB Q6H PRN PRN Reason: PAIN LEVEL 6-10 Last Admin: 05/23/18 21:06 Dose: 1,000 mg Benzocaine/Menthol (Cepacol Lozenge -) 1 each MM PRN PRN PRN Reason: SORE THROAT Last Admin: 05/24/18 18:49 Dose: 1 each Enoxaparin Sodium (Lovenox -) 40 mg SQ DAILY SARINA Last Admin: 05/24/18 11:33 Dose: 40 mg Piperacillin Sod/Tazobactam (Sod 4.5 gm/ Dextrose) 100 mls @ 200 mls/hr IVPB Q6H-IV SARINA; Protocol Last Admin: 05/25/18 02:17 Dose: 200 mls/hr Ibuprofen (Caldolor Injection -) 600 mg IVPB Q6H PRN PRN Reason: PAIN LEVEL 6-10 Last Admin: 05/22/18 23:25 Dose: 600 mg Insulin Aspart (Novolog Vial Sliding Scale -) 1 vial SQ ACHS [facility]; Protocol Last Admin: 05/24/18 21:25 Dose: 4 units Insulin Detemir (Levemir Vial) 10 units SQ HS SARINA Last Admin: 05/24/18 21:25 Dose: 10 units Morphine Sulfate (Morphine Sulfate) 2 mg IVPUSH Q3H PRN PRN Reason: Pain Level 7 - 10 BREAKTHROUGH - Objective Vital Signs: Vital Signs Temperature 98.0 F 05/24/18 18:58 Pulse Rate 72 05/24/18 18:58 Respiratory Rate 20 05/24/18 18:58 Blood Pressure 118/70 05/24/18 18:58 O2 Sat by Pulse Oximetry (%) 95 05/24/18 21:00 Labs: CBC, BMP 05/23/18 06:30 05/23/18 06:30 INR, PTT INR 1.19 (0.83-1.09) H 05/21/18 06:30
[2018-05-25] MEDS: BENZOCAINE/MENTH/CETYLPYRD CL 1 EACH LOZENGE MM PRN ×5 (06:04→22:32)
[2018-05-25] MEDS: INSULIN SLIDING SCALE (NOVOLOG) 1 VIAL SQ SCH ×4 (06:04→22:32)
[2018-05-25] MEDS: ENOXAPARIN NA (PORCINE) 40 MG/0.4 ML DISP.SYRIN SQ SCH (10:03)
--- NOTE | 2018-05-25 10:20 | PN ---
Progress Note, Physician History of Present Illness: stable no new issues pain improving - Current Medication List Current Medications: Active Medications Acetaminophen (Ofirmev Injection -) 1,000 mg IVPB Q6H PRN PRN Reason: PAIN LEVEL 6-10 Last Admin: 05/23/18 21:06 Dose: 1,000 mg Benzocaine/Menthol (Cepacol Lozenge -) 1 each MM PRN PRN PRN Reason: SORE THROAT Last Admin: 05/25/18 10:10 Dose: 1 each Enoxaparin Sodium (Lovenox -) 40 mg SQ DAILY [facility] Last Admin: 05/25/18 10:03 Dose: 40 mg Piperacillin Sod/Tazobactam (Sod 4.5 gm/ Dextrose) 100 mls @ 200 mls/hr IVPB Q6H-IV SARINA; Protocol Last Admin: 05/25/18 10:02 Dose: 200 mls/hr Ibuprofen (Caldolor Injection -) 600 mg IVPB Q6H PRN PRN Reason: PAIN LEVEL 6-10 Last Admin: 05/22/18 23:25 Dose: 600 mg Insulin Aspart (Novolog Vial Sliding Scale -) 1 vial SQ ACHS [facility]; Protocol Last Admin: 05/25/18 06:04 Dose: 2 units Insulin Detemir (Levemir Vial) 10 units SQ HS [facility] Last Admin: 05/24/18 21:25 Dose: 10 units Morphine Sulfate (Morphine Sulfate) 2 mg IVPUSH Q3H PRN PRN Reason: Pain Level 7 - 10 BREAKTHROUGH - Objective Vital Signs: Vital Signs Temperature 98.4 F 05/25/18 06:16 Pulse Rate 75 05/25/18 06:16 Respiratory Rate 20 05/25/18 06:16 Blood Pressure 136/65 05/25/18 06:16 O2 Sat by Pulse Oximetry (%) 95 05/24/18 21:00 Constitutional: Yes: No Distress, Calm Cardiovascular: Yes: Regular Rate and Rhythm Respiratory: Yes: Regular, CTA Bilaterally Gastrointestinal: Yes: Normal Bowel Sounds, Soft Musculoskeletal: Yes: WNL Extremities: Yes: WNL Neurological: Yes: Alert, Oriented Psychiatric: Yes: Alert, Oriented Labs: CBC, BMP 05/23/18 06:30 05/23/18 06:30 INR, PTT INR 1.19 (0.83-1.09) H 05/21/18 06:30 Assessment/Plan Problem List - Problems (1) Acute appendicitis with perforation, localized peritonitis, and abscess Code(s): K35.33 - ACUTE APPENDICITIS WITH PERF AND LOC PERITONITIS, WITH ABSCS Qualifiers: Appendicitis gangrene presence: without gangrene Qualified Code(s): K35.33 - Acute appendicitis with perforation and localized peritonitis, with abscess (2) RLQ abdominal pain Code(s): R10.31 - RIGHT LOWER QUADRANT PAIN (3) Diabetes mellitus type 2 with retinopathy Code(s): E11.319 - TYPE 2 DIABETES W UNSP DIABETIC RTNOP W/O MACULAR EDEMA Qualifiers: Diabetes mellitus computer systems technician insulin use: with computer systems technician use Diabetic retinopathy severity: with proliferative retinopathy Proliferative retinopathy type: with traction retinal detachment not involving macula Laterality: right Qualified Code(s): E11.3531 - Type 2 diabetes mellitus with proliferative diabetic retinopathy with traction retinal detachment not involving the macula, right eye; Z79.4 - mechanical drawing teacher (current) use of insulin (4) Morbid obesity with BMI of 40.0-44.9, adult Code(s): E66.01 - MORBID (SEVERE) OBESITY DUE TO EXCESS CALORIES; Z68.41 - BODY MASS INDEX (BMI) 40.0-44.9, ADULT plan continue zosyn await for surgical plan will need surgery rest continue current mgmt
[2018-05-25] MEDS ORDERED: INSULIN (NOVOLOG) ASPART 100 UNITS/ML 10ML VIAL ONE ×2 (11:58→19:15)
--- NOTE | 2018-05-25 12:04 | PN ---
Progress Note, Physician Chief Complaint: ruptured appendicitis History of Present Illness: 63yo with perforated appendicitis, persistent with phlegmon for 2 months despite abx courses, now s/p IR drainage of organized fluid collection (per IR, got 20ml foul, purulent fluid). stable since IR drainage - Current Medication List Current Medications: Active Medications Acetaminophen (Ofirmev Injection -) 1,000 mg IVPB Q6H PRN PRN Reason: PAIN LEVEL 6-10 Last Admin: 05/23/18 21:06 Dose: 1,000 mg Benzocaine/Menthol (Cepacol Lozenge -) 1 each MM PRN PRN PRN Reason: SORE THROAT Last Admin: 05/25/18 10:10 Dose: 1 each Enoxaparin Sodium (Lovenox -) 40 mg SQ DAILY [facility]INA Last Admin: 05/25/18 10:03 Dose: 40 mg Piperacillin Sod/Tazobactam (Sod 4.5 gm/ Dextrose) 100 mls @ 200 mls/hr IVPB Q6H-IV SARINA; Protocol Last Admin: 05/25/18 10:02 Dose: 200 mls/hr Ibuprofen (Caldolor Injection -) 600 mg IVPB Q6H PRN PRN Reason: PAIN LEVEL 6-10 Last Admin: 05/22/18 23:25 Dose: 600 mg Insulin Aspart (Novolog Vial Sliding Scale -) 1 vial SQ ACHS [facility]; Protocol Last Admin: 05/25/18 06:04 Dose: 2 units Insulin Detemir (Levemir Vial) 10 units SQ HS SARINA Last Admin: 05/24/18 21:25 Dose: 10 units Morphine Sulfate (Morphine Sulfate) 2 mg IVPUSH Q3H PRN PRN Reason: Pain Level 7 - 10 BREAKTHROUGH - Objective Vital Signs: Vital Signs Temperature 98.4 F 05/25/18 09:00 Pulse Rate 80 05/25/18 09:00 Respiratory Rate 20 05/25/18 09:00 Blood Pressure 131/78 05/25/18 09:00 O2 Sat by Pulse Oximetry (%) 95 05/24/18 21:00 Vital Signs Period Temp Pulse Resp BP Sys/Ivan Pulse Ox Last 24 Hr 97.5 F-98.4 F 70-80 20-22 118-149/65-78 95 Constitutional: Yes: Well Nourished, No Distress, Calm Eyes: Yes: Conjunctiva Clear, EOM Intact HENT: Yes: Atraumatic, Normocephalic Neck: Yes: Supple, Trachea Midline Cardiovascular: Yes: Regular Rate and Rhythm, S1, S2 Respiratory: Yes: Regular, CTA Bilaterally Gastrointestinal: Yes: Normal Bowel Sounds, Soft, Abdomen, Obese. No: Distention, Tenderness, Tenderness, Epigastrium, Tenderness, Rebound ...Rectal Exam: Yes: Deferred Genitourinary: No: CVA Tenderness - Left, CVA Tenderness - Right Breast(s): No: Discharge from Nipple, Gynecomastia, Nipple Inversion Extremities: No: Cool, Cyanosis Edema: No Peripheral Pulses WNL: Yes Peripheral Pulses: Left Radial: 2+, Right Radial: 2+, Left Doralis Pedis: 2+, Right Dorsalis Pedis: 2+, Left Femoral: 2+, Right Femoral: 2+ Integumentary: No: Jaundice, Rash, Skin Tear Neurological: Yes: Alert, Oriented Psychiatric: Yes: Alert, Oriented Labs: CBC, BMP 05/23/18 06:30 05/23/18 06:30 INR, PTT INR 1.19 (0.83-1.09) H 05/21/18 06:30 Problem List - Problems (1) Appendiceal abscess Assessment/Plan: Ruptured appendicitis OOB/ ambulation advance diet as tolerated trend labs GI/DVT prophylaxis Repeat CT abd/pelvis with PO, IV contrast 05/27 to evaluate RLQ, resolution or persistence of abscess NPO after midnight Monday for CT Monday Plan primary team aware Dr. Reese returning 05/28 Code(s): K35.33 - ACUTE APPENDICITIS WITH PERF AND LOC PERITONITIS, WITH ABSCS (2) Morbid obesity with BMI of 40.0-44.9, adult Code(s): E66.01 - MORBID (SEVERE) OBESITY DUE TO EXCESS CALORIES; Z68.41 - BODY MASS INDEX (BMI) 40.0-44.9, ADULT (3) Diabetes mellitus type 2 with retinopathy Code(s): E11.319 - TYPE 2 DIABETES W UNSP DIABETIC RTNOP W/O MACULAR EDEMA Qualifiers: Diabetes mellitus extermination supervisor insulin use: with detention use Diabetic retinopathy severity: with proliferative retinopathy Proliferative retinopathy type: with traction retinal detachment not involving macula Laterality: right Qualified Code(s): E11.3531 - Type 2 diabetes mellitus with proliferative diabetic retinopathy with traction retinal detachment not involving the macula, right eye; Z79.4 - detention (current) use of insulin (4) Diarrhea Code(s): R19.7 - DIARRHEA, UNSPECIFIED Qualifiers: Diarrhea type: functional diarrhea Qualified Code(s): K59.1 - Functional diarrhea (5) Obesity hypoventilation syndrome Code(s): E66.2 - MORBID (SEVERE) OBESITY WITH ALVEOLAR HYPOVENTILATION (6) RLQ abdominal pain Code(s): R10.31 - RIGHT LOWER QUADRANT PAIN
[2018-05-25] MEDS ORDERED: INSULIN (LEVEMIR) 100 UNITS/ML UNITS SQ SCH (13:20)
--- NOTE | 2018-05-25 13:21 | PN ---
Physical Exam: SUBJECTIVE: Patient seen and examined at bedside. POD 4 IR drainage of abscess. MASTER draining well w/ serosanguenous fluid. No fevers overnight. pt abdominal pain continuously improving and stable at 5/10. last BM this morning soft nl. denies fevers, cp, sob, n/v/d, blood in stools. Tolerating PO, appetite improved. OBJECTIVE: Vital Signs Period Temp Pulse Resp BP Sys/Ivan Pulse Ox Last 24 Hr 97.5 F-98.4 F 70-80 20-22 118-149/65-78 95 GENERAL: AOX3 NAD. obese EYES: EOMI; PEERLA' no scleral icterus. NECK: no JVD; no lymphadenopathy LUNGS: CTAB HEART: RRR, normal S1 and S2 without murmur, rub or gallop. ABDOMEN: Soft, RLQ TTP + BS. RLQ +MASTER drain w/ serosanguenous fluid, bandages are c/d/i MUSCULOSKELETAL: Normal range of motion at all joints. No bony deformities or tenderness. No CVA tenderness. EXTREMITIES: warm; well-perfused; no clubbing/cyanosis or edema NEUROLOGICAL: Cranial nerves II-XII intact. Normal speech. PSYCHIATRIC: Cooperative. Good eye contact. Appropriate mood and affect. SKIN: Warm, dry, normal turgor, no rashes or lesions noted, normal capillary refill. Laboratory Results - last 24 hr 05/24/18 05/24/18 05/25/18 17:20 21:20 05:45 POC Glucometer 234 227 195 05/25/18 11:12 POC Glucometer 236 Active Medications Generic Name Dose Route Start Last Admin Trade Name Camacho PRN Reason Stop Dose Admin Acetaminophen 1,000 mg 05/21/18 01:00 05/23/18 21:06 Ofirmev Injection - IVPB 1,000 mg Q6H PRN Administration PAIN LEVEL 6-10 Benzocaine/Menthol 1 each 05/24/18 11:01 05/25/18 10:10 Cepacol Lozenge - MM 1 each PRN PRN Administration SORE THROAT Enoxaparin Sodium 40 mg 05/22/18 10:00 05/25/18 10:03 Lovenox - SQ 40 mg DAILY SARINA Administration Piperacillin Sod/Tazobactam 100 mls @ 200 mls/hr 05/20/18 21:00 05/25/18 10: 02 Sod 4.5 gm/ Dextrose IVPB 200 mls/hr Q6H-IV SARINA Administration Protocol Ibuprofen 600 mg 05/22/18 17:53 05/22/18 23:25 Caldolor Injection - IVPB 600 mg Q6H PRN Administration PAIN LEVEL 6-10 Insulin Aspart 1 vial 05/20/18 22:00 05/25/18 12:04 Novolog Vial Sliding Scale - SQ 4 units ACHS SARINA Administration Protocol Insulin Detemir 10 units 05/24/18 22:00 05/24/18 21:25 Levemir Vial SQ 10 units HS SARINA Administration Morphine Sulfate 2 mg 05/22/18 17:53 Morphine Sulfate IVPUSH Q3H PRN Pain Level 7 - 10 BREAKTHROUGH ASSESSMENT/PLAN: 63 y/o F with PMH of DM and recent perforated appendicitis with small abscesses , conservatively managed w/ abx (02/2018) and unsuccessful IR drainage, p/w a 2 day history of RLQ pain and fevers found to have an abscess in her appendix on CT. POD 4 IR drainage of abscess # sepsis 2/2 perforated appendix with abscess - sepsis resolved, POD 4 IR drainage of abscess. no more fevers -c/w zosyn 4.5 q6H (day 6) -incentive spirometer -Dr griffith consulted -Dr Prajapati consulted -pt and daughter met w/ surgeon and discussed possible surgery for early next week, pending rpt CT scan. -plan for NPO after midnight Monday for repeat CT abd/pelvis with PO, IV contrast Mon 05/27 to evaluate RLQ, resolution or persistence of abscess -IV tylenol, ibuprofen, and morphine for pain control -BCx, Uxc neg -f/u cytology and fluid cx from IR abscess drain: prelim cx show many beta hemolytic strep and no anaerobes -monitor MASTER drain - will be removed when <30cc #DM -A1c 9.3 seen 3 months ago -holding home medications -ISS -BGMS ACHS -low dose levemir 15U sq HS Morbid obesity- BMI 41.3 encourage weight loss and lifestyle modifications consider bariatric surgery outpt sore throat - cepacol F/E/N/A encourage PO hydration replete prn diabetic soft diet OOB to chair regularly, encourage ambulation DVT PPX: lovenox 40mg SQ qd dispo: med-surg NPO after midnight Monday for repeat CT abd/pelvis with PO, IV contrast Mon to evaluate RLQ, resolution or persistence of abscess. possible surgery pending ct results Visit type - Emergency Visit Emergency Visit: Yes ED Registration Date: 05/20/18 Care time: The patient presented to the Emergency Department on the above date and was hospitalized for further evaluation of their emergent condition. - New Patient This patient is new to me today: Yes Date on this admission: 05/25/18 - Critical Care Critical Care patient: No
--- NOTE | 2018-05-25 16:34 | PN ---
Teaching Attending Note Name of Resident: Jeff Whitaker ATTENDING PHYSICIAN STATEMENT I saw and evaluated the patient. I reviewed the resident's note and discussed the case with the resident. I agree with the resident's findings and plan as documented. SUBJECTIVE: Still complains of RLQ abdominal pain with continued improvement in intensity 4-5/10. Tolerating oral intake. No further fever/chills. No nausea/ vomiting. OBJECTIVE: Afebrile/Hemodynamically Stable. Last Vital Signs Temp Pulse Resp BP Pulse Ox 98.2 F 78 20 154/75 92 L 05/25/18 15:14 05/25/18 15:14 05/25/18 15:14 05/25/18 15:14 05/25/18 09:00 Heart - S1, S2, RRR Lungs - Clear to auscultation, no crackles/wheeze. Abdomen - High BMI, RLQ tender. MASTER drain in situ draining sero-sanguinous fluid. Bowel Sounds normal. Extremities - mild edema. No calf tenderness. Laboratory Results - last 24 hr 05/24/18 05/24/18 05/25/18 17:20 21:20 05:45 POC Glucometer 234 227 195 05/25/18 11:12 POC Glucometer 236 Current Medications Generic Name Dose Route Start Last Admin Trade Name Freq PRN Reason Stop Dose Admin Acetaminophen 1,000 mg 05/21/18 01:00 05/23/18 21:06 Ofirmev Injection - IVPB 1,000 mg Q6H PRN Administration PAIN LEVEL 6-10 Benzocaine/Menthol 1 each 05/24/18 11:01 05/25/18 14:57 Cepacol Lozenge - MM 1 each PRN PRN Administration SORE THROAT Enoxaparin Sodium 40 mg 05/22/18 10:00 05/25/18 10:03 Lovenox - SQ 40 mg DAILY SARINA Administration Piperacillin Sod/Tazobactam 100 mls @ 200 mls/hr 05/20/18 21:00 05/25/18 15: 40 Sod 4.5 gm/ Dextrose IVPB 200 mls/hr Q6H-IV SARINA Administration Protocol Ibuprofen 600 mg 05/22/18 17:53 05/22/18 23:25 Caldolor Injection - IVPB 600 mg Q6H PRN Administration PAIN LEVEL 6-10 Insulin Aspart 1 vial 05/20/18 22:00 05/25/18 12:04 Novolog Vial Sliding Scale - SQ 4 units ACHS SARINA Administration Protocol Insulin Detemir 15 units 05/25/18 13:20 Levemir Vial SQ HS SARINA Morphine Sulfate 2 mg 05/22/18 17:53 Morphine Sulfate IVPUSH Q3H PRN Pain Level 7 - 10 BREAKTHROUGH ASSESSMENT AND PLAN: 63 year old female with DM 2, history of perforated appendicitis 02/25 with recurrent associated abscess refractory to IV antibiotic therapy on 2 prior hospitalizations, presented again with RLQ abdominal pain, fever, sweats, nausea. 1. Sepsis secondary to Perforated Appendix with associated abscess - sepsis resolved. 6.5 x 5.4 x 5 cm abscess appreciated on CT A/P s/p IR guided drainage with MASTER drain in place, still draining. Fluid Culture pos for Beta hemolytic Strep - final ID and sens pending. Continue IV Zosyn. ID following. Afebrile, Hemodynamically Stable. Tylenol/Ibuprofen for analgesia as per Surgery. Awaiting definitive management by Surgery - for repeat CT A/P on 05/28/18 and possible appendectomy. 2.DM 2 - uncontrolled. Continue Novolog sliding scale with addition of Levemir. DVT Px - Lovenox SQ.
[2018-05-25] MEDS: ACETAMINOPHEN 1000 MG/100 ML VIAL (NON FORMULARY) IVPB PRN (22:32)
[2018-05-26] MEDS ORDERED: DEXTROSE 5%-WATER 100 ML IVPB ONE ×4 (01:23→20:45)
[2018-05-26] MEDS ORDERED: PIPERACILLIN/TAZOBACTAM 4.5 GM VIAL IVPB ONE ×4 (01:23→20:45)
[2018-05-26] MEDS: PIPERACILLIN/TAZOB 4.5 GM 4.5 GM in DEXTROSE 5%-WATER 100 ML IVPB SCH ×4 (02:27→22:06)
[2018-05-26] MEDS: INSULIN SLIDING SCALE (NOVOLOG) 1 VIAL SQ SCH ×4 (06:16→22:08)
--- NOTE | 2018-05-26 08:29 | PN ---
Physical Exam: SUBJECTIVE: Patient seen and examined at bedside. Patient continues to complain of sore throat and nasal congestion. OBJECTIVE: Vital Signs Period Temp Pulse Resp BP Sys/Ivan Pulse Ox Last 24 Hr 97.9 F-98.4 F 75-92 20-20 131-158/68-91 92 GENERAL: The patient is awake, alert, and fully oriented, in no acute distress. HEAD: Normal with no signs of trauma. NECK: Trachea midline, full range of motion, supple. LUNGS: Breath sounds equal, clear to auscultation bilaterally, no wheezes, no crackles, no accessory muscle use. HEART: Regular rate and rhythm, S1, S2 without murmur, rub or gallop. ABDOMEN: Soft, nontender, nondistended, normoactive bowel sounds, no guarding, no rebound, no hepatosplenomegaly, no masses. EXTREMITIES: 2+ pulses, warm, well-perfused, no edema. NEUROLOGICAL: Cranial nerves II through XII grossly intact. Normal speech, gait not observed. PSYCH: Normal mood, normal affect. SKIN: Warm, dry, normal turgor, no rashes or lesions noted Laboratory Results - last 24 hr 05/25/18 05/25/18 05/25/18 11:12 17:06 22:24 POC Glucometer 236 219 283 05/26/18 05:52 POC Glucometer 248 Active Medications Generic Name Dose Route Start Last Admin Trade Name Freq PRN Reason Stop Dose Admin Acetaminophen 1,000 mg 05/21/18 01:00 05/23/18 21:06 Ofirmev Injection - IVPB 1,000 mg Q6H PRN Administration PAIN LEVEL 6-10 Benzocaine/Menthol 1 each 05/24/18 11:01 05/25/18 22:32 Cepacol Lozenge - MM 1 each PRN PRN Administration SORE THROAT Enoxaparin Sodium 40 mg 05/22/18 10:00 05/25/18 10:03 Lovenox - SQ 40 mg DAILY SARINA Administration Piperacillin Sod/Tazobactam 100 mls @ 200 mls/hr 05/20/18 21:00 05/26/18 02: 27 Sod 4.5 gm/ Dextrose IVPB 200 mls/hr Q6H-IV SARINA Administration Protocol Ibuprofen 600 mg 05/22/18 17:53 02/12/19 23:25 Caldolor Injection - IVPB 600 mg Q6H PRN Administration PAIN LEVEL 6-10 Insulin Aspart 1 vial 05/20/18 22:00 05/26/18 06:16 Novolog Vial Sliding Scale - SQ 4 units ACHS SARINA Administration Protocol Insulin Detemir 15 units 05/25/18 13:20 05/25/18 22:33 Levemir Vial SQ 15 units HS SARINA Administration Morphine Sulfate 2 mg 05/22/18 17:53 Morphine Sulfate IVPUSH Q3H PRN Pain Level 7 - 10 BREAKTHROUGH ASSESSMENT/PLAN: 63 y/o F with PMH of DM and recent perforated appendicitis with small abscesses , conservatively managed w/ abx (02/2018) and unsuccessful IR drainage, p/w a 2 day history of RLQ pain and fevers found to have an abscess in her appendix on CT. POD 4 IR drainage of abscess # sepsis 2/2 perforated appendix with abscess -POD 5 IR drainage of abscess. no more fevers -c/w zosyn 4.5 q6H (day 7) -incentive spirometer -Dr griffith consulted -Dr Prajapati consulted -pt and daughter met w/ surgeon and discussed possible surgery for early next week, pending rpt CT scan. -plan for NPO after midnight Monday for repeat CT abd/pelvis with PO, IV contrast 05/27 to evaluate RLQ, resolution or persistence of abscess -IV tylenol, ibuprofen, and morphine for pain control -BCx, Uxc neg -f/u cytology and fluid cx from IR abscess drain: prelim cx show many beta hemolytic strep and no anaerobes -monitor MASTER drain - will be removed when <30cc #DM -A1c 9.3 seen 3 months ago -holding oral hypoglycemics -ISS -BGMS ACHS -levemir increased from 15u to 20U sq HS #URI -pt c/o sore throat, congestion -will prescribe pseudophedrine and mucinex -f/u URI ssx F/E/N/A encourage PO hydration replete prn diabetic soft diet OOB to chair regularly, encourage ambulation DVT PPX: lovenox 40mg SQ qd dispo: med-surg NPO after midnight Monday for repeat CT abd/pelvis with PO, IV contrast Mon to evaluate RLQ, resolution or persistence of abscess. possible surgery pending ct results Visit type - Emergency Visit Emergency Visit: Yes ED Registration Date: 05/20/18 Care time: The patient presented to the Emergency Department on the above date and was hospitalized for further evaluation of their emergent condition. - New Patient This patient is new to me today: Yes Date on this admission: 05/26/18 - Critical Care Critical Care patient: No - Discharge Referral Referred to [facility] No
[2018-05-26] MEDS ORDERED: PT OWN MED DRAWER 7, Y5N ONE ×7 (09:58→20:45)
[2018-05-26] MEDS: ENOXAPARIN NA (PORCINE) 40 MG/0.4 ML DISP.SYRIN SQ SCH (10:00)
[2018-05-26] MEDS ORDERED: ACETAMINOPHEN 325 MG TABLET (FP) PO PRN (10:36)
[2018-05-26] MEDS ORDERED: PSEUDOEPHEDRINE HCL 30 MG TABLET PO PRN (11:28)
[2018-05-26] MEDS: guaiFENesin 600 MG TABLET.ER (FP) PO SCH ×2 (11:49→22:07)
[2018-05-26] MEDS: BENZOCAINE/MENTH/CETYLPYRD CL 1 EACH LOZENGE MM PRN ×2 (11:50→18:44)
[2018-05-26] MEDS ORDERED: PSEUDOEPHEDRINE HCL 60 MG TABLET PO STA (12:29)
--- NOTE | 2018-05-26 12:36 | PN ---
Teaching Attending Note Name of Resident: Stephan Mcarthur ATTENDING PHYSICIAN STATEMENT I saw and evaluated the patient. I reviewed the resident's note and discussed the case with the resident. I agree with the resident's findings and plan as documented. SUBJECTIVE: Still complains of RLQ abdominal pain with continued improvement in intensity /10. Tolerating oral intake. No further fever/chills. No nausea/ vomiting. Complains of nasal congestion. No further sore throat or cough. OBJECTIVE: Afebrile/Hemodynamically Stable. Last Vital Signs Temp Pulse Resp BP Pulse Ox 97.5 F L 78 20 133/58 L 92 L 05/26/18 09:43 05/26/18 09:43 05/26/18 09:43 05/26/18 09:43 05/25/18 09:00 HEENT- Atraumatic, No pharyngeal erythema/exudate Heart - S1, S2, RRR Lungs - Clear to auscultation, no crackles/wheeze. Abdomen - High BMI, RLQ tender. MASTER drain in situ draining sero-sanguinous fluid. Bowel Sounds normal. Extremities - mild edema. No calf tenderness. Laboratory Results - last 24 hr 05/25/18 05/25/18 05/26/18 17:06 22:24 05:52 POC Glucometer 219 283 248 05/26/18 11:55 POC Glucometer 259 Current Medications Generic Name Dose Route Start Last Admin Trade Name Freq PRN Reason Stop Dose Admin Acetaminophen 650 mg 05/26/18 10:36 Tylenol - PO Q6H PRN PAIN LEVEL 6-10 Benzocaine/Menthol 1 each 05/24/18 11:01 05/26/18 11:50 Cepacol Lozenge - MM 1 each PRN PRN Administration SORE THROAT Enoxaparin Sodium 40 mg 05/22/18 10:00 05/26/18 10:00 Lovenox - SQ 40 mg DAILY SARINA Administration Fluticasone Propionate 1 spray 05/26/18 13:00 Flonase - NS BID SARINA Guaifenesin 600 mg 05/26/18 11:45 05/26/18 11:49 Mucinex - PO 600 mg BID SARINA Administration Piperacillin Sod/Tazobactam 100 mls @ 200 mls/hr 05/20/18 21:00 05/26/18 09: 59 Sod 4.5 gm/ Dextrose IVPB 200 mls/hr Q6H-IV SARINA Administration Protocol Ibuprofen 600 mg 05/22/18 17:53 05/22/18 23:25 Caldolor Injection - IVPB 600 mg Q6H PRN Administration PAIN LEVEL 6-10 Insulin Aspart 1 vial 05/20/18 22:00 05/26/18 11:58 Novolog Vial Sliding Scale - SQ 6 units ACHS SARINA Administration Protocol Insulin Detemir 20 units 05/26/18 12:31 Levemir Vial SQ HS SARINA Morphine Sulfate 2 mg 05/22/18 17:53 Morphine Sulfate IVPUSH Q3H PRN Pain Level 7 - 10 BREAKTHROUGH Pseudoephedrine HCl 30 mg 05/26/18 11:28 Sudafed - PO Q6H PRN Congestion ASSESSMENT AND PLAN: 63 year old female with DM 2, history of perforated appendicitis 02/25 with recurrent associated abscess refractory to IV antibiotic therapy on 2 prior hospitalizations, presented again with RLQ abdominal pain, fever, sweats, nausea. 1. Sepsis secondary to Perforated Appendix with associated abscess - sepsis resolved. 6.5 x 5.4 x 5 cm abscess appreciated on CT A/P s/p IR guided drainage with MASTER drain in place, still draining serosanguinous fluid. Fluid Culture pos for Beta hemolytic Strep Continue IV Zosyn. ID following. Afebrile, Hemodynamically Stable. Tylenol/Ibuprofen for analgesia as per Surgery. Awaiting definitive management by Surgery - for repeat CT A/P on 05/28/18 and possible appendectomy. 2. DM 2 - uncontrolled. Glucose readings on hyperglycemic end - will uptitrate Levemir to 20 units in addition to sliding scale Novolog. 3. Nasal congestion sec to URI - Pseudoephedrine and Flonase. DVT Px - Lovenox SQ.
--- NOTE | 2018-05-26 13:38 | PN ---
Progress Note, Physician History of Present Illness: Pt seen and examined. Events/imaging/lab results reviewed. Pt currently states she has mild Rt abd discomfort, passing gas. Remains afebrile. - Current Medication List Current Medications: Active Medications Acetaminophen (Tylenol -) 650 mg PO Q6H PRN PRN Reason: PAIN LEVEL 6-10 Benzocaine/Menthol (Cepacol Lozenge -) 1 each MM PRN PRN PRN Reason: SORE THROAT Last Admin: 05/26/18 11:50 Dose: 1 each Enoxaparin Sodium (Lovenox -) 40 mg SQ DAILY [facility] Last Admin: 05/26/18 10:00 Dose: 40 mg Fluticasone Propionate (Flonase -) 1 spray NS BID [facility] Guaifenesin (Mucinex -) 600 mg PO BID [facility] Last Admin: 05/26/18 11:49 Dose: 600 mg Piperacillin Sod/Tazobactam (Sod 4.5 gm/ Dextrose) 100 mls @ 200 mls/hr IVPB Q6H-IV [facility]; Protocol Last Admin: 05/26/18 09:59 Dose: 200 mls/hr Ibuprofen (Caldolor Injection -) 600 mg IVPB Q6H PRN PRN Reason: PAIN LEVEL 6-10 Last Admin: 05/22/18 23:25 Dose: 600 mg Insulin Aspart (Novolog Vial Sliding Scale -) 1 vial SQ [facility]; Protocol Last Admin: 05/26/18 11:58 Dose: 6 units Insulin Detemir (Levemir Vial) 20 units SQ HS [facility] Morphine Sulfate (Morphine Sulfate) 2 mg IVPUSH Q3H PRN PRN Reason: Pain Level 7 - 10 BREAKTHROUGH Pseudoephedrine HCl (Sudafed -) 30 mg PO Q6H PRN PRN Reason: Congestion - Objective Vital Signs: Vital Signs Temperature 97.5 F L 05/26/18 09:43 Pulse Rate 78 05/26/18 09:43 Respiratory Rate 20 05/26/18 09:43 Blood Pressure 133/58 L 05/26/18 09:43 O2 Sat by Pulse Oximetry (%) 92 L 05/25/18 09:00 Constitutional: Yes: No Distress, Calm Cardiovascular: Yes: Regular Rate and Rhythm Respiratory: Yes: Regular Gastrointestinal: Yes: Normal Bowel Sounds, Soft, Abdomen, Obese, Tenderness ( Mild RLQ with deep palpation, +MASTER drain with cloudy fluid) Genitourinary: Yes: WNL Extremities: Yes: WNL Integumentary: Yes: WNL Neurological: Yes: Alert, Oriented Labs: CBC, BMP 05/23/18 06:30 05/23/18 06:30 INR, PTT INR 1.19 (0.83-1.09) H 05/21/18 06:30 Microbiology 05/20/18 15:20 Blood - Peripheral Venous Blood Culture - Final NO GROWTH AFTER 5 DAYS INCUBATION 05/20/18 15:20 Blood - Peripheral Venous Blood Culture - Final NO GROWTH AFTER 5 DAYS INCUBATION 05/21/18 16:45 Body Fluid - Other Gram Stain - Final 05/21/18 16:45 Body Fluid - Other Body Fluid Culture - Final Beta Hem Streptococcus Group G 05/21/18 16:45 Body Fluid - Other Anaerobic Culture - Final NO ANAEROBES WERE ISOLATED 05/21/18 16:45 Body Fluid - Other AFB Smear Concentration - Final 05/21/18 16:45 Body Fluid - Other Mycobacterial Culture - Preliminary 05/21/18 16:45 Body Fluid - Other ALEJANDRO Preparation - Preliminary 05/21/18 16:45 Body Fluid - Other Fungal Culture - Preliminary 05/20/18 15:20 Urine - Urine Clean Catch Urine Culture - Final - ....Imaging Cat Scan: Report Reviewed Problem List - Problems (1) Appendiceal abscess Code(s): K35.33 - ACUTE APPENDICITIS WITH PERF AND LOC PERITONITIS, WITH ABSCS (2) Morbid obesity with BMI of 40.0-44.9, adult Code(s): E66.01 - MORBID (SEVERE) OBESITY DUE TO EXCESS CALORIES; Z68.41 - BODY MASS INDEX (BMI) 40.0-44.9, ADULT (3) Acute appendicitis with perforation, localized peritonitis, and abscess Code(s): K35.33 - ACUTE APPENDICITIS WITH PERF AND LOC PERITONITIS, WITH ABSCS Qualifiers: Appendicitis gangrene presence: without gangrene Qualified Code(s): K35.33 - Acute appendicitis with perforation and localized peritonitis, with abscess (4) Diabetes mellitus type 2 with retinopathy Code(s): E11.319 - TYPE 2 DIABETES W UNSP DIABETIC RTNOP W/O MACULAR EDEMA Qualifiers: Diabetes mellitus assistant terminal manager insulin use: with usp use Diabetic retinopathy severity: with proliferative retinopathy Proliferative retinopathy type: with traction retinal detachment not involving macula Laterality: right Qualified Code(s): E11.3531 - Type 2 diabetes mellitus with proliferative diabetic retinopathy with traction 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
[2018-05-26] MEDS: FLUTICASONE PROP 0.05% 16 GM NASAL SPRAY NS SCH ×2 (14:42→22:05)
[2018-05-26] MEDS: INSULIN (LEVEMIR) 100 UNITS/ML UNITS SQ SCH (22:06)
[2018-05-27] MEDS ORDERED: PIPERACILLIN/TAZOBACTAM 4.5 GM VIAL IVPB ONE ×4 (02:46→21:10)
[2018-05-27] MEDS ORDERED: DEXTROSE 5%-WATER 100 ML IVPB ONE ×3 (02:46→21:10)
[2018-05-27] MEDS: PIPERACILLIN/TAZOB 4.5 GM 4.5 GM in DEXTROSE 5%-WATER 100 ML IVPB SCH ×4 (02:53→22:05)
[2018-05-27] MEDS: INSULIN SLIDING SCALE (NOVOLOG) 1 VIAL SQ SCH ×4 (06:46→22:11)
[2018-05-27 09:16] LABS: HEMATOCRIT 37.2 % (32.4-45.2); HEMOGLOBIN 12.9 GM/dL (10.7-15.3); MCH 29.5 pg (25.7-33.7); MCHC 34.7 g/dl (32.0-36.0); MEAN CELL VOLUME 85.2 fl (80-96); MEAN PLT VOLUME 7.1 fl (7.5-11.1); PLATELET COUNT 392 K/MM3 (134-434); RBC 4.36 M/mm3 (3.60-5.2); RDW 17.3 % (11.6-15.6)
[2018-05-27] MEDS: ENOXAPARIN NA (PORCINE) 40 MG/0.4 ML DISP.SYRIN SQ SCH (09:20)
[2018-05-27] MEDS: guaiFENesin 600 MG TABLET.ER (FP) PO SCH ×2 (09:21→22:06)
[2018-05-27 09:29] LABS: INR 1.12 (0.83-1.09); PROTHROMBIN TIME (PATIENT) 13.2 SEC (9.7-13.0)
[2018-05-27] MEDS: FLUTICASONE PROP 0.05% 16 GM NASAL SPRAY NS SCH ×2 (10:03→22:07)
[2018-05-27 10:10] LABS: ANION GAP 7 MMOL/L (8-16); BLOOD UREA NITROGEN 6 mg/dL (7-18); CALCIUM 8.1 mg/dL (8.5-10.1); CHLORIDE 103 mmol/L (98-107); CO2 30 mmol/L (21-32); CREATININE 0.6 mg/dL (0.55-1.3); GLUCOSE,RANDOM 184 mg/dL (74-106); PHOSPHOROUS 2.8 mg/dL (2.5-4.9); POTASSIUM 3.6 mmol/L (3.5-5.1); SODIUM 140 mmol/L (136-145)
--- NOTE | 2018-05-27 13:41 | PN ---
Progress Note, Physician History of Present Illness: Pt is alert, afebrile. Reports less abd pain and has been having BMs. - Current Medication List Current Medications: Active Medications Acetaminophen (Tylenol -) 650 mg PO Q6H PRN PRN Reason: PAIN LEVEL 6-10 Benzocaine/Menthol (Cepacol Lozenge -) 1 each MM PRN PRN PRN Reason: SORE THROAT Last Admin: 05/26/18 18:44 Dose: 1 each Enoxaparin Sodium (Lovenox -) 40 mg SQ DAILY [facility] Last Admin: 05/27/18 09:20 Dose: 40 mg Fluticasone Propionate (Flonase -) 1 spray NS BID [facility] Last Admin: 05/27/18 10:03 Dose: 1 spray Guaifenesin (Mucinex -) 600 mg PO BID [facility] Last Admin: 05/27/18 09:21 Dose: 600 mg Piperacillin Sod/Tazobactam (Sod 4.5 gm/ Dextrose) 100 mls @ 200 mls/hr IVPB Q6H-IV [facility]; Protocol Last Admin: 05/27/18 09:20 Dose: 200 mls/hr Ibuprofen (Caldolor Injection -) 600 mg IVPB Q6H PRN PRN Reason: PAIN LEVEL 6-10 Last Admin: 05/22/18 23:25 Dose: 600 mg Insulin Aspart (Novolog Vial Sliding Scale -) 1 vial SQ ACHS [facility]; Protocol Last Admin: 05/27/18 11:51 Dose: 6 units Insulin Detemir (Levemir Vial) 20 units SQ HS [facility] Last Admin: 05/26/18 22:06 Dose: 20 units Morphine Sulfate (Morphine Sulfate) 2 mg IVPUSH Q3H PRN PRN Reason: Pain Level 7 - 10 BREAKTHROUGH Pseudoephedrine HCl (Sudafed -) 30 mg PO Q6H PRN PRN Reason: Congestion - Objective Vital Signs: Vital Signs Temperature 97.6 F 05/27/18 10:00 Pulse Rate 80 05/27/18 10:00 Respiratory Rate 20 05/27/18 10:00 Blood Pressure 138/75 05/27/18 10:00 O2 Sat by Pulse Oximetry (%) 90 L 05/26/18 21:00 Constitutional: Yes: No Distress, Calm Cardiovascular: Yes: Regular Rate and Rhythm Respiratory: Yes: Regular Gastrointestinal: Yes: Normal Bowel Sounds, Soft, Tenderness (mile RLQ) Genitourinary: Yes: WNL Integumentary: Yes: WNL Neurological: Yes: Alert, Oriented Labs: CBC, BMP 05/27/18 07:30 05/27/18 07:30 INR, PTT INR 1.12 (0.83-1.09) H 05/27/18 07:30 Problem List - Problems (1) Appendiceal abscess Code(s): K35.33 - ACUTE APPENDICITIS WITH PERF AND LOC PERITONITIS, WITH ABSCS (2) Morbid obesity with BMI of 40.0-44.9, adult Code(s): E66.01 - MORBID (SEVERE) OBESITY DUE TO EXCESS CALORIES; Z68.41 - BODY MASS INDEX (BMI) 40.0-44.9, ADULT (3) Acute appendicitis with perforation, localized peritonitis, and abscess Code(s): K35.33 - ACUTE APPENDICITIS WITH PERF AND LOC PERITONITIS, WITH ABSCS Qualifiers: Appendicitis gangrene presence: without gangrene Qualified Code(s): K35.33 - Acute appendicitis with perforation and localized peritonitis, with abscess (4) Diabetes mellitus type 2 with retinopathy Code(s): E11.319 - TYPE 2 DIABETES W UNSP DIABETIC RTNOP W/O MACULAR EDEMA Qualifiers: Diabetes mellitus rock breaker insulin use: with rock breaker use Diabetic retinopathy severity: with proliferative retinopathy Proliferative retinopathy type: with traction retinal detachment not involving macula Laterality: right Qualified Code(s): E11.3531 - Type 2 diabetes mellitus with proliferative diabetic retinopathy with traction retinal detachment not involving the macula, right eye; Z79.4 - scanner operator (current) use of insulin Assessment/Plan Appendicitis/perforation Abscess s/p drainage Peritonitis Morbid obesity DM -- continue antibiotics -- repeat CT planned for tomorrow -- Surgical following Pt with less abd pain, afebrile
--- NOTE | 2018-05-27 18:45 | PN ---
Progress Note (short form) - Note Progress Note: SUBJECTIVE: Still complains of some RLQ abdominal discomfort. Tolerating oral intake. No further fever/chills. No nausea/vomiting. OBJECTIVE: Afebrile/Hemodynamically Stable. Last Vital Signs Temp Pulse Resp BP Pulse Ox 97.8 F 72 20 133/61 90 L 05/27/18 14:13 05/27/18 14:13 05/27/18 14:13 05/27/18 14:13 05/26/18 21:00 HEENT- Atraumatic, No pharyngeal erythema/exudate Heart - S1, S2, RRR Lungs - Clear to auscultation, no crackles/wheeze. Abdomen - High BMI, RLQ tender. MASTER drain in situ draining sero-sanguinous fluid. Bowel Sounds normal. Extremities - mild edema. No calf tenderness. Laboratory Results - last 24 hr 05/26/18 05/27/18 05/27/18 21:30 06:43 07:30 WBC 6.0 RBC 4.36 Hgb 12.9 Hct 37.2 MCV 85.2 MCH 29.5 MCHC 34.7 RDW 17.3 H Plt Count 392 D MPV 7.1 L PT with INR INR Sodium Potassium Chloride Carbon Dioxide Anion Gap BUN Creatinine Creat Clearance w eGFR POC Glucometer 226 190 Random Glucose Calcium Phosphorus Magnesium 05/27/18 05/27/18 05/27/18 07:30 07:30 11:28 WBC RBC Hgb Hct MCV MCH MCHC RDW Plt Count MPV PT with INR 13.20 H INR 1.12 H Sodium 140 Potassium 3.6 Chloride 103 Carbon Dioxide 30 Anion Gap 7 L BUN 6 L Creatinine 0.6 Creat Clearance w eGFR > 60 POC Glucometer 263 Random Glucose 184 H Calcium 8.1 L Phosphorus 2.8 Magnesium 2.0 05/27/18 16:57 WBC RBC Hgb Hct MCV MCH MCHC RDW Plt Count MPV PT with INR INR Sodium Potassium Chloride Carbon Dioxide Anion Gap BUN Creatinine Creat Clearance w eGFR POC Glucometer 143 Random Glucose Calcium Phosphorus Magnesium Current Medications Generic Name Dose Route Start Last Admin Trade Name Freq PRN Reason Stop Dose Admin Acetaminophen 650 mg 05/26/18 10:36 Tylenol - PO Q6H PRN PAIN LEVEL 6-10 Benzocaine/Menthol 1 each 05/24/18 11:01 05/26/18 18:44 Cepacol Lozenge - MM 1 each PRN PRN Administration SORE THROAT Enoxaparin Sodium 40 mg 05/22/18 10:00 05/27/18 09:20 Lovenox - SQ 40 mg DAILY [facility] Administration Fluticasone Propionate 1 spray 05/26/18 13:00 05/27/18 10:03 Flonase - NS 1 spray BID SARINA Administration Guaifenesin 600 mg 05/26/18 11:45 05/27/18 09:21 Mucinex - PO 600 mg BID SARINA Administration Piperacillin Sod/Tazobactam 100 mls @ 200 mls/hr 05/20/18 21:00 05/27/18 15: 30 Sod 4.5 gm/ Dextrose IVPB 200 mls/hr Q6H-IV SARINA Administration Protocol Ibuprofen 600 mg 05/22/18 17:53 05/22/18 23:25 Caldolor Injection - IVPB 600 mg Q6H PRN Administration PAIN LEVEL 6-10 Insulin Aspart 1 vial 05/20/18 22:00 05/27/18 16:59 Novolog Vial Sliding Scale - SQ Not Given ACHS [facility] Protocol Insulin Detemir 20 units 05/26/18 12:31 05/26/18 22:06 Levemir Vial SQ 20 units HS SARINA Administration Morphine Sulfate 2 mg 05/22/18 17:53 Morphine Sulfate IVPUSH Q3H PRN Pain Level 7 - 10 BREAKTHROUGH Pseudoephedrine HCl 30 mg 05/26/18 11:28 Sudafed - PO Q6H PRN Congestion ASSESSMENT AND PLAN: 63 year old female with DM 2, history of perforated appendicitis 02/25 with recurrent associated abscess refractory to IV antibiotic therapy on 2 prior hospitalizations, presented again with RLQ abdominal pain, fever, sweats, nausea. 1. Sepsis secondary to Perforated Appendix with associated abscess - sepsis resolved. 6.5 x 5.4 x 5 cm abscess appreciated on CT A/P s/p IR guided drainage with MASTER drain in place, still draining serosanguinous fluid. Fluid Culture pos for Beta hemolytic Strep Continue IV Zosyn. ID following. Afebrile, Hemodynamically Stable. Tylenol/Ibuprofen for analgesia as per Surgery. Awaiting definitive management by Surgery - for repeat CT A/P on 05/28/18 and possible appendectomy. 2. DM 2 - uncontrolled. Glucose readings imrpoved with Levemir to 20 units in addition to sliding scale Novolog. 3. Nasal congestion sec to URI - improving - continue Pseudoephedrine prn and Flonase. DVT Px - Lovenox SQ. Visit type - Emergency Visit Emergency Visit: Yes ED Registration Date: 05/20/18 Care time: The patient presented to the Emergency Department on the above date and was hospitalized for further evaluation of their emergent condition. - New Patient This patient is new to me today: No - Critical Care Critical Care patient: No - Discharge Referral Referred to [facility] No
[2018-05-27] MEDS ORDERED: PT OWN MED DRAWER 7, Y5N ONE (21:10)
[2018-05-27] MEDS: INSULIN (LEVEMIR) 100 UNITS/ML UNITS SQ SCH (22:10)
[2018-05-28] MEDS ORDERED: PIPERACILLIN/TAZOBACTAM 4.5 GM VIAL IVPB ONE ×4 (01:24→20:43)
[2018-05-28] MEDS ORDERED: DEXTROSE 5%-WATER 100 ML IVPB ONE ×4 (01:25→20:43)
[2018-05-28] MEDS: PIPERACILLIN/TAZOB 4.5 GM 4.5 GM in DEXTROSE 5%-WATER 100 ML IVPB SCH ×4 (02:49→21:04)
[2018-05-28] MEDS: INSULIN SLIDING SCALE (NOVOLOG) 1 VIAL SQ SCH ×4 (06:28→21:06)
[2018-05-28] MEDS ORDERED: PT OWN MED DRAWER 7, Y5N ONE (09:48)
--- NOTE | 2018-05-28 11:02 | PN ---
Progress Note, Physician - Current Medication List Current Medications: Active Medications Acetaminophen (Tylenol -) 650 mg PO Q6H PRN PRN Reason: PAIN LEVEL 6-10 Benzocaine/Menthol (Cepacol Lozenge -) 1 each MM PRN PRN PRN Reason: SORE THROAT Last Admin: 05/26/18 18:44 Dose: 1 each Enoxaparin Sodium (Lovenox -) 40 mg SQ DAILY [facility] Last Admin: 05/27/18 09:20 Dose: 40 mg Fluticasone Propionate (Flonase -) 1 spray NS BID [facility] Last Admin: 05/27/18 22:07 Dose: 1 spray Guaifenesin (Mucinex -) 600 mg PO BID [facility] Last Admin: 05/27/18 22:06 Dose: 600 mg Piperacillin Sod/Tazobactam (Sod 4.5 gm/ Dextrose) 100 mls @ 200 mls/hr IVPB Q6H-IV [facility]; Protocol Last Admin: 05/28/18 02:49 Dose: 200 mls/hr Ibuprofen (Caldolor Injection -) 600 mg IVPB Q6H PRN PRN Reason: PAIN LEVEL 6-10 Last Admin: 05/22/18 23:25 Dose: 600 mg Insulin Aspart (Novolog Vial Sliding Scale -) 1 vial SQ ACHS [facility]; Protocol Last Admin: 05/28/18 06:28 Dose: 4 units Insulin Detemir (Levemir Vial) 20 units SQ HS [facility] Last Admin: 05/27/18 22:10 Dose: 20 units Pseudoephedrine HCl (Sudafed -) 30 mg PO Q6H PRN PRN Reason: Congestion - Objective Vital Signs: Vital Signs Temperature 98.5 F 05/28/18 06:00 Pulse Rate 85 05/28/18 06:00 Respiratory Rate 20 05/28/18 06:00 Blood Pressure 142/68 05/28/18 06:00 O2 Sat by Pulse Oximetry (%) 92 L 05/27/18 21:00 Labs: CBC, BMP 05/27/18 07:30 05/27/18 07:30 INR, PTT INR 1.12 (0.83-1.09) H 05/27/18 07:30
[2018-05-28] MEDS: ENOXAPARIN NA (PORCINE) 40 MG/0.4 ML DISP.SYRIN SQ SCH (11:08)
[2018-05-28] MEDS: guaiFENesin 600 MG TABLET.ER (FP) PO SCH ×2 (11:08→21:04)
[2018-05-28] MEDS: FLUTICASONE PROP 0.05% 16 GM NASAL SPRAY NS SCH ×2 (11:09→21:04)
--- NOTE | 2018-05-28 12:27 | PN ---
Physical Exam: SUBJECTIVE: Patient seen and examined at bedside. POD 7 IR drainage of abscess. MASTER draining well w/ serosanguenous fluid. No fevers overnight. pt abdominal pain continuously improving. NPO overnight for CT scan today. denies fevers, cp , sob, n/v/d, blood in stools. OBJECTIVE: Vital Signs Period Temp Pulse Resp BP Sys/Ivan Pulse Ox Last 24 Hr 97.8 F-98.5 F 72-85 20-20 133-142/61-68 92 GENERAL: AOX3 NAD. obese EYES: EOMI; PEERLA' no scleral icterus. NECK: no JVD; no lymphadenopathy LUNGS: CTAB HEART: RRR, normal S1 and S2 without murmur, rub or gallop. ABDOMEN: Soft, RLQ TTP + BS. RLQ +MASTER drain w/ serosanguenous fluid, bandages are c/d/i MUSCULOSKELETAL: Normal range of motion at all joints. No bony deformities or tenderness. No CVA tenderness. EXTREMITIES: warm; well-perfused; no clubbing/cyanosis or edema NEUROLOGICAL: Cranial nerves II-XII intact. Normal speech. PSYCHIATRIC: Cooperative. Good eye contact. Appropriate mood and affect. SKIN: Warm, dry, normal turgor, no rashes or lesions noted, normal capillary refill. Laboratory Results - last 24 hr 05/27/18 05/27/18 05/28/18 16:57 22:03 06:26 POC Glucometer 143 268 224 05/28/18 11:59 POC Glucometer 190 Active Medications Generic Name Dose Route Start Last Admin Trade Name Freq PRN Reason Stop Dose Admin Acetaminophen 650 mg 05/26/18 10:36 Tylenol - PO Q6H PRN PAIN LEVEL 6-10 Benzocaine/Menthol 1 each 05/24/18 11:01 05/26/18 18:44 Cepacol Lozenge - MM 1 each PRN PRN Administration SORE THROAT Enoxaparin Sodium 40 mg 05/22/18 10:00 05/28/18 11:08 Lovenox - SQ 40 mg DAILY SARINA Administration Fluticasone Propionate 1 spray 05/26/18 13:00 05/28/18 11:09 Flonase - NS 1 spray BID SARINA Administration Guaifenesin 600 mg 05/26/18 11:45 05/28/18 11:08 Mucinex - PO 600 mg BID SARINA Administration Piperacillin Sod/Tazobactam 100 mls @ 200 mls/hr 05/20/18 21:00 05/28/18 11: 06 Sod 4.5 gm/ Dextrose IVPB 200 mls/hr Q6H-IV SARINA Administration Protocol Ibuprofen 600 mg 05/22/18 17:53 05/22/18 23:25 Caldolor Injection - IVPB 600 mg Q6H PRN Administration PAIN LEVEL 6-10 Insulin Aspart 1 vial 05/20/18 22:00 05/28/18 12:01 Novolog Vial Sliding Scale - SQ 2 units ACHS SARINA Administration Protocol Insulin Detemir 20 units 05/26/18 12:31 05/27/18 22:10 Levemir Vial SQ 20 units HS SARINA Administration Pseudoephedrine HCl 30 mg 05/26/18 11:28 Sudafed - PO Q6H PRN Congestion ASSESSMENT/PLAN: 63 y/o F with PMH of DM and recent perforated appendicitis with small abscesses , conservatively managed w/ abx (02/2018) and unsuccessful IR drainage, p/w a 2 day history of RLQ pain and fevers found to have an abscess in her appendix on CT. POD 7 IR drainage of abscess # sepsis 2/2 perforated appendix with abscess - sepsis resolved, POD 7 IR drainage of abscess. no more fevers -c/w zosyn 4.5 q6H (day 9) -incentive spirometer -Dr griffith consulted -Dr Prajapati consulted -pt and daughter met w/ surgeon and discussed possible surgery pending rpt CT scan. -f/u repeat CT abd/pelvis with PO, IV contrast today to evaluate RLQ, resolution or persistence of abscess -PO tylenol, IV ibuprofen, and morphine for pain control -BCx, Uxc neg -f/u cytology and fluid cx from IR abscess drain: cx show many beta hemolytic strep and no anaerobes -monitor MASTER drain - will be removed when <30cc #DM -A1c 9.3 seen 3 months ago -holding home medications -ISS -BGMS ACHS -low dose levemir 20U sq HS Morbid obesity- BMI 41.3 encourage weight loss and lifestyle modifications consider bariatric surgery outpt Nasal congestion 2/2 URI - improving -c/w Pseudoephedrine prn and Flonase. F/E/N/A no IVF replete prn NPO for CT OOB to chair regularly, encourage ambulation DVT PPX: lovenox 40mg SQ qd dispo: med-surg f/u repeat CT A/P with PO, IV contrast 05/27 to evaluate RLQ, resolution or persistence of abscess. possible surgery pending ct results Visit type - Emergency Visit Emergency Visit: Yes ED Registration Date: 05/20/18 Care time: The patient presented to the Emergency Department on the above date and was hospitalized for further evaluation of their emergent condition. - New Patient This patient is new to me today: Yes Date on this admission: 05/28/18 - Critical Care Critical Care patient: No
--- NOTE | 2018-05-28 14:33 | PN ---
Progress Note, Physician History of Present Illness: Pt with perforated appendicitis, persistent with phlegmon for 2 months despite abx courses, now s/p IR drainage of organized fluid collection (per IR, got 20ml foul, purulent fluid). Culture grew grp G beta Strep. IR drain with serosang fluid since placement, ~30-40ml daily last few days but being flushed with 5ml saline periodically. Minimal serous/clear fluid in bulb now, 5ml overnight shift. She is seen and examined in bed. She reports pain in RLQ improved, 3/10, partly uncomfortable from drain now, had been tolerating soft diabetic diet until NPO for CT this am. No fevers. Daughter will be here later today. In the last few days, pt developed a cold, with runny, sniffly nose and sore throat. Feeling better, but not fully resolved. - Current Medication List Current Medications: Active Medications Acetaminophen (Tylenol -) 650 mg PO Q6H PRN PRN Reason: PAIN LEVEL 6-10 Benzocaine/Menthol (Cepacol Lozenge -) 1 each MM PRN PRN PRN Reason: SORE THROAT Last Admin: 05/26/18 18:44 Dose: 1 each Enoxaparin Sodium (Lovenox -) 40 mg SQ DAILY [facility] Last Admin: 05/28/18 11:08 Dose: 40 mg Fluticasone Propionate (Flonase -) 1 spray NS BID [facility] Last Admin: 05/28/18 11:09 Dose: 1 spray Guaifenesin (Mucinex -) 600 mg PO BID [facility] Last Admin: 05/28/18 11:08 Dose: 600 mg Piperacillin Sod/Tazobactam (Sod 4.5 gm/ Dextrose) 100 mls @ 200 mls/hr IVPB Q6H-IV SARINA; Protocol Last Admin: 05/28/18 11:06 Dose: 200 mls/hr Ibuprofen (Caldolor Injection -) 600 mg IVPB Q6H PRN PRN Reason: PAIN LEVEL 6-10 Last Admin: 05/22/18 23:25 Dose: 600 mg Insulin Aspart (Novolog Vial Sliding Scale -) 1 vial SQ ACHS [facility]; Protocol Last Admin: 05/28/18 12:01 Dose: 2 units Insulin Detemir (Levemir Vial) 20 units SQ HS [facility] Last Admin: 05/27/18 22:10 Dose: 20 units Pseudoephedrine HCl (Sudafed -) 30 mg PO Q6H PRN PRN Reason: Congestion - Objective Vital Signs: Vital Signs Temperature 98.5 F 05/28/18 06:00 Pulse Rate 85 05/28/18 06:00 Respiratory Rate 20 05/28/18 06:00 Blood Pressure 142/68 05/28/18 06:00 O2 Sat by Pulse Oximetry (%) 92 L 05/27/18 21:00 Constitutional: Yes: No Distress, Calm, Obese Eyes: Yes: Conjunctiva Clear, EOM Intact HENT: Yes: Atraumatic, Normocephalic, Nasal Congestion, Other (sniffling) Gastrointestinal: Yes: Soft, Abdomen, Obese, Tenderness (RLQ focal, much less elsewhere, minimal RUQ), Other (IR drain with dressing coming off - resecured in stat-lock, old dressing removed including biopatch, new tegaderms applied to secure drain, gauze tucked under hub against skin; bulb with minimal clear serous fluid in it). No: Tenderness, Rebound Extremities: No: Cool, Cyanosis Integumentary: No: Jaundice, Rash Neurological: Yes: Alert, Oriented Labs: CBC, BMP 05/27/18 07:30 05/27/18 07:30 INR, PTT INR 1.12 (0.83-1.09) H 05/27/18 07:30 Microbiology 05/20/18 15:20 Blood - Peripheral Venous Blood Culture - Final NO GROWTH AFTER 5 DAYS INCUBATION 05/20/18 15:20 Blood - Peripheral Venous Blood Culture - Final NO GROWTH AFTER 5 DAYS INCUBATION 05/21/18 16:45 Body Fluid - Other Gram Stain - Final 05/21/18 16:45 Body Fluid - Other Body Fluid Culture - Final Beta Hem Streptococcus Group G 05/21/18 16:45 Body Fluid - Other Anaerobic Culture - Final NO ANAEROBES WERE ISOLATED 05/21/18 16:45 Body Fluid - Other AFB Smear Concentration - Final 05/21/18 16:45 Body Fluid - Other Mycobacterial Culture - Preliminary 05/21/18 16:45 Body Fluid - Other ALEJANDRO Preparation - Preliminary 05/21/18 16:45 Body Fluid - Other Fungal Culture - Preliminary 05/20/18 15:20 Urine - Urine Clean Catch Urine Culture - Final Problem List - Problems (1) Acute appendicitis with perforation, localized peritonitis, and abscess Assessment/Plan: with h/o perforated appendicitis, beginning around 03/01/18, now with organized RLQ abscess s/p percutaneous drainage by IR and culture with beta strep continue Zosyn per ID drain to stay until drainage <30ml daily without flushing, few more days most likely OOB to chair regularly, encourage ambulation with assistance as able ok to resume soft DIABETIC diet (ordered) FS with SSI regularly, maintain glucose control (pt sees Dr. Craft outpt) pain meds prn - Tylenol first line trend labs GI/DVT prophylaxis repeat CT shows collapse of abscess cavity around drain, still with inflammatory changes, final read pending reviewed with Dr. Lemus of radiology will discuss timing of interval appendectomy with patient and daughter when she arrives later given pt's current cold/virus, will need to wait a bit anyway Code(s): K35.33 - ACUTE APPENDICITIS WITH PERF AND LOC PERITONITIS, WITH ABSCS Qualifiers: Appendicitis gangrene presence: without gangrene Qualified Code(s): K35.33 - Acute appendicitis with perforation and localized peritonitis, with abscess (2) RLQ abdominal pain Assessment/Plan: improving Code(s): R10.31 - RIGHT LOWER QUADRANT PAIN (3) Diabetes mellitus type 2 with retinopathy Code(s): E11.319 - TYPE 2 DIABETES W UNSP DIABETIC RTNOP W/O MACULAR EDEMA Qualifiers: Diabetes mellitus rat exterminator insulin use: with long-term use Diabetic retinopathy severity: with proliferative retinopathy Proliferative retinopathy type: with traction retinal detachment not involving macula Laterality: right Qualified Code(s): E11.3531 - Type 2 diabetes mellitus with proliferative diabetic retinopathy 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
--- NOTE | 2018-05-28 16:01 | PN ---
Teaching Attending Note Name of Resident: Jeff Whitaker ATTENDING PHYSICIAN STATEMENT I saw and evaluated the patient. I reviewed the resident's note and discussed the case with the resident. I agree with the resident's findings and plan as documented. SUBJECTIVE: Still complains of some RLQ abdominal discomfort. Tolerating oral intake. No nausea/vomiting. OBJECTIVE: Afebrile/Hemodynamically Stable. Last Vital Signs Temp Pulse Resp BP Pulse Ox 98 F 73 20 140/74 92 L 05/28/18 14:40 05/28/18 14:40 05/28/18 14:40 05/28/18 14:40 05/27/18 21:00 HEENT- Atraumatic, No pharyngeal erythema/exudate Heart - S1, S2, RRR Lungs - Clear to auscultation, no crackles/wheeze. Abdomen - High BMI, RLQ tender. MASTER drain in situ draining sero-sanguinous fluid. Bowel Sounds normal. Extremities - mild edema. No calf tenderness. Laboratory Results - last 24 hr 05/27/18 05/27/18 05/28/18 16:57 22:03 06:26 POC Glucometer 143 268 224 05/28/18 11:59 POC Glucometer 190 Current Medications Generic Name Dose Route Start Last Admin Trade Name Freq PRN Reason Stop Dose Admin Acetaminophen 650 mg 05/26/18 10:36 Tylenol - PO Q6H PRN PAIN LEVEL 6-10 Benzocaine/Menthol 1 each 05/24/18 11:01 05/26/18 18:44 Cepacol Lozenge - MM 1 each PRN PRN Administration SORE THROAT Enoxaparin Sodium 40 mg 05/22/18 10:00 05/28/18 11:08 Lovenox - SQ 40 mg DAILY SARINA Administration Fluticasone Propionate 1 spray 05/26/18 13:00 05/28/18 11:09 Flonase - NS 1 spray BID SARINA Administration Guaifenesin 600 mg 05/26/18 11:45 05/28/18 11:08 Mucinex - PO 600 mg BID SARINA Administration Piperacillin Sod/Tazobactam 100 mls @ 200 mls/hr 05/20/18 21:00 05/28/18 11: 06 Sod 4.5 gm/ Dextrose IVPB 200 mls/hr Q6H-IV SARINA Administration Protocol Ibuprofen 600 mg 05/22/18 17:53 05/22/18 23:25 Caldolor Injection - IVPB 600 mg Q6H PRN Administration PAIN LEVEL 6-10 Insulin Aspart 1 vial 05/20/18 22:00 05/28/18 12:01 Novolog Vial Sliding Scale - SQ 2 units ACHS SARINA Administration Protocol Insulin Detemir 20 units 05/26/18 12:31 05/27/18 22:10 Levemir Vial SQ 20 units HS SARINA Administration Pseudoephedrine HCl 30 mg 05/26/18 11:28 Sudafed - PO Q6H PRN Congestion ASSESSMENT AND PLAN: 63 year old female with DM 2, history of perforated appendicitis 02/25 with recurrent associated abscess refractory to IV antibiotic therapy on 2 prior hospitalizations, presented again with RLQ abdominal pain, fever, sweats, nausea. 1. Sepsis secondary to Perforated Appendix with associated abscess - sepsis resolved. 6.5 x 5.4 x 5 cm abscess appreciated on CT A/P s/p IR guided drainage with MASTER drain in place, still draining serosanguinous fluid. Fluid Culture pos for Beta hemolytic Strep Continue IV Zosyn. ID following. Afebrile, Hemodynamically Stable. Tylenol/Ibuprofen for analgesia as per Surgery. Repeat CT A/P 05/28/18 - result pending. Still awaiting definitive management by Surgery. 2. DM 2 - uncontrolled. Glucose readings improved with Levemir to 20 units in addition to sliding scale Novolog. 3. Nasal congestion sec to URI - improving - continue Pseudoephedrine prn and Flonase. DVT Px - Lovenox SQ.
[2018-05-28] MEDS: LACTOBACILLUS ACIDOPHILUS 1 TABLET PO SCH (17:23)
[2018-05-28] MEDS ORDERED: INSULIN (NOVOLOG) ASPART 100 UNITS/ML 10ML VIAL ONE ×2 (19:12→20:43)
[2018-05-28] MEDS: INSULIN (LEVEMIR) 100 UNITS/ML UNITS SQ SCH (21:06)
[2018-05-29] MEDS ORDERED: PIPERACILLIN/TAZOBACTAM 4.5 GM VIAL IVPB ONE ×4 (03:02→21:43)
[2018-05-29] MEDS ORDERED: DEXTROSE 5%-WATER 100 ML IVPB ONE ×4 (03:02→21:43)
[2018-05-29] MEDS: PIPERACILLIN/TAZOB 4.5 GM 4.5 GM in DEXTROSE 5%-WATER 100 ML IVPB SCH ×4 (03:17→21:50)
[2018-05-29] MEDS: INSULIN SLIDING SCALE (NOVOLOG) 1 VIAL SQ SCH ×4 (06:09→22:36)
[2018-05-29] MEDS ORDERED: INSULIN (NOVOLOG) ASPART 100 UNITS/ML 10ML VIAL ONE (06:53)
[2018-05-29] MEDS ORDERED: INSULIN (LEVEMIR) 100 UNITS/ML UNITS SQ ONE (06:53)
[2018-05-29] MEDS ORDERED: PT OWN MED DRAWER 7, Y5N ONE (06:54)
[2018-05-29] MEDS ORDERED: INSULIN (LEVEMIR) 100 UNITS/ML UNITS SQ SCH (07:27)
[2018-05-29] MEDS: guaiFENesin 600 MG TABLET.ER (FP) PO SCH ×2 (09:21→21:54)
[2018-05-29] MEDS: LACTOBACILLUS ACIDOPHILUS 1 TABLET PO SCH (09:21)
[2018-05-29] MEDS: FLUTICASONE PROP 0.05% 16 GM NASAL SPRAY NS SCH ×2 (09:45→21:55)
--- NOTE | 2018-05-29 12:53 | PN ---
Physical Exam: SUBJECTIVE: Patient seen and examined at bedside. POD 8 IR drainage of abscess. MASTER draining well w/ serosanguenous fluid. No fevers overnight. pt abdominal pain continuously improving. denies fevers, cp, sob, n/v/d, blood in stools. OBJECTIVE: Vital Signs Period Temp Pulse Resp BP Sys/Ivan Pulse Ox Last 24 Hr 97.5 F-98.2 F 71-82 19-20 138-149/63-77 96-96 GENERAL: AOX3 NAD. obese EYES: EOMI; PEERLA' no scleral icterus. NECK: no JVD; no lymphadenopathy LUNGS: CTAB HEART: RRR, normal S1 and S2 without murmur, rub or gallop. ABDOMEN: Soft, RLQ TTP + BS. RLQ +MASTER drain w/ serosanguenous fluid, bandages are c/d/i MUSCULOSKELETAL: Normal range of motion at all joints. No bony deformities or tenderness. No CVA tenderness. EXTREMITIES: warm; well-perfused; no clubbing/cyanosis or edema NEUROLOGICAL: Cranial nerves II-XII intact. Normal speech. PSYCHIATRIC: Cooperative. Good eye contact. Appropriate mood and affect. SKIN: Warm, dry, normal turgor, no rashes or lesions noted, normal capillary refill. Laboratory Results - last 24 hr 05/28/18 05/28/18 05/29/18 17:25 21:05 06:02 POC Glucometer 244 188 178 05/29/18 11:29 POC Glucometer 224 Active Medications Generic Name Dose Route Start Last Admin Trade Name Freq PRN Reason Stop Dose Admin Acetaminophen 650 mg 05/26/18 10:36 Tylenol - PO Q6H PRN PAIN LEVEL 6-10 Benzocaine/Menthol 1 each 05/24/18 11:01 05/26/18 18:44 Cepacol Lozenge - MM 1 each PRN PRN Administration SORE THROAT Fluticasone Propionate 1 spray 05/26/18 13:00 05/29/18 09:45 Flonase - NS 1 spray BID SARINA Administration Guaifenesin 600 mg 05/26/18 11:45 05/29/18 09:21 Mucinex - PO 600 mg BID SARINA Administration Piperacillin Sod/Tazobactam 100 mls @ 200 mls/hr 05/20/18 21:00 05/29/18 09: 22 Sod 4.5 gm/ Dextrose IVPB 200 mls/hr Q6H-IV SARINA Administration Protocol Ibuprofen 600 mg 05/22/18 17:53 05/22/18 23:25 Caldolor Injection - IVPB 600 mg Q6H PRN Administration PAIN LEVEL 6-10 Insulin Aspart 1 vial 05/20/18 22:00 05/29/18 11:55 Novolog Vial Sliding Scale - SQ 4 units ACHS SARINA Administration Protocol Insulin Detemir 25 units 05/29/18 07:27 Levemir Vial SQ HS SARINA Lactobacillus Acidophilus 1 tab 05/28/18 16:30 05/29/18 09:21 Bacid - PO 1 tab DAILY SARINA Administration Pseudoephedrine HCl 30 mg 05/26/18 11:28 Sudafed - PO Q6H PRN Congestion ASSESSMENT/PLAN: 63 y/o F with PMH of DM and recent perforated appendicitis with small abscesses , conservatively managed w/ abx (02/2018) and unsuccessful IR drainage, p/w a 2 day history of RLQ pain and fevers found to have an abscess in her appendix on CT. POD 8 IR drainage of abscess # sepsis 2/2 perforated appendix with abscess - sepsis resolved, POD 8 IR drainage of abscess. no more fevers -c/w zosyn 4.5 q6H (day 10) -incentive spirometer -Dr griffith consulted -Dr Prajapati consulted -PO tylenol, IV ibuprofen, and morphine for pain control -BCx, Uxc neg -cytology and fluid cx from IR abscess drain: cx show many beta hemolytic strep and no anaerobes -monitor MASTER drain - will be removed when <30cc -repeat CT A/P - resolution of abscess, no residual fluid -Awaiting definitive management by Surgery for timing of appendectomy #DM -A1c 9.3 seen 3 months ago -holding home medications -ISS -BGMS ACHS -increase levemir 20U to 25U sq HS Morbid obesity- BMI 41.3 encourage weight loss and lifestyle modifications consider bariatric surgery outpt Nasal congestion 2/2 URI - improving -c/w Pseudoephedrine prn and Flonase. F/E/N/A no IVF replete prn soft DIABETIC diet OOB to chair regularly, encourage ambulation DVT PPX: lovenox 40mg SQ qd dispo: med-surg -repeat CT A/P - resolution of abscess, no residual fluid -Awaiting definitive management by Surgery for timing of appendectomy Visit type - Emergency Visit Emergency Visit: Yes ED Registration Date: 05/20/18 Care time: The patient presented to the Emergency Department on the above date and was hospitalized for further evaluation of their emergent condition. - New Patient This patient is new to me today: Yes Date on this admission: 05/29/18 - Critical Care Critical Care patient: No
--- NOTE | 2018-05-29 13:11 | PN ---
Teaching Attending Note Name of Resident: Jeff Whitaker ATTENDING PHYSICIAN STATEMENT I saw and evaluated the patient. I reviewed the resident's note and discussed the case with the resident. I agree with the resident's findings and plan as documented. SUBJECTIVE:asymptomatic. states nasal congestion and cough has resolved. denies CP, SOB, fever, chills, N/V/c/D OBJECTIVE: Last Vital Signs Temp Pulse Resp BP Pulse Ox 98 F 82 20 138/63 96 05/29/18 09:00 05/29/18 09:00 05/29/18 09:00 05/29/18 09:00 05/29/18 09:00 General NAD HEENT no sinus tenderness CV S1 S2 RRR no murmur/rub/gallop lungs CTA B/L no wheezing/rales/rhonchi ABdomen soft +tenderness RLQ over MASTER site. ND. obese ASSESSMENT AND PLAN: 63yo F wtih PMH DM with recent perforated appendicitis with small abscesses (2) which was conservatively managed in February 2018 came back the following month where IR drainage was unsuccessful and was treated with different course of abx. +Ecoli. now presents due to worsening abdominal pain with subjective fevers for the past 2 days. 1. sepsis due to perforated appendix with abscess-afebrile. s/p Drainage by IR with MASTER in place with minimal output. f/u CT showing resolution of abscess. will need appendectomy. d/w surgery about when they are planning. on zosyn day 10. 2. nasal congestion- now resolved. cont sudafed prn 3. DM-uncontrolled. increase lantus to 25units. cont to titrate as needed. iss and bgm 4. Morbid obesity- BMI 36. lifestyle modifications. consider bariatric surgery 5. DVT ppx- SCD. will start hep sq
--- NOTE | 2018-05-29 13:34 | PN ---
Progress Note, Physician - Current Medication List Current Medications: Active Medications Acetaminophen (Tylenol -) 650 mg PO Q6H PRN PRN Reason: PAIN LEVEL 6-10 Benzocaine/Menthol (Cepacol Lozenge -) 1 each MM PRN PRN PRN Reason: SORE THROAT Last Admin: 05/26/18 18:44 Dose: 1 each Fluticasone Propionate (Flonase -) 1 spray NS BID [facility] Last Admin: 05/29/18 09:45 Dose: 1 spray Guaifenesin (Mucinex -) 600 mg PO BID [facility] Last Admin: 05/29/18 09:21 Dose: 600 mg Heparin Sodium (Porcine) (Heparin -) 5,000 unit SQ TID [facility] Piperacillin Sod/Tazobactam (Sod 4.5 gm/ Dextrose) 100 mls @ 200 mls/hr IVPB Q6H-IV [facility]; Protocol Last Admin: 05/29/18 09:22 Dose: 200 mls/hr Ibuprofen (Caldolor Injection -) 600 mg IVPB Q6H PRN PRN Reason: PAIN LEVEL 6-10 Last Admin: 05/22/18 23:25 Dose: 600 mg Insulin Aspart (Novolog Vial Sliding Scale -) 1 vial SQ [facility]; Protocol Last Admin: 05/29/18 11:55 Dose: 4 units Insulin Detemir (Levemir Vial) 25 units SQ HS [facility] Lactobacillus Acidophilus (Bacid -) 1 tab PO DAILY [facility] Last Admin: 05/29/18 09:21 Dose: 1 tab Pseudoephedrine HCl (Sudafed -) 30 mg PO Q6H PRN PRN Reason: Congestion - Objective Vital Signs: Vital Signs Temperature 98 F 05/29/18 09:00 Pulse Rate 82 05/29/18 09:00 Respiratory Rate 20 05/29/18 09:00 Blood Pressure 138/63 05/29/18 09:00 O2 Sat by Pulse Oximetry (%) 96 05/29/18 09:00 Labs: CBC, BMP 05/27/18 07:30 05/27/18 07:30 INR, PTT INR 1.12 (0.83-1.09) H 05/27/18 07:30
[2018-05-29] MEDS: HEPARIN NA (PORCINE) 5,000 UNITS/ML 1ML VIAL SQ SCH ×2 (14:26→21:55)
--- NOTE | 2018-05-29 17:31 | PN ---
Progress Note, Physician History of Present Illness: Pt with perforated appendicitis, persistent with phlegmon for 2 months despite abx courses, now s/p IR drainage of organized fluid collection (per IR, got 20ml foul, purulent fluid). Culture grew grp G beta Strep. IR drain with serosang fluid since placement, 10ml serous fluid yesterday, small clear yellow fluid in bulb now. She is seen and examined sitting up in chair, brother and sister at bedside. She reports pain in RLQ much better, just uncomfortable from drain now, tolerating soft diabetic diet but not very hungry and doesn't like most hospital food. No fevers. Pt's runny, sniffly nose and sore throat are feeling better. - Current Medication List Current Medications: Active Medications Acetaminophen (Tylenol -) 650 mg PO Q6H PRN PRN Reason: PAIN LEVEL 6-10 Benzocaine/Menthol (Cepacol Lozenge -) 1 each MM PRN PRN PRN Reason: SORE THROAT Last Admin: 05/26/18 18:44 Dose: 1 each Fluticasone Propionate (Flonase -) 1 spray NS BID [facility] Last Admin: 05/29/18 09:45 Dose: 1 spray Guaifenesin (Mucinex -) 600 mg PO BID [facility] Last Admin: 05/29/18 09:21 Dose: 600 mg Heparin Sodium (Porcine) (Heparin -) 5,000 unit SQ TID [facility] Last Admin: 05/29/18 14:26 Dose: 5,000 unit Piperacillin Sod/Tazobactam (Sod 4.5 gm/ Dextrose) 100 mls @ 200 mls/hr IVPB Q6H-IV [facility]; Protocol Last Admin: 05/29/18 15:35 Dose: 200 mls/hr Ibuprofen (Caldolor Injection -) 600 mg IVPB Q6H PRN PRN Reason: PAIN LEVEL 6-10 Last Admin: 05/22/18 23:25 Dose: 600 mg Insulin Aspart (Novolog Vial Sliding Scale -) 1 vial SQ ACHS [facility]; Protocol Last Admin: 05/29/18 17:10 Dose: 4 units Insulin Detemir (Levemir Vial) 25 units SQ HS [facility] Lactobacillus Acidophilus (Bacid -) 1 tab PO DAILY [facility] Last Admin: 05/29/18 09:21 Dose: 1 tab Pseudoephedrine HCl (Sudafed -) 30 mg PO Q6H PRN PRN Reason: Congestion - Objective Vital Signs: Vital Signs Temperature 98 F 05/29/18 09:00 Pulse Rate 82 05/29/18 09:00 Respiratory Rate 20 05/29/18 09:00 Blood Pressure 138/63 05/29/18 09:00 O2 Sat by Pulse Oximetry (%) 96 05/29/18 09:00 Constitutional: Yes: No Distress, Calm, Obese Eyes: Yes: Conjunctiva Clear, EOM Intact HENT: Yes: Atraumatic, Normocephalic Gastrointestinal: Yes: Soft, Abdomen, Obese, Other (IR drain in place, small amt yellow/clear fluid in bulb). No: Tenderness (except mild where drain site is - RLQ pain/tenderness much improved) Extremities: No: Cool, Cyanosis Integumentary: No: Jaundice, Rash Wound/Incision: Yes: Dressing Dry and Intact (IR drain RLQ). No: Dressing Removed Neurological: Yes: Alert, Oriented. No: Unsteady Gait Labs: no new labs Problem List - Problems (1) Acute appendicitis with perforation, localized peritonitis, and abscess Assessment/Plan: chronic with h/o perforated appendicitis, beginning around 03/01/18, now with organized RLQ abscess s/p percutaneous drainage by IR and culture with beta strep continue Zosyn per ID through tomorrow afternoon's dose (total 10 days IV) will plan to remove IR drain tomorrow OOB to chair regularly, encourage ambulation with assistance as able tolerating soft DIABETIC diet FS with SSI regularly, maintain glucose control (pt sees Dr. Craft outpt) pain meds prn - nonnarcotics first line check HbA1C GI/DVT prophylaxis repeat CT showed collapse of abscess cavity around drain, still with inflammatory changes plan is for patient to go home tomorrow pm without drain, to complete antibiotic course orally discussed with Dr. Prajapati - plan is for Augmentin 875mg bid and Flagyl 500mg tid for 10 days total PO (pt will start those tomorrow night at home after discharge) pt will then recover and allow healing interval before interval appendectomy pt will have option to follow up with me or Dr. Razo (for insurance issues) in mid-June to schedule appy Code(s): K35.33 - ACUTE APPENDICITIS WITH PERF AND LOC PERITONITIS, WITH ABSCS Qualifiers: Appendicitis gangrene presence: without gangrene Qualified Code(s): K35.33 - Acute appendicitis with perforation and localized peritonitis, with abscess (2) RLQ abdominal pain Code(s): R10.31 - RIGHT LOWER QUADRANT PAIN (3) Diabetes mellitus type 2 with retinopathy Code(s): E11.319 - TYPE 2 DIABETES W UNSP DIABETIC RTNOP W/O MACULAR EDEMA Qualifiers: Diabetes mellitus senior living insulin use: with lobsterman use Diabetic retinopathy severity: with proliferative retinopathy Proliferative retinopathy type: with traction retinal detachment not involving macula Laterality: right Qualified Code(s): E11.3531 - 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
[2018-05-30] MEDS ORDERED: DEXTROSE 5%-WATER 100 ML IVPB ONE ×3 (02:43→15:34)
[2018-05-30] MEDS ORDERED: PIPERACILLIN/TAZOBACTAM 4.5 GM VIAL IVPB ONE ×3 (02:43→15:33)
[2018-05-30] MEDS: PIPERACILLIN/TAZOB 4.5 GM 4.5 GM in DEXTROSE 5%-WATER 100 ML IVPB SCH ×3 (03:11→15:46)
[2018-05-30] MEDS: INSULIN SLIDING SCALE (NOVOLOG) 1 VIAL SQ SCH ×3 (06:35→16:55)
[2018-05-30] MEDS: HEPARIN NA (PORCINE) 5,000 UNITS/ML 1ML VIAL SQ SCH ×2 (06:35→14:50)
[2018-05-30] MEDS ORDERED: INSULIN (LEVEMIR) 100 UNITS/ML UNITS SQ ONE (07:51)
[2018-05-30] MEDS ORDERED: PT OWN MED DRAWER 7, Y5N ONE (07:51)
[2018-05-30] MEDS ORDERED: INSULIN (NOVOLOG) ASPART 100 UNITS/ML 10ML VIAL ONE (07:51)
--- NOTE | 2018-05-30 10:05 | PN ---
Progress Note, Physician History of Present Illness: stable no new issues plan to remove drainage tube - Current Medication List Current Medications: Active Medications Acetaminophen (Tylenol -) 650 mg PO Q6H PRN PRN Reason: PAIN LEVEL 6-10 Benzocaine/Menthol (Cepacol Lozenge -) 1 each MM PRN PRN PRN Reason: SORE THROAT Last Admin: 05/26/18 18:44 Dose: 1 each Fluticasone Propionate (Flonase -) 1 spray NS BID [facility] Last Admin: 05/29/18 21:55 Dose: Not Given Guaifenesin (Mucinex -) 600 mg PO BID [facility] Last Admin: 05/29/18 21:54 Dose: 600 mg Heparin Sodium (Porcine) (Heparin -) 5,000 unit SQ TID [facility] Last Admin: 05/30/18 06:35 Dose: 5,000 unit Piperacillin Sod/Tazobactam (Sod 4.5 gm/ Dextrose) 100 mls @ 200 mls/hr IVPB Q6H-IV [facility]; Protocol Last Admin: 05/30/18 03:11 Dose: 200 mls/hr Ibuprofen (Caldolor Injection -) 600 mg IVPB Q6H PRN PRN Reason: PAIN LEVEL 6-10 Last Admin: 05/22/18 23:25 Dose: 600 mg Insulin Aspart (Novolog Vial Sliding Scale -) 1 vial SQ ACHS [facility]; Protocol Last Admin: 05/30/18 06:35 Dose: 2 units Insulin Detemir (Levemir Vial) 25 units SQ HS [facility] Last Admin: 05/29/18 21:54 Dose: 25 units Lactobacillus Acidophilus (Bacid -) 1 tab PO DAILY [facility] Last Admin: 05/29/18 09:21 Dose: 1 tab Pseudoephedrine HCl (Sudafed -) 30 mg PO Q6H PRN PRN Reason: Congestion - Objective Vital Signs: Vital Signs Temperature 98.1 F 05/30/18 06:00 Pulse Rate 73 05/30/18 06:00 Respiratory Rate 20 05/30/18 06:00 Blood Pressure 151/70 05/30/18 06:00 O2 Sat by Pulse Oximetry (%) 96 05/29/18 21:00 Constitutional: Yes: No Distress, Calm Cardiovascular: Yes: Regular Rate and Rhythm Respiratory: Yes: Regular, CTA Bilaterally Gastrointestinal: Yes: Normal Bowel Sounds, Soft Musculoskeletal: Yes: WNL Extremities: Yes: WNL Wound/Incision: Yes: Other (drain in place) Neurological: Yes: Alert, Oriented Labs: CBC, BMP 05/27/18 07:30 05/27/18 07:30 INR, PTT INR 1.12 (0.83-1.09) H 05/27/18 07:30 Assessment/Plan Problem List - Problems (1) Acute appendicitis with perforation, localized peritonitis, and abscess Code(s): K35.33 - ACUTE APPENDICITIS WITH PERF AND LOC PERITONITIS, WITH ABSCS Qualifiers: Appendicitis gangrene presence: without gangrene Qualified Code(s): K35.33 - Acute appendicitis with perforation and localized peritonitis, with abscess (2) RLQ abdominal pain Code(s): R10.31 - RIGHT LOWER QUADRANT PAIN (3) Diabetes mellitus type 2 with retinopathy Code(s): E11.319 - TYPE 2 DIABETES W UNSP DIABETIC RTNOP W/O MACULAR EDEMA Qualifiers: Diabetes mellitus shelter insulin use: with termite control service representative use Diabetic retinopathy severity: with proliferative retinopathy Proliferative retinopathy type: with traction retinal detachment not involving macula Laterality: right Qualified Code(s): E11.3531 - 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
--- NOTE | 2018-05-30 10:38 | DS ---
Physical Exam: SUBJECTIVE: Patient seen and examined at bedside. POD 9 IR drainage of abscess. MASTER draining well w/ serosanguenous fluid. No fevers overnight. pt abdominal pain continuously improving. denies fevers, cp, sob, n/v/d, blood in stools. Surgery to remove drain today prior to dc. pt will be dcd w/ PO abx x10d and will f/u in June w/ surgery for appendectomy OBJECTIVE: Vital Signs Period Temp Pulse Resp BP Sys/Ivan Pulse Ox Last 24 Hr 98.0 F-98.1 F 73-75 20-20 151-153/70-73 96 PHYSICAL EXAM GENERAL: AOX3 NAD. obese EYES: EOMI; PEERLA' no scleral icterus. NECK: no JVD; no lymphadenopathy LUNGS: CTAB HEART: RRR, normal S1 and S2 without murmur, rub or gallop. ABDOMEN: Soft, RLQ TTP + BS. RLQ +MASTER drain w/ serosanguenous fluid, bandages are c/d/i MUSCULOSKELETAL: Normal range of motion at all joints. No bony deformities or tenderness. No CVA tenderness. EXTREMITIES: warm; well-perfused; no clubbing/cyanosis or edema NEUROLOGICAL: Cranial nerves II-XII intact. Normal speech. PSYCHIATRIC: Cooperative. Good eye contact. Appropriate mood and affect. SKIN: Warm, dry, normal turgor, no rashes or lesions noted, normal capillary refill. LABS Laboratory Results - last 24 hr 05/29/18 05/29/18 05/29/18 11:29 17:08 21:54 POC Glucometer 224 224 224 Hemoglobin A1c % 05/30/18 05/30/18 06:00 06:32 POC Glucometer 167 Hemoglobin A1c % 8.7 H HOSPITAL COURSE: Date of Admission:05/20/18 Date of Discharge: 05/30/18 63 y/o F with PMH of DM and recent perforated appendicitis with small abscesses , conservatively managed w/ abx (02/2018) and unsuccessful IR drainage, p/w a 2 day history of RLQ pain and fevers found to have an abscess in her appendix on CT. POD 9 IR drainage of abscess Admitted for sepsis 2/2 appendiceal abscess as seen on CT. ID (Alo) and surgery (nacho) consulted. pt was tx w/ IV Zosyn and went for IR drainage of abscess. procedure was w/o complication and MASTER drain was placed. pt received IV ibuprofen, tylenol, and morphine for pain control. BCx, Uxc were neg. cytology and fluid cx from IR abscess drain: cx show many beta hemolytic strep and no anaerobes. pt received 10 days of zosyn. repeat CT A/P - showed resolution of abscess and no residual fluid. pt will complete tx w/ Augmentin 875mg bid and Flagyl 500mg tid for 10 days total PO. IR drain removed prior to dc pt will then recover and allow healing interval before interval appendectomy pt will have option to follow up with Dr. Reese or Dr. Razo (for insurance issues) in mid-June to schedule appy DM -A1c 9.3 seen 3 months ago, A1c today 8.7 pt to resume home meds, record sugars, and f/u w/ her pcp/endo and her sleep technician Morbid obesity- BMI 41.3 encouraged weight loss and lifestyle modifications consider bariatric surgery outpt Pt stable and ready for dc w/ appropriate f/u Minutes to complete discharge: 40 Discharge Summary Reason For Visit: ABSCESS OF APPENDIX Current Active Problems Appendiceal abscess (Acute) Morbid obesity with BMI of 40.0-44.9, adult (Acute) Condition: Stable - Instructions Diet, Activity, Other Instructions: You came in for abdominal pain and were found to have a persistent abscess of your previously ruptured appendix. You were treated with IV antibiotics and radiology successfully drained the abscess with a drain placed through the skin , which has been removed. Keep the dressing on the site for 48 hours, then you may remove it and shower. Keep covered daily after that if there is any leakage from the site, until it heals over. Take ALL of your antibiotics as prescribed for 10 days total: Augmentin 875mg twice daily and Flagyl (metronidazole) 500mg three times daily. Start Monday night when you get home. Make sure you resume taking all of your usual home medications, including your insulin. You may take Tylenol or ibuprofen at home for pain as needed, according the instructions on the labels of the medications. Keep a record of your blood sugars daily at home to bring with you to see your PMD and Dr. Craft. You should try to see Dr. Craft again within a couple of weeks if possible. Please follow up with your primary care physician within 1 week. Please call to make an appointment with a surgeon in mid-June to schedule your operation to remove your appendix. You may call Dr. Reese or Dr. Razo, whose numbers are provided. Please follow up with your sleep technician within 1 week. If you experience any fevers, shortness of breath, worsening abdominal pain, nausea, vomiting, diarrhea, blood in stools, please call 911 or return to the ER. Referrals: Carlos Razo MD [Staff Physician] - Shabbir Reese MD [Staff Physician] - Kamaljit Yoo MD [Primary Care Provider] - Disposition: HOME - Home Medications Comprehensive Discharge Medication List: Ambulatory Orders metFORMIN HCL [Glucophage] 1,000 mg PO BID #0 tab 08/09/12 Insulin Glargine,Hum.rec.anlog [Lantus (10mL VIAL) -] 26 units SQ HS 02/17/15 Insulin Lispro [Humalog] 18 units SQ PRN 03/28/18 Acetaminophen [Tylenol .Regular Strength -] 650 mg PO Q6H PRN tablet 04/02/18 Amoxicillin/Potassium Clav [Augmentin 875-125 Tablet] 875 mg PO BID 10 Days #20 tablet 05/30/18 metroNIDAZOLE [Flagyl -] 500 mg PO TID 10 Days #30 tablet 05/30/18 This patient is new to me today: Yes Date on this admission: 05/30/18 Emergency Visit: Yes ED Registration Date: 05/20/18 Care time: The patient presented to the Emergency Department on the above date and was hospitalized for further evaluation of their emergent condition. Critical Care patient: No - Discharge Referral Referred to [facility] Med P.C.: No
[2018-05-30] MEDS: guaiFENesin 600 MG TABLET.ER (FP) PO SCH (10:40)
[2018-05-30] MEDS: LACTOBACILLUS ACIDOPHILUS 1 TABLET PO SCH (10:40)
--- NOTE | 2018-05-30 10:43 | PN ---
Progress Note, Physician History of Present Illness: Pt with perforated appendicitis, persistent with phlegmon for 2 months despite abx courses, now s/p IR drainage of organized fluid collection (per IR, got 20ml foul, purulent fluid). Culture grew grp G beta Strep. IR drain with serosang fluid since placement, 6-10ml serous fluid daily last 2 days, little serous fluid in bulb now. She is seen sitting up in chair and examined in bed. She reports mainly discomfort from the drain with itching at the site, no sig RLQ pain anymore; tolerating soft diabetic diet but not very hungry and doesn't like most hospital food. No fevers. Her cold is nearly resolved. - Current Medication List Current Medications: Active Medications Acetaminophen (Tylenol -) 650 mg PO Q6H PRN PRN Reason: PAIN LEVEL 6-10 Benzocaine/Menthol (Cepacol Lozenge -) 1 each MM PRN PRN PRN Reason: SORE THROAT Last Admin: 05/26/18 18:44 Dose: 1 each Fluticasone Propionate (Flonase -) 1 spray NS BID [facility] Last Admin: 05/29/18 21:55 Dose: Not Given Guaifenesin (Mucinex -) 600 mg PO BID [facility] Last Admin: 05/29/18 21:54 Dose: 600 mg Heparin Sodium (Porcine) (Heparin -) 5,000 unit SQ TID [facility] Last Admin: 05/30/18 06:35 Dose: 5,000 unit Piperacillin Sod/Tazobactam (Sod 4.5 gm/ Dextrose) 100 mls @ 200 mls/hr IVPB Q6H-IV [facility]; Protocol Last Admin: 05/30/18 03:11 Dose: 200 mls/hr Ibuprofen (Caldolor Injection -) 600 mg IVPB Q6H PRN PRN Reason: PAIN LEVEL 6-10 Last Admin: 05/22/18 23:25 Dose: 600 mg Insulin Aspart (Novolog Vial Sliding Scale -) 1 vial SQ ACHS [facility]; Protocol Last Admin: 05/30/18 06:35 Dose: 2 units Insulin Detemir (Levemir Vial) 25 units SQ HS [facility] Last Admin: 05/29/18 21:54 Dose: 25 units Lactobacillus Acidophilus (Bacid -) 1 tab PO DAILY [facility] Last Admin: 05/29/18 09:21 Dose: 1 tab Pseudoephedrine HCl (Sudafed -) 30 mg PO Q6H PRN PRN Reason: Congestion - Objective Vital Signs: Vital Signs Temperature 98.1 F 05/30/18 06:00 Pulse Rate 73 05/30/18 06:00 Respiratory Rate 20 05/30/18 06:00 Blood Pressure 151/70 05/30/18 06:00 O2 Sat by Pulse Oximetry (%) 96 05/29/18 21:00 Constitutional: Yes: No Distress, Calm, Obese Eyes: Yes: Conjunctiva Clear, EOM Intact HENT: Yes: Atraumatic, Normocephalic Gastrointestinal: Yes: Soft, Abdomen, Obese, Tenderness (minimal RLQ at drain site), Other (IR drain in place, little serous fluid in bulb, removed at bedside without difficulty and dressing placed of gauze and tegaderm) Extremities: No: Cool, Cyanosis Integumentary: No: Jaundice, Rash Wound/Incision: Yes: Dressing Removed (drain dressing and drain removed), Other (clean dressing left over site) Neurological: Yes: Alert, Oriented. No: Unsteady Gait Labs: Hb A1C 8.7 down a little from 9.3 3m ago Problem List - Problems (1) Acute appendicitis with perforation, localized peritonitis, and abscess Assessment/Plan: chronic with h/o perforated appendicitis, beginning around 03/01/18, now with organized RLQ abscess, resolved after percutaneous drainage by IR culture grew beta strep Zosyn per ID through today's afternoon dose (total 10 days IV) IR drain removed at bedside and dressing placed pt to remove dressing in 2d and then may shower, keep covered as needed thereafter until site heals over pt is OOB to chair regularly, ambulates with assistance as able tolerating soft DIABETIC diet HbA1C improved a little from 3m ago maintain glucose control (pt sees Dr. Craft outpt) - pt should resume her nightly long-acting insulin on discharge pain meds prn - nonnarcotics first line GI/DVT prophylaxis patient may go home after pm Zosyn, to complete antibiotic course orally discussed with Dr. Prajapati - plan is for Augmentin 875mg bid and Flagyl 500mg tid for 10 days total PO (pt will start those tonight at home after discharge) pt has option to follow up with me or Dr. Razo (for insurance issues) in mid- June to schedule interval appendectomy instructions are in d/c plan discussed with Dr. Whitaker of primary team Code(s): K35.33 - ACUTE APPENDICITIS WITH PERF AND LOC PERITONITIS, WITH ABSCS Qualifiers: Appendicitis gangrene presence: without gangrene Qualified Code(s): K35.33 - Acute appendicitis with perforation and localized peritonitis, with abscess (2) RLQ abdominal pain Code(s): R10.31 - RIGHT LOWER QUADRANT PAIN (3) Diabetes mellitus type 2 with retinopathy Code(s): E11.319 - TYPE 2 DIABETES W UNSP DIABETIC RTNOP W/O MACULAR EDEMA Qualifiers: Diabetes mellitus petroleum terminal plant operator insulin use: with petroleum terminal plant operator use Diabetic retinopathy severity: with proliferative retinopathy Proliferative retinopathy type: with traction retinal detachment not involving macula Laterality: right Qualified Code(s): E11.3531 - 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
[2018-05-30] MEDS: FLUTICASONE PROP 0.05% 16 GM NASAL SPRAY NS SCH (10:44)
--- NOTE | 2018-05-30 10:55 | PN ---
Teaching Attending Note Name of Resident: Jeff Whitaker ATTENDING PHYSICIAN STATEMENT I saw and evaluated the patient. I reviewed the resident's note and discussed the case with the resident. I agree with the resident's findings and plan as documented. SUBJECTIVE:asymptomatic. denies CP, SOB, fever, chills, N/V/C/D OBJECTIVE: Last Vital Signs Temp Pulse Resp BP Pulse Ox 98.1 F 73 20 151/70 96 05/30/18 06:00 05/30/18 06:00 05/30/18 06:00 05/30/18 06:00 05/29/18 21:00 General NAD ASSESSMENT AND PLAN: 63yo F wtih PMH DM with recent perforated appendicitis with small abscesses (2) which was conservatively managed in February 2018 came back the following month where IR drainage was unsuccessful and was treated with different course of abx. +Ecoli. now presents due to worsening abdominal pain with subjective fevers for the past 2 days. 1. sepsis due to perforated appendix with abscess-afebrile. s/p Drainage by IR with MASTER in place with minimal output. f/u CT showing resolution of abscess. plan for MASTER removal todya. will f/u with surgery to appendectomy as outpatient. will d/c on augmentin and flagyl for 10days. 2. nasal congestion- now resolved. cont sudafed prn 3. DM- overall improved. a1c 8 here however she states prior to becoming sick was always 6-7. will d/c on home medications. states she sees a pump operator byproducts already. instructed her to keep a log and bring with her to next PMD appt. 4. Morbid obesity- BMI 36. lifestyle modifications. consider bariatric surgery 5. DVT ppx- hep sq 6. d/c home
[2018-05-30 14:23] VITALS: BP 147/77; PULSE 71; TEMP 98
== END 2018-05-30 16:20 | disposition home or self-care (01) | DRG 710 ==
LOC: JER 14:29 → JERBED 19:53 → J5S 05-21 17:31
PROVIDERS: ADMIT Internal Medicine; ATTEND Internal Medicine
PROC: 0D9J3ZX Drainage of Appendix, Percutaneous Approach, Diagnostic (ICD-10-PCS; principal; 2018-05-21)
DX: A41.9 Sepsis, unspecified organism (principal); G47.33 Obstructive sleep apnea (adult) (pediatric); E66.01 Morbid (severe) obesity due to excess calories; R10.31 Right lower quadrant pain; E88.09 Other disorders of plasma-protein metabolism, not elsewhere classified; Z68.41 Body mass index [BMI] 40.0-44.9, adult; Z79.4 Long term (current) use of insulin; E11.3531 Type 2 diabetes mellitus with proliferative diabetic retinopathy with traction retinal detachment not involving the macula, right eye; K35.33 Acute appendicitis with perforation, localized peritonitis, and gangrene, with abscess; E11.65 Type 2 diabetes mellitus with hyperglycemia
CPT/HCPCS: 36415; 49406; 71045-TC-FY; 74177-TC; 76098-TC-FY; 77012-TC; 80048; 80053; 81003; 81015; 82962; 83036; 83605; 83735; 84100; 85025; 85027; 85610; 85730; 86850; 86900; 86901; 87040; 87070; 87075; 87086; 87102; 87116; 87205; 87206; 87210; 87899; 88108; 88305-TC; 93005; 93010; 99285-25; C1729; C1769; J0131; J1644; J7030; Q9967

== ENCOUNTER 2021-10-26 08:18 | Emergency (ER) | payer OTHER ==
[2021-10-26 08:23] VITALS: BP 140/62; PULSE 82; TEMP 98.2; BMI 35.0
[2021-10-26] MEDS ORDERED: ONDANSETRON 4 MG/2 ML VIAL IVPUSH ONE (09:14)
[2021-10-26] MEDS ORDERED: SODIUM CHLORIDE 0.9% 500 ML INFUS.BAG IV ONE (09:14)
[2021-10-26] MEDS ORDERED: ACETAMINOPHEN 1000 MG/100 ML BAG IVPB ONE (09:22)
[2021-10-26] MEDS ORDERED: ONDANSETRON 4 MG/2 ML VIAL ONE (09:27)
[2021-10-26 10:04] LABS: HEMATOCRIT 43.4 % (32.4-45.2); HEMOGLOBIN 14.6 GM/dL (10.7-15.3); MCH 29.6 pg (25.7-33.7); MCHC 33.6 g/dl (32.0-36.0); MEAN CELL VOLUME 88.2 fl (80-96); MEAN PLT VOLUME 7.4 fl (7.5-11.1); PLATELET COUNT 234 10^3/uL (134-434); RBC 4.92 M/mm3 (3.60-5.2); RDW 13.9 % (11.6-15.6); WHITE BLOOD COUNT 4.3 K/mm3 (4.0-10.0)
[2021-10-26 10:21] LABS: EPI CELLS 33 /uL (0-25.1); HYALINE CASTS 4 /uL (0-3.1); URINE APPEARANCE CLEAR; URINE BACTERIA 119 /uL (0-1359); URINE BILIRUBIN NEGATIVE (NEGATIVE); URINE COLOR YELLOW; URINE GLUCOSE (UA) 3+ (NEGATIVE); URINE KETONE TRACE (NEGATIVE); URINE LEUK ESTERASE NEGATIVE (NEGATIVE); URINE NITRITE NEGATIVE (NEGATIVE); URINE PROTEIN 1+ (NEGATIVE); URINE RBC 9 /uL (0-23.9); URINE UROBILINOGEN 0.2 mg/dL (0.2-1.0); URINE WBC 18 /uL (0-25.8)
[2021-10-26] MEDS ORDERED: ACETAMINOPHEN INJECTION 100 ML IVPB ONE (10:22)
[2021-10-26 10:31] LABS: CALCIUM 8.9 mg/dL (8.5-10.1)
[2021-10-26 10:32] LABS: ALBUMIN 3.2 g/dl (3.4-5.0); BLOOD UREA NITROGEN 33.6 mg/dL (7-18); MAGNESIUM 2.5 mg/dL (1.8-2.4)
[2021-10-26 10:35] LABS: CREATININE 1.4 mg/dL (0.55-1.3)
[2021-10-26 10:36] LABS: BILIRUBIN,TOTAL 0.5 mg/dL (0.2-1); TOT PROT 7.4 g/dl (6.4-8.2)
[2021-10-26 10:38] LABS: YEAST MODERATE PRESENT (NEGATIVE)
[2021-10-26 10:59] LABS: ANISOCYTOSIS 0; HELMET CELLS 0; HOWELL-JOLLY BODIES 0; MACROCYTOSIS 0; OVALOCYTE 0; ROULEAU 0; SICKELED CELLS 0; TARGET CELLS 0; TEAR DROP CELLS 0; TOXIC GRANULATION 0
[2021-10-26] MEDS ORDERED: POTASSIUM CHLORIDE ORAL LIQUID 20 MEQ/15 ML PO ONE (11:08)
[2021-10-26] MEDS ORDERED: POTASSIUM CHLORIDE ORAL LIQUID 20 MEQ/15 ML ONE (11:21)
[2021-10-26] MEDS ORDERED: FLUCONAZOLE 150 MG TABLET PO ONE ×2 (12:40→12:44)
== END 2021-10-26 14:26 | disposition home or self-care (01) ==
LOC: JER 08:18
PROC: 3E0333Z Introduction of Anti-inflammatory into Peripheral Vein, Percutaneous Approach (ICD-10-PCS; principal; 2021-10-26)
PROC: 3E033GC Introduction of Other Therapeutic Substance into Peripheral Vein, Percutaneous Approach (ICD-10-PCS; 2021-10-26)
DX: R11.10 Vomiting, unspecified (principal); R19.7 Diarrhea, unspecified; R10.33 Periumbilical pain
CPT/HCPCS: 36415; 74177-TC; 80053; 81003; 83605; 83690; 83735; 85025; 87086; 99285-25; C9803-CS; Q9967; U0003; U0005